=== PATIENT | female | born 1985 | race Caucasian/White ===

== ENCOUNTER 2021-03-21 00:41 | Inpatient (IN) ==
[2021-03-21 02:59] LABS: Appearance Urine Cloudy (Clear); Bacteria Urine Automated 1+ (Negative); Bilirubin Urine Negative (Negative); Blood Urine Negative (Negative); Color Urine Yellow; Epithelial Cell Urine Auto >30 /lpf (0-5); Glucose Urine UA Negative (Negative); Ketones Urine Negative (Negative); Leukocyte Esterase Urine 2+ (Negative); Nitrite Urine Negative (Negative); Protein Urine Negative (Negative); RBC Urine Automated 0-4 /hpf (0-4); Specific Gravity Urine 1.015 (1.000-1.030); Urobilinogen Urine Negative (Negative); pH Urine 7.5 (4.5-7.5)
[2021-03-21] MEDS ORDERED: ONDANSETRON INJ 2 MG/ML 2 ML VIAL IV STA (03:41)
[2021-03-21] MEDS ORDERED: HYDROmorphone INJ 1 MG/ML SYRINGE IV STA (03:41)
--- NOTE | 2021-03-21 04:19 | Emergency Department Note ---
History of Present Illness General Chief complaint: Infection Stated complaint: FEVER,SOB,COUGH Time Seen by Provider: 03/21/21 03:30 Source: patient Mode of arrival: ambulatory Limitations: no limitations History of Present Illness Maximum Pain Intensity: 10 This patient is a 36-year-old female who presents to the emergency department for evaluation of fevers and abdominal pain. 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 She had a GJ-tube placed in early February to receive feedings. She states that after discharge, she developed progressively worsening abdominal pain at home. She returned to [facility] in [place] and was found to have free air in her abdomen. She states that they elected to treat her with Rocephin and she stayed in the hospital for 9 days. She states that she had a central line placed during that appointment due to poor access. She reports that she has been having fevers for the past 2 days. She states that Tylenol does help to improve her fever. She is concerned about an infection in her central line. She has been having severe left upper quadrant abdominal pain. She takes oral Dilaudid at home but states this has not been helping her pain. Home Medications Medication Instructions Recorded Confirmed Type acetaminophen 500 mg tablet 500 mg PO Q8H PRN 03/21/21 03/21/21 History albuterol sulfate 90 mcg/actuation 1 inh INHALATION Q4H PRN 03/21/21 03/21/21 History aerosol inhaler (Ventolin HFA) apixaban 5 mg tablet (Eliquis) 5 mg PO BID 03/21/21 03/21/21 History budesonide-formoterol HFA 160 1 inh INHALATION DAILY 03/21/21 03/21/21 History mcg-4.5 mcg/actuation aerosol inhaler (Symbicort) clonidine HCl 0.1 mg tablet 0.1 mg PO TID PRN 03/21/21 03/21/21 History dextroamphetamine-amphetamine 20 20 mg PO BID 03/21/21 03/21/21 History mg tablet diltiazem HCl 120 mg 120 mg PO DAILY 03/21/21 03/21/21 History capsule,extended release 24 hr gabapentin 100 mg capsule 300 mg PO TID 03/21/21 03/21/21 History hydromorphone 2 mg tablet 2 mg PO Q2H PRN 03/21/21 03/21/21 History lansoprazole 30 mg capsule,delayed 30 mg PO DAILY 03/21/21 03/21/21 History release [id number] 1 cap PO QID 03/21/21 03/21/21 History 24,000-76,000-120,000 unit capsule,delayed rel (Creon) montelukast 10 mg tablet 10 mg PO DAILY 03/21/21 03/21/21 History ondansetron 4 mg disintegrating 4 mg PO Q6H PRN 03/21/21 03/21/21 History tablet promethazine 12.5 mg tablet 12.5 mg PO Q6H PRN 03/21/21 03/21/21 History tiotropium bromide 2.5 1 inh INHALATION DAILY 03/21/21 03/21/21 History mcg/actuation mist for inhalation (Spiriva Respimat) Allergies Allergy/AdvReac Type Severity Reaction Status Date / Time amlodipine [From Norvasc] AdvReac Unknown edema Unverified 03/21/21 08:08 Past Med/Surg History Medical History Asthma Chronic back pain Gastrostomy tube in place Hypokalemia Patient received potassium riders this admission. No pertinent family history Pancreatitis Smoker Surgical History (Updated 03/21/21 @ 21:37 by Mulugeta Haynes MD) H/O shoulder surgery H/O wrist surgery Social History Smoking Status: Current every day smoker Tobacco Type: Cigarettes Cigarettes Per Day: 12; Second Hand Exposure: No; Do You Dip or Chew Tobacco: No; Tobacco Cessation Education Requested by Patient: No Hx Alcohol Use: Yes Alcohol type: beer Hx Substance Use: Yes Last Used Substance: Unknown Communication Ability: Effective Beliefs That Will Affect Care: None Current Living Situation: Alone Other Information That Helps Us Care for You: No Feels Safe at Home: Yes Safety Concerns: Feels Safe At This Time Assistive Devices: Glasses Assistive Devices Comment: Tube feeds Review of Systems A total of 10 systems reviewed and were otherwise negative Physical Exam Vital Signs Vital Signs - 24 hr 03/21/21 07:30 03/21/21 07:35 03/21/21 08:30 Pulse Rate 120 H 117 H Pulse Rate [Apical] 122 H Pulse Rhythm [Apical] Regular Pulse Strength [Apical] Normal Respiratory Rate 17 18 17 Respiratory Effort / Characteristics Non-Labored Spontaneous Respiratory Depth Normal Respiratory Pattern Regular Blood Pressure 111/67 113/79 Blood Pressure [Right Arm] 111/67 Blood Pressure Mean 81 90 Blood Pressure Mean [Right Arm] 81 Blood Pressure Position [Right Arm] Lying Pulse Oximetry 97 97 98 Oxygen Delivery Method Room Air 03/21/21 09:30 Pulse Rate 112 H Pulse Rate [Apical] Pulse Rhythm [Apical] Pulse Strength [Apical] Respiratory Rate 24 Respiratory Effort / Characteristics Respiratory Depth Respiratory Pattern Blood Pressure 118/62 Blood Pressure [Right Arm] Blood Pressure Mean 80 Blood Pressure Mean [Right Arm] Blood Pressure Position [Right Arm] Pulse Oximetry 97 Oxygen Delivery Method VITALS: Vitals are noted on the nurse's note and reviewed by myself. Vital signs stable. GENERAL: This is a 36-year-old male, anxious appearing, pacing around the room. SKIN: There are no rashes. Central line in place right chest. HEAD: Normocephalic atraumatic. EARS: External auditory canals clear, tympanic membranes pearly amado without erythema or effusion bilaterally. EYES: Pupils equal round and reactive to light and accommodation. NOSE: Patent, turbinates without inflammation or discharge. MOUTH: Mucous membranes moist. Tonsils are not enlarged. Pharynx without erythema or exudate. NECK: Supple without nuchal rigidity. No lymphadenopathy. HEART: Regular rate and rhythm without murmurs gallops or rubs. LUNGS: Clear to auscultation bilaterally without wheezes, rales or rhonchi. No retractions or accessory muscle use. ABDOMEN: GJ tube in place in the left upper quadrant. Positive bowel sounds x 4. Moderate tenderness in the left upper quadrant and epigastric region of the abdomen. NEURO: Patient was alert and oriented to person place and time. Course Administered Medications Acetaminophen (Acetaminophen 500 Mg Tab) 500 mg PO Q8H PRN PRN Reason: Pain Stop: 04/20/21 14:24 Last Admin: 03/22/21 06:26 Dose: 500 mg Documented by: [id number] Admin: 03/21/21 15:49 Dose: 500 mg Documented by: [id number] Apixaban (Apixaban 5 Mg Tablet) 5 mg PO BID [facility] Stop: 04/20/21 20:59 Last Admin: 03/21/21 22:59 Dose: 5 mg Documented by: [id number] Diltiazem HCl (Diltiazem Hcl 120 Mg Capcr) 120 mg PO DAILY [facility] Stop: 04/20/21 13:54 Last Admin: 03/21/21 15:07 Dose: 120 mg Documented by: [id number] Fluticasone/Vilanterol (Fluticasone/Vilanterol 200/25mcg 14 Puffs/Inhaler) 1 puffs INH DAILY [facility]; Protocol Stop: 04/20/21 13:54 Last Admin: 03/21/21 15:07 Dose: Not Given Documented by: [id number] Gabapentin (Gabapentin 300 Mg Cap) 300 mg PO TID [facility] Stop: 04/20/21 13:59 Last Admin: 03/21/21 23:00 Dose: 300 mg Documented by: [id number] Admin: 03/21/21 15:12 Dose: 300 mg Documented by: [id number] Hydromorphone HCl (Hydromorphone Inj 0.5 Mg/0.5 Ml Syr) 0.5 mg IV Q4H PRN PRN Reason: Pain Stop: 04/04/21 09:39 Last Admin: 03/21/21 18:58 Dose: 0.5 mg Documented by: [id number] Admin: 03/21/21 15:05 Dose: 0.5 mg Documented by: [id number] Admin: 03/21/21 11:18 Dose: 0.5 mg Documented by: [id number] Hydromorphone HCl (Hydromorphone Hcl 2 Mg Tab) 2 mg PO Q2H PRN PRN Reason: Pain Stop: 04/04/21 13:54 Last Admin: 03/22/21 06:54 Dose: 2 mg Documented by: [id number] Admin: 03/22/21 02:27 Dose: 2 mg Documented by: [id number] Admin: 03/21/21 23:37 Dose: 2 mg Documented by: [id number] Admin: 03/21/21 21:11 Dose: 2 mg Documented by: [id number] Piperacillin Sod/Tazobactam (Sod 3.375 gm/ Dextrose) 115 mls @ 28.75 mls/hr IV Q8H [facility]; Protocol Stop: 03/31/21 13:59 Last Admin: 03/22/21 04:41 Dose: 28.8 mls/hr Documented by: [id number] Infusion: 03/21/21 20:40 Dose: 0 mls/hr Documented by: [id number] Admin: 03/21/21 15:49 Dose: 28.8 mls/hr Documented by: [id number] Vancomycin HCl 750 mg/ Sodium (Chloride) 265 mls @ 200 mls/hr IV Q8H [facility]; Protocol Stop: 03/28/21 05:59 Last Infusion: 03/22/21 06:00 Dose: 0 mls/hr Documented by: [id number] Admin: 03/22/21 04:38 Dose: 200 mls/hr Documented by: [id number] Admin: 03/21/21 15:39 Dose: Not Given Documented by: [id number] Magnesium Oxide (Magnesium Oxide 400 Mg Tab) 800 mg PEG BID [facility] Stop: 04/21/21 06:29 Last Admin: 03/22/21 06:54 Dose: 800 mg Documented by: [id number] Admin: 03/22/21 06:45 Dose: 800 mg Documented by: [id number] Miscellaneous (Melanie Dr 24,000/76,000/120,000 Cap~Order Awaiting Action) 1 ea N/A QS [facility] Stop: 04/20/21 15:59 Last Admin: 03/22/21 06:53 Dose: Not Given Documented by: [id number] Admin: 03/22/21 01:07 Dose: Not Given Documented by: [id number] Admin: 03/21/21 16:05 Dose: Not Given Documented by: [id number] Montelukast Sodium (Montelukast Sodium 10 Mg Tablet) 10 mg PO DAILY [facility] Stop: 04/20/21 13:54 Last Admin: 03/21/21 15:09 Dose: Not Given Documented by: [id number] Ondansetron HCl (Ondansetron Inj 2 Mg/Ml 2 Ml Vial) 4 mg IV Q6H PRN PRN Reason: Nausea Stop: 04/20/21 09:39 Last Admin: 03/21/21 18:58 Dose: 4 mg Documented by: [id number] Admin: 03/21/21 11:18 Dose: 4 mg Documented by: [id number] Pantoprazole Sodium (Pantoprazole 40 Mg Tab) 40 mg PO DAILY [facility]; Protocol Stop: 04/20/21 13:54 Last Admin: 03/21/21 15:10 Dose: 40 mg Documented by: [id number] Potassium Chloride (Potassium Chloride 20 Meq/15 Ml Udc) 40 meq PO ONE ONE Stop: 03/22/21 07:16 Last Admin: 03/22/21 06:47 Dose: 40 meq Documented by: [id number] Sterile Water (Tube Feeding Water Flush) 100 ml GT Q4H [facility] Stop: 04/20/21 13:59 Last Admin: 03/22/21 06:47 Dose: Not Given Documented by: [id number] Admin: 03/21/21 23:40 Dose: 100 ml Documented by: [id number] Admin: 03/21/21 22:36 Dose: Not Given Documented by: [id number] Admin: 03/21/21 14:00 Dose: 100 ml Documented by: [id number] Umeclidinium [place] (Umeclidinium [place] 62.5mcg/Blister 7 Puffs/Inhaler) 1 puffs INH DAILY [facility]; Protocol Stop: 04/20/21 13:54 Last Admin: 03/21/21 15:10 Dose: Not Given Documented by: [id number] Discontinued Medications Acetaminophen (Acetaminophen 1000 Mg/100 Ml Iv) Confirm Administered Dose 1,000 mg IV .STK-MED ONE Stop: 03/21/21 05:31 Last Admin: 03/21/21 05:42 Dose: Not Given Documented by: [id number] Hydromorphone HCl (Hydromorphone Inj 1 Mg/Ml Syringe) 1 mg IV NOW STA Stop: 03/21/21 03:42 Last Admin: 03/21/21 04:06 Dose: 1 mg Documented by: [id number] Hydromorphone HCl (Hydromorphone Inj 0.5 Mg/0.5 Ml Syr) 0.5 mg IV NOW STA Stop: 03/21/21 06:50 Last Admin: 03/21/21 07:23 Dose: 0.5 mg Documented by: [id number] Sodium Chloride (Nss 1000ml) 1,000 mls @ 999 mls/hr IV .Q1H1M ONE Stop: 03/21/21 06:14 Last Infusion: 03/21/21 06:45 Dose: 0 mls/hr Documented by: [id number] Admin: 03/21/21 05:37 Dose: 999 mls/hr Documented by: [id number] Potassium Chloride (K Trell / Wtr) 10 meq in 100 mls @ 100 mls/hr IV ONE ONE Stop: 03/21/21 06:13 Last Infusion: 03/21/21 07:44 Dose: 0 mls/hr Documented by: [id number] Admin: 03/21/21 06:23 Dose: 100 mls/hr Documented by: [id number] Acetaminophen (Ofirmev) 1,000 mg in 100 mls @ 400 mls/hr IV NOW STA Stop: 03/21/21 05:45 Last Infusion: 03/21/21 06:27 Dose: 0 mls/hr Documented by: [id number] Admin: 03/21/21 05:36 Dose: 400 mls/hr Documented by: [id number] Sodium Chloride (Nss 1000ml) 1,000 mls @ 999 mls/hr IV .Q1H1M ONE Stop: 03/21/21 06:31 Last Admin: 03/21/21 06:28 Dose: Not Given Documented by: [id number] Piperacillin Sod/Tazobactam Sod (Zosyn) 4.5 gm in 120 mls @ 240 mls/hr IV NOW ONE Stop: 03/21/21 06:02 Last Infusion: 03/21/21 07:23 Dose: 0 mls/hr Documented by: [id number] Admin: 03/21/21 06:24 Dose: 240 mls/hr Documented by: [id number] Vancomycin HCl 1,250 mg/ (Sodium Chloride) 525 mls @ 200 mls/hr IV NOW ONE Stop: 03/21/21 08:10 Last Infusion: 03/21/21 09:10 Dose: 0 mls/hr Documented by: [id number] Admin: 03/21/21 06:21 Dose: 200 mls/hr Documented by: [id number] Lactated Ringer's (Lr) 1,000 mls @ 100 mls/hr IV .Q10H [facility] Stop: 04/20/21 07:59 Last Infusion: 03/21/21 16:45 Dose: 0 mls/hr Documented by: [id number] Admin: 03/21/21 09:56 Dose: 100 mls/hr Documented by: [id number] Thiamine HCl 200 mg/ Sodium (Chloride) 52 mls @ 208 mls/hr IV NOW ONE Stop: 03/21/21 18:14 Last Admin: 03/22/21 04:09 Dose: Not Given Documented by: [id number] Ioversol (Optiray 320 100ml) 94 ml IV ONCE ONE Stop: 03/21/21 06:07 Last Admin: 03/21/21 06:06 Dose: 94 ml Documented by: [id number] Lorazepam (Lorazepam 1 Mg Tab) 1 mg PO ONE PRN; Protocol PRN Reason: EtoH Withdrawal AWSS 6-10 Last Admin: 03/22/21 02:27 Dose: 1 mg Documented by: [id number] Lorazepam (Lorazepam 1 Mg Tab) 2 mg PO NOW STA Stop: 03/22/21 05:52 Last Admin: 03/22/21 07:10 Dose: Not Given Documented by: [id number] Lorazepam (Lorazepam 2 Mg/Ml Vial (Im Use)) 2 mg IM NOW STA Stop: 03/22/21 06:11 Last Admin: 03/22/21 06:17 Dose: 2 mg Documented by: [id number] Ondansetron HCl (Ondansetron Inj 2 Mg/Ml 2 Ml Vial) 4 mg IV NOW STA Stop: 03/21/21 03:42 Last Admin: 03/21/21 04:06 Dose: 4 mg Documented by: [id number] Potassium Chloride (Potassium Chloride Crtab 20 Meq Tabcr) 40 meq PO NOW STA Stop: 03/21/21 07:55 Last Admin: 03/21/21 10:00 Dose: Not Given Documented by: [id number] Potassium Chloride (Potassium Chloride 20 Meq/15 Ml Udc) 40 meq GT NOW STA Stop: 03/21/21 10:36 Last Admin: 03/21/21 11:52 Dose: 40 meq Documented by: [id number] Potassium Chloride (Potassium Chloride 20 Meq/15 Ml Udc) 40 meq PO ONE ONE Stop: 03/22/21 06:16 Last Admin: 03/22/21 06:45 Dose: 40 meq Documented by: [id number] Medical Decision Making Differential Diagnosis Viral syndrome, otitis, pharyngitis, pneumonia, influenza, meningitis, urinary tract infection, sepsis, bacteremia, as well as other pathologies. Home Medications Current Medication List: was personally reviewed by me Laboratory Data Attestation: I reviewed the patient's lab results. Result diagrams: 03/22/21 04:29 03/22/21 04:29 Lab Results 03/21/21 03/21/21 03/21/21 Range/Units 02:30 04:20 04:20 WBC Cancelled RBC Cancelled Hgb Cancelled Hct Cancelled MCV Cancelled MCH Cancelled MCHC Cancelled RDW Std Deviation Cancelled RDW Coeff of Paulina Cancelled Plt Count Cancelled MPV Cancelled Immature Gran % (Auto) Cancelled Neut % (Auto) Cancelled Lymph % (Auto) Cancelled [place] % (Auto) Cancelled Eos % (Auto) Cancelled Baso % (Auto) Cancelled Neut # (Auto) Cancelled Lymph # (Auto) Cancelled [place] # (Auto) Cancelled Eos # (Auto) Cancelled Baso # (Auto) Cancelled Immature Gran # (Auto) Cancelled Absolute Nucleated RBC Cancelled Nucleated RBC % (auto) Cancelled Neutrophils % (Manual) Cancelled Band Neutrophils % Cancelled Lymphocytes % (Manual) Cancelled Prolymphocyte % Cancelled Reactive Lymphs % (Man) Cancelled Monocytes % (Manual) Cancelled Eosinophils % (Manual) Cancelled Basophils % (Manual) Cancelled Metamyelocytes % (Man) Cancelled Myelocytes % (Man) Cancelled Promyelocytes % (Man) Cancelled Blast Cells % (Manual) Cancelled Plasma Cell % (Manual) Cancelled Other Cells % Cancelled Nucleated RBC % Cancelled Neutrophils # (Manual) Cancelled Band Neutrophils # Cancelled Total Absolute Neuts Cancelled Lymphocytes # (Manual) Cancelled Prolymphocyte # Cancelled Reactive Lymphs # Cancelled Total Abs Lymphocytes Cancelled Monocytes # (Manual) Cancelled Eosinophils # (Manual) Cancelled Basophils # (Manual) Cancelled Metamyelocytes # (Man) Cancelled Myelocytes # (Manual) Cancelled Promyelocytes # (Man) Cancelled Blast Cells # (Man) Cancelled Plasma Cell # (Manual) Cancelled Other Cells # Cancelled Nucleated RBCs # (Man) Cancelled Hypersegmented Neuts Cancelled Hyposegmented Neuts Cancelled Hypogranular Neuts Cancelled Large Granular Lymphs Cancelled # Lrg Granular Lymphs Cancelled Hairy Cells Cancelled Smudge Cells Cancelled Toxic Granulation Cancelled Toxic Vacuolation Cancelled Dohle Bodies Cancelled Arnold Rods Cancelled Platelet Estimate Cancelled Hypogranular Platelets Cancelled Clumped Platelets Cancelled Giant Platelets Cancelled Platelet Satelliting Cancelled RBC Morphology Cancelled Polychromasia Cancelled Hypochromasia Cancelled Poikilocytosis Cancelled Basophilic Stippling Cancelled Anisocytosis Cancelled Microcytosis Cancelled Macrocytosis Cancelled Spherocytes Cancelled Pappenheimer Bodies Cancelled Sickle Cells Cancelled Target Cells Cancelled Tear Drop Cells Cancelled Ovalocytes Cancelled Stomatocytes Cancelled [place] Bodies Cancelled Echinocytes Cancelled Acanthocytes (Spur) Cancelled Rouleaux Cancelled RBC Agglutinates Cancelled Schistocytes Cancelled RBC Morph Comment Cancelled Sezary Cell Cancelled Sodium 130 L (136-145) mmol/L Potassium 2.7 L (3.5-5.1) mmol/L Chloride 89 L (98-107) mmol/L Carbon Dioxide 32 (21-32) mmol/L Anion Gap 9.0 (3-11) BUN 5 L (7-18) mg/dl Creatinine 0.61 (0.6-1.2) mg/dl Est Cr Clr Drug Dosing 110.3 ml/min Est GFR ( Amer) 136.1 ml/min Est GFR (Non-Af Amer) 117.5 ml/min BUN/Creatinine Ratio 8.8 L (10-20) Glucose 119 H (70-99) mg/dl Lactate (0.4-2.0) mmol/L Calcium 8.5 (8.5-10.1) mg/dl Total Bilirubin 0.4 (0.2-1) mg/dl AST 88 H (15-37) U/L ALT 45 (12-78) U/L Alkaline Phosphatase 129 H (45-117) U/L Total Protein 7.7 (6.4-8.2) gm/dl Albumin 2.5 L (3.4-5.0) gm/dl Globulin 5.2 H (2.5-4.0) gm/dl Albumin/Globulin Ratio 0.5 L (0.9-2) Lipase 45 L (73-393) U/L HCG, Qual (Negative) Urine Color Yellow Urine Appearance Cloudy A (Clear) Urine pH 7.5 (4.5-7.5) Ur Specific Leonard 1.015 (1.000-1.030) Urine Protein Negative (Negative) Urine Glucose (UA) Negative (Negative) Urine Ketones Negative (Negative) Urine Blood Negative (Negative) Urine Nitrite Negative (Negative) Urine Bilirubin Negative (Negative) Urine Urobilinogen Negative (Negative) Ur Leukocyte Esterase 2+ H (Negative) Urine WBC (Auto) 10-30 H (0-5) /hpf Urine RBC (Auto) 0-4 (0-4) /hpf U Hyaline Cast (Auto) 5-10 H (0-5) /lpf U Epithel Cells (Auto) >30 H (0-5) /lpf Urine Bacteria (Auto) 1+ H (Negative) SARS-CoV-2 (PCR) (Negative) Influenza Type A (PCR) (Neg) Influenza Type B (PCR) (Neg) RSV (RT-PCR) (Neg) 03/21/21 03/21/21 03/21/21 Range/Units 04:20 04:20 04:33 WBC RBC Hgb Hct MCV MCH MCHC RDW Std Deviation RDW Coeff of Paulina Plt Count MPV Immature Gran % (Auto) Neut % (Auto) Lymph % (Auto) [place] % (Auto) Eos % (Auto) Baso % (Auto) Neut # (Auto) Lymph # (Auto) [place] # (Auto) Eos # (Auto) Baso # (Auto) Immature Gran # (Auto) Absolute Nucleated RBC Nucleated RBC % (auto) Neutrophils % (Manual) Band Neutrophils % Lymphocytes % (Manual) Prolymphocyte % Reactive Lymphs % (Man) Monocytes % (Manual) Eosinophils % (Manual) Basophils % (Manual) Metamyelocytes % (Man) Myelocytes % (Man) Promyelocytes % (Man) Blast Cells % (Manual) Plasma Cell % (Manual) Other Cells % Nucleated RBC % Neutrophils # (Manual) Band Neutrophils # Total Absolute Neuts Lymphocytes # (Manual) Prolymphocyte # Reactive Lymphs # Total Abs Lymphocytes Monocytes # (Manual) Eosinophils # (Manual) Basophils # (Manual) Metamyelocytes # (Man) Myelocytes # (Manual) Promyelocytes # (Man) Blast Cells # (Man) Plasma Cell # (Manual) Other Cells # Nucleated RBCs # (Man) Hypersegmented Neuts Hyposegmented Neuts Hypogranular Neuts Large Granular Lymphs # Lrg Granular Lymphs Hairy Cells Smudge Cells Toxic Granulation Toxic Vacuolation Dohle Bodies Arnold Rods Platelet Estimate Hypogranular Platelets Clumped Platelets Giant Platelets Platelet Satelliting RBC Morphology Polychromasia Hypochromasia Poikilocytosis Basophilic Stippling Anisocytosis Microcytosis Macrocytosis Spherocytes Pappenheimer Bodies Sickle Cells Target Cells Tear Drop Cells Ovalocytes Stomatocytes [place] Bodies Echinocytes Acanthocytes (Spur) Rouleaux RBC Agglutinates Schistocytes RBC Morph Comment Sezary Cell Sodium (136-145) mmol/L Potassium (3.5-5.1) mmol/L Chloride (98-107) mmol/L Carbon Dioxide (21-32) mmol/L Anion Gap (3-11) BUN (7-18) mg/dl Creatinine (0.6-1.2) mg/dl Est Cr Clr Drug Dosing ml/min Est GFR ( Amer) ml/min Est GFR (Non-Af Amer) ml/min BUN/Creatinine Ratio (10-20) Glucose (70-99) mg/dl Lactate 3.4 H* (0.4-2.0) mmol/L Calcium (8.5-10.1) mg/dl Total Bilirubin (0.2-1) mg/dl AST (15-37) U/L ALT (12-78) U/L Alkaline Phosphatase (45-117) U/L Total Protein (6.4-8.2) gm/dl Albumin (3.4-5.0) gm/dl Globulin (2.5-4.0) gm/dl Albumin/Globulin Ratio (0.9-2) Lipase (73-393) U/L HCG, Qual Negative (Negative) Urine Color Urine Appearance (Clear) Urine pH (4.5-7.5) Ur Specific Leonard (1.000-1.030) Urine Protein (Negative) Urine Glucose (UA) (Negative) Urine Ketones (Negative) Urine Blood (Negative) Urine Nitrite (Negative) Urine Bilirubin (Negative) Urine Urobilinogen (Negative) Ur Leukocyte Esterase (Negative) Urine WBC (Auto) (0-5) /hpf Urine RBC (Auto) (0-4) /hpf U Hyaline Cast (Auto) (0-5) /lpf U Epithel Cells (Auto) (0-5) /lpf Urine Bacteria (Auto) (Negative) SARS-CoV-2 (PCR) NEGATIVE (Negative) Influenza Type A (PCR) Negative (Neg) Influenza Type B (PCR) Negative (Neg) RSV (RT-PCR) Negative (Neg) 03/21/21 03/21/21 Range/Units 05:34 06:42 WBC 7.03 RBC 4.45 Hgb 15.2 Hct 42.5 MCV 95.5 MCH 34.2 H MCHC 35.8 RDW Std Deviation 50.2 H RDW Coeff of Paulina 14.2 Plt Count 378 MPV 9.4 Immature Gran % (Auto) 0.3 Neut % (Auto) 80.0 Lymph % (Auto) 14.5 [place] % (Auto) 3.7 Eos % (Auto) 0.6 Baso % (Auto) 0.9 Neut # (Auto) 5.63 Lymph # (Auto) 1.02 L [place] # (Auto) 0.26 Eos # (Auto) 0.04 Baso # (Auto) 0.06 Immature Gran # (Auto) 0.02 Absolute Nucleated RBC Nucleated RBC % (auto) Neutrophils % (Manual) Band Neutrophils % Lymphocytes % (Manual) Prolymphocyte % Reactive Lymphs % (Man) Monocytes % (Manual) Eosinophils % (Manual) Basophils % (Manual) Metamyelocytes % (Man) Myelocytes % (Man) Promyelocytes % (Man) Blast Cells % (Manual) Plasma Cell % (Manual) Other Cells % Nucleated RBC % Neutrophils # (Manual) Band Neutrophils # Total Absolute Neuts Lymphocytes # (Manual) Prolymphocyte # Reactive Lymphs # Total Abs Lymphocytes Monocytes # (Manual) Eosinophils # (Manual) Basophils # (Manual) Metamyelocytes # (Man) Myelocytes # (Manual) Promyelocytes # (Man) Blast Cells # (Man) Plasma Cell # (Manual) Other Cells # Nucleated RBCs # (Man) Hypersegmented Neuts Hyposegmented Neuts Hypogranular Neuts Large Granular Lymphs # Lrg Granular Lymphs Hairy Cells Smudge Cells Toxic Granulation Toxic Vacuolation Dohle Bodies Arnold Rods Platelet Estimate Hypogranular Platelets Clumped Platelets Giant Platelets Platelet Satelliting RBC Morphology Polychromasia Hypochromasia Poikilocytosis Basophilic Stippling Anisocytosis Microcytosis Macrocytosis Spherocytes Pappenheimer Bodies Sickle Cells Target Cells Tear Drop Cells Ovalocytes Stomatocytes [place] Bodies Echinocytes Acanthocytes (Spur) Rouleaux RBC Agglutinates Schistocytes RBC Morph Comment Sezary Cell Sodium (136-145) mmol/L Potassium (3.5-5.1) mmol/L Chloride (98-107) mmol/L Carbon Dioxide (21-32) mmol/L Anion Gap (3-11) BUN (7-18) mg/dl Creatinine (0.6-1.2) mg/dl Est Cr Clr Drug Dosing ml/min Est GFR ( Amer) ml/min Est GFR (Non-Af Amer) ml/min BUN/Creatinine Ratio (10-20) Glucose (70-99) mg/dl Lactate 2.6 H* (0.4-2.0) mmol/L Calcium (8.5-10.1) mg/dl Total Bilirubin (0.2-1) mg/dl AST (15-37) U/L ALT (12-78) U/L Alkaline Phosphatase (45-117) U/L Total Protein (6.4-8.2) gm/dl Albumin (3.4-5.0) gm/dl Globulin (2.5-4.0) gm/dl Albumin/Globulin Ratio (0.9-2) Lipase (73-393) U/L HCG, Qual (Negative) Urine Color Urine Appearance (Clear) Urine pH (4.5-7.5) Ur Specific Leonard (1.000-1.030) Urine Protein (Negative) Urine Glucose (UA) (Negative) Urine Ketones (Negative) Urine Blood (Negative) Urine Nitrite (Negative) Urine Bilirubin (Negative) Urine Urobilinogen (Negative) Ur Leukocyte Esterase (Negative) Urine WBC (Auto) (0-5) /hpf Urine RBC (Auto) (0-4) /hpf U Hyaline Cast (Auto) (0-5) /lpf U Epithel Cells (Auto) (0-5) /lpf Urine Bacteria (Auto) (Negative) SARS-CoV-2 (PCR) (Negative) Influenza Type A (PCR) (Neg) Influenza Type B (PCR) (Neg) RSV (RT-PCR) (Neg) Imaging Data Attestation: I personally reviewed and interpreted this imaging study as follows: Radiologist's Impression: SINGLE VIEW CHEST CLINICAL HISTORY: Fever. FINDINGS: An AP, portable, upright chest radiograph is obtained. No prior studies are available for comparison at the time of dictation. A right-sided central venous catheter is in place. The cardiomediastinal silhouette is unremar kable. The lungs and pleural spaces are clear noting mild bibasilar atelectasis. No pneumothorax is seen. The skeletal structures appear osteopenic. Postoperative change is partially visualized in the right proximal femur. Intraperitoneal free air is seen below the diaphragm. A gastrostomy tube is n oted in the left upper quadrant. Cholecystectomy clips are noted in the right upper quadrant. IMPRESSION: 1. No active disease in the chest. 2. Intraperitoneal free air is seen below the diaphragm. ABDOMEN AND PELVIS CT WITH IV CONTRAST CT DOSE: 283.29 mGy.cm HISTORY: Left upper quadrant pain, recent g tube placement, fevers TECHNIQUE: Multiaxial CT images of the abdomen and pelvis were performed following the use of intravenous contrast. A dose lowering technique was utilized adhering to the principles of ALARA. COMPARISON STUDY: Abdomen and pelvis CT 12/24/2020. FINDINGS: The lung bases are clear. No fractures within the visualized osseous structures. There is a tip of a catheter noted within the right atrium. Cholecystectomy. The liver, spleen, and adrenal glands are unremarkable. There are few subcentimeter bilateral renal hypodense lesions. These are technically too small to characterize but remain stable and likely represent cysts. No hydronephrosis. No retroperitoneal lymphadenopathy. Normal caliber abdominal aorta. Mild bladder wall thickening. The uterus and bilateral adnexa are unremarkable. No bowel wall thickening or obstruction. Normal appendix. There is a small to moderate amount of pneumoperitoneum. There is been interval placement of a gastrostomy tube with the bulb in good position. The tube is looped within the stomach and terminates at the duodenal bulb. Multiple punctate calcifications within the pancreas are again noted. No evidence for acute pancreatitis. IMPRESSION: 1. Interval placement of a percutaneous gastrostomy tube. The tube is looped within the stomach and terminates at the duodenal bulb. 2. Small to moderate amount of pneumoperitoneum. This could be due to the recent postoperative change. Follow-up chest x-ray can be performed to ensure resolution. 3. Mild bladder wall thickening. Recommend correlate with urinalysis. 4. Cholecystectomy. 5. Chronic pancreatitis. No evidence for acute pancreatitis. MDM Narrative Continuous director of cardiac cath lab: Order was placed for continuous director of cardiac cath lab. Patient was placed on the director of cardiac cath lab. Patient was noted to be in sinus tachycardia at an initial rate of 130 bpm. The patient is a 36-year-old female who presents today complaining of fever/infection. Patient recently had a GJ tube placed and was subsequently admitted for free air in her abdomen. She states that she was given antibiotics at that time and a central line was placed due to poor access. Patient reportedly was hospitalized for 9 days, although [facility] [place] do not reflect this. Patient is complaining of abdominal pain which seems to be chronic for her, but does have a fever. Patient arrives tachycardic and febrile. Lactate was elevated. No evidence of UTI or pneumonia. Abdominal CT did show pneumoperitoneum which could be consistent with postoperative changes. Infection may be due to the patient's central line. Blood cultures were drawn and pending. 2 L of normal saline were ordered and given. Patient was started on broad-spectrum antibiotics and [facility] to evaluate the patient for further care. Impression & Plan Sepsis, Epigastric abdominal pain Discharge Plan Visit Data Chief Complaint: Infection Stated Complaint: FEVER,SOB,COUGH ED Provider: Kallie Wellington ED Midlevel Provider: Katina Sheikh Discharge Problem: Sepsis, Epigastric abdominal pain Patient Disposition: Admitted As Inpatient Discharge Instructions Interventions: ED Discharge Assessment Last Done: 03/21/21 13:53
[2021-03-21 04:51] LABS: Albumin Level 2.5 gm/dl (3.4-5.0); BUN Creatinine Ratio 8.8 (10-20); Calcium 8.5 mg/dl (8.5-10.1); Creatinine Clr Calc Pharmacy 110.3 ml/min; Est GFR (African American) 136.1 ml/min; Est GFR (Non-African American) 117.5 ml/min; Potassium 2.7 mmol/L (3.5-5.1)
[2021-03-21 04:53] LABS: Albumin Globulin Ratio 0.5 (0.9-2); Bilirubin,Total 0.4 mg/dl (0.2-1); Globulin 5.2 gm/dl (2.5-4.0); Total Protein 7.7 gm/dl (6.4-8.2)
[2021-03-21 04:58] LABS: Pregnancy Test, Serum Negative (Negative)
[2021-03-21] MEDS ORDERED: POTASSIUM CHLORIDE / WTR 10 MEQ/100 ML PLCT IV ONE (05:14)
[2021-03-21] MEDS ORDERED: SODIUM CHLORIDE 0.9% 1000ML 1,000 ML IV ONE ×2 (05:14→05:31)
[2021-03-21] MEDS ORDERED: ACETAMINOPHEN 1000 MG/100 ML IV IV ONE (05:30)
[2021-03-21] MEDS ORDERED: ACETAMINOPHEN 1,000 MG/100 ML VIAL IV STA (05:31)
[2021-03-21] MEDS ORDERED: VANCOMYCIN CONSULT ACTIVE PRN ×2 (05:33→13:55)
[2021-03-21] MEDS ORDERED: PIPERACILL/TAZOBAC CONSULT ACTIVE PRN ×2 (05:33→13:55)
[2021-03-21] MEDS ORDERED: VANCOMYCIN HCL 1,250 MG in SODIUM CHLORIDE 0.9% 500 ML IV ONE (05:33)
[2021-03-21] MEDS ORDERED: PIPERACILLIN/TAZOBACTAM 4.5 GM/120 ML BAG IV ONE (05:33)
[2021-03-21 05:36] LABS: Influenza A virus by PCR Negative (Neg); Influenza B virus by PCR Negative (Neg); RSV by PCR Negative (Neg); SARS CoV2 RNA(COVID-19) InHosp NEGATIVE (Negative)
[2021-03-21 05:54] LABS: Basophils # (auto) 0.06 K/uL (0-0.2); Basophils % (auto) 0.9 %; Eosinophils # (auto) 0.04 K/uL (0-0.5); Eosinophils % (auto) 0.6 %; Hematocrit (blood only) 42.5 % (37-47); Hemoglobin 15.2 g/dL (12.0-16.0); Immature Granulocytes # (auto) 0.02 K/uL (0.00-0.02); Immature Granulocytes % (auto) 0.3 %; Lymphocytes # (auto) 1.02 K/uL (1.2-3.4); Lymphocytes % (auto) 14.5 %; Mean Corpuscular Hemoglobin 34.2 pg (25-34); Mean Corpuscular Hgb Conc 35.8 g/dL (32-36); Mean Corpuscular Volume 95.5 fL (80-100); Mean Platelet Volume 9.4 fL (7.4-10.4); Monocytes # (auto) 0.26 K/uL (0.11-0.59); Monocytes % (auto) 3.7 %; Neutrophils # (auto) 5.63 K/uL (1.4-6.5); Platelet Count 378 K/uL (130-400); RDW Coefficient of Variation 14.2 % (11.5-14.5); RDW Standard Deviation 50.2 fL (36.4-46.3); Red Blood Count 4.45 M/uL (4.2-5.4); White Blood Count 7.03 K/uL (4.8-10.8)
[2021-03-21] MEDS ORDERED: OPTIRAY 320 100ml IV ONE (06:06)
[2021-03-21] MEDS ORDERED: HYDROmorphone INJ 0.5 MG/0.5 ML SYR IV STA (06:49)
--- NOTE | 2021-03-21 07:18 | CT Scan Report ---
ABDOMEN AND PELVIS CT WITH IV CONTRAST CT DOSE: 283.29 mGy.cm HISTORY: Left upper quadrant pain, recent g tube placement, fevers TECHNIQUE: Multiaxial CT images of the abdomen and pelvis were performed following the use of intrave nous contrast. A dose lowering technique was utilized adhering to the principles of ALARA. COMPARISON STUDY: Abdomen and pelvis CT 12/24/2020. FINDINGS: The lung bases are clear. No fractures within the visualized osseous structures. There is a tip of a catheter noted within the right atrium. Cholecystectomy. The liver, spleen, and adrenal gla nds are unremarkable. There are few subcentimeter bilateral renal hypodense lesions. These are techni lori too small to characterize but remain stable and likely represent cysts. No hydronephrosis. No r etroperitoneal lymphadenopathy. Normal caliber abdominal aorta. Mild bladder wall thickening. The lower elwha huma and bilateral adnexa are unremarkable. No bowel wall thickening or obstruction. Normal appendix. There is a small to moderate amount of pneumoperitoneum. There is been interval placement of a gastro stomy tube with the bulb in good position. The tube is looped within the stomach and terminates at th e duodenal bulb. Multiple punctate calcifications within the pancreas are again noted. No evidence fo r acute pancreatitis. IMPRESSION: 1. Interval placement of a percutaneous gastrostomy tube. The tube is looped within the stomach and t erminates at the duodenal bulb. 2. Small to moderate amount of pneumoperitoneum. This could be due to the recent postoperative change . Follow-up chest x-ray can be performed to ensure resolution. 3. Mild bladder wall thickening. Recommend correlate with urinalysis. 4. Cholecystectomy. 5. Chronic pancreatitis. No evidence for acute pancreatitis. ACT 112: Negative or not required by law. Electronically signed by: Kei Espinoza M.D. 03/21/2021 8:58 AM
--- NOTE | 2021-03-21 07:20 | XRay Report ---
SINGLE VIEW CHEST CLINICAL HISTORY: Fever. FINDINGS: An AP, portable, upright chest radiograph is obtained. No prior studies are available for c omparison at the time of dictation. A right-sided central venous catheter is in place. The cardiomedi astinal silhouette is unremarkable. The lungs and pleural spaces are clear noting mild bibasilar atel ectasis. No pneumothorax is seen. The skeletal structures appear osteopenic. Postoperative change is partially visualized in the right proximal femur. Intraperitoneal free air is seen below the diaphrag m. A gastrostomy tube is noted in the left upper quadrant. Cholecystectomy clips are noted in the rig ht upper quadrant. IMPRESSION: 1. No active disease in the chest. 2. Intraperitoneal free air is seen below the diaphragm. ACT 112: Negative or not required by law. Electronically signed by: Jc Ta M.D. 03/21/2021 7:18 AM
--- NOTE | 2021-03-21 08:53 | History & Physical Report ---
Date of Service March 21, 2021 Assessment & Plan (1) Sepsis: Plan: Patient technically meets sepsis criteria with tachycardia, fever, elevated lactate - Source - CVL, abdominal, urine - CVL infection- Obtain PIV- , ECHO - continue Zosyn and Vancomycin- await blood cultures - CVL cuffed subclavian- will ask vascular or GS to remove tunneled line. - No murmurs on exam - Abdominal with chronic pancreatitis and pneumoperitoneum which is likely giving her her abdominal discomfort- Surgical consult to review - Urine likely contaminated - but with bladder wall thickening noted on CT scan- continue Vancomycin and Zosyn - CRP and PCT pending - Lactate downtrended following 2L crystalloid- continue with LR at 100ml/hr overnight (2) Pancreatitis: Plan: Chronic now with GJ tube in place - Patient gives most of her medications through G tube - Drains her tube every couple of days- this is normally green/yellow bile - GJ tube with mild erythema no other drainage - Lipase normal (3) Gastrostomy tube in place: Plan: Placed for chronic pancreatitis- Genetic malformation per the patient - Previously followed with [facility] Gastro- consult placed - Enteral feedings at home with Jevity 1.5 5 cans per day - Free water flush 100ml every 4 hours - can have clears (4) Smoker: Plan: 1.5 ppd day smoking cessation (5) Chronic back pain: Plan: Patient with history back to 2007 for facet syndrome, was on chronic narcotics at that time - patient states that she has gotten injections in the past and is no longer on the fentanyl patches or OPAP (6) Asthma: Plan: Chronic persistent - Uses her KARIS 2-3 times per day, no night time awakenings - Continue KARIS, Symbicort, and Spiriva (7) DVT prophylaxis: Plan: Patient reports LUE DVT following Midline placment in January when she was admitted for COVID - She was placed on Eliquis for this UE DVT - Will ultrasound this DVT evaluate for resolution/propagation - Continue Eliquis if no surgical indication History of Present Illness Primary Care Provider: NO PCP 36 YOF with past medical history of: ORIF right wrist and right shoulder, chronic back pain, LUE DVT February 07 with midline IV catheter placement (on Eliquis), COVID, chronic pancreatitis s/p GJ tube placement at [facility], Right SCL Central line (Placed at [facility]- remains in place- she performs dressing changes on it every 3 days, HTN, Asthma moderate/persistent. Patient comes to the EMD today for 2 day history of fevers, she checked her temperature last night and noted it to be 104.6 with rigors and chills. She came to the [facility] today and noted to be tachycardic and febrile to 39.2. Patient had GJ tube placed at the beginning of February for her pancreatitis hx. She states she went home and had abdominal pain and fevers at that time, went back to [place] where she was admitted to rule out abdominal pathology. She had a Right SCL CVL placed for her continued admissions and was placed on Rocephin for prophylaxis, Patient then states she was discharged with CVL in place, no further antibiotics, but did have Central line dressing changes and supplies delivered. She had routine labs performed noted for hyponatremia, hypokalemia, hypochloremia, and elevated Lactate to 3.4. She had blood cultures drawn from her central line and PIV. She also had CT scan of her abdomen performed that continues to reveal chronic pancreatitis and pneumoperitoneum from likely placement of her GJ tube. She was started on Vancomycin and Zosyn. She technically meets sepsis criteria- with sources to be CVL, abdomen, UTI, will follow up with CRP and PCT for biomarkers. Will obtain PIV and remove central line, she has no murmur on exam. Await blood and urine cultures. Patient is not vaccinated and had COVID in February 07. Patient test on admission is: NEGATIVE Allergies Allergy/AdvReac Type Severity Reaction Status Date / Time amlodipine [From [facility]] AdvReac Unknown edema Unverified 03/21/21 08:08 Home Medications Medication Instructions Recorded Confirmed Type acetaminophen 500 mg tablet 500 mg PO Q8H PRN 03/21/21 03/21/21 History albuterol sulfate 90 mcg/actuation 1 inh INHALATION Q4H PRN 03/21/21 03/21/21 History aerosol inhaler (Ventolin HFA) apixaban 5 mg tablet (Eliquis) 5 mg PO BID 03/21/21 03/21/21 History budesonide-formoterol HFA 160 1 inh INHALATION DAILY 03/21/21 03/21/21 History mcg-4.5 mcg/actuation aerosol inhaler (Symbicort) clonidine HCl 0.1 mg tablet 0.1 mg PO TID PRN 03/21/21 03/21/21 History dextroamphetamine-amphetamine 20 20 mg PO BID 03/21/21 03/21/21 History mg tablet diltiazem HCl 120 mg 120 mg PO DAILY 03/21/21 03/21/21 History capsule,extended release 24 hr gabapentin 100 mg capsule 300 mg PO TID 03/21/21 03/21/21 History hydromorphone 2 mg tablet 2 mg PO Q2H PRN 03/21/21 03/21/21 History lansoprazole 30 mg capsule,delayed 30 mg PO DAILY 03/21/21 03/21/21 History release fepbmm-owlzioxu-gymndlk 1 cap PO QID 03/21/21 03/21/21 History 24,000-76,000-120,000 unit capsule,delayed rel (Creon) montelukast 10 mg tablet 10 mg PO DAILY 03/21/21 03/21/21 History ondansetron 4 mg disintegrating 4 mg PO Q6H PRN 03/21/21 03/21/21 History tablet promethazine 12.5 mg tablet 12.5 mg PO Q6H PRN 03/21/21 03/21/21 History tiotropium bromide 2.5 1 inh INHALATION DAILY 03/21/21 03/21/21 History mcg/actuation mist for inhalation (Spiriva Respimat) Past Med/Surg History Medical History Asthma Chronic back pain Gastrostomy tube in place No pertinent family history Pancreatitis Smoker Surgical History No pertinent past surgical history Social History Smoking Status: Never smoker Tobacco Type: Cigarettes Feels Safe at Home: Yes Review of Systems Review of Systems: REVIEW OF SYSTEMS: Constitutional: (+) fever, sweats or chills Eyes: No diplopia, no worsening or blurred vision ENT: normal hearing, no trouble swallowing Respiratory: No cough, sputum, dyspnea at rest or on exertion Cardiovascular: No chest pain, tightness or palpitations Abdomen: (+) pain, nausea, vomiting, NO diarrhea or constipation Musculoskeletal: (+) back joint pain, calf pain, swelling Neurologic: No weakness, numbness/tingling, or balance problems Psychiatric: No anxiety or depression Skin: No rash or itch Physical Exam Physical Exam: PHYSICAL EXAM: General: awake, alert, no apparent distress Head: Normocephalic, atraumatic ENT: PERRL, EOMI, no pharyngeal exudate, mucous membranes moist Neuro: AAO x 3, speech clear and appropriate, strength intact bilaterally 5/5, sensation intact and equal all extremities and dermatomes, no pronator drift Chest: equal rise and fall of the chest, no accessory muscle use, no heaves or thrills, Clear to auscultation, on room air, Cardiac: Regular rate and rhythm, telemetry reviewed, skin warm dry, cap refill <3 seconds, peripheral pulses +2 no JVD, no murmur, no edema GI: NABS x 4 quadrants, soft, tender to palpation left upper and lower quadrants with guarding, no rebound, palpable crepitus : Spontaneously voiding, no pain, no suprapubic pain Extremities: Normal inspection, no peripheral edema or erythema, calfs nontender to palpation Psych: Normal mood and affect Skin: no rash or erythema Results & Data Results & Data ([facility]) Vital Signs (Past 12 Hours) Vital Signs Temp Pulse Pulse Resp BP BP Pulse Ox 03/21/21 07:35 122 H 18 111/67 97 03/21/21 06:45 128 H 18 121/71 97 03/21/21 05:30 39.2 C H 137 H 21 122/98 100 03/21/21 05:24 140 H 98 03/21/21 03:14 130 H 14 125/87 97 03/21/21 00:51 36.8 C 140 H 18 121/83 94 Laboratory Results Abnormal lab results 03/21/21 03/21/21 03/21/21 Range/Units 02:30 04:20 04:20 MCH (25-34) pg RDW Std Deviation (36.4-46.3) fL Lymph # (Auto) (1.2-3.4) K/uL Sodium 130 L (136-145) mmol/L Potassium 2.7 L (3.5-5.1) mmol/L Chloride 89 L (98-107) mmol/L BUN 5 L (7-18) mg/dl BUN/Creatinine Ratio 8.8 L (10-20) Glucose 119 H (70-99) mg/dl Lactate 3.4 H* (0.4-2.0) mmol/L AST 88 H (15-37) U/L Alkaline Phosphatase 129 H (45-117) U/L Albumin 2.5 L (3.4-5.0) gm/dl Globulin 5.2 H (2.5-4.0) gm/dl Albumin/Globulin Ratio 0.5 L (0.9-2) Lipase 45 L (73-393) U/L Urine Appearance Cloudy A (Clear) Ur Leukocyte Esterase 2+ H (Negative) Urine WBC (Auto) 10-30 H (0-5) /hpf U Hyaline Cast (Auto) 5-10 H (0-5) /lpf U Epithel Cells (Auto) >30 H (0-5) /lpf Urine Bacteria (Auto) 1+ H (Negative) 03/21/21 03/21/21 Range/Units 05:34 06:42 MCH 34.2 H (25-34) pg RDW Std Deviation 50.2 H (36.4-46.3) fL Lymph # (Auto) 1.02 L (1.2-3.4) K/uL Sodium (136-145) mmol/L Potassium (3.5-5.1) mmol/L Chloride (98-107) mmol/L BUN (7-18) mg/dl BUN/Creatinine Ratio (10-20) Glucose (70-99) mg/dl Lactate 2.6 H* (0.4-2.0) mmol/L AST (15-37) U/L Alkaline Phosphatase (45-117) U/L Albumin (3.4-5.0) gm/dl Globulin (2.5-4.0) gm/dl Albumin/Globulin Ratio (0.9-2) Lipase (73-393) U/L Urine Appearance (Clear) Ur Leukocyte Esterase (Negative) Urine WBC (Auto) (0-5) /hpf U Hyaline Cast (Auto) (0-5) /lpf U Epithel Cells (Auto) (0-5) /lpf Urine Bacteria (Auto) (Negative) Diagnostic Findings Abdomen/Pelvis CT 03/21/21 03:[address] WITH IV CONTRAST CT DOSE: 283.29 mGy.cm HISTORY: Left upper quadrant pain, recent g tube placement, fevers TECHNIQUE: Multiaxial CT images of the abdomen and pelvis were performed following the use of intravenous contrast. A dose lowering technique was utilized adhering to the principles of ALARA. COMPARISON STUDY: Abdomen and pelvis CT 12/24/2020. FINDINGS: The lung bases are clear. No fractures within the visualized osseous structures. There is a tip of a catheter noted within the right atrium. Cholecystectomy. The liver, spleen, and adrenal glands are unremarkable. There are few subcentimeter bilateral renal hypodense lesions. These are technically too small to characterize but remain stable and likely represent cysts. No hydronephrosis. No retroperitoneal lymphadenopathy. Normal caliber abdominal aorta. Mild bladder wall thickening. The uterus and bilateral adnexa are unremarkable. No bowel wall thickening or obstruction. Normal appendix. There is a small to moderate amount of pneumoperitoneum. There is been interval placement of a gastrostomy tube with the bulb in good position. The tube is looped within the stomach and terminates at the duodenal bulb. Multiple punctate calcifications within the pancreas are again noted. No evidence for acute pancreatitis. IMPRESSION: 1. Interval placement of a percutaneous gastrostomy tube. The tube is looped within the stomach and terminates at the duodenal bulb. 2. Small to moderate amount of pneumoperitoneum. This could be due to the recent postoperative change. Follow-up chest x-ray can be performed to ensure resolution. 3. Mild bladder wall thickening. Recommend correlate with urinalysis. 4. Cholecystectomy. 5. Chronic pancreatitis. No evidence for acute pancreatitis. ACT 112: Negative or not required by law. Electronically signed by: Kei Espinoza M.D. 03/21/2021 8:58 AM Chest X-Ray 03/21/21 03:59 SINGLE VIEW CHEST CLINICAL HISTORY: Fever. FINDINGS: An AP, portable, upright chest radiograph is obtained. No prior studies are available for comparison at the time of dictation. A right-sided central venous catheter is in place. The cardiomediastinal silhouette is unremarkable. The lungs and pleural spaces are clear noting mild bibasilar atelectasis. No pneumothorax is seen. The skeletal structures appear osteopenic. Postoperative change is partially visualized in the right proximal femur. Intraperitoneal free air is seen below the diaphragm. A gastrostomy tube is noted in the left upper quadrant. Cholecystectomy clips are noted in the right upper quadrant. IMPRESSION: 1. No active disease in the chest. 2. Intraperitoneal free air is seen below the diaphragm. ACT 112: Negative or not required by law. Electronically signed by: Jc Ta M.D. 03/21/2021 7:18 AM Medications Administered Discontinued Medications Acetaminophen (Acetaminophen 1000 Mg/100 Ml Iv) Confirm Administered Dose 1,000 mg IV .STK-MED ONE Stop: 03/21/21 05:31 Last Admin: 03/21/21 05:42 Dose: Not Given Documented by: [id number] Hydromorphone HCl (Hydromorphone Inj 1 Mg/Ml Syringe) 1 mg IV NOW STA Stop: 03/21/21 03:42 Last Admin: 03/21/21 04:06 Dose: 1 mg Documented by: [id number] Hydromorphone HCl (Hydromorphone Inj 0.5 Mg/0.5 Ml Syr) 0.5 mg IV NOW STA Stop: 03/21/21 06:50 Last Admin: 03/21/21 07:23 Dose: 0.5 mg Documented by: [id number] Sodium Chloride (Nss 1000ml) 1,000 mls @ 999 mls/hr IV .Q1H1M ONE Stop: 03/21/21 06:14 Last Infusion: 03/21/21 06:45 Dose: 0 mls/hr Documented by: [id number] Admin: 03/21/21 05:37 Dose: 999 mls/hr Documented by: [id number] Potassium Chloride (K Trell / Wtr) 10 meq in 100 mls @ 100 mls/hr IV ONE ONE Stop: 03/21/21 06:13 Last Infusion: 03/21/21 07:44 Dose: 0 mls/hr Documented by: [id number] Admin: 03/21/21 06:23 Dose: 100 mls/hr Documented by: [id number] Acetaminophen (Ofirmev) 1,000 mg in 100 mls @ 400 mls/hr IV NOW STA Stop: 03/21/21 05:45 Last Infusion: 03/21/21 06:27 Dose: 0 mls/hr Documented by: [id number] Admin: 03/21/21 05:36 Dose: 400 mls/hr Documented by: [id number] Sodium Chloride (Nss 1000ml) 1,000 mls @ 999 mls/hr IV .Q1H1M ONE Stop: 03/21/21 06:31 Last Admin: 03/21/21 06:28 Dose: Not Given Documented by: [id number] Piperacillin Sod/Tazobactam Sod (Zosyn) 4.5 gm in 120 mls @ 240 mls/hr IV NOW ONE Stop: 03/21/21 06:02 Last Infusion: 03/21/21 07:23 Dose: 0 mls/hr Documented by: [id number] Admin: 03/21/21 06:24 Dose: 240 mls/hr Documented by: [id number] Vancomycin HCl 1,250 mg/ (Sodium Chloride) 525 mls @ 200 mls/hr IV NOW ONE Stop: 03/21/21 08:10 Last Admin: 03/21/21 06:21 Dose: 200 mls/hr Documented by: [id number] Ioversol (Optiray 320 100ml) 94 ml IV ONCE ONE Stop: 03/21/21 06:07 Last Admin: 03/21/21 06:06 Dose: 94 ml Documented by: [id number] Ondansetron HCl (Ondansetron Inj 2 Mg/Ml 2 Ml Vial) 4 mg IV NOW STA Stop: 03/21/21 03:42 Last Admin: 03/21/21 04:06 Dose: 4 mg Documented by: [id number] ECG Additional Comments: Sinus tachycardia Otherwise normal ECG When compared with ECG of 24-DEC-2020 19:50, No significant change was found Code Status & VTE Plan Code Status CODE: FULL VTE: SCDs, Eliquis if no surgical process, ambulation Supervising Physician Co-Signing Physician Notes Patient was seen and examined independently I discussed the case with Carlyle ALVAREZ I reviewed pertinent past medical social family history and also the plan of care and agree with the plan of care. Difficult to understand past story patient presents with J-tube surgically implanted in her abdomen and a tunneled central catheter in her right upper chest febrile with concern for bacteremia perhaps from portal of entry being her tunneled catheter. Reportedly has history of alcohol and substance abuse in the past denies current substance abuse but has used all of her pain medications from her recent surgeries and now has none. Later today did complain that she has been through alcohol withdrawal in the past and recently been drinking alcohol. Clinical concerns for perhaps for borderline personality with secondary gain. Certainly concern for possible strep bacteremia initial echocardiogram negative on broad-spectrum antibiotics. Did contact surgery multiple occasions of borderline was told that they are not on-call to cover the ER and cannot remove the line until 03/22/2021 perhaps in the late day. It was stressed to the surgical team that if this is the nidus of infection for the patient would be best to remove this earlier. Physical exam her tunnel catheter does not look overtly infected on the outside she has no heart murmurs or peripheral stigmata of endocarditis although her diagnosis of concern is bacteremia. Any exceptions will be noted below PG Care Time/CCT Total # of Minutes Spent Total Time Spent with Patient: Total time spent is greater than 50% in coordination of care (as documented) at patient's floor/unit and/or counseling patient: Coding Level of Care Code 30757 Initial Inpt Care Lvl 3 Diagnoses Sepsis A41.9 Pancreatitis K85.90 Smoker F17.200 Chronic back pain M54.9; G89.29 Asthma J45.[address] Z93.1 DVT prophylaxis Z29.9
[2021-03-21] MEDS: POTASSIUM CHLORIDE CRTAB 20 MEQ TABCR PO STA ×2 (09:55→10:00)
[2021-03-21] MEDS: LACTATED RINGER'S 1,000 ML IV SCH (09:56)
[2021-03-21] MEDS ORDERED: POTASSIUM CHLORIDE 20 MEQ/15 ML UDC GT STA (10:35)
[2021-03-21] MEDS: HYDROmorphone INJ 0.5 MG/0.5 ML SYR IV PRN ×3 (11:18→18:58)
[2021-03-21] MEDS: ONDANSETRON INJ 2 MG/ML 2 ML VIAL IV PRN ×2 (11:18→18:58)
--- NOTE | 2021-03-21 12:48 | Ultrasound Report ---
US venous doppler UE LT CLINICAL HISTORY: Upper extremity DVT in January- eval for residual thrombus Procedure: Right upper extremity real-time compression venous ultrasound with Duplex and Color Dopple r imaging. Utilizing real-time ultrasonic imaging multiple real time high-resolution ultrasonic images of the de ep venous system were performed from the forearm through the subclavian vein including evaluation of the jugular vein. Compression real time ultrasonic imaging was performed in addition to color Dopple r imaging and duplex Doppler ultrasound with velocity spectral profile analysis. There is again noted to be nonocclusive thrombus in one of the 2 brachial veins. There is normal comp ressibility of the remainder of the deep venous system from the forearm through the subclavian vein. Normal vascular flow is currently identified. No evidence of acute thrombosis is identified. Impression: Residual nonocclusive thrombus in one of the 2 brachial veins. The remaining deep venous system is pa tent. ACT 112: Negative or not required by law. Electronically signed by: Toney Correa M.D. 03/21/2021 12:47 PM
--- NOTE | 2021-03-21 13:40 | Surgery Consultation ---
Date of Consultation March 21, 2021 Assessment & Plan (1) Gastrostomy tube in place: Patient seen in ED with Dr. Valle. CT was reviewed with radiology. She does have more pneumoperitoneum than would be expected this far from surgery but her exam is benign and there no other findings on CT. White count is normal, although she is febrile. Continue antibiotics and we will continue to follow. Central line to be removed tomorrow by vascular surgery. Supervising Physician Co-Signing Physician Notes Notes from [employer] from ER yesterday noted Notes do not reflect specifically the events of yesterday regarding the patient's consult and follow-up History of Present Illness History of Present Illness 36 y/o female with chronic pancreatitis and recent G-J tube placement in [place] about 1 month ago. She returned there 3 days after the procedure c/o pain and nausea and was admitted and treated with IV antibiotics for several days. Central line was also placed. She was discharged home but continued to have pain and nausea for the past few weeks. She had fever last night and came in for evaluation. Allergies Allergy/AdvReac Type Severity Reaction Status Date / Time amlodipine [From [facility]] AdvReac Unknown edema Unverified 03/21/21 08:08 Home Medications Medication Instructions Recorded Confirmed Type acetaminophen 500 mg tablet 500 mg PO Q8H PRN 03/21/21 03/21/21 History albuterol sulfate 90 mcg/actuation 1 inh INHALATION Q4H PRN 03/21/21 03/21/21 History aerosol inhaler (Ventolin HFA) apixaban 5 mg tablet (Eliquis) 5 mg PO BID 03/21/21 03/21/21 History budesonide-formoterol HFA 160 1 inh INHALATION DAILY 03/21/21 03/21/21 History mcg-4.5 mcg/actuation aerosol inhaler (Symbicort) clonidine HCl 0.1 mg tablet 0.1 mg PO TID PRN 03/21/21 03/21/21 History dextroamphetamine-amphetamine 20 20 mg PO BID 03/21/21 03/21/21 History mg tablet diltiazem HCl 120 mg 120 mg PO DAILY 03/21/21 03/21/21 History capsule,extended release 24 hr gabapentin 100 mg capsule 300 mg PO TID 03/21/21 03/21/21 History hydromorphone 2 mg tablet 2 mg PO Q2H PRN 03/21/21 03/21/21 History lansoprazole 30 mg capsule,delayed 30 mg PO DAILY 03/21/21 03/21/21 History release [id number]-[id number]-[id number] 1 cap PO QID 03/21/21 03/21/21 History 24,000-76,000-120,000 unit capsule,delayed rel (Creon) montelukast 10 mg tablet 10 mg PO DAILY 03/21/21 03/21/21 History ondansetron 4 mg disintegrating 4 mg PO Q6H PRN 03/21/21 03/21/21 History tablet promethazine 12.5 mg tablet 12.5 mg PO Q6H PRN 03/21/21 03/21/21 History tiotropium bromide 2.5 1 inh INHALATION DAILY 03/21/21 03/21/21 History mcg/actuation mist for inhalation (Spiriva Respimat) Patient History Medical History Asthma Chronic back pain Gastrostomy tube in place Hypokalemia Patient received potassium riders this admission. No pertinent family history Pancreatitis Smoker Surgical History (Updated 03/21/21 @ 21:37 by Mulugeta Haynes MD) H/O shoulder surgery H/O wrist surgery Social History Smoking Status: Current every day smoker Tobacco Type: Cigarettes Cigarettes Per Day: 12; Second Hand Exposure: No; Do You Dip or Chew Tobacco: No; Tobacco Cessation Education Requested by Patient: No Hx Alcohol Use: Yes Alcohol type: beer Hx Substance Use: Yes Last Used Substance: Unknown Communication Ability: Effective Beliefs That Will Affect Care: None Current Living Situation: Alone Other Information That Helps Us Care for You: No Feels Safe at Home: Yes Safety Concerns: Feels Safe At This Time Assistive Devices: Glasses Assistive Devices Comment: Tube feeds Review of Systems Constitutional: + fever and + anorexia; no chills Gastrointestinal: + abdominal pain and + nausea; no diarrhea/loose stools Physical Exam Constitutional: WD/WN, vitals as above Respiratory: no respiratory distress Cardiovascular: Rate/Rhythm: + tachycardic Gastrointestinal (Abdomen): Inspection/Auscultation: abdomen not distended Percussion/Palpation: + abdomen tender (mild) and abdomen soft; no guarding gastrostomy in place, no erythema, some ecchymosis LLQ Results & Data ([facility]) Vital Signs (Past 12 Hours) Vital Signs Temp Pulse Pulse Resp BP BP Pulse Ox 03/21/21 10:00 101 H 19 114/87 98 03/21/21 09:30 112 H 24 118/62 97 03/21/21 08:30 117 H 17 113/79 98 03/21/21 07:35 122 H 18 111/67 97 03/21/21 07:30 120 H 17 111/67 97 03/21/21 06:45 128 H 18 121/71 97 03/21/21 05:30 39.2 C H 137 H 21 122/98 100 03/21/21 05:24 140 H 98 03/21/21 03:14 130 H 14 125/87 97 PG Care Time/CCT Total # of Minutes Spent Total Time Spent with Patient: Total time spent is greater than 50% in coordination of care (as documented) at patient's floor/unit and/or counseling patient: Coding Level of Care Code 22402 Inpt Consult Level [address] tube in place Z93.1
[2021-03-21] MEDS ORDERED: cloNIDine HCL 0.1 MG TAB PO PRN (13:55)
[2021-03-21] MEDS ORDERED: PEPTAMEN 1.5 CAL 1,000 ML BAG PO SCH (13:55)
[2021-03-21] MEDS ORDERED: ALBUTEROL HFA 8 GM INHALER INH PRN (13:55)
[2021-03-21] MEDS: TUBE FEEDING WATER FLUSH GT SCH ×3 (14:00→23:40)
--- NOTE | 2021-03-21 14:24 | Electrocardiogram Report ---
Test Reason : Blood Pressure : / mmHG Vent. Rate : 131 BPM Atrial Rate : 131 BPM P-R Int : 146 ms QRS Dur : 068 ms QT Int : 282 ms P-R-T Axes : 052 040 045 degrees QTc Int : 416 ms Sinus tachycardia Otherwise normal ECG When compared with ECG of 24-DEC-2020 19:50, No significant change was found Confirmed by Shoaib Mclean ([id number]) on 03/21/2021 2:23:54 PM Referred By: REFERRED SELF Confirmed By:Gee Mclean
[2021-03-21] MEDS: dilTIAZem HCL 120 MG CAPCR PO SCH (15:07)
[2021-03-21] MEDS: FLUTICASONE/VILANTEROL 200/25MCG 14 PUFFS/INHALER INH SCH (15:07)
[2021-03-21] MEDS: MONTELUKAST SODIUM 10 MG TABLET PO SCH (15:09)
[2021-03-21] MEDS: PANTOprazole 40 MG TAB PO SCH (15:10)
[2021-03-21] MEDS: UMECLIDINIUM BROMIDE 62.5MCG/BLISTER 7 PUFFS/INHALER INH SCH (15:10)
--- NOTE | 2021-03-21 15:10 | XCELERA ---
[id number]
[2021-03-21] MEDS: GABAPENTIN 300 MG CAP PO SCH ×2 (15:12→23:00)
[2021-03-21] MEDS: VANCOMYCIN HCL 750 MG in SODIUM CHLORIDE 0.9% 250 ML IV SCH (15:39)
[2021-03-21] MEDS: ACETAMINOPHEN 500 MG TAB PO PRN (15:49)
[2021-03-21] MEDS: PIPERACILLIN/TAZOBACTAM 3.375 GM in DEXTROSE 5% 100 ML IV SCH (15:49)
--- NOTE | 2021-03-21 15:53 | Pharmacy Report ---
Pharmacy Abx Dose Short Note - Date of Service March 21, 2021 - Assessment & Plan Assessment 36 year old F receiving IV Vancomycin/Zosyn for treatment of STT, s/p central line placement, chronic pancreatitis, ?sepsis, s/p g-tube placement Day # 1 of antimicrobial therapy. Plan Vancomycin * Received Vancomycin IV 1250mg (23 mg/kg) in the ED * IV Maintenance dose of 750 mg (13.8mg/kg) IV every 8 hours * Goal trough level for sst: 13 to 20 mcg/mL * Trough level ordered for: Thursday03/23/21 before the 7 am dose Pharmacy will continue to follow and will adjust dose/frequency as necessary. Thank you.
--- NOTE | 2021-03-21 16:54 | Gastrointestinal Consultation ---
Date of Consultation March 21, 2021 Assessment & Plan (1) Chronic pancreatitis: Chronic pancreatitis: Patient has an unfortunate history of chronic pancreatitis. She has been managed at [facility] in [place] by gastroenterology, Dr. Garces. She has since transferred her GI care in January 2021 to a GI physician, Dr. Abraham, at [facility]. She continues to drink alcohol with no interest in discontinuing alcohol intake. She has chronic abdominal pain with current worsening of pain presently. Would recommend an a.m. cortisol level. Would also recommend pain management consult for management of this acute on chronic pain. We discussed that she should be abstaining from alcohol. No current acute pancreatitis is noted on imaging and laboratory testing demonstrates normal lipase level at the current time. Would consider celiac plexus block but this will need to be performed at a tertiary care center and does not be done on an emergent basis so can be done as outpatient. Gastrostomy: Patient had a tube placed early February 2021 while at [facility]. She has a great deal of tenderness with any manipulation of the tube. Would recommend irrigation of the tube. Will order KUB with Gastrografin to further assess for perforation. We be holding tube feedings until tube interrogation is completed. Case reviewed with Dr. Payan. Please refer to supervising physician addendum for further recommendations. (2) Gastrostomy tube in place: see above Supervising Physician Co-Signing Physician Notes I have seen and examined the patient. I agree with note above by ANTONIO Fairchild except as noted below. HPI Pt with chronic pancreatitis with increased pain post insertion of G-J tube admitted with fever. CT pneumoperitoneum PE Abdomen pos bs soft, guarding around tube site but no rebound, no obvious infection around tube site A/P abd pain pneumoperitoneum chronic pancreatiitis Discussed with Carlyle Hwang regarding do not use tube until after interrogation of it. I am concerned with the pneumoperitoneum that there is migration of the tube. If interogation of tube is ok then can use it for meds and tube feeds. Unfortuntaley, the tip of the tube seems to be in stomach now based on CT but will wait for final report once tube interrogated. With regard to chronic pancreatits the patient must stop drinking alcohol--discussed with patient the pain she is having now could be her daily reality if she continues to drink. Depending on clinical course she may need celiac plexus block for pain control. History of Present Illness Attending Physician: Agustin Lee MD History of Present Illness Patient is a pleasant 36-year-old female with a past medical history to include ORIF right wrist and right shoulder, chronic back pain, LUE DVT February 07 with midline IV catheter placement (on Eliquis), COVID, chronic pancreatitis s/p GJ tube placement at [facility], Right SCL Central line (Placed at [facility]- remains in place- she performs dressing changes on it every 3 days, HTN, Asthma moderate/persistent and presented to the emergency department with 2-day history of fevers as high as 104 F. She was subsequently admitted due to concerns for sepsis. GI has been consulted as the patient had a GJ tube placed at the beginning of February for her history of chronic pancreatitis and difficulty tolerating oral intake. Records reviewed: 12/07/2020: Gastroenterology inpatient consult report is reviewed regarding discussion of nausea and dysmotility symptoms of possible prescription domperidone 10 mg every 6 hours with monitoring by primary care providers to achieve alcohol abstinence that these may be her best management options moving forward. Lipase did normalize during admission. MRCP demonstrated no ductal dilatation and CT images. No necrosis. ERCP not recommended at that time. 12/07/2020: MRI of the abdomen was obtained the history of pancreatic device some with new pancreatitis to assess the duct which demonstrated no pancreatic device some; postcholecystectomy changes with mild intrahepatic and extrahepatic biliary type patient; hepatic steatosis 12/03/2020: Acute abdominal pain patient presented to emergency department and was subsequently transferred for management of acute on chronic pancreatitis to [facility] for an ERCP for possible stenting due to LFT elevation a nd lipase of 1000. MRCP did not demonstrate pancreatic device him. Patient remain hospitalized due to intractable nausea and vomiting although refusing GI interventions per report. Pain control with Dilaudid and oxycodone which she was weaned off of. Patient continued to have persistent nausea and vomiting notably refusing full liquid diet and any other lifestyle modifications and eating regular meals followed by emesis immediately after. Upon further discussion with GI, decision was made to place Keofeed. Patient did declined to have tube feeds while inpatient and adamant about leaving hospital prior to the started. 09/07/2020: GI office visit notes are reviewed from Dr. Garces at [facility]. Patient chief complaint of nausea and vomiting daily with incomplete relief from Zofran/Phenergan. 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 Suspected dyspepsia and gastric emptying disorder or other neuromuscular pain mediated phenomenon with no evidence for small bowel disease by imaging or serial physical examination. Patient has poorly tolerated jejunal feeds due to pain and pressure. Have attempted to obtain domperidone on [facility] protocol. Patient reports she has failed Remeron and has no associated constipation symptoms. Patient does take Adderall chronically. 06/04/2020: ERCP notes are reviewed with looped or omega configuration of the main PD with mild diffuse irregularity of the main PD in the neck region of the gland but no pancreas divisum physiology or Ficke stenosis appearing to limit drainage with secretin stimulationno minor papilla could be identified or cannulated. Dilated biliary tree with abnormal alkaline phosphate and postprandial pain status post biliary sphincterotomy as a therapeutic trial and balloon sweeps to exclude biliary debris/stone postcholecystectomy. History of limited dietary intake due to postprandial pain status post nasojejunal tube with 12 Bengali variety as requested by referring providers for temporary nutrition and symptomatic intervention post ERCP. Ulcerative/erosive gastroduodenitis status post biopsies to help exclude H. pylori. 05/24/2020: EGD notes are reviewed obtained due to history of pancreatitis and malnutrition demonstrated LA grade a esophagitis with no bleeding found; entire examined stomach was normal; localized mild inflammation characterized by erythema and friability found in the duodenal bulb; guidewire inserted into the jejunum and endoscope was removed with a 10 Bengali nasojejunal tube advanced over the guidewire with confirmation of placement by fluoroscopy. History is reported from the patient. I have requested records from [facility] of her multiple admissions over the last several months. She reports that she was admitted to [facility] in 01/2021 when her [place] tube was taken out. She was unfortunately admitted due to dehydration. Plan wa s to transfer her to [facility] but unfortunately she was diagnosed with Covid and also developed a left upper extremity DVT. She then followed up with GI, Dr. Abraham, at [facility] as an outpatient. The J-tube was placed early 02/2021. She reports that she has had a very difficult time since then with abdominal pain, free air, feeling of being bloated, nausea, and vomiting. She has yet decreased tube feedings. She reports she is only been tolerating about 1/2 to 1 can of her tube feeds daily. Within the last 3 weeks she has been readmitted to [facility] due to abdominal pain in which she was told she had free air and they were concerned about microperforation. She was treated with antibiotics. She presents to the hospital today due to fevers and concerns for sepsis. On exam/interview today, the patient reports fevers of 104 degrees and higher. She is unsure if she has had any weight loss as her weight tends to fluctuate. She reports that she does have some oral intake including medications, broths, soft foods, and beer. She reports chronic nausea that is worsened by eating and by her tube feedings. She reports vomiting at least daily reports it was worse in the several days prior to her admission. Reports abdominal pain primarily left upper quadrant currently a 9 out of 10 but chronically at a 4 out of 10. She states any manipulation of her feeding tube causes severe pain. She also has an area of ecchymosis in her lower abdomen that is quite tender related to prior Lovenox injection reports. Regular formed bowel movements daily. She denies any blood in her stool. The patient has a current smoker. She smokes 0.5 packs of cigarettes per day and has done this for last 10 years. She reports alcohol intake daily. She does drink two 24 ounce cans of beer every day. She has been doing this for approximately last 6 to 9 months. She reports a significant history of alcohol abuse prior to this. She does use recreational marijuana and estimates this to be about once a month. 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 She worked in [employer]. She is unmarried and has 2 children ages 11 and 15. She shares custody with children's father. Allergies Allergy/AdvReac Type Severity Reaction Status Date / Time amlodipine [From Norvasc] AdvReac Unknown edema Unverified 03/21/21 08:08 Home Medications Medication Instructions Recorded Confirmed Type acetaminophen 500 mg tablet 500 mg PO Q8H PRN 03/21/21 03/21/21 History albuterol sulfate 90 mcg/actuation 1 inh INHALATION Q4H PRN 03/21/21 03/21/21 History aerosol inhaler (Ventolin HFA) apixaban 5 mg tablet (Eliquis) 5 mg PO BID 03/21/21 03/21/21 History budesonide-formoterol HFA 160 1 inh INHALATION DAILY 03/21/21 03/21/21 History mcg-4.5 mcg/actuation aerosol inhaler (Symbicort) clonidine HCl 0.1 mg tablet 0.1 mg PO TID PRN 03/21/21 03/21/21 History dextroamphetamine-amphetamine 20 20 mg PO BID 03/21/21 03/21/21 History mg tablet diltiazem HCl 120 mg 120 mg PO DAILY 03/21/21 03/21/21 History capsule,extended release 24 hr gabapentin 100 mg capsule 300 mg PO TID 03/21/21 03/21/21 History hydromorphone 2 mg tablet 2 mg PO Q2H PRN 03/21/21 03/21/21 History lansoprazole 30 mg capsule,delayed 30 mg PO DAILY 03/21/21 03/21/21 History release [id number] 1 cap PO QID 03/21/21 03/21/21 History 24,000-76,000-120,000 unit capsule,delayed rel (Creon) montelukast 10 mg tablet 10 mg PO DAILY 03/21/21 03/21/21 History ondansetron 4 mg disintegrating 4 mg PO Q6H PRN 03/21/21 03/21/21 History tablet promethazine 12.5 mg tablet 12.5 mg PO Q6H PRN 03/21/21 03/21/21 History tiotropium bromide 2.5 1 inh INHALATION DAILY 03/21/21 03/21/21 History mcg/actuation mist for inhalation (Spiriva Respimat) Patient History Medical History Asthma Chronic back pain Gastrostomy tube in place No pertinent family history Pancreatitis Smoker Surgical History No pertinent past surgical history Social History Smoking Status: Never smoker Tobacco Type: Cigarettes Feels Safe at Home: Yes Review of Systems Review of Systems: All systems reviewed & are unremarkable except as noted in HPI & below Physical Exam Constitutional: WD/WN, vitals as above Eyes: PERRL, conjunctivae normal, anicteric sclerae ENMT: external ear and nose normal, oropharynx normal Neck: trachea midline, no thyromegaly Respiratory: normal respiratory effort, lungs clear to auscultation Cardiovascular: Rate/Rhythm: + tachycardic Heart Sounds: no murmur Gastrointestinal (Abdomen): Inspection/Auscultation: abdomen normal to inspection, normal bowel sounds and + abdominal wall ecchymosis; abdomen not distended Percussion/Palpation: + abdomen tender (generalized abdomen, worse near gastrostomy tube), + guarding and abdomen soft; abdomen not rigid Psychiatric: A+Ox3, euthymic affect Results & Data ([facility]) Vital Signs (Past 12 Hours) Vital Signs Temp Pulse Pulse Resp BP BP Pulse Ox 03/21/21 10:00 101 H 19 114/87 98 03/21/21 09:30 112 H 24 118/62 97 03/21/21 08:30 117 H 17 113/79 98 03/21/21 07:35 122 H 18 111/67 97 03/21/21 07:30 120 H 17 111/67 97 03/21/21 06:45 128 H 18 121/71 97 03/21/21 05:30 39.2 C H 137 H 21 122/98 100 03/21/21 05:24 140 H 98 Laboratory Results Laboratory Results - last 24 hr 03/21/21 03/21/21 03/21/21 02:30 04:20 04:20 WBC Cancelled RBC Cancelled Hgb Cancelled Hct Cancelled MCV Cancelled MCH Cancelled MCHC Cancelled RDW Std Deviation Cancelled RDW Coeff of Paulina Cancelled Plt Count Cancelled MPV Cancelled Immature Gran % (Auto) Cancelled Neut % (Auto) Cancelled Lymph % (Auto) Cancelled Boundary % (Auto) Cancelled Eos % (Auto) Cancelled Baso % (Auto) Cancelled Neut # (Auto) Cancelled Lymph # (Auto) Cancelled Boundary # (Auto) Cancelled Eos # (Auto) Cancelled Baso # (Auto) Cancelled Immature Gran # (Auto) Cancelled Absolute Nucleated RBC Cancelled Nucleated RBC % (auto) Cancelled Neutrophils % (Manual) Cancelled Band Neutrophils % Cancelled Lymphocytes % (Manual) Cancelled Prolymphocyte % Cancelled Reactive Lymphs % (Man) Cancelled Monocytes % (Manual) Cancelled Eosinophils % (Manual) Cancelled Basophils % (Manual) Cancelled Metamyelocytes % (Man) Cancelled Myelocytes % (Man) Cancelled Promyelocytes % (Man) Cancelled Blast Cells % (Manual) Cancelled Plasma Cell % (Manual) Cancelled Other Cells % Cancelled Nucleated RBC % Cancelled Neutrophils # (Manual) Cancelled Band Neutrophils # Cancelled Total Absolute Neuts Cancelled Lymphocytes # (Manual) Cancelled Prolymphocyte # Cancelled Reactive Lymphs # Cancelled Total Abs Lymphocytes Cancelled Monocytes # (Manual) Cancelled Eosinophils # (Manual) Cancelled Basophils # (Manual) Cancelled Metamyelocytes # (Man) Cancelled Myelocytes # (Manual) Cancelled Promyelocytes # (Man) Cancelled Blast Cells # (Man) Cancelled Plasma Cell # (Manual) Cancelled Other Cells # Cancelled Nucleated RBCs # (Man) Cancelled Hypersegmented Neuts Cancelled Hyposegmented Neuts Cancelled Hypogranular Neuts Cancelled Large Granular Lymphs Cancelled # Lrg Granular Lymphs Cancelled Hairy Cells Cancelled Smudge Cells Cancelled Toxic Granulation Cancelled Toxic Vacuolation Cancelled Dohle Bodies Cancelled Arnold Rods Cancelled Platelet Estimate Cancelled Hypogranular Platelets Cancelled Clumped Platelets Cancelled Giant Platelets Cancelled Platelet Satelliting Cancelled RBC Morphology Cancelled Polychromasia Cancelled Hypochromasia Cancelled Poikilocytosis Cancelled Basophilic Stippling Cancelled Anisocytosis Cancelled Microcytosis Cancelled Macrocytosis Cancelled Spherocytes Cancelled Pappenheimer Bodies Cancelled Sickle Cells Cancelled Target Cells Cancelled Tear Drop Cells Cancelled Ovalocytes Cancelled Stomatocytes Cancelled [place] Bodies Cancelled Echinocytes Cancelled Acanthocytes (Spur) Cancelled Rouleaux Cancelled RBC Agglutinates Cancelled Schistocytes Cancelled RBC Morph Comment Cancelled Sezary Cell Cancelled Sodium 130 L Potassium 2.7 L Chloride 89 L Carbon Dioxide 32 Anion Gap 9.0 BUN 5 L Creatinine 0.61 Est Cr Clr Drug Dosing 110.3 Est GFR ( Amer) 136.1 Est GFR (Non-Af Amer) 117.5 BUN/Creatinine Ratio 8.8 L Glucose 119 H Lactate Calcium 8.5 Total Bilirubin 0.4 AST 88 H ALT 45 Alkaline Phosphatase 129 H C-Reactive Protein Total Protein 7.7 Albumin 2.5 L Globulin 5.2 H Albumin/Globulin Ratio 0.5 L Lipase 45 L Procalcitonin HCG, Qual Urine Color Yellow Urine Appearance Cloudy A Urine pH 7.5 Ur Specific [place] 1.015 Urine Protein Negative Urine Glucose (UA) Negative Urine Ketones Negative Urine Blood Negative Urine Nitrite Negative Urine Bilirubin Negative Urine Urobilinogen Negative Ur Leukocyte Esterase 2+ H Urine WBC (Auto) 10-30 H Urine RBC (Auto) 0-4 U Hyaline Cast (Auto) 5-10 H U Epithel Cells (Auto) >30 H Urine Bacteria (Auto) 1+ H SARS-CoV-2 (PCR) Influenza Type A (PCR) Influenza Type B (PCR) RSV (RT-PCR) 03/21/21 03/21/21 03/21/21 04:20 04:20 04:33 WBC RBC Hgb Hct MCV MCH MCHC RDW Std Deviation RDW Coeff of Paulina Plt Count MPV Immature Gran % (Auto) Neut % (Auto) Lymph % (Auto) Boundary % (Auto) Eos % (Auto) Baso % (Auto) Neut # (Auto) Lymph # (Auto) Boundary # (Auto) Eos # (Auto) Baso # (Auto) Immature Gran # (Auto) Absolute Nucleated RBC Nucleated RBC % (auto) Neutrophils % (Manual) Band Neutrophils % Lymphocytes % (Manual) Prolymphocyte % Reactive Lymphs % (Man) Monocytes % (Manual) Eosinophils % (Manual) Basophils % (Manual) Metamyelocytes % (Man) Myelocytes % (Man) Promyelocytes % (Man) Blast Cells % (Manual) Plasma Cell % (Manual) Other Cells % Nucleated RBC % Neutrophils # (Manual) Band Neutrophils # Total Absolute Neuts Lymphocytes # (Manual) Prolymphocyte # Reactive Lymphs # Total Abs Lymphocytes Monocytes # (Manual) Eosinophils # (Manual) Basophils # (Manual) Metamyelocytes # (Man) Myelocytes # (Manual) Promyelocytes # (Man) Blast Cells # (Man) Plasma Cell # (Manual) Other Cells # Nucleated RBCs # (Man) Hypersegmented Neuts Hyposegmented Neuts Hypogranular Neuts Large Granular Lymphs # Lrg Granular Lymphs Hairy Cells Smudge Cells Toxic Granulation Toxic Vacuolation Dohle Bodies Arnold Rods Platelet Estimate Hypogranular Platelets Clumped Platelets Giant Platelets Platelet Satelliting RBC Morphology Polychromasia Hypochromasia Poikilocytosis Basophilic Stippling Anisocytosis Microcytosis Macrocytosis Spherocytes Pappenheimer Bodies Sickle Cells Target Cells Tear Drop Cells Ovalocytes Stomatocytes [place] Bodies Echinocytes Acanthocytes (Spur) Rouleaux RBC Agglutinates Schistocytes RBC Morph Comment Sezary Cell Sodium Potassium Chloride Carbon Dioxide Anion Gap BUN Creatinine Est Cr Clr Drug Dosing Est GFR ( Amer) Est GFR (Non-Af Amer) BUN/Creatinine Ratio Glucose Lactate 3.4 H* Calcium Total Bilirubin AST ALT Alkaline Phosphatase C-Reactive Protein Total Protein Albumin Globulin Albumin/Globulin Ratio Lipase Procalcitonin HCG, Qual Negative Urine Color Urine Appearance Urine pH Ur Specific [place] Urine Protein Urine Glucose (UA) Urine Ketones Urine Blood Urine Nitrite Urine Bilirubin Urine Urobilinogen Ur Leukocyte Esterase Urine WBC (Auto) Urine RBC (Auto) U Hyaline Cast (Auto) U Epithel Cells (Auto) Urine Bacteria (Auto) SARS-CoV-2 (PCR) NEGATIVE Influenza Type A (PCR) Negative Influenza Type B (PCR) Negative RSV (RT-PCR) Negative 03/21/21 03/21/21 03/21/21 05:34 06:42 13:37 WBC 7.03 RBC 4.45 Hgb 15.2 Hct 42.5 MCV 95.5 MCH 34.2 H MCHC 35.8 RDW Std Deviation 50.2 H RDW Coeff of Paulina 14.2 Plt Count 378 MPV 9.4 Immature Gran % (Auto) 0.3 Neut % (Auto) 80.0 Lymph % (Auto) 14.5 Boundary % (Auto) 3.7 Eos % (Auto) 0.6 Baso % (Auto) 0.9 Neut # (Auto) 5.63 Lymph # (Auto) 1.02 L Boundary # (Auto) 0.26 Eos # (Auto) 0.04 Baso # (Auto) 0.06 Immature Gran # (Auto) 0.02 Absolute Nucleated RBC Nucleated RBC % (auto) Neutrophils % (Manual) Band Neutrophils % Lymphocytes % (Manual) Prolymphocyte % Reactive Lymphs % (Man) Monocytes % (Manual) Eosinophils % (Manual) Basophils % (Manual) Metamyelocytes % (Man) Myelocytes % (Man) Promyelocytes % (Man) Blast Cells % (Manual) Plasma Cell % (Manual) Other Cells % Nucleated RBC % Neutrophils # (Manual) Band Neutrophils # Total Absolute Neuts Lymphocytes # (Manual) Prolymphocyte # Reactive Lymphs # Total Abs Lymphocytes Monocytes # (Manual) Eosinophils # (Manual) Basophils # (Manual) Metamyelocytes # (Man) Myelocytes # (Manual) Promyelocytes # (Man) Blast Cells # (Man) Plasma Cell # (Manual) Other Cells # Nucleated RBCs # (Man) Hypersegmented Neuts Hyposegmented Neuts Hypogranular Neuts Large Granular Lymphs # Lrg Granular Lymphs Hairy Cells Smudge Cells Toxic Granulation Toxic Vacuolation Dohle Bodies Arnold Rods Platelet Estimate Hypogranular Platelets Clumped Platelets Giant Platelets Platelet Satelliting RBC Morphology Polychromasia Hypochromasia Poikilocytosis Basophilic Stippling Anisocytosis Microcytosis Macrocytosis Spherocytes Pappenheimer Bodies Sickle Cells Target Cells Tear Drop Cells Ovalocytes Stomatocytes [place] Bodies Echinocytes Acanthocytes (Spur) Rouleaux RBC Agglutinates Schistocytes RBC Morph Comment Sezary Cell Sodium Potassium Chloride Carbon Dioxide Anion Gap BUN Creatinine Est Cr Clr Drug Dosing Est GFR ( Amer) Est GFR (Non-Af Amer) BUN/Creatinine Ratio Glucose Lactate 2.6 H* 1.1 Calcium Total Bilirubin AST ALT Alkaline Phosphatase C-Reactive Protein Total Protein Albumin Globulin Albumin/Globulin Ratio Lipase Procalcitonin HCG, Qual Urine Color Urine Appearance Urine pH Ur Specific [place] Urine Protein Urine Glucose (UA) Urine Ketones Urine Blood Urine Nitrite Urine Bilirubin Urine Urobilinogen Ur Leukocyte Esterase Urine WBC (Auto) Urine RBC (Auto) U Hyaline Cast (Auto) U Epithel Cells (Auto) Urine Bacteria (Auto) SARS-CoV-2 (PCR) Influenza Type A (PCR) Influenza Type B (PCR) RSV (RT-PCR) 03/21/21 03/21/21 13:37 13:37 WBC RBC Hgb Hct MCV MCH MCHC RDW Std Deviation RDW Coeff of Paulina Plt Count MPV Immature Gran % (Auto) Neut % (Auto) Lymph % (Auto) Boundary % (Auto) Eos % (Auto) Baso % (Auto) Neut # (Auto) Lymph # (Auto) Boundary # (Auto) Eos # (Auto) Baso # (Auto) Immature Gran # (Auto) Absolute Nucleated RBC Nucleated RBC % (auto) Neutrophils % (Manual) Band Neutrophils % Lymphocytes % (Manual) Prolymphocyte % Reactive Lymphs % (Man) Monocytes % (Manual) Eosinophils % (Manual) Basophils % (Manual) Metamyelocytes % (Man) Myelocytes % (Man) Promyelocytes % (Man) Blast Cells % (Manual) Plasma Cell % (Manual) Other Cells % Nucleated RBC % Neutrophils # (Manual) Band Neutrophils # Total Absolute Neuts Lymphocytes # (Manual) Prolymphocyte # Reactive Lymphs # Total Abs Lymphocytes Monocytes # (Manual) Eosinophils # (Manual) Basophils # (Manual) Metamyelocytes # (Man) Myelocytes # (Manual) Promyelocytes # (Man) Blast Cells # (Man) Plasma Cell # (Manual) Other Cells # Nucleated RBCs # (Man) Hypersegmented Neuts Hyposegmented Neuts Hypogranular Neuts Large Granular Lymphs # Lrg Granular Lymphs Hairy Cells Smudge Cells Toxic Granulation Toxic Vacuolation Dohle Bodies Arnold Rods Platelet Estimate Hypogranular Platelets Clumped Platelets Giant Platelets Platelet Satelliting RBC Morphology Polychromasia Hypochromasia Poikilocytosis Basophilic Stippling Anisocytosis Microcytosis Macrocytosis Spherocytes Pappenheimer Bodies Sickle Cells Target Cells Tear Drop Cells Ovalocytes Stomatocytes [place] Bodies Echinocytes Acanthocytes (Spur) Rouleaux RBC Agglutinates Schistocytes RBC Morph Comment Sezary Cell Sodium Potassium Chloride Carbon Dioxide Anion Gap BUN Creatinine Est Cr Clr Drug Dosing Est GFR ( Amer) Est GFR (Non-Af Amer) BUN/Creatinine Ratio Glucose Lactate Calcium Total Bilirubin AST ALT Alkaline Phosphatase C-Reactive Protein 4.16 H Total Protein Albumin Globulin Albumin/Globulin Ratio Lipase Procalcitonin 0.92 H HCG, Qual Urine Color Urine Appearance Urine pH Ur Specific [place] Urine Protein Urine Glucose (UA) Urine Ketones Urine Blood Urine Nitrite Urine Bilirubin Urine Urobilinogen Ur Leukocyte Esterase Urine WBC (Auto) Urine RBC (Auto) U Hyaline Cast (Auto) U Epithel Cells (Auto) Urine Bacteria (Auto) SARS-CoV-2 (PCR) Influenza Type A (PCR) Influenza Type B (PCR) RSV (RT-PCR) Diagnostic Findings Abdomen/Pelvis CT 03/21/21 03:[address] WITH IV CONTRAST CT DOSE: 283.29 mGy.cm HISTORY: Left upper quadrant pain, recent g tube placement, fevers TECHNIQUE: Multiaxial CT images of the abdomen and pelvis were performed following the use of intravenous contrast. A dose lowering technique was utilized adhering to the principles of ALARA. COMPARISON STUDY: Abdomen and pelvis CT 12/24/2020. FINDINGS: The lung bases are clear. No fractures within the visualized osseous structures. There is a tip of a catheter noted within the right atrium. Cholecystectomy. The liver, spleen, and adrenal glands are unremarkable. There are few subcentimeter bilateral renal hypodense lesions. These are technically too small to characterize but remain stable and likely represent cysts. No hydronephrosis. No retroperitoneal lymphadenopathy. Normal caliber abdominal aorta. Mild bladder wall thickening. The uterus and bilateral adnexa are unremarkable. No bowel wall thickening or obstruction. Normal appendix. There is a small to moderate amount of pneumoperitoneum. There is been interval placement of a gastrostomy tube with the bulb in good position. The tube is looped within the stomach and terminates at the duodenal bulb. Multiple punctate calcific ations within the pancreas are again noted. No evidence for acute pancreatitis. IMPRESSION: 1. Interval placement of a percutaneous gastrostomy tube. The tube is looped within the stomach and terminates at the duodenal bulb. 2. Small to moderate amount of pneumoperitoneum. This could be due to the recent postoperative change. Follow-up chest x-ray can be performed to ensure resolution. 3. Mild bladder wall thickening. Recommend correlate with urinalysis. 4. Cholecystectomy. 5. Chronic pancreatitis. No evidence for acute pancreatitis. ACT 112: Negative or not required by law. Electronically signed by: Kei Espinoza M.D. 03/21/2021 8:58 AM Chest X-Ray 03/21/21 03:59 SINGLE VIEW CHEST CLINICAL HISTORY: Fever. FINDINGS: An AP, portable, upright chest radiograph is obtained. No prior studies are available for comparison at the time of dictation. A right-sided central venous catheter is in place. The cardiomediastinal silhouette is unre markable. The lungs and pleural spaces are clear noting mild bibasilar atelectasis. No pneumothorax is seen. The skeletal structures appear osteopenic. Postoperative change is partially visualized in the right proximal femur. Intraperitoneal free air is seen below the diaphragm. A gastrostomy tube is noted in the left upper quadrant. Cholecystectomy clips are noted in the right upper quadrant. IMPRESSION: 1. No active disease in the chest. 2. Intraperitoneal free air is seen below the diaphragm. ACT 112: Negative or not required by law. Electronically signed by: Jc Ta M.D. 03/21/2021 7:18 AM Extremity Venous Study 03/21/21 08:31 US venous doppler UE LT CLINICAL HISTORY: Upper extremity DVT in January- eval for residual thrombus Procedure: Right upper extremity real-time compression venous ultrasound with Duplex and Color Doppler imaging. Utilizing real-time ultrasonic imaging multiple real time high-resolution ultrasonic images of the deep venous system were performed from the forearm through the subclavian vein including evaluation of the jugular vein. Compression real time ultrasonic imaging was performed in addition to color Doppler imaging and duplex Doppler ultrasound with velocity spectral profile analysis. There is again noted to be nonocclusive thrombus in one of the 2 brachial veins. There is normal compressibility of the remainder of the deep venous system from the forearm through the subclavian vein. Normal vascular flow is currently identified. No evidence of acute thrombosis is identified. Impression: Residual nonocclusive thrombus in one of the 2 brachial veins. The remaining deep venous system is patent. ACT 112: Negative or not required by law. Electronically signed by: Toney Correa M.D. 03/21/2021 12:47 PM
--- NOTE | 2021-03-21 17:52 | XRay Report ---
KUB/GASTROSTOMY TUBE CHECK CLINICAL HISTORY: gastrostomy tube check COMPARISON STUDY: CT of the abdomen and pelvis performed earlier today. TECHNIQUE: Initially, a bicycle repairman KUB was obtained. 50 cc of Optiray 300 was then injected into the gastr ostomy tube. Subsequent KUB was obtained. FINDINGS: Tower Observer KUB demonstrates a normal bowel gas pattern. There is contrast within the bladder fro m recent contrast-enhanced CT. Opacification of the duodenum is noted following contrast administrati on. There is no extraluminal contrast. The tip of the tube is within the distal duodenum. IMPRESSION: Tip of percutaneous gastrostomy/gastrojejunostomy tube within the distal duodenum. No contrast extrav asation. ACT 112: Negative or not required by law. Electronically signed by: Miguel Luciano M.D. 03/21/2021 5:51 PM
[2021-03-21] MEDS ORDERED: THIAMINE HCL 200 MG in SODIUM CHLORIDE 0.9% 50 ML IV ONE (18:00)
[2021-03-21] MEDS: HYDROmorphone HCL 2 MG TAB PO PRN ×2 (21:11→23:37)
[2021-03-21] MEDS ORDERED: ATIVAN IV ALCOHOL WITHDRAWL IV PRN (21:21)
[2021-03-21] MEDS ORDERED: LORazepam 3 MG/6 ML VIAL IV PRN (21:21)
--- NOTE | 2021-03-21 21:41 | Anesthesiology Consultation ---
Date of Service March 21, 2021 Assessment & Plan (1) Encounter for pre-operative examination: Chart Review Chart Review: Acceptable Risk for Surgery and Patient NOT seen in Pre Admission Testing Patient receiving potassium riders. Will need to check potassium in the AM. Covid 03/21/21 was negative. Consults Requested none History Surgery Operation Date: 03/22/21 15:25 Proposed Procedures p Removal of Nunes Faustino Mooreatore Raz Valle MD, FACS Height/Weight Height: 5 ft 4 in Weight: 54.3 kg Allergies Allergy/AdvReac Type Severity Reaction Status Date / Time amlodipine [From [facility]] AdvReac Unknown edema Unverified 03/21/21 08:08 Medications Home Medications Medication Instructions Recorded Confirmed Last Taken acetaminophen 500 mg tablet 500 mg PO Q8H PRN 03/21/21 03/21/21 03/20/21 albuterol sulfate 90 mcg/actuation 1 inh INHALATION Q4H PRN 03/21/21 03/21/21 03/20/21 aerosol inhaler (Ventolin HFA) apixaban 5 mg tablet (Eliquis) 5 mg PO BID 03/21/21 03/21/21 03/20/21 budesonide-formoterol HFA 160 1 inh INHALATION DAILY 03/21/21 03/21/21 03/20/21 mcg-4.5 mcg/actuation aerosol inhaler (Symbicort) clonidine HCl 0.1 mg tablet 0.1 mg PO TID PRN 03/21/21 03/21/21 03/20/21 dextroamphetamine-amphetamine 20 20 mg PO BID 03/21/21 03/21/21 03/20/21 mg tablet diltiazem HCl 120 mg 120 mg PO DAILY 03/21/21 03/21/21 03/20/21 capsule,extended release 24 hr gabapentin 100 mg capsule 300 mg PO TID 03/21/21 03/21/21 03/20/21 hydromorphone 2 mg tablet 2 mg PO Q2H PRN 03/21/21 03/21/21 03/20/21 lansoprazole 30 mg capsule,delayed 30 mg PO DAILY 03/21/21 03/21/21 03/20/21 release mrgrnr-sujqnjlh-pqwygch 1 cap PO QID 03/21/21 03/21/21 03/20/21 24,000-76,000-120,000 unit capsule,delayed rel (Creon) montelukast 10 mg tablet 10 mg PO DAILY 03/21/21 03/21/21 03/20/21 ondansetron 4 mg disintegrating 4 mg PO Q6H PRN 03/21/21 03/21/21 03/20/21 tablet promethazine 12.5 mg tablet 12.5 mg PO Q6H PRN 03/21/21 03/21/21 03/20/21 tiotropium bromide 2.5 1 inh INHALATION DAILY 03/21/21 03/21/21 03/20/21 mcg/actuation mist for inhalation (Spiriva Respimat) Active Medications Generic Name Dose Route Start Last Admin Trade Name Freq PRN Reason Stop Dose Admin Acetaminophen 500 mg 03/21/21 14:25 03/21/21 15:49 Acetaminophen 500 Mg Tab PO 04/20/21 14:24 500 mg Q8H PRN Administration Pain Diltiazem HCl 120 mg 03/21/21 13:55 03/21/21 15:07 Diltiazem Hcl 120 Mg Capcr PO 04/20/21 13:54 120 mg DAILY AGNES Administration Fluticasone/Vilanterol 1 puffs 03/21/21 13:55 03/21/21 15:07 Fluticasone/Vilanterol 200/25mcg 14 Puffs/Inhaler INH 04/20/21 13:54 Not Given DAILY AGNES Protocol Gabapentin 300 mg 03/21/21 14:00 03/21/21 15:12 Gabapentin 300 Mg Cap PO 04/20/21 13:59 300 mg TID AGNES Administration Hydromorphone HCl 0.5 mg 03/21/21 09:40 03/21/21 18:58 Hydromorphone Inj 0.5 Mg/0.5 Ml Syr IV 04/04/21 09:39 0.5 mg Q4H PRN Administration Pain Hydromorphone HCl 2 mg 03/21/21 13:55 03/21/21 21:11 Hydromorphone Hcl 2 Mg Tab PO 04/04/21 13:54 2 mg Q2H PRN Administration Pain Lactated Ringer's 1,000 mls @ 100 mls/hr 03/21/21 08:00 03/21/21 16:45 Lr IV 04/20/21 07:59 Infused .Q10H AGNES Infusion Piperacillin Sod/Tazobactam 115 mls @ 28.75 mls/hr 03/21/21 14:00 03/21/21 20:40 Sod 3.375 gm/ Dextrose IV 03/31/21 13:59 Infused Q8H AGNES Infusion Protocol Vancomycin HCl 750 mg/ Sodium 265 mls @ 200 mls/hr 03/21/21 15:00 03/21/21 15:39 Chloride IV 03/28/21 05:59 Not Given Q8H AGNES Protocol Miscellaneous 1 ea 03/21/21 16:00 03/21/21 16:05 Crekranthi Adam 24,000/76,000/120,000 Cap~Order Awaiting Action N/A 04/20/21 15:59 Not Given QS AGNES Montelukast Sodium 10 mg 03/21/21 13:55 03/21/21 15:09 Montelukast Sodium 10 Mg Tablet PO 04/20/21 13:54 Not Given DAILY AGNES Ondansetron HCl 4 mg 03/21/21 09:40 03/21/21 18:58 Ondansetron Inj 2 Mg/Ml 2 Ml Vial IV 04/20/21 09:39 4 mg Q6H PRN Administration Nausea Pantoprazole Sodium 40 mg 03/21/21 13:55 03/21/21 15:10 Pantoprazole 40 Mg Tab PO 04/20/21 13:54 40 mg DAILY AGNES Administration Protocol Sterile Water 100 ml 03/21/21 14:00 03/21/21 14:00 Tube Feeding Water Flush GT 04/20/21 13:59 100 ml Q4H AGNES Administration Umeclidinium [place] 1 puffs 03/21/21 13:55 03/21/21 15:10 Umeclidinium [place] 62.5mcg/Blister 7 Puffs/Inhaler INH 04/20/21 13:54 Not Given DAILY AGNES Protocol Past Medical History Medical History Asthma Chronic back pain Gastrostomy tube in place Hypokalemia Patient received potassium riders this admission. No pertinent family history Pancreatitis Smoker Patient admitted for sepsis. Plan to remove tunneled line. G tube in place for chronic pancreatitis. PMH: LUE DVT February 07 with midline IV catheter placement (on Eliquis), COVID (Jan 2021), chronic pancreatitis s/p GJ tube placement at [facility], Right SCL Central line (Placed at [facility]- remains in place- she performs dressing changes on it every 3 days, HTN, Asthma moderate/persistent. Past Surgical History Surgical History (Updated 03/21/21 @ 21:37 by Mulugeta Haynes MD) H/O shoulder surgery H/O wrist surgery Social History Smoking Status: Current every day smoker Hx Alcohol Use: Yes Physical Exam Vital Signs Last Vital Signs Temp 36.8 C 03/21/21 18:08 Pulse 105 H 03/21/21 18:08 Resp 18 03/21/21 18:08 BP 148/105 H 03/21/21 17:34 Pulse Ox 96 03/21/21 18:08 Testing Laboratory Results 03/21/21 05:34 03/21/21 04:20 Urine Color Yellow 03/21/21 02:30 Urine Appearance Cloudy (Clear) A 03/21/21 02:30 Urine pH 7.5 (4.5-7.5) 03/21/21 02:30 Ur Specific [place] 1.015 (1.000-1.030) 03/21/21 02:30 Urine Protein Negative (Negative) 03/21/21 02:30 Urine Glucose (UA) Negative (Negative) 03/21/21 02:30 Urine Ketones Negative (Negative) 03/21/21 02:30 Urine Nitrite Negative (Negative) 03/21/21 02:30 Ur Leukocyte Esterase 2+ (Negative) H 03/21/21 02:30 Urine WBC (Auto) 10-30 /hpf (0-5) H 03/21/21 02:30 Urine RBC (Auto) 0-4 /hpf (0-4) 03/21/21 02:30 U Hyaline Cast (Auto) 5-10 /lpf (0-5) H 03/21/21 02:30 U Epithel Cells (Auto) >30 /lpf (0-5) H 03/21/21 02:30 Urine Bacteria (Auto) 1+ (Negative) H 03/21/21 02:30 03/21/21 04:20 Aerobic Blood Culture - Preliminary Blood Gram positive cocci in chains Anaerobic Blood Culture - Preliminary Gram positive cocci in chains 03/21/21 05:34 Aerobic Blood Culture - Final Blood Electrocardiogram Date: 03/21/21 DICTATED BY:Shoaib Mclean MD Test Reason : Blood Pressure : / mmHG Vent. Rate : 131 BPM Atrial Rate : 131 BPM P-R Int : 146 ms QRS Dur : 068 ms QT Int : 282 ms P-R-T Axes : 052 040 045 degrees QTc Int : 416 ms Sinus tachycardia Otherwise normal ECG When compared with ECG of 24-DEC-2020 19:50, No significant change was found Confirmed by Shoaib Mclean ([id number]) on 03/21/2021 2:23:54 PM Echocardiogram Date: 03/21/21 No evidence of mass or vegetation. Grade 1 DD. LV systolic function is normal. No significant valvular disease.
[2021-03-21] MEDS: APIXABAN 5 MG TABLET PO SCH (22:59)
[2021-03-22] MEDS ORDERED: LORazepam 1 MG TAB PO PRN (00:47)
[2021-03-22] MEDS: HYDROmorphone HCL 2 MG TAB PO PRN ×6 (02:27→23:33)
[2021-03-22] MEDS: VANCOMYCIN HCL 750 MG in SODIUM CHLORIDE 0.9% 250 ML IV SCH (04:38)
[2021-03-22] MEDS: PIPERACILLIN/TAZOBACTAM 3.375 GM in DEXTROSE 5% 100 ML IV SCH ×3 (04:41→21:19)
[2021-03-22] MEDS ORDERED: Nursing to Pharmacy Communication SCH (04:45)
[2021-03-22 04:59] LABS: Basophils # (auto) 0.04 K/uL (0-0.2); Eosinophils # (auto) 0.28 K/uL (0-0.5); Eosinophils % (auto) 7.2 %; Hematocrit (blood only) 32.3 % (37-47); Hemoglobin 11.1 g/dL (12.0-16.0); Lymphocytes # (auto) 1.09 K/uL (1.2-3.4); Lymphocytes % (auto) 27.9 %; Mean Corpuscular Hemoglobin 33.1 pg (25-34); Mean Corpuscular Hgb Conc 34.4 g/dL (32-36); Mean Corpuscular Volume 96.4 fL (80-100); Mean Platelet Volume 9.4 fL (7.4-10.4); Monocytes # (auto) 0.49 K/uL (0.11-0.59); Monocytes % (auto) 12.5 %; Neutrophils # (auto) 2.01 K/uL (1.4-6.5); Neutrophils % (auto) 51.4 %; Platelet Count 231 K/uL (130-400); RDW Coefficient of Variation 14.4 % (11.5-14.5); RDW Standard Deviation 50.8 fL (36.4-46.3); Red Blood Count 3.35 M/uL (4.2-5.4); White Blood Count 3.91 K/uL (4.8-10.8)
[2021-03-22 05:10] LABS: INR 1.3 (0.9-1.1); Partial Thromboplastin Ratio 1.5; Partial Thromboplastin Time 39.6 Seconds (21.0-31.0); Prothrombin Time 13.1 Seconds (9.0-12.0)
[2021-03-22 05:49] LABS: BUN Creatinine Ratio 13.7 (10-20); Calcium 7.9 mg/dl (8.5-10.1); Creatinine Clr Calc Pharmacy 138.4 ml/min; Est GFR (African American) 146.3 ml/min; Est GFR (Non-African American) 126.2 ml/min; Magnesium 1.6 mg/dl (1.8-2.4); Potassium 2.4 mmol/L (3.5-5.1)
[2021-03-22] MEDS ORDERED: LORazepam 1 MG TAB PO STA (05:51)
[2021-03-22] MEDS ORDERED: LORazepam 2 MG/ML VIAL (IM USE) IM STA (06:10)
[2021-03-22] MEDS ORDERED: POTASSIUM CHLORIDE 20 MEQ/15 ML UDC PO ONE ×2 (06:15→07:15)
[2021-03-22] MEDS: ACETAMINOPHEN 500 MG TAB PO PRN (06:26)
[2021-03-22] MEDS: MAGNESIUM OXIDE 400 MG TAB PEG SCH ×2 (06:45→06:54)
[2021-03-22] MEDS: TUBE FEEDING WATER FLUSH GT SCH ×5 (06:47→23:03)
[2021-03-22] MEDS ORDERED: ONDANSETRON INJ 2 MG/ML 2 ML VIAL ONE (07:31)
[2021-03-22] MEDS ORDERED: LIDOCAINE 2% 2 ML VIAL/AMP(20MG/ML) INFIL ONE (07:31)
[2021-03-22] MEDS ORDERED: PROPOFOL IV EMULSION 10 MG/ML 20 ML VIAL IV ONE (07:31)
[2021-03-22] MEDS ORDERED: MIDAZOLAM HCL 1 MG/ML 2ML VIAL ONE (07:32)
[2021-03-22] MEDS ORDERED: fentaNYL citrate 100 MCG/2 ML VIAL ONE (07:32)
[2021-03-22] MEDS ORDERED: KETAMINE 50 MG/5 ML SYRINGE ONE (07:32)
[2021-03-22] MEDS ORDERED: LIDOCAINE 1% LOCAL 20 ML VIAL ONE (07:45)
[2021-03-22] MEDS: LACTATED RINGER'S 1,000 ML IV SCH (07:53)
[2021-03-22] MEDS ORDERED: ATROPINE SULFATE 0.1 MG/ML 10ML SYR IV PRN (08:04)
[2021-03-22] MEDS ORDERED: fentaNYL citrate 100 MCG/2 ML VIAL IV PRN (08:04)
[2021-03-22] MEDS ORDERED: ePHEDrine sulfate 50 MG/ML AMP IV PRN (08:04)
[2021-03-22] MEDS ORDERED: ONDANSETRON INJ 2 MG/ML 2 ML VIAL IV PRN (08:04)
--- NOTE | 2021-03-22 08:07 | History & Physical Bridge Note ---
Date of Service March 22, 2021 History & Physical Bridge Note I have examined the patient, reviewed the History & Physical and in the interval since the performance of the History & Physical I have noted the following changes of clinical significance: no changes noted Discussed with the patient we will proceed with removal of the tunneled catheter this morning risk and complication explained to her permit was signed Supervising Physician Co-Signing Physician Notes Patient was seen and examined independently I discussed the case with Carlyle ALVAREZ I reviewed pertinent past medical social family history and also the plan of care and agree with the plan of care. Difficult to understand past story patient presents with J-tube surgically implanted in her abdomen and a tunneled central catheter in her right upper chest febrile with concern for bacteremia perhaps from portal of entry being her tunneled catheter. Reportedly has history of alcohol and substance abuse in the past denies current substance abuse but has used all of her pain medications from her recent surgeries and now has none. Later today did complain that she has been through alcohol withdrawal in the past and recently been drinking alcohol. Clinical concerns for perhaps for borderline personality with secondary gain. Certainly concern for possible strep bacteremia initial echocardiogram negative on broad-spectrum antibiotics. Did contact surgery multiple occasions of borderline was told that they are not on-call to cover the ER and cannot remove the line until 03/22/2021 perhaps in the late day. It was stressed to the surgical team that if this is the nidus of infection for the patient would be best to remove this earlier. Physical exam her tunnel catheter does not look overtly infected on the outside she has no heart murmurs or peripheral stigmata of endocarditis although her diagnosis of concern is bacteremia. Any exceptions will be noted below
[2021-03-22] MEDS ORDERED: POTASSIUM CHLORIDE 10 MEQ / 100ML WTR IV STA (08:08)
--- NOTE | 2021-03-22 08:21 | Post Operative Brief Note ---
PG Immediate Post Op with CF Date of Surgery March 22, 2021 Pre & Post Diagnosis Operation Date: 03/22/21 15:25 <No data on this case meets the specified criteria> I identified the patient and participated in the time-out.: Yes Procedure Operation Date: 03/22/21 15:25 <No data on this case meets the specified criteria> Surgeon Kevin Valle MD, FACS News Librarian jaison cast Estimated Blood Loss 0 Findings Consistent with Post-Op Diagnosis
--- NOTE | 2021-03-22 08:36 | Operative Report ---
Post Operative Report Pre & Post Diagnosis Operation Date: 03/22/21 15:25 Pre-Op Diagnosis: Infected Nunes Catheter Post-Op Diagnosis: Infected Nunes Catheter I identified the patient and participated in the time-out.: Yes Procedure Operation Date: 03/22/21 15:25 Actual Procedures p Removal of Nunes Cateter(Not Applicable) - Kevin Valle MD, FACS The patient was brought into the operating room theater placed in the supine position IV sedation given and I started to remove the occlusive dressing that was on the catheter port site nylon sutures appear to be holding the catheter in place but is elevated to occlusive dressing the sutures basically fell out from the skin and at this point slightly pulling on the dressing to prep the patient I can see the Dacron cuff on the catheter commodity from the skin therefore we continued extracting the catheter holding pressure in the supraclavicular area and underneath the clavicular area for approximately 5 minutes since the patient was on Eliquis then a 2 x 2 dressing was placed in the operative site Patient had positive blood cultures and I did not culture the catheter No blood loss Surgeon Kevin Valle MD, FACS E Business Manager jaison cast Estimated Blood Loss 0 Findings Consistent with Post-Op Diagnosis Infected access port catheter Specimens Catheter was visualized documentation made in this regard it Description of Procedure merda I attest to the content of the Intraoperative Record and any orders documented therein. Any exceptions are noted below.
--- NOTE | 2021-03-22 09:20 | Gastroenterology Progress Note ---
Date of Service March 22, 2021 Assessment & Plan (1) Chronic pancreatitis: Plan: Chronic pancreatitis: Chronic abdominal pain with worsened pain presently. No evidence of acute pancreatitis on imaging. AM cortisol pending. Continues to drink alcohol. Would recommend pain management consult for chronic pain management once stabilized. Patient no longer follows with [facility] at [facility] as she elected to change providers to [facility]. Will need to ensure patient has outpatient follow-up when discharged. Gastrostomy tube: Gastrostomy tube interrogation demonstrated no evidence of perforation. Okay to use gastrostomy tube per Dr. Payan. Please refer to supervising physician addendum for further recommendations. (2) Gastrostomy tube in place: Admission and Anticipated Discharge Date Admission Date: March 21, 2021 Supervising Physician Co-Signing Physician Notes I have seen and examined the patient. I agree with note above by ANTONIO Fairchild except as noted below. HPI Pt seen. She had line removed today. States abdominal pain about the same. PE Abdomen pos bs, soft, mild guarding tube site, no rebound A/P chronic pancreatitis---continue tube feedings, If pain persists may need celiac axis block electively at tertiary center feeding tube--seems to be in correct position without evidence of extravasation fever/gm neg rods---workup per hospitalist--hopefully will resolve since line removed Dr José Miguel Tello is assuming GI care today at 1800 through thursday morning. Subjective Patient off the unit this morning in the OR for central line removal. Nursing documentation and EMR reviewed. Low potassium through the night addressed by hospitalist team. Gastrostomy tube interrogation demonstrated no evidence of perforation. Okay to use gastrostomy per Dr. Payan. Results & Data ([facility]) Vital Signs (Past 12 Hours) Vital Signs Temp Pulse Pulse Pulse Resp BP Pulse Ox 03/22/21 09:10 118 H 20 102/59 L 92 03/22/21 09:00 37.7 C H 117 H 20 101/64 92 03/22/21 08:50 115 H 24 98/65 L 97 03/22/21 08:40 37.2 C 116 H 18 102/70 97 03/22/21 08:30 36.8 C 119 H 12 107/86 97 03/22/21 07:51 39.4 C H 134 H 20 119/90 94 03/22/21 07:00 39.4 C H 134 H 18 113/79 93 03/22/21 05:41 39.1 C H 139 H 20 145/81 H 03/22/21 03:00 38.3 C H 117 H 20 115/76 94 03/21/21 23:00 37.3 C 99 H 97 H 20 146/105 H 99 03/21/21 21:52 36.8 C 101 H 20 145/93 H 97 Laboratory Results Laboratory Results - last 24 hr 03/21/21 03/21/21 03/21/21 13:37 13:37 13:37 WBC RBC Hgb Hct MCV MCH MCHC RDW Std Deviation RDW Coeff of Paulina Plt Count MPV Immature Gran % (Auto) Neut % (Auto) Lymph % (Auto) Hill % (Auto) Eos % (Auto) Baso % (Auto) Neut # (Auto) Lymph # (Auto) Hill # (Auto) Eos # (Auto) Baso # (Auto) Immature Gran # (Auto) PT INR APTT PTT Ratio Sodium Potassium Chloride Carbon Dioxide Anion Gap BUN Creatinine Est Cr Clr Drug Dosing Est GFR ( Amer) Est GFR (Non-Af Amer) BUN/Creatinine Ratio Glucose Lactate 1.1 Calcium Magnesium C-Reactive Protein 4.16 H Procalcitonin 0.92 H Cortisol AM Sample 03/22/21 03/22/21 03/22/21 04:29 04:29 04:29 WBC 3.91 L RBC 3.35 L Hgb 11.1 L D Hct 32.3 L MCV 96.4 MCH 33.1 MCHC 34.4 RDW Std Deviation 50.8 H RDW Coeff of Paulina 14.4 Plt Count 231 MPV 9.4 Immature Gran % (Auto) 0.0 Neut % (Auto) 51.4 Lymph % (Auto) 27.9 Hill % (Auto) 12.5 Eos % (Auto) 7.2 Baso % (Auto) 1.0 Neut # (Auto) 2.01 Lymph # (Auto) 1.09 L Hill # (Auto) 0.49 Eos # (Auto) 0.28 Baso # (Auto) 0.04 Immature Gran # (Auto) 0.00 PT 13.1 H INR 1.3 H APTT 39.6 H PTT Ratio 1.5 Sodium 130 L Potassium 2.4 L* Chloride 92 L Carbon Dioxide 32 Anion Gap 6.0 BUN 7 Creatinine 0.49 L Est Cr Clr Drug Dosing 138.4 Est GFR ( Amer) 146.3 Est GFR (Non-Af Amer) 126.2 BUN/Creatinine Ratio 13.7 Glucose 86 Lactate Calcium 7.9 L Magnesium 1.6 L C-Reactive Protein Procalcitonin Cortisol AM Sample 03/22/21 07:41 WBC RBC Hgb Hct MCV MCH MCHC RDW Std Deviation RDW Coeff of Paulina Plt Count MPV Immature Gran % (Auto) Neut % (Auto) Lymph % (Auto) Hill % (Auto) Eos % (Auto) Baso % (Auto) Neut # (Auto) Lymph # (Auto) Hill # (Auto) Eos # (Auto) Baso # (Auto) Immature Gran # (Auto) PT INR APTT PTT Ratio Sodium Potassium Chloride Carbon Dioxide Anion Gap BUN Creatinine Est Cr Clr Drug Dosing Est GFR ( Amer) Est GFR (Non-Af Amer) BUN/Creatinine Ratio Glucose Lactate Calcium Magnesium C-Reactive Protein Procalcitonin Cortisol AM Sample Pending Diagnostic Findings Extremity Venous Study 03/21/21 08:31 US venous doppler UE LT CLINICAL HISTORY: Upper extremity DVT in January- eval for residual thrombus Procedure: Right upper extremity real-time compression venous ultrasound with Duplex and Color Doppler imaging. Utilizing real-time ultrasonic imaging multiple real time high-resolution ultrasonic images of the deep venous system were performed from the forearm through the subclavian vein including evaluation of the jugular vein. Compression real time ultrasonic imaging was performed in addition to color Doppler imaging and duplex Doppler ultrasound with velocity spectral profile analysis. There is again noted to be nonocclusive thrombus in one of the 2 brachial veins. There is normal compressibility of the remainder of the deep venous system from the forearm through the subclavian vein. Normal vascular flow is currently identified. No evidence of acute thrombosis is identified. Impression: Residual nonocclusive thrombus in one of the 2 brachial veins. The remaining deep venous system is patent. ACT 112: Negative or not required by law. Electronically signed by: Toney Correa M.D. 03/21/2021 12:47 PM KUB X-Ray 03/21/21 16:58 KUB/GASTROSTOMY TUBE CHECK CLINICAL HISTORY: gastrostomy tube check COMPARISON STUDY: CT of the abdomen and pelvis performed earlier today. TECHNIQUE: Initially, a tablet making machine operator helper KUB was obtained. 50 cc of Optiray 300 was then injected into the gastrostomy tube. Subsequent KUB was obtained. FINDINGS: Cardboard Cutter KUB demonstrates a normal bowel gas pattern. There is contrast within the bladder from recent contrast-enhanced CT. Opacification of the duodenum is noted following contrast administration. There is no extraluminal contrast. The tip of the tube is within the distal duodenum. IMPRESSION: Tip of percutaneous gastrostomy/gastrojejunostomy tube within the distal duo denum. No contrast extravasation. ACT 112: Negative or not required by law. Electronically signed by: Miguel Luciano M.D. 03/21/2021 5:51 PM
--- NOTE | 2021-03-22 09:22 | Anesthesiology Progress Note ---
Date of Service March 22, 2021 Anesthesia Post Procedure Vital Signs Vital Signs: Temp Pulse Pulse Pulse Resp BP BP 03/22/21 09:10 118 H 20 102/59 L 03/22/21 09:00 99.9 F H 117 H 20 101/64 03/22/21 08:50 115 H 24 98/65 L 03/22/21 08:40 99.0 F 116 H 18 102/70 03/22/21 08:30 98.2 F 119 H 12 107/86 03/22/21 07:51 102.9 F H 134 H 20 119/90 03/22/21 07:00 102.9 F H 134 H 18 113/79 03/22/21 05:41 102.4 F H 139 H 20 145/81 H 03/22/21 03:00 100.9 F H 117 H 20 115/76 03/21/21 23:00 99.1 F 99 H 97 H 20 146/105 H 03/21/21 21:52 98.2 F 101 H 20 145/93 H 03/21/21 20:30 101 H 03/21/21 18:08 98.2 F 105 H 18 03/21/21 17:34 98.2 F 85 18 148/105 H 03/21/21 17:33 98.2 F 104 H 19 156/114 H 03/21/21 10:00 101 H 19 114/87 03/21/21 09:30 112 H 24 118/62 Pulse Ox 03/22/21 09:10 92 03/22/21 09:00 92 03/22/21 08:50 97 03/22/21 08:40 97 03/22/21 08:30 97 03/22/21 07:51 94 03/22/21 07:00 93 03/22/21 05:41 03/22/21 03:00 94 03/21/21 23:00 99 03/21/21 21:52 97 03/21/21 20:30 03/21/21 18:08 96 03/21/21 17:34 96 03/21/21 17:33 94 03/21/21 10:00 98 03/21/21 09:30 97 Pain Intensity Left Upper Abdomen: Pain Intensity: 8 Transfer of Care Handoff Completed per policy Notes Mental Status: alert / awake / arousable and participated in evaluation Patient Amnestic to Procedure: Yes Nausea / Vomiting: adequately controlled Pain: adequately controlled Airway Patency, RR, SpO2: stable & adequate BP & HR: stable & adequate Hydration State: stable & adequate Anesthetic Complications: no major complications apparent and Pt Satisfied with anesthetic care
[2021-03-22] MEDS: dilTIAZem HCL 120 MG CAPCR PO SCH (10:00)
[2021-03-22] MEDS: POTASSIUM CHLORIDE / WTR 10 MEQ/100 ML PLCT IV SCH ×3 (10:09→12:24)
[2021-03-22] MEDS: THIAMINE HCL 200 MG in SODIUM CHLORIDE 0.9% 50 ML IV SCH (10:10)
[2021-03-22] MEDS: MAGNESIUM SULFATE / D5W 1 GM/100 ML BAG IV SCH ×2 (10:33→12:30)
--- NOTE | 2021-03-22 10:35 | Electrocardiogram Report ---
Test Reason : Blood Pressure : / mmHG Vent. Rate : 131 BPM Atrial Rate : 131 BPM P-R Int : 146 ms QRS Dur : 068 ms QT Int : 300 ms P-R-T Axes : 070 056 072 degrees QTc Int : 443 ms Poor data quality, interpretation may be adversely affected Sinus tachycardia Otherwise normal ECG When compared with ECG of 21-MAR-2021 00:58, No significant change was found Confirmed by Shoaib Mclean ([id number]) on 03/22/2021 10:35:31 AM Referred By: REFERRED SELF Confirmed By:Gee Mclean
[2021-03-22 10:51] LABS: BUN Creatinine Ratio 9.4 (10-20); Creatinine Clr Calc Pharmacy 130.4 ml/min; Est GFR (African American) 143.5 ml/min; Est GFR (Non-African American) 123.8 ml/min; Potassium 3.4 mmol/L (3.5-5.1)
[2021-03-22] MEDS: GABAPENTIN 300 MG CAP PO SCH ×3 (12:39→21:44)
[2021-03-22] MEDS: APIXABAN 5 MG TABLET PO SCH ×2 (14:06→21:43)
[2021-03-22] MEDS: FLUTICASONE/VILANTEROL 200/25MCG 14 PUFFS/INHALER INH SCH (14:07)
[2021-03-22] MEDS: MONTELUKAST SODIUM 10 MG TABLET PO SCH (14:07)
[2021-03-22] MEDS: UMECLIDINIUM BROMIDE 62.5MCG/BLISTER 7 PUFFS/INHALER INH SCH (14:08)
[2021-03-22] MEDS: PANTOprazole 40 MG TAB PO SCH (14:12)
[2021-03-22] MEDS: VANCOMYCIN HCL 1,000 MG in SODIUM CHLORIDE 0.9% 250 ML IV SCH ×2 (14:32→17:48)
[2021-03-22 16:47] LABS: BUN Creatinine Ratio 8.9 (10-20); Calcium 7.9 mg/dl (8.5-10.1); Creatinine Clr Calc Pharmacy 138.4 ml/min; Est GFR (African American) 146.3 ml/min; Est GFR (Non-African American) 126.2 ml/min; Potassium 3.8 mmol/L (3.5-5.1)
[2021-03-22] MEDS: ONDANSETRON INJ 2 MG/ML 2 ML VIAL IV PRN (17:31)
--- NOTE | 2021-03-22 17:57 | Hospitalist Progress Note ---
Date of Service March 22, 2021 Assessment & Plan (1) Sepsis: Plan: Patient technically meets sepsis criteria with tachycardia, fever, elevated lactate - Source -right neck tunneled catheter removed 03/22/2021 abdominal with recent procedure and NJ tube placement. Some residual air was present but surgery does not feel acute issue urine -Likely source of infection is right central line line was removed and cultured on 03/22 ECHO evidence of vegetation- continue Zosyn and Vancomycin- await blood cultures finalized result - No murmurs on exam gram positive maybe contaminant in blood culture, there are also gram negatives identified, continue to watch abdominal exam for change - Abdominal with chronic pancreatitis and pneumoperitoneum which is likely giving her her abdominal discomfort- Surgical consult following along - Urine likely contaminated - but with bladder wall thickening noted on CT scan- continue Vancomycin and Zosyn, pinpoint growth 03/22/21 - Lactate downtrended following 2L crystalloid- continue with LR at 100ml/hr overnight (2) Pancreatitis: Plan: Chronic now with GJ tube in place - Patient gives most of her medications through GJ tube - Lipase jerson- -pt still takes po liquids and still admits to drinking alcohol (3) Gastrostomy tube in place: Plan: 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 pt reportedly on PDMP did have dilaudid po on 03/17 and on presentation said she was out of meds (6) Asthma: Plan: Chronic persistent - Uses her KARIS 2-3 times per day, no night time awakenings - Continue KARIS, Symbicort, and Spiriva (7) DVT prophylaxis: Plan: Patient reports LUE DVT following Midline placment in January when she was admitted for COVID - She was placed on Eliquis for this UE DVT -Venous Doppler upper extremity shows residual nonocclusive thrombus in 1-2 brachial veins interval left upper extremity. Remainder system is patent - Continue Eliquis if no surgical indication Admission and Anticipated Discharge Date Admission Date: March 21, 2021 Subjective Patient off the unit this morning in the OR for central line removal. Pt was seen post procedure where she was slightly sedate right neck central line was removed by surgery. Patient did have notification of gram-negative bacteremia in one of her blood cultures. I personal discussions with dietitian to begin enteral feedings there is some concern that some of her electrolyte imbalance may be from refeeding type syndrome they are on board and will continue to follow Review of Systems Review of Systems: Mild distress and fatigue no headache, no visual changes no speech or swallowing issues no chest pain, pressure or palpitations no shortness of breath, cough or wheezes abdominal pain not acute abdomen, j tube site looks appropiate no dysuria, hematuria or frequency no focal joint pain or swelling no back pain, CVA tenderness or radicular pain no bruising, bleeding or rashes no focal signs of weakness or numbness or altered sensation no complaints of anxiety or depression.. Physical Exam Physical Exam: The patient appeared well nourished and normally developed. Despite having an NG tube in supposedly being on feeding. Vital signs as documented. Head exam is normocephalic atraumatic Neck is without JVD, thyromegaly, or carotid bruits. Lungs are clear to auscultation, no focal loss of breath sounds Cardiac exam, Rhythm is regular.. No murmurs, rubs or gallops. Abdominal exam reveals normal bowel sounds, soft non tender, no masses J-tube in left side of abdomen Extremities are nonedematous and both pedal pulses are present Neurologic exam is alert and oriented, still slightly sedated from surgery no evidence of withdrawal tremors or rigidity no focal loss of strength or sensation Skin is without bruises or rashes right neck central line site is not red dry or irritated Psychologically is with concerns for secondary gain Results & Data Results & Data ([facility]) Vital Signs (Past 12 Hours) Vital Signs Temp Pulse Pulse Pulse Resp BP Pulse Ox 03/22/21 15:00 97.9 F 95 H 93 H 18 83/51 L 97 03/22/21 11:08 99.0 F 115 H 16 92/58 L 94 03/22/21 10:38 98.8 F 110 H 16 100/66 93 03/22/21 10:18 98.6 F 111 H 18 95/60 L 92 03/22/21 09:23 101.5 F H 118 H 116 H 18 98/63 L 90 03/22/21 09:10 118 H 20 102/59 L 92 03/22/21 09:00 99.5 F 114 H 18 97/61 L 90 03/22/21 08:50 115 H 24 98/65 L 97 03/22/21 08:40 99.0 F 116 H 18 102/70 97 03/22/21 08:30 98.2 F 119 H 12 107/86 97 03/22/21 08:00 135 H 03/22/21 07:51 102.9 F H 134 H 20 119/90 94 03/22/21 07:00 102.9 F H 134 H 18 113/79 93 PG Care Time/CCT Total # of Minutes Spent Total Time Spent with Patient: Total time spent is greater than 50% in coordination of care (as documented) at patient's floor/unit and/or counseling patient: Coding Level of Care Code 60089 Subseq Hosp Care Lvl 3 Diagnoses Sepsis A41.9 Pancreatitis K85.[address] Z93.1 Smoker F17.200 Chronic back pain M54.9; G89.29 Asthma J45.909 DVT prophylaxis Z29.9
[2021-03-22] MEDS: LORazepam 2 MG/4 ML VIAL IV PRN (19:48)
--- NOTE | 2021-03-22 20:06 | Hospitalist Progress Note ---
Date of Service March 22, 2021 Assessment & Plan (1) Sepsis: Plan: Patient technically meets sepsis criteria with tachycardia, fever, elevated lactate - Source -right neck tunneled catheter removed 03/22/2021 abdominal with recent procedure and NJ tube placement. Some residual air was present but surgery does not feel acute issue urine -Likely source of infection is right central line line was removed and cultured on 03/22 ECHO evidence of vegetation- continue Zosyn and Vancomycin- await blood cultures finalized result - No murmurs on exam gram positive maybe contaminant in blood culture, there are also gram negatives identified, continue to watch abdominal exam for change - Abdominal with chronic pancreatitis and pneumoperitoneum which is likely giving her her abdominal discomfort- Surgical consult following along - Urine likely contaminated - but with bladder wall thickening noted on CT scan- continue Vancomycin and Zosyn, pinpoint growth 03/22/21 - Lactate downtrended following 2L crystalloid- continue with LR at 100ml/hr overnight (2) Pancreatitis: Plan: Chronic now with GJ tube in place - Patient gives most of her medications through GJ tube - Lipase jerson- -pt still takes po liquids and still admits to drinking alcohol (3) Gastrostomy tube in place: Plan: 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 pt reportedly on PDMP did have dilaudid po on 03/17 and on presentation said she was out of meds (6) Asthma: Plan: Chronic persistent - Uses her KARSI 2-3 times per day, no night time awakenings - Continue KARIS, Symbicort, and Spiriva (7) DVT prophylaxis: Plan: Patient reports LUE DVT following Midline placment in January when she was admitted for COVID - She was placed on Eliquis for this UE DVT -Venous Doppler upper extremity shows residual nonocclusive thrombus in 1-2 brachial veins interval left upper extremity. Remainder system is patent - Continue Eliquis if no surgical indication (8) Severe protein-calorie malnutrition: Admission and Anticipated Discharge Date Admission Date: March 21, 2021 Results & Data Results & Data ([facility]) Vital Signs (Past 12 Hours) Vital Signs Temp Pulse Pulse Pulse Resp BP Pulse Ox 03/22/21 19:35 98.2 F 105 H 20 119/79 99 03/22/21 17:57 107/75 03/22/21 15:00 97.9 F 95 H 93 H 18 83/51 L 97 03/22/21 11:08 99.0 F 115 H 16 92/58 L 94 03/22/21 10:38 98.8 F 110 H 16 100/66 93 03/22/21 10:18 98.6 F 111 H 18 95/60 L 92 03/22/21 09:23 101.5 F H 118 H 116 H 18 98/63 L 90 03/22/21 09:10 118 H 20 102/59 L 92 03/22/21 09:00 99.5 F 114 H 18 97/61 L 90 03/22/21 08:50 115 H 24 98/65 L 97 03/22/21 08:40 99.0 F 116 H 18 102/70 97 03/22/21 08:30 98.2 F 119 H 12 107/86 97 PG Care Time/CCT Total # of Minutes Spent Total Time Spent with Patient: Total time spent is greater than 50% in coordination of care (as documented) at patient's floor/unit and/or counseling patient: Coding Level of Care Code None Diagnoses Sepsis A41.9 Pancreatitis K85.[address] Z93.1 Smoker F17.200 Chronic back pain M54.9; G89.29 Asthma J45.909 DVT prophylaxis Z29.9 Severe protein-calorie malnutrition E43
[2021-03-22] MEDS: PEPTAMEN 1.5 CAL 1,000 ML BAG JT SCH (21:46)
[2021-03-22] MEDS: ONDANSETRON 4 MG OD TAB PO PRN (22:52)
[2021-03-23] MEDS: LORazepam 2 MG/4 ML VIAL IV PRN (00:49)
[2021-03-23] MEDS: LORazepam 1 MG/2 ML VIAL IV PRN ×5 (02:03→21:43)
[2021-03-23] MEDS: TUBE FEEDING WATER FLUSH GT SCH ×6 (02:20→23:31)
[2021-03-23] MEDS: PIPERACILLIN/TAZOBACTAM 3.375 GM in DEXTROSE 5% 100 ML IV SCH ×3 (02:26→19:06)
[2021-03-23] MEDS: VANCOMYCIN HCL 1,000 MG in SODIUM CHLORIDE 0.9% 250 ML IV SCH ×2 (02:26→10:16)
[2021-03-23] MEDS: HYDROmorphone HCL 2 MG TAB PO PRN ×5 (02:27→21:20)
[2021-03-23] MEDS ORDERED: VANCOMYCIN TROUGH ONE ×3 (03:30→09:30)
[2021-03-23] MEDS: MONTELUKAST SODIUM 10 MG TABLET PO SCH (08:10)
[2021-03-23] MEDS: APIXABAN 5 MG TABLET PO SCH ×2 (08:11→21:22)
[2021-03-23] MEDS: dilTIAZem HCL 120 MG CAPCR PO SCH (08:11)
[2021-03-23] MEDS: GABAPENTIN 300 MG CAP PO SCH ×3 (08:11→21:22)
[2021-03-23] MEDS: FLUTICASONE/VILANTEROL 200/25MCG 14 PUFFS/INHALER INH SCH (08:12)
[2021-03-23] MEDS: PANTOprazole 40 MG TAB PO SCH (08:12)
[2021-03-23] MEDS: UMECLIDINIUM BROMIDE 62.5MCG/BLISTER 7 PUFFS/INHALER INH SCH (08:13)
--- NOTE | 2021-03-23 08:13 | Gastroenterology Progress Note ---
Date of Service March 23, 2021 Assessment & Plan (1) Chronic pancreatitis: Plan: Chronic pancreatitis: Chronic abdominal pain with worsened pain presently. No evidence of acute pancreatitis on imaging. Continued alcohol use is a problem. Supportive care, and chronic pain management. Gastrostomy tube: Gastrostomy tube interrogation demonstrated no evidence of perforation. Unclear if this air is residual from the time of the PEG tube placement. . (2) Gastrostomy tube in place: Plan: Given increase in localized pain, slight discharge and erythema might want to give a course of Keflex Admission and Anticipated Discharge Date Admission Date: March 21, 2021 Subjective Patient sleeping, easily woken up. complaints of pain at the tube site. It never worked well, she says. Review of Systems Gastrointestinal: + abdominal pain Physical Exam Gastrointestinal (Abdomen): Inspection/Auscultation: abdomen normal to inspection and + scaphoid PEG_J in place, loose external bolster. slight discharge at the site with minimal erythema. tender around the tube + epigastria and Letf quadrants Results & Data ([facility]) Vital Signs (Past 12 Hours) Vital Signs Temp Pulse Pulse Resp BP Pulse Ox 03/23/21 07:30 105 H 03/23/21 01:55 36.9 C 112 H 24 124/92 03/23/21 00:40 37.5 C 124 H 22 149/88 H 98 03/22/21 23:04 36.5 C 75 18 121/88 99 03/22/21 22:20 103 H 03/22/21 20:48 37.1 C 61 18 116/85 97
[2021-03-23] MEDS: ONDANSETRON 4 MG OD TAB PO PRN ×2 (08:19→15:34)
[2021-03-23] MEDS: THIAMINE HCL 200 MG in SODIUM CHLORIDE 0.9% 50 ML IV SCH (08:23)
[2021-03-23 09:45] LABS: Basophils # (auto) 0.08 K/uL (0-0.2); Basophils % (auto) 2.3 %; Eosinophils # (auto) 0.29 K/uL (0-0.5); Eosinophils % (auto) 8.3 %; Hematocrit (blood only) 33.4 % (37-47); Hemoglobin 11.6 g/dL (12.0-16.0); Immature Granulocytes # (auto) 0.01 K/uL (0.00-0.02); Immature Granulocytes % (auto) 0.3 %; Lymphocytes # (auto) 1.37 K/uL (1.2-3.4); Lymphocytes % (auto) 39.1 %; Mean Corpuscular Hemoglobin 33.3 pg (25-34); Mean Corpuscular Hgb Conc 34.7 g/dL (32-36); Mean Platelet Volume 9.6 fL (7.4-10.4); Monocytes # (auto) 0.36 K/uL (0.11-0.59); Monocytes % (auto) 10.3 %; Neutrophils # (auto) 1.39 K/uL (1.4-6.5); Neutrophils % (auto) 39.7 %; Platelet Count 174 K/uL (130-400); RDW Coefficient of Variation 14.1 % (11.5-14.5); RDW Standard Deviation 49.6 fL (36.4-46.3); Red Blood Count 3.48 M/uL (4.2-5.4)
[2021-03-23 11:10] LABS: Bilirubin Direct 0.2 mg/dl (0-0.2)
[2021-03-23 11:11] LABS: BUN Creatinine Ratio 5.8 (10-20); Bilirubin,Total 0.6 mg/dl (0.2-1); Creatinine Clr Calc Pharmacy 116.7 ml/min; Est GFR (African American) 138.4 ml/min; Est GFR (Non-African American) 119.4 ml/min; Phosphorus 2.6 mg/dl (2.5-4.9); Potassium 3.6 mmol/L (3.5-5.1); Total Protein 5.6 gm/dl (6.4-8.2)
--- NOTE | 2021-03-23 15:00 | Pharmacy Report ---
Pharmacy Vanc AUC Short Note - Date of Service March 23, 2021 - Assessment & Plan Assessment 36 year old F receiving IV Vancomycin/Zosyn for treatment of STT, s/p central line placement, chronic pancreatitis, ?sepsis, s/p g-tube placement Day # 3 of antimicrobial therapy. Plan Vancomycin * AUC/SAGRARIO is the preferred PK/PD target for vancomycin * AUC guided dosing is effective and associated with decreased risk of nephrotoxicity compared to traditional trough targets * Trough level came back supratherapeutic at ~23 mcg/ml (goal 15-20 mcg/ml). Previous doses however not consistently 8 hr interval timing, may have led to slightly higher level today. Last dose was ~8 hrs after level drawn. * Will scale back on dosing slightly to 750 mg iv q 8 hrs, plan to start new dosing this evening when estimated level closer to ~15 mcg/ml. Will plan to recheck trough in next 1-2 days if plan is to continue abx Pharmacy will continue to follow and will adjust dose/frequency as necessary. Thank you.
--- NOTE | 2021-03-23 19:29 | Hospitalist Progress Note ---
Date of Service March 23, 2021 Assessment & Plan (1) Sepsis: Plan: Patient technically meets sepsis criteria with tachycardia, fever, elevated lactate - Source possibilities-right neck tunneled catheter removed 03/22/2021 versus abdominal with recent procedure and NJ tube placement. Blood cultures showing alpha strep [id number] contaminant, but repeat cultures and follow. 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 Given her response to OMT for her headache, I suspect she would benefit from a trial of OMT as an outpatient as well. (6) Asthma: Plan: Chronic persistent - Uses her KARIS 2-3 times per day, no night time awakenings - Continue KARIS, Symbicort, and Spiriva -No complaints of dyspnea today (7) DVT prophylaxis: Plan: Patient reports LUE DVT following Midline placment in January when she was admitted for COVID - She was placed on Eliquis for this UE DVT -Venous Doppler upper extremity shows residual nonocclusive thrombus in 1-2 brachial veins interval left upper extremity. Remainder system is patent - Continue Eliquis (8) Severe protein-calorie malnutrition: Plan: Tube feeds and p.o. intake (9) Somatic dysfunction of cervical region: Plan: Headache appears to have a large tension component. OMT as above. Patient tolerated well Plan: . CanContinue on medical, biotics pending further speciation and repeat blood cultures, if strep proves to be a positive, will need to ask infectious disease regarding possible transesophageal echo and optimal treatment. If it appears to be contaminant, and gram-negative is the dominant species, then will need to await sensitivities for recommendations on final course of antibiotics Admission and Anticipated Discharge Date Admission Date: March 21, 2021 Subjective Feeling fairly lousy, feels hot like she is kind to getting fevers again. Headache all over her head relates to the fever. Updated on current findings, answered all questions to the best of my ability. Moved up here from [place] with chronic illness burden to be closer to family/support system. Does not have PCP in the area yet. Review of Systems Review of Systems: All systems reviewed & are unremarkable except as noted in HPI & below Physical Exam Physical Exam: In general she is awake and alert fatigued but no distress. HEENT normocephalic atraumatic mucous membranes moist. Breathing unlabored no accessory muscle use good effort. Skin shows no rashes no pallor or icterus. Neuro with no focal deficits. Osteopathic/musculoskeletal shows right greater than left suboccipitals to be high tone/tender/decreased range of motioninhibitory pressure and some gentle tractionimproved, patient tolerated well. Results & Data Results & Data ([facility]) Vital Signs (Past 12 Hours) Vital Signs Temp Pulse Pulse Resp BP Pulse Ox 03/23/21 15:33 97.7 F 110 H 18 120/81 96 03/23/21 15:13 108 H 03/23/21 11:57 98.2 F 99 H 16 105/73 95 03/23/21 07:30 105 H PG Care Time/CCT Total # of Minutes Spent Total Time Spent with Patient: Total time spent is greater than 50% in coordination of care (as documented) at patient's floor/unit and/or counseling patient: Coding Level of Care Code 59703 Subseq Hosp Care Lvl 3 Diagnoses Sepsis A41.9 Pancreatitis K85.[address] Z93.1 Smoker F17.200 Chronic back pain M54.9; G89.29 Asthma J45.909 DVT prophylaxis Z29.9 Severe protein-calorie malnutrition E43 Somatic dysfunction of cervical region M99.01 CPT Codes Musculoskeletal - Musculoskeletal: 70440 Osteo Reese Tr 1-2 Body regions ([id number])
[2021-03-23] MEDS: VANCOMYCIN HCL 750 MG in SODIUM CHLORIDE 0.9% 250 ML IV SCH (23:32)
[2021-03-24] MEDS: TUBE FEEDING WATER FLUSH GT SCH ×6 (01:01→23:05)
[2021-03-24] MEDS: HYDROmorphone HCL 2 MG TAB PO PRN ×5 (01:44→23:44)
[2021-03-24] MEDS ORDERED: MELATONIN 3 MG TAB PO PRN (02:15)
[2021-03-24] MEDS ORDERED: LORazepam 1 MG/2 ML VIAL IV STA (03:06)
[2021-03-24] MEDS: PIPERACILLIN/TAZOBACTAM 3.375 GM in DEXTROSE 5% 100 ML IV SCH ×3 (03:15→19:51)
[2021-03-24] MEDS: VANCOMYCIN HCL 750 MG in SODIUM CHLORIDE 0.9% 250 ML IV SCH ×3 (06:27→23:05)
[2021-03-24] MEDS: GABAPENTIN 300 MG CAP PO SCH ×3 (09:34→20:09)
[2021-03-24] MEDS: PANTOprazole 40 MG TAB PO SCH (09:34)
[2021-03-24] MEDS: dilTIAZem HCL 120 MG CAPCR PO SCH (09:34)
[2021-03-24] MEDS: APIXABAN 5 MG TABLET PO SCH ×2 (09:34→20:09)
[2021-03-24] MEDS: ONDANSETRON 4 MG OD TAB PO PRN (09:35)
[2021-03-24] MEDS: THIAMINE HCL 200 MG in SODIUM CHLORIDE 0.9% 50 ML IV SCH (09:35)
[2021-03-24] MEDS: MONTELUKAST SODIUM 10 MG TABLET PO SCH (09:35)
[2021-03-24] MEDS: FLUTICASONE/VILANTEROL 200/25MCG 14 PUFFS/INHALER INH SCH ×2 (09:36→09:39)
[2021-03-24] MEDS: UMECLIDINIUM BROMIDE 62.5MCG/BLISTER 7 PUFFS/INHALER INH SCH ×2 (09:36→09:39)
[2021-03-24] MEDS: PEPTAMEN 1.5 CAL 1,000 ML BAG JT SCH (09:40)
[2021-03-24 10:04] LABS: Basophils % (auto) 2.2 %; Eosinophils # (auto) 0.65 K/uL (0-0.5); Eosinophils % (auto) 14.4 %; Hematocrit (blood only) 32.1 % (37-47); Hemoglobin 10.9 g/dL (12.0-16.0); Immature Granulocytes # (auto) 0.03 K/uL (0.00-0.02); Immature Granulocytes % (auto) 0.7 %; Lymphocytes % (auto) 39.8 %; Mean Corpuscular Hemoglobin 32.6 pg (25-34); Mean Corpuscular Volume 96.1 fL (80-100); Mean Platelet Volume 9.5 fL (7.4-10.4); Monocytes % (auto) 11.1 %; Neutrophils # (auto) 1.44 K/uL (1.4-6.5); Neutrophils % (auto) 31.8 %; Platelet Count 189 K/uL (130-400); RDW Coefficient of Variation 14.1 % (11.5-14.5); RDW Standard Deviation 49.6 fL (36.4-46.3); Red Blood Count 3.34 M/uL (4.2-5.4); White Blood Count 4.52 K/uL (4.8-10.8)
[2021-03-24 10:37] LABS: Calcium 7.8 mg/dl (8.5-10.1); Creatinine Clr Calc Pharmacy 105.8 ml/min; Est GFR (Non-African American) 115.6 ml/min; Potassium 3.1 mmol/L (3.5-5.1)
[2021-03-24] MEDS: LORazepam 1 MG/2 ML VIAL IV PRN (11:14)
--- NOTE | 2021-03-24 12:45 | Gastroenterology Progress Note ---
Date of Service March 24, 2021 Assessment & Plan (1) Epigastric abdominal pain: Plan: Continue current plans. Abdominal exam continues to be benign. Gas in belly is likely from time of tube placement. Nothing to add at this time. Supportive care for chronic pancreatitis. Admission and Anticipated Discharge Date Admission Date: March 21, 2021 Subjective More awake to day. Not much to add. Tube site sore. Review of Systems Gastrointestinal: + abdominal pain Physical Exam Gastrointestinal (Abdomen): Percussion/Palpation: + abdomen tender Results & Data ([facility]) Vital Signs (Past 12 Hours) Vital Signs Temp Pulse Resp BP Pulse Ox 03/24/21 11:04 36.8 C 110 H 18 149/99 H 95 03/24/21 06:35 36.9 C 102 H 16 131/90 97 03/24/21 02:57 36.7 C 102 H 16 131/79 98
[2021-03-24] MEDS: HYDROmorphone INJ 0.5 MG/0.5 ML SYR IV PRN (16:10)
[2021-03-24] MEDS: ONDANSETRON INJ 2 MG/ML 2 ML VIAL IV PRN (16:10)
[2021-03-24] MEDS: LORazepam 2 MG/4 ML VIAL IV PRN ×3 (16:30→23:01)
[2021-03-24] MEDS ORDERED: ACETAMINOPHEN 500 MG TAB PO STA (16:34)
--- NOTE | 2021-03-24 20:10 | Hospitalist Progress Note ---
Date of Service March 24, 2021 Assessment & Plan (1) Sepsis: Plan: Patient technically meets sepsis criteria with tachycardia, fever, elevated lactate - Source is most likely her right sided tunneled catheter that has since been removedparticularly given that while her peripheral blood cultures show alpha strep, the culture drawn through the central line shows gram-positive's and gram-negative's. Continue Vanco and Zosyn for nowawait sensitivitiesand particularly as it relates to the gram-positive finding, will ask infectious disease for input on whether or not a LISHA is necessary, and what would be the optimal drug/duration for therapyobviously speciation and sensitivities of the gram-positive and gram-negative will be necessary to fully provide this information. -Continue supportive care (2) Pancreatitis: Plan: Chronic now with GJ tube in place - Patient gives most of her medications through GJ tube - Lipase normal -Does still eat as well. I suspect the discoloration that she sees in the tube is that what ever is in her stomach probably back flows into the tube some, I doubt this is of any significance, but will ask GI for thoughts -Tolerating diet (3) Gastrostomy tube in place: Plan: Placed for chronic pancreatitis- Genetic malformation per the patient - Previously followed with [facility] Gastro- consult placed and input appreciated - Enteral feedings at home with Jevity 1.5 5 cans per day, dietary is arranging enteral feedings - Free water flush 100ml every 4 hours -She notes sometimes feeling easily bloatedI wonder if she has a bit of a motility issue. That said, she is just had the tube placed, and we discussed that a lot of the time motility issues are often very difficult to successfully treatin that regard, we should follow for weight loss now that she has tube in place, if she is continuing to lose weight, then definitely will need to work-up further, but if not, it may be best left as a symptomatic management issue (4) Smoker: Plan: 1.5 ppd day smoking cessation will need to be encouraged (5) Chronic back pain: Plan: Patient with history back to 2007 for facet syndrome, was on chronic narcotics at that time - patient states that she has gotten injections in the past and is no longer on the fentanyl patches, although she does still take Dilaudid frequently at home for her chronic pain Given her response to OMT for her headache, I suspect she would benefit from a trial of OMT as an outpatient as well. (6) Asthma: Plan: Chronic persistent - Uses her KARIS 2-3 times per day, no night time awakenings - Continue KARIS, Symbicort, and Spiriva -No complaints of dyspnea today (7) DVT prophylaxis: Plan: Patient reports LUE DVT following Midline placment in January when she was admitted for COVID - She was placed on Eliquis for this UE DVT -Venous Doppler upper extremity shows residual nonocclusive thrombus in 1-2 brachial veins interval left upper extremity. Remainder system is patent - Continue Eliquis (8) Severe protein-calorie malnutrition: Plan: Tube feeds and p.o. intake (9) Somatic dysfunction of cervical region: Plan: Headache appears to have a large tension component. OMT done 03/23. Patient tolerated well Plan: Continue to monitor on medical, anti-biotics pending further speciation and repeat blood cultures, infectious disease input pending. Once final course of treatment is set up, then will look for discharge to home with outpatient follow-upshe does need a PCP locally. Admission and Anticipated Discharge Date Admission Date: March 21, 2021 Subjective Main complaint today is ongoing abdominal pain. She notes at home she takes Tylenol, gabapentin, Dilaudid 2 mg fairly frequently. Changed her inpatient med regimen to reflect thisthe main thing was actually just scheduling the Tylenol. Otherwise I updated patient on current working diagnosis of polymicrobial bacteremia given that she is now growing gram-positive's on the culture from her central line in addition to the one peripheral blood culture, and the need for infectious disease expertise on LISAH, optimal antibiotic duration and regimen. 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 She notes that sometimes whenever she eats or drinks things she sees that color show up in the barrel of her tube Review of Systems Review of Systems: All systems reviewed & are unremarkable except as noted in HPI & below Physical Exam Physical Exam: In general she is awake and alert fatigued but no acute distress. HEENT normocephalic atraumatic mucous membranes moist. Breathing unlabored no accessory muscle use good effort. Abdomen is soft she does have some epigastric tenderness without guarding or rebound, her PEG site appears clean/dry/intact, no surrounding erythema or exudate. Skin otherwise no rashes pallor or icterus either. No focal neuro deficits. Results & Data Results & Data ([facility]) Vital Signs (Past 12 Hours) Vital Signs Temp Pulse Pulse Resp BP Pulse Ox 03/24/21 19:48 98.2 F 110 H 12 124/90 100 03/24/21 15:43 97.5 F L 112 H 20 131/85 98 03/24/21 11:04 98.2 F 110 H 18 149/99 H 95 PG Care Time/CCT Total # of Minutes Spent Total Time Spent with Patient: Total time spent is greater than 50% in coordination of care (as documented) at patient's floor/unit and/or counseling patient: Coding Level of Care Code 56624 Subseq Hosp Care Lvl 3 Diagnoses Sepsis A41.9 Pancreatitis K85.[address] Z93.1 Smoker F17.200 Chronic back pain M54.9; G89.29 Asthma J45.909 DVT prophylaxis Z29.9 Severe protein-calorie malnutrition E43 Somatic dysfunction of cervical region M99.01
[2021-03-24] MEDS ORDERED: VANCOMYCIN TROUGH ONE (21:30)
[2021-03-25] MEDS: ACETAMINOPHEN 500 MG TAB PO SCH ×4 (00:40→20:20)
[2021-03-25] MEDS: TUBE FEEDING WATER FLUSH GT SCH ×6 (02:20→20:25)
[2021-03-25] MEDS: PIPERACILLIN/TAZOBACTAM 3.375 GM in DEXTROSE 5% 100 ML IV SCH (02:55)
--- NOTE | 2021-03-25 03:56 | Pharmacy Report ---
Pharmacy Vanc AUC Short Note - Date of Service March 25, 2021 - Assessment & Plan Assessment 36 year old F receiving IV Vancomycin/Zosyn for treatment of STT, s/p central line placement, chronic pancreatitis, ?sepsis, s/p g-tube placement. TTE shows no evidence of mass or vegetation. Infectious diseases now consulted to determine need for LISHA and to tailor antibiotics. Day # 5 of antimicrobial therapy. Plan Vancomycin * AUC/SAGRARIO is the preferred PK/PD target for vancomycin * AUC guided dosing is effective and associated with decreased risk of nephrotoxicity compared to traditional trough targets * Trough level of 19.8 mcg/mL is predicted to achieve target AUC/SAGRARIO ~600 mg/L.hr and may be associated with a 19% risk of nephrotoxicity * Will continue current dose for now given endocarditis still a potential concern * Monitor for acute changes in renal function * Continue dose of 750 mg IV every 8 hours * Additional vanco trough will be ordered as needed Zosyn * 3.375 g IV q8h appropriate based on BMI and renal function Pharmacy will continue to follow and will adjust dose/frequency as necessary. Thank you.
[2021-03-25] MEDS: HYDROmorphone HCL 2 MG TAB PO PRN ×5 (05:36→20:20)
[2021-03-25] MEDS: VANCOMYCIN HCL 750 MG in SODIUM CHLORIDE 0.9% 250 ML IV SCH ×2 (05:50→18:11)
[2021-03-25] MEDS: LORazepam 1 MG/2 ML VIAL IV PRN ×3 (06:46→16:13)
--- NOTE | 2021-03-25 07:21 | Hospitalist Progress Note ---
Date of Service March 25, 2021 Assessment & Plan (1) Sepsis: Plan: - Patient technically meets sepsis criteria with tachycardia, fever, elevated lactate - Source is most likely her right sided tunneled catheter that has since been removedparticularly given that while her peripheral blood cultures show alpha strep, the culture drawn through the central line shows gram-positive's and gram-negative's. - BCX (03/21) growing Stenotrophomonas and Strep spp. - Given limited coverage for Strenotrophomonas, transition from Zosyn --> ceftazidime; will continue vancomycin - ID consult pending: Given gram positive findings, appreciate need for LISHA and optimal drug/durations (and route - PO vs. IV) in setting of the above BCX -Continue supportive care (2) Pancreatitis: Plan: Chronic now with GJ tube in place, alongside chronic pain - Patient gives most of her medications through GJ tube - Lipase normal during admission - Suspect drainage - GI following: no evidence of perforation, site stable. - Tolerating diet (3) Gastrostomy tube in place: Plan: Placed for chronic pancreatitis- Genetic malformation per the patient - Previously followed with [facility] Gastro- consult placed and input appreciated - Enteral feedings at home with Jevity 1.5 5 cans per day, dietary is arranging enteral feedings - Free water flush 100ml every 4 hours -She notes sometimes feeling easily bloatedI wonder if she has a bit of a motility issue. That said, she is just had the tube placed, and we discussed that a lot of the time motility issues are often very difficult to successfully treatin that regard, we should follow for weight loss now that she has tube in place, if she is continuing to lose weight, then definitely will need to work-up further, but if not, it may be best left as a symptomatic management issue (4) Smoker: Plan: 1.5 ppd day smoking cessation will need to be encouraged (5) Chronic back pain: Plan: Patient with history back to 2007 for facet syndrome, was on chronic narcotics at that time - patient states that she has gotten injections in the past and is no longer on the fentanyl patches, although she does still take Dilaudid frequently at home for her chronic pain Given her response to OMT for her headache, I suspect she would benefit from a trial of OMT as an outpatient as well. (6) Asthma: Plan: Chronic persistent - Uses her KARIS 2-3 times per day, no night time awakenings - Continue KARIS, Symbicort, and Spiriva -No complaints of dyspnea today (7) DVT prophylaxis: Plan: Patient reports LUE DVT following Midline placment in January when she was admitted for COVID - She was placed on Eliquis for this UE DVT -Venous Doppler upper extremity shows residual nonocclusive thrombus in 1-2 brachial veins interval left upper extremity. Remainder system is patent - Continue Eliquis (8) Severe protein-calorie malnutrition: Plan: Tube feeds and p.o. intake (9) Somatic dysfunction of cervical region: Plan: Headache appears to have a large tension component. OMT done 03/23. 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 Ativan PRN. Can consider scheduled dosing if needed. - Lower suspicion for delirium, acute endocarditis, meningoencephalitis resulting in AMS right now, but certainly considered. Can consider repeat labs and [employer] imaging if worsening. Plan: Continue to monitor on medical, anti-biotics pending further speciation and repeat blood cultures, infectious disease input pending. Once final course of treatment is set up, then will look for discharge to home with outpatient follow-upshe does need a PCP locally. Admission and Anticipated Discharge Date Admission Date: March 21, 2021 Supervising Physician Co-Signing Physician Notes I personally examined the patient and verified all nieto points of history and exam, discussed case, and agree with decision making with Dr Harvey Feeling more anxious, feeling like she is having some alcohol withdrawal as well. Notes her last withdrawal was about 5 years ago, she apparently had fairly severe DTs and alcohol withdrawal seizures. Currently mostly feeling shaky and anxious. Vitals noted, in general she is awake and alert pleasant does appear anxious no distress. HEENT normocephalic atraumatic mucous membranes moist. Breathing unlabored no accessory muscle use good effort. Skin shows no rashes no pallor or icterus. Neuro without focal deficits. Sepsisbacteremia, line has been removed, ID input pending, continue antibiotics and supportive care Alcohol withdrawalsymptom triggered benzodiazepines, supportive care Chronic pancreatitistube in place, feeding, pain control Otherwise as above, apixaban for DVT prophylaxis Subjective No acute events overnight. Patient seen at bedside this morning, reports not feeling too well this morning. Still says her energy is weak. Says that she continues to have intermittent, crampy like abdominal pain that is diffuse over her abdomen, not localized to one site. She says that it is difficult to bear. She says that she is passing gas. She refused her tube feeding last night, but wants to try again this morning. Denies any chest pain. Says she has mild shortness of breath with walking around. Voiding without difficulty. Returned to see patient later at nurse's request for agitation and hallucinations. Patient endorses feeling anxious and seeing little boy in the room wanting to go to a football game. Unclear at this time if she can tell this is a hallucination. She is redirectable. Review of Systems Review of Systems: as per HPI Physical Exam Physical Exam: General: Tired appearing 36-year-old female who is lying back in her hospital bed, speaking with the nurse, upon my arrival. Tremor noted. She is in no acute distress. HEENT: Mucous membranes appear moist. Cardiac: Normal rate, regular rhythm. S1 and S2 are present without murmurs rubs or gallops. Pulmonary: Good respiratory effort with symmetric expansion of the chest. No use of accessory muscles. Lungs are clear to auscultation bilaterally without crackles or wheezes. Abdominal: PEG site with minimal discharge. There is mild, diffuse tenderness to palpation over the abdomen. No rebound or guarding. Results & Data Results & Data ([facility]) Vital Signs (Past 12 Hours) Vital Signs Temp Pulse Pulse Resp BP Pulse Ox 03/25/21 05:35 36.2 C L 105 H 18 108/76 98 03/24/21 22:48 36.8 C 104 H 24 137/100 97 03/24/21 19:48 36.8 C 110 H 12 124/90 100 Resident Activity Tracking Resident Involvement: Resident Care Provided Care Provided: Adult [facility] Medicine
[2021-03-25 07:31] LABS: Creatinine Clr Calc Pharmacy 87.9 ml/min; Est GFR (African American) 115.9 ml/min
[2021-03-25] MEDS: MONTELUKAST SODIUM 10 MG TABLET PO SCH (08:02)
[2021-03-25] MEDS: dilTIAZem HCL 120 MG CAPCR PO SCH (08:02)
[2021-03-25] MEDS: PANTOprazole 40 MG TAB PO SCH (08:02)
[2021-03-25] MEDS: GABAPENTIN 300 MG CAP PO SCH ×3 (08:02→20:20)
[2021-03-25] MEDS: APIXABAN 5 MG TABLET PO SCH ×2 (08:02→20:20)
[2021-03-25] MEDS: UMECLIDINIUM BROMIDE 62.5MCG/BLISTER 7 PUFFS/INHALER INH SCH (08:03)
[2021-03-25] MEDS: FLUTICASONE/VILANTEROL 200/25MCG 14 PUFFS/INHALER INH SCH (08:03)
[2021-03-25] MEDS: THIAMINE HCL 200 MG in SODIUM CHLORIDE 0.9% 50 ML IV SCH (08:18)
[2021-03-25] MEDS: ONDANSETRON INJ 2 MG/ML 2 ML VIAL IV PRN (08:18)
--- NOTE | 2021-03-25 09:01 | Gastroenterology Progress Note ---
Date of Service March 25, 2021 Assessment & Plan (1) Chronic pancreatitis: Plan: Chronic pancreatitis: Chronic abdominal pain with worsened pain presently. No evidence of acute pancreatitis on imaging. Continued alcohol use is a problem. Supportive care, and chronic pain management. Gastrostomy tube: Gastrostomy tube interrogation demonstrated no evidence of perforation. Scant drainage at GJ insertion site without erythema. Please refer to supervising physician addendum for further recommendations. (2) Gastrostomy tube in place: Admission and Anticipated Discharge Date Admission Date: March 21, 2021 Supervising Physician Co-Signing Physician Notes I have seen and examined the patient. I agree with note above by ANTONIO Fairchild except as noted below. HPI Pt with ongoiing abd pain. PE Abdomen pos bs, soft, no guarding nor rebound, no infection at tube sit A/P chronic pancreaitis--continue NG/J feeds, consider outpt EUS with celiac plexus ablation GJ tube--no evidence of infection. Subjective Patient awake alert and oriented this morning. Reports continued abdominal pain. Pain is located over in ecchymotic area on her left-sided lower abdomen and under her left ribs. She states pain is a 9 out of 10 presently. Very small amount of drainage around her gastrostomy tube without redness noted. Reports continued nausea but no vomiting. Reports she is passing flatus. Last bowel movement was several days ago. Review of Systems Review of Systems: All systems reviewed & are unremarkable except as noted in Subjective Physical Exam Gastrointestinal (Abdomen): Inspection/Auscultation: abdomen normal to inspection and + scaphoid PEG_J in place, loose external bolster. slight discharge at the site with no erythema. tender around the tube + epigastric and Ernie quadrants Results & Data ([facility]) Vital Signs (Past 12 Hours) Vital Signs Temp Pulse Resp BP Pulse Ox 03/25/21 07:26 37.2 C 104 H 18 142/91 H 99 03/25/21 05:35 36.2 C L 105 H 18 108/76 98 03/24/21 23:20 36.8 C 105 H 20 137/100 97 03/24/21 22:48 36.8 C 104 H 24 137/100 97 Laboratory Results Laboratory Results - last 24 hr 03/24/21 03/24/21 03/24/21 09:38 09:38 16:42 WBC 4.52 L RBC 3.34 L Hgb 10.9 L Hct 32.1 L MCV 96.1 MCH 32.6 MCHC 34.0 RDW Std Deviation 49.6 H RDW Coeff of Paulina 14.1 Plt Count 189 MPV 9.5 Immature Gran % (Auto) 0.7 Neut % (Auto) 31.8 Lymph % (Auto) 39.8 [place] % (Auto) 11.1 Eos % (Auto) 14.4 Baso % (Auto) 2.2 Neut # (Auto) 1.44 Lymph # (Auto) 1.80 [place] # (Auto) 0.50 Eos # (Auto) 0.65 H Baso # (Auto) 0.10 Immature Gran # (Auto) 0.03 H Sodium 138 Potassium 3.1 L Chloride 106 Carbon Dioxide 25 Anion Gap 8.0 BUN 3 L Creatinine 0.64 Est Cr Clr Drug Dosing 105.8 Est GFR ( Amer) 134.0 Est GFR (Non-Af Amer) 115.6 BUN/Creatinine Ratio 4.0 L Glucose 117 H POC Glucose 112 H Calcium 7.8 L Specimen Hemolysis Vancomycin Trough 03/24/21 03/25/21 21:31 06:10 WBC RBC Hgb Hct MCV MCH MCHC RDW Std Deviation RDW Coeff of Paulina Plt Count MPV Immature Gran % (Auto) Neut % (Auto) Lymph % (Auto) [place] % (Auto) Eos % (Auto) Baso % (Auto) Neut # (Auto) Lymph # (Auto) [place] # (Auto) Eos # (Auto) Baso # (Auto) Immature Gran # (Auto) Sodium Potassium Chloride Carbon Dioxide Anion Gap BUN Creatinine 0.77 Est Cr Clr Drug Dosing 87.9 Est GFR ( Amer) 115.9 Est GFR (Non-Af Amer) 100.0 BUN/Creatinine Ratio Glucose POC Glucose Calcium Specimen Hemolysis Vancomycin Trough 19.8
[2021-03-25] MEDS ORDERED: PEPTAMEN 1.5 CAL 1,000 ML BAG JT ONE (09:30)
[2021-03-25] MEDS: LORazepam 2 MG/4 ML VIAL IV PRN ×4 (09:32→21:08)
[2021-03-25] MEDS: ONDANSETRON 4 MG OD TAB PO PRN (16:12)
[2021-03-25] MEDS: chlordiazePOXIDE HCl 25 MG CAP PO SCH (20:21)
--- NOTE | 2021-03-25 20:42 | Billing Data ---
Date of Service March 25, 2021 Coding Level of Care Code 22863 Subseq Hosp Care Lvl 3
[2021-03-26] MEDS: HYDROmorphone HCL 2 MG TAB PO PRN ×5 (01:27→20:48)
[2021-03-26] MEDS: LORazepam 1 MG/2 ML VIAL IV PRN ×2 (01:29→02:56)
[2021-03-26] MEDS: ONDANSETRON INJ 2 MG/ML 2 ML VIAL IV PRN (01:52)
[2021-03-26] MEDS: TUBE FEEDING WATER FLUSH GT SCH ×6 (02:02→20:35)
[2021-03-26] MEDS ORDERED: METOCLOPRAMIDE HCL INJ 5 MG/ML 2 ML VIAL IV STA (02:45)
[2021-03-26] MEDS: VANCOMYCIN HCL 750 MG in SODIUM CHLORIDE 0.9% 250 ML IV SCH (06:23)
[2021-03-26] MEDS: ACETAMINOPHEN 500 MG TAB PO SCH ×3 (06:26→20:35)
[2021-03-26] MEDS: LORazepam 2 MG/4 ML VIAL IV PRN ×4 (06:46→23:22)
--- NOTE | 2021-03-26 06:56 | Hospitalist Progress Note ---
Date of Service March 26, 2021 Assessment & Plan (1) Sepsis: Plan: - Patient technically meets sepsis criteria with tachycardia, fever, elevated lactate - Source is most likely her right sided tunneled catheter that has since been removedparticularly given that while her peripheral blood cultures show alpha strep, the culture drawn through the central line shows gram-positive's and gram-negative's. Initially was on Zosyn, thereafter transitioned to ceftazidime. - BCX (03/21) growing Stenotrophomonas and Strep spp. - ID consulted: Bacteremia likely secondary to infected line (now removed). No indication for LISHA at this time given microbiology. Transition ceftazidime --> levofloxacin 750mg daily for Stenotrophomonas (through 04/01). For alpha- hemolytic Strep, we will discontinue vancomycin, give CFTX 1g x 1 today and finish therapy with amoxicillin 500mg t.i.d. -Continue supportive care (2) Pancreatitis: Plan: Chronic now with GJ tube in place, alongside chronic pain - Patient gives most of her medications through GJ tube - Lipase normal during admission - Suspect drainage - GI following: no evidence of perforation, site stable. 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 That said, she is just had the tube placed, and we discussed that a lot of the time motility issues are often very difficult to successfully treatin that regard, we should follow for weight loss now that she has tube in place, if she is continuing to lose weight, then definitely will need to work-up further, but if not, it may be best left as a symptomatic management issue (4) Smoker: Plan: 1.5 ppd day smoking cessation will need to be encouraged (5) Chronic back pain: Plan: Patient with history back to 2007 for facet syndrome, was on chronic narcotics at that time - patient states that she has gotten injections in the past and is no longer on the fentanyl patches, although she does still take Dilaudid frequently at home for her chronic pain Given her response to OMT for her headache, I suspect she would benefit from a trial of OMT as an outpatient as well. (6) Asthma: Plan: Chronic persistent - Uses her KARIS 2-3 times per day, no night time awakenings - Continue KARIS, Symbicort, and Spiriva -No complaints of dyspnea today (7) DVT prophylaxis: Plan: Patient reports LUE DVT following Midline placment in January when she was admitted for COVID - She was placed on Eliquis for this UE DVT -Venous Doppler upper extremity shows residual nonocclusive thrombus in 1-2 brachial veins interval left upper extremity. Remainder system is patent - Continue Eliquis (8) Severe protein-calorie malnutrition: Plan: Tube feeds and p.o. intake (9) Somatic dysfunction of cervical region: Plan: Headache appears to have a large tension component. OMT done 03/23. Patient tolerated well (10) Alcohol withdrawal: Plan: - with reported history of frequent alcohol use (4x large cans of mixed drinks / day ) and previous alcohol withdrawal requiring hospitalization w/ alcoholic hallucinosis, withdrawal seizures, and status epilepticus 4-5 years ago - currently with tremors, nausea, agitation, hallucinations, tachycardia (though in setting of sepsis) - last reported drink: 03/21 - continue Librium 25mg t.i.d. AGNES and PRN Ativan -- given agitation which seems related to EtOH withdrawal this AM, will proceed with Ativan 2mg IM x 1 given loss of IV access / patient refusing reattempted IV - certainly at higher risk given the above, though given time between episodes (>4-5 years) and nearly 96-hours since admission, may be reassuring - Monitor closely w/ AWSS. Ativan PRN. Can consider scheduled dosing if needed. - Lower suspicion for delirium, acute endocarditis, meningoencephalitis resulting in AMS right now, but certainly considered. Can consider repeat labs and [employer] imaging if worsening. Admission and Anticipated Discharge Date Admission Date: March 21, 2021 Supervising Physician Co-Signing Physician Notes I personally examined the patient and verified all nieto points of history and exam, discussed case, and agree with decision making with Dr Harvey Very agitated anxious and upset. "You are not fucking doing anything for me" and expresses upset at not having IV access, at attempts for access being a failure, asking for some form of central line. Have been discussing the case with nursing multiple times through the day, after discussing with Dr. Harvey this morning. After initial IM dose of Ativan, on follow-up whenever I was going to round on the patient, nursing noted that she was sleeping comfortably. Later when I see her, unfortunately she is now very restless and agitated. Hard to really glean any more HPI or review of systems other than that she is very upset. In general she is awake and alert seems to still be oriented, but very restless and agitated so it is hard to truly tell, although she does seem to be oriented to the situation, expressing an accurate view of her diagnoses (particularly the alcohol withdrawal) and the failed attempts at IV access. HEENT normocephalic atraumatic mucous membranes moist. Breathing unlabored no accessory muscles no conversational dyspnea. Very restless and moving around the bed, constantly readjusting the blankets, no overt tremor, but very hyperkinetic and not sitting still at all. No focal neuro deficits. Sepsisbacteremia, line has been removed, ID input appreciatedawaiting sensitivities on strep, but is on Levaquin per ID recommendations for stenotrophomonas; right now no IV access and while the initial IM Ativan seem to help, now the lack of IV access with IM as an alternative is (understandably) driving more agitation/frustrationand therefore by risk/benefit given her lack of ongoing true sepsiswe will utilize the recommendations for amoxicillin until either we have repeat IV access, or sensitivities on the strep. Alcohol withdrawalsymptom triggered benzodiazepines, supportive carethe added complexity now is the lack of IV access. IM Ativan helped earlier, but now is (understandably) causing frustrationwill give trial to dosing enterally, and given the withdrawal, the difficulty managing until we have more reliable IV access, the risk for decompensation, and the frustration/anxiety/agitationwill escalate Librium (at least until we have reliable IV access to be able to safely/reliably give escalating doses of symptom triggered benzodiazepines) Lack of IV accesstried to express empathy, expressed that it is a difficult situation, given the lack of ability to get in any peripheral or ultrasound- guided/midline/PICC IVs, discussed we are asking the surgical team to evaluate to obtain central IV access, and that hopefully our lack of IV access situation will be temporary/in the meantime managing the situation as best we can with the routes of administration available Chronic pancreatitistube in place, feeding, pain control Otherwise as above, apixaban for DVT prophylaxis Subjective At the bedside this morning, patient is relaxed and reports sleeping well. Did require upwards of 6mg overnight as per AWSS protocol. Also required Zofran and Reglan to help with nausea. Intermittent nausea. Denies CP/palpitations/SOB. Called to bedside later in the morning by patient's RN. Patient was being verbally aggressive and was extremely agitated. Review of Systems Review of Systems: as per HPI Physical Exam Physical Exam: General: Tired appearing 36-year-old female who is lying back in her hospital bed, speaking with the nurse, upon my arrival. Tremor noted with hands outstretched. She is in no acute distress. HEENT: Mucous membranes appear moist. Cardiac: Normal rate, regular rhythm. S1 and S2 are present without murmurs rubs or gallops. Pulmonary: Good respiratory effort with symmetric expansion of the chest. No use of accessory muscles. Lungs are clear to auscultation bilaterally without crackles or wheezes. Abdominal: PEG site with minimal discharge. There is mild, diffuse tenderness to palpation over the abdomen. No rebound or guarding. Results & Data Results & Data ([facility]) Vital Signs (Past 12 Hours) Vital Signs Temp Pulse Resp BP Pulse Ox 03/25/21 22:12 36.6 C 79 14 118/82 97 03/25/21 20:58 36.7 C 03/25/21 20:42 100 H 16 142/103 H 98 03/25/21 19:21 36.7 C 100 H 18 136/88 98 Resident Activity Tracking Resident Involvement: Resident Care Provided Care Provided: Adult Hospital Medicine
--- NOTE | 2021-03-26 08:58 | Gastroenterology Progress Note ---
Date of Service March 26, 2021 Assessment & Plan (1) Chronic pancreatitis: Plan: Chronic pancreatitis: Chronic abdominal pain with worsened pain presently. No evidence of acute pancreatitis on imaging. Continued alcohol use is a problem. Supportive care, and chronic pain management. Gastrostomy tube: Gastrostomy tube interrogation demonstrated no evidence of perforation. Scant drainage at GJ insertion site without erythema.No evidence of infection Presumed alcohol withdrawal: Hallucinations, agitation, and confusion. 1:1 bedside sitter for safety. Managed by hospitalist team. Please refer to supervising physician addendum for further recommendations. (2) Gastrostomy tube in place: (3) Alcohol withdrawal: Admission and Anticipated Discharge Date Admission Date: March 21, 2021 Supervising Physician Co-Signing Physician Notes I have seen and examined the patient. I agree with note above by ANTONIO Fairchild except as noted below. HPI Pt complaining of ongoing abd pain PE Abdomen pos bs, mild guarding mid abd, no rebound, feeding tube site clean A/P chronic pancreatitsi ETOH abuse/withdrawal Recommend ETOH abstinence and f/u at tertiary center for pain control for chronic pancreatitis if still ongoing after ETOH sessation. Discussed with Dr Amato--will sign off. Subjective Patient is sleeping this morning she now has a one-to-one at bedside due to climbing out of bed, impulsivity, presumed alcohol withdrawal. Spoke to nursing staff who reports the patient has had agitation and hallucinations. EMR reviewed. Review of Systems Review of Systems: Unobtainable due to cognitive status Results & Data ([facility]) Vital Signs (Past 12 Hours) Vital Signs Temp Pulse Resp BP Pulse Ox 03/26/21 07:00 36.8 C 86 16 115/82 99 03/25/21 22:12 36.6 C 79 14 118/82 97 03/25/21 20:58 36.7 C
[2021-03-26] MEDS ORDERED: LORazepam 2 MG/ML VIAL (IM USE) IM STA ×2 (09:04→09:17)
[2021-03-26] MEDS: PANTOprazole 40 MG TAB PO SCH (09:22)
[2021-03-26] MEDS: APIXABAN 5 MG TABLET PO SCH ×2 (09:23→20:35)
[2021-03-26] MEDS: dilTIAZem HCL 120 MG CAPCR PO SCH (09:23)
[2021-03-26] MEDS: FLUTICASONE/VILANTEROL 200/25MCG 14 PUFFS/INHALER INH SCH (09:24)
[2021-03-26] MEDS: GABAPENTIN 300 MG CAP PO SCH ×3 (09:24→20:23)
[2021-03-26] MEDS: MONTELUKAST SODIUM 10 MG TABLET PO SCH (09:24)
[2021-03-26] MEDS: UMECLIDINIUM BROMIDE 62.5MCG/BLISTER 7 PUFFS/INHALER INH SCH (09:25)
[2021-03-26] MEDS: chlordiazePOXIDE HCl 25 MG CAP PO SCH ×2 (09:30→13:54)
[2021-03-26] MEDS ORDERED: cefTRIAXone SODIUM 1,000 MG in DEXTROSE 5% 50 ML IV SCH (10:00)
[2021-03-26] MEDS: ONDANSETRON 4 MG OD TAB PO PRN (13:50)
[2021-03-26] MEDS ORDERED: cefTRIAXone SODIUM 350 MG/ML IM IM ONE (14:17)
[2021-03-26] MEDS ORDERED: cefTRIAXone SODIUM 1,000 MG in SYRINGE 0 ML IM STA (14:28)
[2021-03-26] MEDS: THIAMINE HCL 200 MG in SODIUM CHLORIDE 0.9% 50 ML IV SCH (14:33)
[2021-03-26] MEDS: levoFLOXacin 750 MG TAB PO SCH ×2 (14:49→16:45)
[2021-03-26] MEDS ORDERED: LORazepam 1 MG TAB PO STA (15:24)
[2021-03-26] MEDS ORDERED: ONDANSETRON 8MG OD TAB PO STA (15:25)
[2021-03-26] MEDS ORDERED: CONSULT PHARMACY STA (15:28)
--- NOTE | 2021-03-26 17:20 | Billing Data ---
Date of Service March 26, 2021 Coding Level of Care Code 52157 Subseq Hosp Care Lvl 3
--- NOTE | 2021-03-26 17:43 | Surgery Consultation ---
Date of Consultation March 26, 2021 Assessment & Plan (1) Difficult intravenous access: pt is a 36 year-old female who lost all IV access, pt needs new IV access for her treatment, IMP: difficult IV access Plan, I recommend to do IV access on left EJ, D/W benefits, risks and alternatives of the IV access, pt understood, she agrees with the IV access, the nurse at bedside for geriatric nursing assistant, under Sterilization, injection 1% lidocaine on left EJ area, under Ultrasound guard 20 G needle catheter inserted, ease blood return and flush, apply dressing on , pt tolerated it well, the catheter can be used now, informed nurse, Supervising Physician Co-Signing Physician Notes I personally examined the patient and verified all nieto points of history and exam, discussed case, and agree with decision making with Dr Harvey Very agitated anxious and upset. "You are not fucking doing anything for me" and expresses upset at not having IV access, at attempts for access being a failure, asking for some form of central line. Have been discussing the case with nursing multiple times through the day, after discussing with Dr. Harvey this morning. After initial IM dose of Ativan, on follow-up whenever I was going to round on the patient, nursing noted that she was sleeping comfortably. Later when I see her, unfortunately she is now very restless and agitated. Hard to really glean any more HPI or review of systems other than that she is very upset. In general she is awake and alert seems to still be oriented, but very restless and agitated so it is hard to truly tell, although she does seem to be oriented to the situation, expressing an accurate view of her diagnoses (particularly the alcohol withdrawal) and the failed attempts at IV access. HEENT normocephalic atraumatic mucous membranes moist. Breathing unlabored no accessory muscles no conversational dyspnea. Very restless and moving around the bed, constantly readjusting the blankets, no overt tremor, but very hyperkinetic and not sitting still at all. No focal neuro deficits. Sepsisbacteremia, line has been removed, ID input appreciatedawaiting sensitivities on strep, but is on Levaquin per ID recommendations for stenotrophomonas; right now no IV access and while the initial IM Ativan seem to help, now the lack of IV access with IM as an alternative is (understandably) driving more agitation/frustrationand therefore by risk/benefit given her lack of ongoing true sepsiswe will utilize the recommendations for amoxicillin until either we have repeat IV access, or sensitivities on the strep. Alcohol withdrawalsymptom triggered benzodiazepines, supportive carethe added complexity now is the lack of IV access. IM Ativan helped earlier, but now is (understandably) causing frustrationwill give trial to dosing enterally, and given the withdrawal, the difficulty managing until we have more reliable IV access, the risk for decompensation, and the frustration/anxiety/agitationwill escalate Librium (at least until we have reliable IV access to be able to safely/reliably give escalating doses of symptom triggered benzodiazepines) Lack of IV accesstried to express empathy, expressed that it is a difficult situation, given the lack of ability to get in any peripheral or ultrasound- guided/midline/PICC IVs, discussed we are asking the surgical team to evaluate to obtain central IV access, and that hopefully our lack of IV access situation will be temporary/in the meantime managing the situation as best we can with the routes of administration available Chronic pancreatitistube in place, feeding, pain control Otherwise as above, apixaban for DVT prophylaxis History of Present Illness Reason for Consultation: need IV access Attending Physician: Von Amato DO History of Present Illness History of Present Illness Primary Care Provider: HENRY PCP 36 YOF with past medical history of: ORIF right wrist and right shoulder, chronic back pain, LUE DVT February 07 with midline IV catheter placement (on Eliquis), COVID, chronic pancreatitis s/p GJ tube placement at [facility], Right SCL Central line (Placed at [facility]- remains in place- she performs dressing changes on it every 3 days, HTN, Asthma moderate/persistent. Patient comes to the EMD today for 2 day history of fevers, she checked her temperature last night and noted it to be 104.6 with rigors and chills. She came to the EMD today and noted to be tachycardic and febrile to 39.2. Patient had GJ tube placed at the beginning of February for her pancreatitis hx. She states she went home and had abdominal pain and fevers at that time, went back to [place] where she was admitted to rule out abdominal pathology. She had a Right SCL CVL placed for her continued admissions and was placed on Rocephin for prophylaxis, Patient then states she was discharged with CVL in place, no further antibiotics, but did have Central line dressing changes and supplies delivered. She had routine labs performed noted for hyponatremia, hypokalemia, hypochloremia, and elevated Lactate to 3.4. She had blood cultures drawn from her central line and PIV. She also had CT scan of her abdomen performed that continues to reveal chronic pancreatitis and pneumoperitoneum from likely placement of her GJ tube. She was started on Vancomycin and Zosyn. She technically meets sepsis criteria- with sources to be CVL, abdomen, UTI, will follow up with CRP and PCT for biomarkers. Will obtain PIV and remove central line, she has no murmur on exam. Await blood and urine cultures. Patient is not vaccinated and had COVID in February 07. Patient test on admission is: NEGATIVE I ( Clive Kramer MD ) got a call for consult IV access, pt has lost all IV access, pt needs new IV access. I reviewed pt's H/P, labs with pt, Allergies Allergy/AdvReac Type Severity Reaction Status Date / Time amlodipine [From [facility]] AdvReac Unknown edema Unverified 03/21/21 08:08 Home Medications Medication Instructions Recorded Confirmed Type acetaminophen 500 mg tablet 500 mg PO Q8H PRN 03/21/21 03/21/21 His tory albuterol sulfate 90 mcg/actuation 1 inh INHALATION Q4H PRN 03/21/21 03/21/21 History aerosol inhaler (Ventolin HFA) apixaban 5 mg tablet (Eliquis) 5 mg PO BID 03/21/21 03/21/21 History budesonide-formoterol HFA 160 1 inh INHALATION DAILY 03/21/21 1 History mcg-4.5 mcg/actuation aerosol inhaler (Symbicort) clonidine HCl 0.1 mg tablet 0.1 mg PO TID PRN 03/21/21 03/21/21 His tory dextroamphetamine-amphetamine 20 20 mg PO BID 03/21/21 1 History mg tablet diltiazem HCl 120 mg 120 mg PO DAILY 03/21/21 03/21/21 History capsule,extended release 24 hr gabapentin 100 mg capsule 300 mg PO TID 03/21/21 03/21/21 Histo ry hydromorphone 2 mg tablet 2 mg PO Q2H PRN 03/21/21 03/21/21 Histo ry lansoprazole 30 mg capsule,delayed 30 mg PO DAILY 03/21/2103/21 History release vxpbig-kfjkoxoj-yjexjmz 1 cap PO QID 03/21/21 03/21/21 History 24,000-76,000-120,000 unit capsule,delayed rel (Creon) montelukast 10 mg tablet 10 mg PO DAILY 03/21/21 03/21/21 Histor y ondansetron 4 mg disintegrating 4 mg PO Q6H PRN 03/21/21 03/21/21 History tablet promethazine 12.5 mg tablet 12.5 mg PO Q6H PRN 03/21/21 03/21/21 His tory tiotropium bromide 2.5 1 inh INHALATION DAILY 03/21/21 03/21/21 Histo ry mcg/actuation mist for inhalation (Spiriva Respimat) Past Med/Surg History Medical History Asthma Chronic back pain Gastrostomy tube in place No pertinent family history Pancreatitis Smoker Surgical History No pertinent past surgical history Social History Smoking Status: Never smoker Tobacco Type: Cigarettes Feels Safe at Home: Yes Review of Systems Review of Systems: REVIEW OF SYSTEMS: Constitutional: (+) fever, sweats or chills Eyes: No diplopia, no worsening or blurred vision ENT: normal hearing, no trouble swallowing Respiratory: No cough, sputum, dyspnea at rest or on exertion Cardiovascular: No chest pain, tightness or palpitations Abdomen: (+) pain, nausea, vomiting, NO diarrhea or constipation Musculoskeletal: (+) back joint pain, calf pain, swelling Neurologic: No weakness, numbness/tingling, or balance problems Psychiatric: No anxiety or depression Skin: No rash or itch Allergies Allergy/AdvReac Type Severity Reaction Status Date / Time amlodipine [From [facility]] AdvReac Unknown edema Unverified 03/21/21 08:08 Home Medications Medication Instructions Recorded Confirmed Type acetaminophen 500 mg tablet 500 mg PO Q8H PRN 03/21/21 03/21/21 History albuterol sulfate 90 mcg/actuation 1 inh INHALATION Q4H PRN 03/21/21 03/21/21 History aerosol inhaler (Ventolin HFA) apixaban 5 mg tablet (Eliquis) 5 mg PO BID 03/21/21 03/21/21 History budesonide-formoterol HFA 160 1 inh INHALATION DAILY 03/21/21 03/21/21 History mcg-4.5 mcg/actuation aerosol inhaler (Symbicort) clonidine HCl 0.1 mg tablet 0.1 mg PO TID PRN 03/21/21 03/21/21 History dextroamphetamine-amphetamine 20 20 mg PO BID 03/21/21 03/21/21 History mg tablet diltiazem HCl 120 mg 120 mg PO DAILY 03/21/21 03/21/21 History capsule,extended release 24 hr gabapentin 100 mg capsule 300 mg PO TID 03/21/21 03/21/21 History hydromorphone 2 mg tablet 2 mg PO Q2H PRN 03/21/21 03/21/21 History lansoprazole 30 mg capsule,delayed 30 mg PO DAILY 03/21/21 03/21/21 History release sulojl-sorptwrc-ozlxfag 1 cap PO QID 03/21/21 03/21/21 History 24,000-76,000-120,000 unit capsule,delayed rel (Creon) montelukast 10 mg tablet 10 mg PO DAILY 03/21/21 03/21/21 History ondansetron 4 mg disintegrating 4 mg PO Q6H PRN 03/21/21 03/21/21 History tablet promethazine 12.5 mg tablet 12.5 mg PO Q6H PRN 03/21/21 03/21/21 History tiotropium bromide 2.5 1 inh INHALATION DAILY 03/21/21 03/21/21 History mcg/actuation mist for inhalation (Spiriva Respimat) Patient History Medical History Asthma Chronic back pain Gastrostomy tube in place Hypokalemia Patient received potassium riders this admission. No pertinent family history Pancreatitis Smoker Surgical History (Updated 03/21/21 @ 21:37 by Mulugeta Haynes MD) H/O shoulder surgery H/O wrist surgery Social History Smoking Status: Current every day smoker Tobacco Type: Cigarettes Cigarettes Per Day: 12; Second Hand Exposure: No; Do You Dip or Chew Tobacco: No; Tobacco Cessation Education Requested by Patient: No Hx Alcohol Use: Yes Alcohol type: beer Hx Substance Use: Yes Last Used Substance: Unknown Communication Ability: Effective Beliefs That Will Affect Care: None Current Living Situation: Alone Other Information That Helps Us Care for You: No Feels Safe at Home: Yes Safety Concerns: Feels Safe At This Time Assistive Devices: None Assistive Devices Comment: Tube feeds Physical Exam Constitutional: WD/WN, vitals as above Eyes: PERRL, conjunctivae normal, anicteric sclerae Neck: trachea midline, no thyromegaly Respiratory: normal respiratory effort, lungs clear to auscultation Cardiovascular: RRR, no murmur, no edema Gastrointestinal (Abdomen): normal bowel sounds, soft, nontender, no hepatosplenomegaly Musculoskeletal: no cyanosis or clubbing, extremities motor strength 5/5 Neurologic: patellar DTR's 2+ bilat, sensation intact Psychiatric: A+Ox3, euthymic affect Results & Data ([facility]) Vital Signs (Past 12 Hours) Vital Signs Temp Pulse Resp BP Pulse Ox 03/26/21 16:00 18 132/95 03/26/21 07:00 36.8 C 86 16 115/82 99
[2021-03-26] MEDS ORDERED: HYDROmorphone INJ 1 MG/ML SYRINGE IV STA (17:48)
[2021-03-26] MEDS ORDERED: HYDROmorphone INJ 1 MG/ML SYRINGE ONE (17:54)
[2021-03-26] MEDS ORDERED: ONDANSETRON INJ 2 MG/ML 2 ML VIAL ONE (19:54)
[2021-03-26] MEDS: AMOXICILLIN 250 MG/5 ML PO SCH (20:35)
[2021-03-26] MEDS: LORazepam 1 MG TAB PO PRN (20:48)
[2021-03-26] MEDS ORDERED: chlordiazePOXIDE HCl 25 MG CAP PO SCH (21:00)
[2021-03-26] MEDS ORDERED: AMOXICILLIN 500 MG CAP PO SCH (21:00)
[2021-03-27] MEDS: HYDROmorphone INJ 0.5 MG/0.5 ML SYR IV PRN ×3 (00:07→19:41)
[2021-03-27] MEDS ORDERED: METOCLOPRAMIDE HCL INJ 5 MG/ML 2 ML VIAL IV STA ×2 (00:20→22:10)
[2021-03-27] MEDS: TUBE FEEDING WATER FLUSH GT SCH ×6 (03:23→21:43)
[2021-03-27] MEDS: HYDROmorphone HCL 2 MG TAB PO PRN ×5 (03:26→21:42)
[2021-03-27] MEDS: LORazepam 1 MG/2 ML VIAL IV PRN ×4 (03:40→21:56)
[2021-03-27] MEDS ORDERED: VANCOMYCIN TROUGH ONE (05:30)
[2021-03-27] MEDS: ACETAMINOPHEN 500 MG TAB PO SCH ×3 (06:15→21:43)
--- NOTE | 2021-03-27 07:27 | Hospitalist Progress Note ---
Date of Service March 27, 2021 Assessment & Plan (1) Sepsis: Plan: - Patient meets sepsis criteria with tachycardia, fever, elevated lactate - Source likely her right sided tunneled catheter that has since been removedparticularly given that while her peripheral blood cultures show alpha strep, the culture drawn through the central line shows polymicrobial infex (see below). Initially was on Zosyn, thereafter transitioned to ceftazidime and the regimen below. - BCX (03/21) growing Stenotrophomonas and Strep salivarus -- sensitivities for the ladder not available, unfortunately - ID consulted: Bacteremia likely secondary to infected line (now removed). No indication for LISHA at this time given microbiology. Transition ceftazidime --> levofloxacin 750mg daily for Stenotrophomonas (through 04/01). For alpha- hemolytic Strep, we will discontinue vancomycin, transition to amoxicillin 500mg t.i.d. At this point, she has an EJ in place, but is at high risk for re- infection if a line (e.g., PICC) was placed. Would favor PO over IV in this case. - Recheck BCX today -- if reassuringly negative, can continue PO over IV (2) Pancreatitis: Plan: Chronic now with GJ tube in place, alongside chronic pain - Patient gives most of her medications through GJ tube - Lipase normal during admission - Suspect drainage - GI following: no evidence of perforation, site stable. 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 That said, she is just had the tube placed, and we discussed that a lot of the time motility issues are often very difficult to successfully treatin that regard, we should follow for weight loss now that she has tube in place, if she is continuing to lose weight, then definitely will need to work-up further, but if not, it may be best left as a symptomatic management issue. - Would recommend GES as outpatient (4) Smoker: Plan: 1.5 ppd day smoking cessation will need to be encouraged (5) Chronic back pain: Plan: Patient with history back to 2007 for facet syndrome, was on chronic narcotics at that time - patient states that she has gotten injections in the past and is no longer on the fentanyl patches, although she does still take Dilaudid frequently at home for her chronic pain Given her response to OMT for her headache, I suspect she would benefit from a trial of OMT as an outpatient as well. (6) Asthma: Plan: Chronic persistent - Uses her KARIS 2-3 times per day, no night time awakenings - Continue KARIS, Symbicort, and Spiriva - No complaints of dyspnea today (7) DVT prophylaxis: Plan: Patient reports LUE DVT following Midline placment in January when she was admitted for COVID - She was placed on Eliquis for this UE DVT - Venous Doppler upper extremity shows residual nonocclusive thrombus in 1-2 brachial veins interval left upper extremity. Remainder system is patent - Continue Eliquis (8) Severe protein-calorie malnutrition: Plan: Tube feeds and p.o. intake, managed by Nutrition while here (9) Somatic dysfunction of cervical region: Plan: Headache appears to have a large tension component. OMT done 03/23. Patient tolerated well (10) Alcohol withdrawal: Plan: - with reported history of frequent alcohol use (4x large cans of mixed drinks / day ) and previous alcohol withdrawal requiring hospitalization w/ alcoholic hallucinosis, withdrawal seizures, and status epilepticus 4-5 years ago - currently with tremors, nausea, agitation, hallucinations, tachycardia (though in setting of sepsis) - last reported drink: 03/21 - certainly at higher risk given the above, though given time between episodes (>4-5 years) - Librium escalated to 75mg t.i.d. on 03/26 -- we will continue this scheduled over the next 24 hours. If DTs don't progress, likely can begin taper that can be managed as outpatient. - continue Ativan 2mg IV q2h p.r.n. atop AWSS for agitation -- will monitor. - Monitor closely w/ AWSS. Ativan PRN. Can consider scheduled dosing if needed. - Lower suspicion for delirium, acute endocarditis, meningoencephalitis resulting in AMS right now, but certainly considered. Can consider repeat labs and [employer] imaging if worsening. Admission and Anticipated Discharge Date Admission Date: March 21, 2021 Supervising Physician Co-Signing Physician Notes I personally examined the patient and verified all nieto points of history and exam, discussed case, and agree with decision making with Dr Harvey Sleeping comfortably. Dr. Harvey has attempted to see multiple times today and she is sleeping comfortably each time as well. Nursing notes that when she is not resting/asleep, she is awake and very agitated. Vitals noted, sleeping comfortably, no apparent distress, no tremor or diaphoresis at rest. Breathing unlabored no accessory muscle use good effort. Sepsisbacteremia, strep unable to be tested for sensitivities, is on amoxicillin for this, per ID recommendations with specification on what sensitivities would have been. Given that we cannot get sensitivities, will repeat blood cultures 1 more time, should they be negative, it would stand to reason that the infection is sensitive. Alcohol withdrawalsymptom triggered benzodiazepines, supportive carecontinue to manage with symptom triggered benzos, at this point time it is a little bit difficult to tell how much his withdrawal, and how much is agitation from frustration etc. Follow into tomorrow, her heart rate has improved which is reassuring from an alcohol withdrawal standpoint, continue to follow. Chronic pancreatitistube in place, feeding, pain control Otherwise as above, apixaban for DVT prophylaxis Subjective IV access obtained through EJ yesterday evening, patient tolerated well and is now in place. Has required a total of 10mg Ativan overnight. Last Librium dose, on review this AM, was at 1999 yesterday evening. At the bedside this morning, patient reports that she was able to get some sleep. Denies any nausea right now. Says the pain in her belly is still quite notable. No chest pain, palpitations, shortness of breath. Review of Systems Review of Systems: as per HPI Physical Exam Physical Exam: General: Tired appearing 36-year-old female who is lying back in her hospital bed, speaking with the nurse, upon my arrival. Tremor noted with hands outstretched. She is in no acute distress. HEENT: Mucous membranes appear moist. Cardiac: Normal rate, regular rhythm. S1 and S2 are present without murmurs rubs or gallops. Pulmonary: Good respiratory effort with symmetric expansion of the chest. No use of accessory muscles. Lungs are clear to auscultation bilaterally without crackles or wheezes. Abdominal: PEG site with minimal discharge. There is mild, diffuse tenderness to palpation over the abdomen. No rebound or guarding. Results & Data Results & Data ([facility]) Vital Signs (Past 12 Hours) Vital Signs Temp Pulse Pulse Resp BP Pulse Ox 03/27/21 06:05 36.8 C 102 H 19 112/80 95 03/27/21 03:29 36.9 C 108 H 20 124/85 97 03/27/21 00:26 36.6 C 100 H 19 110/76 97 03/26/21 23:19 36.2 C L 03/26/21 23:11 34.7 C L 100 H 19 136/101 H 100 03/26/21 21:50 36.3 C L 108 H 22 139/100 95 Resident Activity Tracking Resident Involvement: Resident Care Provided Care Provided: Adult Hospital Medicine
[2021-03-27] MEDS: THIAMINE HCL 200 MG in SODIUM CHLORIDE 0.9% 50 ML IV SCH (09:02)
[2021-03-27] MEDS: chlordiazePOXIDE HCl 25 MG CAP PO SCH ×2 (09:02→16:23)
[2021-03-27] MEDS: GABAPENTIN 300 MG CAP PO SCH ×3 (09:03→21:45)
[2021-03-27] MEDS: MONTELUKAST SODIUM 10 MG TABLET PO SCH (09:03)
[2021-03-27] MEDS: APIXABAN 5 MG TABLET PO SCH ×2 (09:03→21:44)
[2021-03-27] MEDS: dilTIAZem HCL 120 MG CAPCR PO SCH (09:04)
[2021-03-27] MEDS: AMOXICILLIN 250 MG/5 ML PO SCH ×3 (09:05→21:45)
[2021-03-27] MEDS: PANTOprazole 40 MG TAB PO SCH (09:05)
[2021-03-27] MEDS: FLUTICASONE/VILANTEROL 200/25MCG 14 PUFFS/INHALER INH SCH (09:06)
[2021-03-27] MEDS: UMECLIDINIUM BROMIDE 62.5MCG/BLISTER 7 PUFFS/INHALER INH SCH (09:07)
--- NOTE | 2021-03-27 09:45 | Surgery Progress Note ---
Date of Service March 27, 2021 Assessment & Plan (1) Difficult intravenous access: Plan: s/p insertion of left EJ central venous line afebrile IV access obtained and functioning Our services signing off, please call with any questions/concerns Discussed with Dr. Kramer who agrees with above. Admission and Anticipated Discharge Date Admission Date: March 21, 2021 Subjective patient sleeping upon entering room states IV is working, no pain or issues Physical Exam Constitutional: WD/WN, vitals as above no acute distress Neck: Left EJ central line with dry dressings, no surrounding edema or erythema. Mild tenderness to palpation Psychiatric: Orientation: alert and oriented x 3 Results & Data ([facility]) Vital Signs (Past 12 Hours) Vital Signs Temp Pulse Pulse Resp BP Pulse Ox 03/27/21 08:06 36.5 C 102 H 16 110/80 95 03/27/21 06:05 36.8 C 102 H 19 112/80 95 03/27/21 03:29 36.9 C 108 H 20 124/85 97 03/27/21 00:26 36.6 C 100 H 19 110/76 97 03/26/21 23:19 36.2 C L 03/26/21 23:11 34.7 C L 100 H 19 136/101 H 100 03/26/21 21:50 36.3 C L 108 H 22 139/100 95
[2021-03-27] MEDS: LORazepam 1 MG TAB PO PRN ×2 (11:08→18:45)
[2021-03-27] MEDS: levoFLOXacin 750 MG TAB PO SCH (11:09)
[2021-03-27] MEDS: PEPTAMEN 1.5 CAL 1,000 ML BAG JT SCH (14:37)
--- NOTE | 2021-03-27 17:29 | Billing Data ---
Date of Service March 27, 2021 Coding Level of Care Code 18299 Subseq Hosp Care Lvl 2
[2021-03-27] MEDS: ONDANSETRON INJ 2 MG/ML 2 ML VIAL IV PRN (19:41)
[2021-03-28] MEDS: LORazepam 1 MG/2 ML VIAL IV PRN ×3 (00:01→04:17)
[2021-03-28] MEDS: TUBE FEEDING WATER FLUSH GT SCH ×6 (02:05→21:40)
[2021-03-28] MEDS: HYDROmorphone INJ 0.5 MG/0.5 ML SYR IV PRN (02:21)
[2021-03-28] MEDS: HYDROmorphone HCL 2 MG TAB PO PRN ×7 (04:17→21:39)
[2021-03-28] MEDS: ONDANSETRON INJ 2 MG/ML 2 ML VIAL IV PRN ×2 (04:17→10:42)
--- NOTE | 2021-03-28 05:45 | Hospitalist Progress Note ---
Date of Service March 28, 2021 Assessment & Plan (1) Sepsis: Plan: Patient met sepsis criteria with tachycardia, fever, elevated lactate - Source likely her right sided tunneled catheter, removed early in her admission - BCX (03/21) growingStenotrophomonasandStrep salivaris-- sensitivities for the ladder not available, unfortunately - ID consulted: Bacteremia likely secondary to infected line (now removed). No indication for LISHA at this time given microbiology. Transition ceftazidime --> levofloxacin for Stenotrophomonas (through 04/01). For alpha-hemolytic Strep, discontinued vancomycin, transitioned to amoxicillin 500mg t.i.d. until 04/04. - Lost IV access during course and is a very hard stick, even with IVs. Would favor PO over IV in this case rather than placing US-guided line -- at high-risk for reinfection. rBCX drawn twice, both negative, since transitioning to oral. - Continue levofloxacin 750mg daily through 04/01 - Continue amoxicillin 500mg t.i.d. until 04/04 (2) Pancreatitis: Plan: Chronic now with GJ tube in place, alongside chronic pain - Patient gives most of her medications through GJ tube. Continue - Lipase normal during admission - GI following: no evidence of perforation, site stable. - Tolerating diet. Continue pancreatic enzymes at home. (3) Gastrostomy tube in place: Plan: Placed for chronic pancreatitis- Genetic malformation per the patient - Previously followed with [facility] Gastro - Enteral feedings at home with Jevity 1.5 5 cans per day, dietary aided while here. Can bump up to 20cc/hr at home. Free water flush 100ml every 4 hours - She notes sometimes feeling easily bloated and with abdominal painsuspect multifactorial, alcohol withdrawal/chronic pancreatitis/possibly a motility issue. That said, she is just had the tube placed, and we discussed that a lot of the time motility issues are often very difficult to successfully treatin that regard, continue to monitor for weight loss.Would recommend consideration of a gastric emptying study as outpatient given c/f - Would recommend GES as outpatient (4) Smoker: Plan: 1.5 ppd day smoking cessation will need to be encouraged (5) Chronic back pain: Plan: Patient with history back to 2007 for facet syndrome, was on chronic narcotics at that time - patient states that she has gotten injections in the past and is no longer on the fentanyl patches, although she does still take Dilaudid frequently at home for her chronic pain Given her response to OMT for her headache, I suspect she would benefit from a trial of OMT as an outpatient as well. (6) Asthma: Plan: Chronic persistent - Uses her KARIS 2-3 times per day, no night time awakenings - Continue KARIS, Symbicort, and Spiriva - No complaints of dyspnea today (7) DVT prophylaxis: Plan: Patient reports LUE DVT following Midline placment in January when she was admitted for COVID - She was placed on Eliquis for this UE DVT - Venous Doppler upper extremity shows residual nonocclusive thrombus in 1-2 brachial veins interval left upper extremity. Remainder system is patent - Continue Eliquis (8) Severe protein-calorie malnutrition: Plan: Tube feeds and p.o. intake, managed by Nutrition while here (9) Somatic dysfunction of cervical region: Plan: Headache appears to have a large tension component. OMT done 03/23. 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 Will transition to 50 t.i.d. and d/c AWSS w/ PRN ativan - Would likely benefit from naltrexone / AA / group therapies as outpatient -- cessation education provided, encouraged Plan: ADDENDUM: Abdominal Pain / Nausea - Suspect the two are likely interrelated; +TTP over LLQ/LUQ on exam, non- surgical, no rebound/guarding - Still suspect motility issue underlying this all - but has not had BM in several days. Constipation likely at play here too and alcohol withdrawal. Think frequent Dilaudid in this case too is complicating motility problems and likely exacerbating baseline pain / nausea - Will obtain KUB - Bowel regimen: MiraLax, Senna, Docusate bid -- will start - Nausea: Zofran and Compazine. Dose of Compazine now. - Pepsid IVP x 1 now - Will give LR 500cc bolus w/ KCl now given poor intake Check CMP in AM Try to get this a little more managable prior to d/c from hospital Admission and Anticipated Discharge Date Admission Date: March 21, 2021 Supervising Physician Co-Signing Physician Notes Ipersonally examined the patient and verified all nieto points of history and exam, discussed case, and agree with decision making with Dr Harvey No new complaints for me, although when revisited by Dr. Harvey, she is still having a lot of difficulty with any sort of enteral intake either by mouth or by tube. Vitals noted, in general she is awake and alert fatigued but no distress. HEENT normocephalic atraumatic mucous membranes moist. Breathing unlabored no accessory muscle use good effort. Skin shows no rashes no pallor or icterus. Sepsisbacteremia, strep unable to be tested for sensitivities, is on amoxicillin for this, per ID recommendations with specification on what sensitivities would have been. Given that we cannot get sensitivities, have repeated blood cultures 1 more time, no growth to date, and if they continue to stay negative, it would stand to reason that the infection is sensitive. Alcohol withdrawalappears to be improving, reduce benzos, continue to follow Chronic pancreatitistube in place, feeding, pain control, encouraged alcohol c essation Nausea and vomitingconcern on motility issuesdiscussed with patient that alcohol could easily upset her stomach as well as her pancreas, and that abstinence from this may help a lot release of the potential to help a lot with her nausea and vomiting. Dr. Harvey initiated treatment for constipation which should help as well Otherwise as above, apixaban for DVT prophylaxis Subjective overnight, AWSS persistently scoring at 6. Received total of 3mg Ativan following Librium dose throughout day, was able to tolerate higher rate of tube feeds, but still not doing great from abdominal/nausea perspective. Not able to keep down food like she'd like to. EtOH withdrawal symptoms seem to be subsiding. Says the pain is crampy, mostly on LLQ/LUQ. Chronic by her description but worse while here. Same with nausea. Review of Systems Review of Systems: as per HPI Physical Exam Physical Exam: General: Tired appearing 36-year-old female who is lying back in her hospital bed, speaking with the nurse, upon my arrival. Tremor noted with hands outstretched. She is in no acute distress. HEENT: Mucous membranes appear moist. Cardiac: Normal rate, regular rhythm. S1 and S2 are present without murmurs rubs or gallops. Pulmonary: Good respiratory effort with symmetric expansion of the chest. No use of accessory muscles. Lungs are clear to auscultation bilaterally without crackles or wheezes. Abdominal: PEG site with minimal discharge. There is mild, diffuse tenderness to palpation over the abdomen, more notable on L > R. No rebound or guarding. Results & Data Results & Data ([facility]) Vital Signs (Past 12 Hours) Vital Signs Temp Pulse Pulse Resp BP Pulse Ox 03/28/21 04:04 36.7 C 101 H 16 107/73 96 03/28/21 02:15 36.8 C 94 H 16 103/70 94 03/27/21 23:49 89 16 127/93 97 03/27/21 21:48 86 16 118/83 03/27/21 19:09 36.4 C L 03/27/21 18:56 94 H 16 105/79 99 Resident Activity Tracking Resident Involvement: Resident Care Provided Care Provided: Adult Hospital Medicine
[2021-03-28 06:27] LABS: Basophils # (auto) 0.02 K/uL (0-0.2); Basophils % (auto) 0.5 %; Eosinophils # (auto) 0.53 K/uL (0-0.5); Eosinophils % (auto) 12.4 %; Hematocrit (blood only) 31.9 % (37-47); Hemoglobin 10.9 g/dL (12.0-16.0); Immature Granulocytes # (auto) 0.01 K/uL (0.00-0.02); Immature Granulocytes % (auto) 0.2 %; Lymphocytes # (auto) 1.86 K/uL (1.2-3.4); Lymphocytes % (auto) 43.5 %; Mean Corpuscular Hemoglobin 32.8 pg (25-34); Mean Corpuscular Hgb Conc 34.2 g/dL (32-36); Mean Corpuscular Volume 96.1 fL (80-100); Mean Platelet Volume 10.1 fL (7.4-10.4); Monocytes % (auto) 9.3 %; Neutrophils # (auto) 1.46 K/uL (1.4-6.5); Neutrophils % (auto) 34.1 %; Platelet Count 238 K/uL (130-400); RDW Coefficient of Variation 14.3 % (11.5-14.5); RDW Standard Deviation 50.7 fL (36.4-46.3); Red Blood Count 3.32 M/uL (4.2-5.4); White Blood Count 4.28 K/uL (4.8-10.8)
[2021-03-28] MEDS: ACETAMINOPHEN 500 MG TAB PO SCH ×4 (06:44→22:49)
[2021-03-28 07:23] LABS: BUN Creatinine Ratio 5.6 (10-20); Calcium 8.8 mg/dl (8.5-10.1); Creatinine Clr Calc Pharmacy 112.8 ml/min; Est GFR (African American) 136.9 ml/min; Est GFR (Non-African American) 118.1 ml/min; Potassium 3.1 mmol/L (3.5-5.1)
[2021-03-28] MEDS: APIXABAN 5 MG TABLET PO SCH ×2 (08:51→21:40)
[2021-03-28] MEDS: AMOXICILLIN 250 MG/5 ML PO SCH ×3 (08:51→21:40)
[2021-03-28] MEDS: GABAPENTIN 300 MG CAP PO SCH ×3 (08:51→21:40)
[2021-03-28] MEDS: chlordiazePOXIDE HCl 25 MG CAP PO SCH ×4 (08:52→19:17)
[2021-03-28] MEDS: LORazepam 1 MG TAB PO PRN ×4 (08:52→21:39)
[2021-03-28] MEDS: dilTIAZem HCL 120 MG CAPCR PO SCH (08:53)
[2021-03-28] MEDS: THIAMINE HCL 200 MG in SODIUM CHLORIDE 0.9% 50 ML IV SCH (08:54)
[2021-03-28] MEDS: MONTELUKAST SODIUM 10 MG TABLET PO SCH (08:54)
[2021-03-28] MEDS: PANTOprazole 40 MG TAB PO SCH (08:54)
[2021-03-28] MEDS: UMECLIDINIUM BROMIDE 62.5MCG/BLISTER 7 PUFFS/INHALER INH SCH (08:54)
[2021-03-28] MEDS: FLUTICASONE/VILANTEROL 200/25MCG 14 PUFFS/INHALER INH SCH (08:55)
[2021-03-28] MEDS: levoFLOXacin 750 MG TAB PO SCH (10:58)
--- NOTE | 2021-03-28 14:50 | Discharge Summary ---
Date of Service March 28, 2021 Admission HPI Per Admitting Provider 36 YOF with past medical history of: ORIF right wrist and right shoulder, chronic back pain, LUE DVT February 07 with midline IV catheter placement (on Eliquis), COVID, chronic pancreatitis s/p GJ tube placement at [facility], Right SCL Central line (Placed at [facility]- remains in place- she performs dressing changes on it every 3 days, HTN, Asthma moderate/persistent. Patient comes to the EMD today for 2 day history of fevers, she checked her temperature last night and noted it to be 104.6 with rigors and chills. She came to the [facility] today and noted to be tachycardic and febrile to 39.2. Patient had GJ tube placed at the beginning of February for her pancreatitis hx. She states she went home and had abdominal pain and fevers at that time, went back to [place] where she was admitted to rule out abdominal pathology. She had a Right SCL CVL placed for her continued admissions and was placed on Rocephin for prophylaxis, Patient then states she was discharged with CVL in place, no further antibiotics, but did have Central line dressing changes and supplies delivered. She had routine labs performed noted for hyponatremia, hypokalemia, hypochloremia, and elevated Lactate to 3.4. She had blood cultures drawn from her central line and PIV. She also had CT scan of her abdomen performed that continues to reveal chronic pancreatitis and pneumoperitoneum from likely placement of her GJ tube. She was started on Vancomycin and Zosyn. She technically meets sepsis criteria- with sources to be CVL, abdomen, UTI, will follow up with CRP and PCT for biomarkers. Will obtain PIV and remove central line, she has no murmur on exam. Await blood and urine cultures. Patient is not vaccinated and had COVID in February 07. Patient test on admission is: NEGATIVE Admission Exam Per Admitting Provider PHYSICAL EXAM: General: awake, alert, no apparent distress Head: Normocephalic, atraumatic ENT: PERRL, EOMI, no pharyngeal exudate, mucous membranes moist Neuro: AAO x 3, speech clear and appropriate, strength intact bilaterally 5/5, sensation intact and equal all extremities and dermatomes, no pronator drift Chest: equal rise and fall of the chest, no accessory muscle use, no heaves or thrills, Clear to auscultation, on room air, Cardiac: Regular rate and rhythm, telemetry reviewed, skin warm dry, cap refill <3 seconds, peripheral pulses +2 no JVD, no murmur, no edema GI: NABS x 4 quadrants, soft, tender to palpation left upper and lower quadrants with guarding, no rebound, palpable crepitus : Spontaneously voiding, no pain, no suprapubic pain Extremities: Normal inspection, no peripheral edema or erythema, calfs nontender to palpation Psych: Normal mood and affect Skin: no rash or erythema Principal Diagnosis sepsis polymicrobial bacteremia alcohol withdrawal Discharge Exam General: Tired appearing 36-year-old female who is lying back in her hospital bed, speaking with the nurse, upon my arrival. Tremor noted with hands outstretched. She is in no acute distress. HEENT: Mucous membranes appear moist. Cardiac: Normal rate, regular rhythm. S1 and S2 are present without murmurs rubs or gallops. Pulmonary: Good respiratory effort with symmetric expansion of the chest. No use of accessory muscles. Lungs are clear to auscultation bilaterally without crackles or wheezes. Abdominal: PEG site with minimal discharge. There is mild, diffuse tenderness to palpation over the abdomen. No rebound or guarding. Discharge Data Allergies Allergy/AdvReac Type Severity Reaction Status Date / Time amlodipine [From Norvasc] AdvReac Unknown edema Unverified 03/21/21 08:08 Consultations 03/21/21 07:52 ED Decision to Admit Stat 03/21/21 13:55 Consult Gastroenterology Routine -- excerpted from ANTONIO Fairchild "Chronic pancreatitis: Chronic abdominal pain with worsened pain presently. No evidence of acute pancreatitis on imaging. Continued alcohol use is a problem. Supportive care, and chronic pain management. Gastrostomy tube: Gastrostomy tube interrogation demonstrated no evidence of perforation. Scant drainage at GJ insertion site without erythema.No evidence of infection Presumed alcohol withdrawal: Hallucinations, agitation, and confusion. 1:1 bedside sitter for safety. Managed by hospitalist team. Please refer to supervising physician addendum for further recommendations." 03/24/21 13:44 Consult Infectious Diseases Routine See PDF report 03/26/21 15:27 Consult General Surgery Routine -- excerpted by Lourdes Walls PA-C "s/p insertion of left EJ central venous line afebrile IV access obtained and functioning Our services signing off, please call with any questions/concerns Discussed with Dr. Kramer who agrees with above." Procedures Performed Operation Date: 03/22/21 15:25 Actual Procedures p Removal of Nunes Cateter(Not Applicable) - Kevin Valle MD, FACS Ordered Studies 03/21/21 03:41 CT abd pelvis IV con only Urgent "IMPRESSION: 1. Interval placement of a percutaneous gastrostomy tube. The tube is looped within the stomach and terminates at the duodenal bulb. 2. Small to moderate amount of pneumoperitoneum. This could be due to the recent postoperative change. Follow-up chest x-ray can be performed to ensure resolution. 3. Mild bladder wall thickening. Recommend correlate with urinalysis. 4. Cholecystectomy. 5. Chronic pancreatitis. No evidence for acute pancreatitis" 03/21/21 08:31 US venous doppler UE LT Routine "Impression: Residual nonocclusive thrombus in one of the 2 brachial veins. The remaining deep venous system is lowe" Hospital Course (1) Sepsis: - Patient met sepsis criteria with tachycardia, fever, elevated lactate - Source likely her right sided tunneled catheter, removed early in her admission - BCX (03/21) growing Stenotrophomonas and Strep salivaris -- sensitivities for the ladder not available, unfortunately - ID consulted: Bacteremia likely secondary to infected line (now removed). No indication for LISHA at this time given microbiology. Transition ceftazidime --> levofloxacin for Stenotrophomonas (through 04/01). For alpha-hemolytic Strep, discontinued vancomycin, transitioned to amoxicillin 500mg t.i.d. until 04/04. - Lost IV access during course and is a very hard stick, even with IVs. Would favor PO over IV in this case rather than placing US-guided line -- at high-risk for reinfection. rBCX drawn twice, both negative, since transitioning to oral. - Continue levofloxacin 750mg daily through 04/01 - Continue amoxicillin 500mg t.i.d. until 04/04 (2) Pancreatitis: Chronic now with GJ tube in place, alongside chronic pain - Patient gives most of her medications through GJ tube. Continue - Lipase normal during admission - GI following: no evidence of perforation, site stable. - Tolerating diet. Continue pancreatic enzymes at home. 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 Can bump up to 20cc/hr at home. Free water flush 100ml every 4 hours - She notes sometimes feeling easily bloated and with abdominal painsuspect multifactorial, alcohol withdrawal/chronic pancreatitis/possibly a motility issue. That said, she is just had the tube placed, and we discussed that a lot of the time motility issues are often very difficult to successfully treatin that regard, continue to monitor for weight loss. Would recommend consideration of a gastric emptying study as outpatient given c/f - Would recommend GES as outpatient (4) Smoker: 1.5 ppd day smoking cessation will need to be encouraged (5) Chronic back pain: Patient with history back to 2007 for facet syndrome, was on chronic narcotics at that time - patient states that she has gotten injections in the past and is no longer on the fentanyl patches, although she does still take Dilaudid frequently at home for her chronic pain Given her response to OMT for her headache, I suspect she would benefit from a trial of OMT as an outpatient as well. (6) Asthma: Chronic persistent - Uses her KARIS 2-3 times per day, no night time awakenings - Continue KARIS, Symbicort, and Spiriva - No complaints of dyspnea while here (7) DVT prophylaxis: Patient reports LUE DVT following Midline placment in January when she was admitted for COVID - She was placed on Eliquis for this UE DVT - Venous Doppler upper extremity shows residual nonocclusive thrombus in 1-2 brachial veins interval left upper extremity. Remainder system is patent - Continue Eliquis (8) Severe protein-calorie malnutrition: Tube feeds and p.o. intake, managed by Nutrition while here (9) Somatic dysfunction of cervical region: Headache appears to have a large tension component. OMT done 03/23. 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 Will send taper to be completed in outpatient setting. - Would likely benefit from naltrexone / AA / group therapies as outpatient -- cessation education provided, encouraged Total Time Total Time Spent Total Time Spent (In Minutes): 30 Discharge Plan Discharge Items Patient Disposition: Home - Self-Care Reason For Visit: FEVER,SEPSIS, ABDOMINAL PAIN Discharge Diagnosis: polymicrobial bacteremia alcohol withdrawal Activity: Per Instructions section Non-emergency contact: Primary Care Provider Call non-emergency contact if: your symptoms worsen and your temperature is above 101 Follow-up/Referrals: Kevin Valle MD, FACS [Surgeon] - (Please call to schedule follow up for scheduling of replacement central line) PCP,NO [Primary Care Provider] - Diet: Regular Addtl Attending Provider Instructions: You were seen in [facility] for evaluation of illness. Upon your arrival, you underwent several tests to determine the cause of your symptoms. It was discovered that you had a bloodstream infection, likely secondary to a pre-existing intravenous line. This line was immediately removed. You were put on intravenous antibiotics to help cover your infection. Thankfully, you tolerated this well. In concert with our infectious disease specialist, you were transitioned to oral antibiotics prior to discharge. While here, you also did develop signs and symptoms consistent with alcohol withdrawal. You were treated aggressively for this. Thankfully, prior to discharge, you demonstrated stability. Based on your improvement while here, we believe that the remainder of your alcohol withdrawal treatment can be completed as an outpatient. It is incredibly important that you moderate alcohol use, preferably discontinue completely. Please talk with your primary care physician about different alcoholrelated medications that can assist with urges, such as naltrexone. There are also many different evidence-based group therapies that are available in this area. Upon your discharge, please note the following medication changes/additio ns/deletions: Levofloxacin, 750 mg once daily, until 04/01 Amoxicillin, 500 mg 3 times daily, until 04/04 Chlordiazepoxide 50mg three times daily x 1 day, 50mg twice daily x 1 day, 50mg once x 1 day --> stop Please follow-up with your primary care physician within 1 week to review this visit. At the time of that visit, please review your medications. In the interim, if you experience worsening fevers, chills, night sweats, nausea, vomiting, loss of appetite, persistent unbearable pain, hallucinations, loss of consciousness, or other worrisome symptoms, please report to the ER immediately for evaluation. Is a pleasure for caring for you while you are here, we wish you all the best in your recovery. Pending Studies at Discharge: Yes Studies:: Blood cultures (negative at discharge) Stand-Alone Forms: [facility] [employer] Smoking Cessation Medications and DC Order Prescriptions: New amoxicillin 250 mg/5 mL suspension for reconstitution 500 mg PO TID 8 Days Qty: 240 RF: 0 levofloxacin 750 mg Tablet 750 mg PO DAILY@1100 4 Days Qty: 4 RF: 0 Continued clonidine HCl 0.1 mg tablet 0.1 mg PO TID PRN (Reason: systolic greater than 160) RF: 0 dextroamphetamine-amphetamine 20 mg tablet 20 mg PO BID RF: 0 lansoprazole 30 mg capsule,delayed release(DR/EC) 30 mg PO DAILY RF: 0 diltiazem HCl 120 mg capsule,extended release 24hr 120 mg PO DAILY RF: 0 montelukast 10 mg tablet 10 mg PO DAILY RF: 0 albuterol sulfate [Ventolin HFA] 90 mcg/actuation HFA aerosol inhaler 1 inh INHALATION Q4H PRN (Reason: Shortness Of Breath) RF: 0 budesonide-formoterol [Symbicort] 160-4.5 mcg/actuation HFA aerosol inhaler 1 inh INHALATION DAILY RF: 0 Creon 24,000-76,000 -120,000 unit capsule,delayed release(DR/EC) 1 cap PO QID RF: 0 Spiriva Respimat 2.5 mcg/actuation mist 1 inh INHALATION DAILY RF: 0 Eliquis 5 mg tablet 5 mg PO BID RF: 0 promethazine 12.5 mg tablet 12.5 mg PO Q6H PRN (Reason: Nausea) RF: 0 acetaminophen 500 mg Tablet 500 mg PO Q8H PRN (Reason: Pain) RF: 0 hydromorphone 2 mg tablet 2 mg PO Q2H PRN (Reason: Pain) RF: 0 gabapentin 100 mg capsule 300 mg PO TID RF: 0 ondansetron 4 mg tablet,disintegrating 4 mg PO Q6H PRN (Reason: nausea and vomiting) RF: 0 Admission Data Admit Date/Time: 03/21/21 09:32 Attending Provider: Von Amato Admit Provider: Agustin Lee Primary Care Provider: PCP,NO Other Providers: Agustin Lee ; Mary Carmen Dash ; Chau Payan ; Luis Han ; José Miguel Tello ; Ari Rodriguez ; Pa Houston ; Kevin Valle ; John Velarde ; Valarie Costello ; Rosalio Brown I. ; Isauro Tuttle II ; Camila Mead ; Solo Velasquez ; Rashad Ramos ; Clive Kramer
[2021-03-28] MEDS ORDERED: FAMOTIDINE 20MG IV PUSH 20 MG/5 ML SYR IV ONE (15:40)
[2021-03-28] MEDS ORDERED: DOCUSATE SODIUM 100 MG CAP PO SCH (16:15)
[2021-03-28] MEDS ORDERED: PROCHLORPERAZINE 5 MG in SYRINGE 4 ML IV PRN (16:19)
[2021-03-28] MEDS ORDERED: LACTATED RINGER'S 500 ML IV ONE (16:26)
[2021-03-28] MEDS ORDERED: PROCHLORPERAZINE 5 MG in SYRINGE 4 ML IV ONE (16:30)
[2021-03-28] MEDS: DOCUSATE SODIUM SYRUP 100 MG/10 ML UDC PO SCH ×2 (17:36→21:39)
[2021-03-28] MEDS: SENNOSIDES 8.8 MG/5 ML UDC PO SCH (17:36)
[2021-03-28] MEDS: POTASSIUM CHLORIDE / WTR 10 MEQ/100 ML PLCT IV SCH ×2 (17:36→19:13)
--- NOTE | 2021-03-28 18:11 | Billing Data ---
Date of Service March 28, 2021 Coding Level of Care Code 01259 Subseq Hosp Care Lvl 3
[2021-03-28] MEDS ORDERED: MAGNESIUM HYDROXIDE SUSP 30 ML UDC PO ONE (18:31)
--- NOTE | 2021-03-28 19:23 | XRay Report ---
XR KUB/Abdomen 1 view CLINICAL HISTORY: LLQ abdominal pain. COMPARISON STUDY: 03/21/2021 TECHNIQUE: Single view of the abdomen. FINDINGS: The bowel gas pattern is within normal limits without evidence for dilatation or obstruction. A percu taneous feeding tube is again in place. However, the position of the catheter has changed from what a ppears to be dilatation of the stomach. There is no evidence for organomegaly or gross intra-abdomina l mass. No abnormal calcifications are seen along the course of the urinary tracts bilaterally. No ac [place] osseous pathology. IMPRESSION: 1.No acute intra-abdominal abnormality. However, there appears to be gastric distention with change i n position of the patient's percutaneously into. ACT 112: Negative or not required by law. Electronically signed by: Toney Correa M.D. 03/28/2021 7:21 PM
[2021-03-28] MEDS ORDERED: AMOXICILLIN SUSP 500 MG/10 ML UDP PO SCH (21:00)
[2021-03-29] MEDS: chlordiazePOXIDE HCl 25 MG CAP PO SCH ×2 (01:30→11:04)
[2021-03-29] MEDS: TUBE FEEDING WATER FLUSH GT SCH ×4 (01:30→14:14)
[2021-03-29] MEDS: LORazepam 1 MG TAB PO PRN ×2 (01:38→07:13)
[2021-03-29] MEDS: HYDROmorphone HCL 2 MG TAB PO PRN ×5 (01:39→15:35)
[2021-03-29] MEDS: ACETAMINOPHEN 500 MG TAB PO SCH ×2 (06:23→14:14)
[2021-03-29 06:39] LABS: Albumin Level 1.8 gm/dl (3.4-5.0); Calcium 8.2 mg/dl (8.5-10.1); Creatinine Clr Calc Pharmacy 112.8 ml/min; Est GFR (African American) 136.9 ml/min; Est GFR (Non-African American) 118.1 ml/min; Potassium 3.2 mmol/L (3.5-5.1)
[2021-03-29 06:42] LABS: Albumin Globulin Ratio 0.4 (0.9-2); Bilirubin,Total 0.4 mg/dl (0.2-1); Globulin 4.1 gm/dl (2.5-4.0); Total Protein 5.9 gm/dl (6.4-8.2)
[2021-03-29] MEDS: LORazepam 1 MG TAB PO SCH ×2 (07:29→14:13)
[2021-03-29] MEDS ORDERED: DOCUSATE SODIUM SYRUP 100 MG/10 ML UDC PO SCH (09:00)
[2021-03-29] MEDS ORDERED: POLYETHYLENE (MIRALAX) 17 GM PACK PO SCH (09:00)
[2021-03-29] MEDS ORDERED: POTASSIUM CHLORIDE CRTAB 20 MEQ TABCR PO SCH (09:00)
[2021-03-29] MEDS: DOCUSATE SODIUM SYRUP 100 MG/10 ML UDC PO SCH (09:19)
[2021-03-29] MEDS: FLUTICASONE/VILANTEROL 200/25MCG 14 PUFFS/INHALER INH SCH (09:20)
[2021-03-29] MEDS: MONTELUKAST SODIUM 10 MG TABLET PO SCH (09:20)
[2021-03-29] MEDS: UMECLIDINIUM BROMIDE 62.5MCG/BLISTER 7 PUFFS/INHALER INH SCH (09:21)
[2021-03-29] MEDS: THIAMINE HCL 200 MG in SODIUM CHLORIDE 0.9% 50 ML IV SCH (09:31)
[2021-03-29] MEDS: AMOXICILLIN 250 MG/5 ML PO SCH ×2 (10:03→14:13)
[2021-03-29] MEDS: PANTOprazole 40 MG TAB PO SCH (10:04)
[2021-03-29] MEDS: GABAPENTIN 300 MG CAP PO SCH ×2 (10:04→14:14)
[2021-03-29] MEDS: dilTIAZem HCL 120 MG CAPCR PO SCH (10:04)
[2021-03-29] MEDS: SENNOSIDES 8.8 MG/5 ML UDC PO SCH (10:05)
[2021-03-29] MEDS: APIXABAN 5 MG TABLET PO SCH (10:05)
[2021-03-29] MEDS: levoFLOXacin 750 MG TAB PO SCH (11:56)
--- NOTE | 2021-03-29 13:14 | Discharge Summary ---
Date of Service March 29, 2021 Admission HPI Per Admitting Provider 36 YOF with past medical history of: ORIF right wrist and right shoulder, chronic back pain, LUE DVT February 07 with midline IV catheter placement (on Eliquis), COVID, chronic pancreatitis s/p GJ tube placement at [facility], Right SCL Central line (Placed at [facility]- remains in place- she performs dressing changes on it every 3 days, HTN, Asthma moderate/persistent. Patient comes to the EMD today for 2 day history of fevers, she checked her temperature last night and noted it to be 104.6 with rigors and chills. She came to the [facility] today and noted to be tachycardic and febrile to 39.2. Patient had GJ tube placed at the beginning of February for her pancreatitis hx. She states she went home and had abdominal pain and fevers at that time, went back to [place] where she was admitted to rule out abdominal pathology. She had a Right SCL CVL placed for her continued admissions and was placed on Rocephin for prophylaxis, Patient then states she was discharged with CVL in place, no further antibiotics, but did have Central line dressing changes and supplies delivered. She had routine labs performed noted for hyponatremia, hypokalemia, hypochloremia, and elevated Lactate to 3.4. She had blood cultures drawn from her central line and PIV. She also had CT scan of her abdomen performed that continues to reveal chronic pancreatitis and pneumoperitoneum from likely placement of her GJ tube. She was started on Vancomycin and Zosyn. She technically meets sepsis criteria- with sources to be CVL, abdomen, UTI, will follow up with CRP and PCT for biomarkers. Will obtain PIV and remove central line, she has no murmur on exam. Await blood and urine cultures. Patient is not vaccinated and had COVID in February 07. Patient test on admission is: NEGATIVE Admission Exam Per Admitting Provider PHYSICAL EXAM: General: awake, alert, no apparent distress Head: Normocephalic, atraumatic ENT: PERRL, EOMI, no pharyngeal exudate, mucous membranes moist Neuro: AAO x 3, speech clear and appropriate, strength intact bilaterally 5/5, sensation intact and equal all extremities and dermatomes, no pronator drift Chest: equal rise and fall of the chest, no accessory muscle use, no heaves or thrills, Clear to auscultation, on room air, Cardiac: Regular rate and rhythm, telemetry reviewed, skin warm dry, cap refill <3 seconds, peripheral pulses +2 no JVD, no murmur, no edema GI: NABS x 4 quadrants, soft, tender to palpation left upper and lower quadrants with guarding, no rebound, palpable crepitus : Spontaneously voiding, no pain, no suprapubic pain Extremities: Normal inspection, no peripheral edema or erythema, calfs nontender to palpation Psych: Normal mood and affect Skin: no rash or erythema Principal Diagnosis sepsis polymicrobial bacteremia chronic pancreatitis alcohol withdrawal Discharge Exam General: Tired appearing 36-year-old female who is lying back in her hospital bed, speaking with the nurse, upon my arrival. Tremor noted with hands outstretched, improved compared to prior. She is in no acute distress. HEENT: Mucous membranes appear moist. Cardiac: Normal rate, regular rhythm. S1 and S2 are present without murmurs rubs or gallops. Pulmonary: Good respiratory effort with symmetric expansion of the chest. No use of accessory muscles. Lungs are clear to auscultation bilaterally without crackles or wheezes. Abdominal: PEG site with minimal discharge. There is mild, diffuse tenderness to palpation over the abdomen, more notable on L > R. No rebound or guarding. Discharge Data Allergies Allergy/AdvReac Type Severity Reaction Status Date / Time amlodipine [From [facility]] AdvReac Unknown edema Unverified 03/21/21 08:08 Consultations 03/21/21 07:52 ED Decision to Admit Stat 03/21/21 13:55 Consult Gastroenterology Routine Consult General Surgery Routine 03/24/21 13:44 Consult Infectious Diseases Routine 03/26/21 15:27 Consult General Surgery Routine Procedures Performed Operation Date: 03/22/21 15:25 Actual Procedures p Removal of Nunes Cateter(Not Applicable) - Kevin Valle MD, FACS Ordered Studies 03/21/21 03:41 CT abd pelvis IV con only Urgent IMPRESSION: 1. Interval placement of a percutaneous gastrostomy tube. The tube is looped within the stomach and terminates at the duodenal bulb. 2. Small to moderate amount of pneumoperitoneum. This could be due to the recent postoperative change. Follow-up chest x-ray can be performed to ensure resolution. 3. Mild bladder wall thickening. Recommend correlate with urinalysis. 4. Cholecystectomy. 5. Chronic pancreatitis. No evidence for acute pancreatitis. 03/21/21 08:31 US venous doppler UE LT Routine Impression: Residual nonocclusive thrombus in one of the 2 brachial veins. The remaining deep venous system is patent. Hospital Course (1) Sepsis: Patient met sepsis criteria with tachycardia, fever, elevated lactate - Source likely her right sided tunneled catheter, removed early in her admission - BCX (03/21) growingStenotrophomonasandStrep salivaris-- sensitivities for the ladder not available, unfortunately - ID consulted: Bacteremia likely secondary to infected line (now removed). No indication for LISHA at this time given microbiology. Transition ceftazidime --> levofloxacin for Stenotrophomonas (through 04/01). For alpha-hemolytic Strep, discontinued vancomycin, transitioned to amoxicillin 500mg t.i.d. until 04/04. - Lost IV access during course and is a very hard stick, even with IVs. Would favor PO over IV in this case rather than placing US-guided line -- at high-risk for reinfection. rBCX drawn twice, both negative, since transitioning to oral. - Continue levofloxacin 750mg daily through 04/01 - Continue amoxicillin 500mg t.i.d. until 04/04 (2) Pancreatitis: Chronic now with GJ tube in place, alongside chronic pain - Patient gives most of her medications through GJ tube. Continue - Lipase normal during admission - GI following: no evidence of perforation, site stable. - Tolerating diet. Continue pancreatic enzymes at home. (3) Gastrostomy tube in place: Placed for chronic pancreatitis- Genetic malformation per the patient - Previously followed with [facility] G[facility] - Enteral feedings at home with Jevity 1.5 5 cans per day, dietary aided while here. Can bump up to 20cc/hr at home. Free water flush 100ml every 4 hours - Would recommend GES as outpatient (4) Smoker: 1.5 ppd day smoking cessation will need to be encouraged (5) Chronic back pain: Patient with history back to 2007 for facet syndrome, was on chronic narcotics at that time - patient states that she has gotten injections in the past and is no longer on the fentanyl patches, although she does still take Dilaudid frequently at home for her chronic pain - Given her response to OMT for her headache, I suspect she would benefit from a trial of OMT as an outpatient as well. (6) Asthma: Chronic persistent - Uses her KARIS 2-3 times per day, no night time awakenings - Continue KARIS, Symbicort, and Spiriva - No complaints of dyspnea today (7) DVT prophylaxis: Patient reports LUE DVT following Midline placment in January when she was admitted for COVID - She was placed on Eliquis for this UE DVT - Venous Doppler upper extremity shows residual nonocclusive thrombus in 1-2 brachial veins interval left upper extremity. Remainder system is patent - Continue Eliquis (8) Severe protein-calorie malnutrition: Tube feeds and p.o. intake, managed by Nutrition while here (9) Somatic dysfunction of cervical region: Headache appears to have a large tension component. OMT done 03/23. Patient tolerated well (10) Alcohol withdrawal: - with reported history of frequent alcohol use (4x large cans of mixed drinks / day ) and previous alcohol withdrawal requiring hospitalization w/ alcoholic hallucinosis, withdrawal seizures, and status epilepticus 4-5 years ago - last reported drink: 03/21 - did experience tremors, nausea, agitation, hallucinations, tachycardia while here (though in setting of sepsis), resolved throughout stay -- think we are now out of range for DTs, though mild withdrawal is likely to continue - Responded well to Librium while here. Discharged on very short Librium taper to complete. - Would likely benefit from naltrexone / AA / group therapies as outpatient -- cessation education provided, encouraged Abdominal Pain / Nausea - Suspect the two are likely interrelated; +TTP over LLQ/LUQ on exam, non- surgical, no rebound/guarding - Still suspect motility issue underlying this all - but has not had BM in several days. Constipation likely at play here too and alcohol withdrawal. Think frequent Dilaudid in this case too is complicating motility problems and likely exacerbating baseline pain / nausea - KUB day before discharge demonstrated some gastric distention, otherwise grossly normal - Recommended bowel regimen on d/c - Nausea: Zofran and Compazine - GI f/u arranged by case management prior [place] [facility] [place] Recommend following-up a potassium level in 1 week following d/c -- persistently 3.1-3.2 while here despite repletion. Patient initiated on KCl PO 40mEq/day at d/c. - She notes sometimes feeling easily bloated and with abdominal painsuspect multifactorial, alcohol withdrawal/chronic pancreatitis/possibly a motility issue. That said, she is just had the tube placed, and we discussed that a lot of the time motility issues are often very difficult to successfully treatin that regard, continue to monitor for weight loss.Would recommend consideration of a gastric emptying study as outpatient given c/f Total Time Total Time Spent Total Time Spent (In Minutes): <30 Discharge Plan Discharge Items Patient Disposition: Home - Self-Care Reason For Visit: FEVER,SEPSIS, ABDOMINAL PAIN Discharge Diagnosis: polymicrobial bacteremia alcohol withdrawal Activity: Per Instructions section Non-emergency contact: Primary Care Provider Call non-emergency contact if: your symptoms worsen and your temperature is above 101 Follow-up/Referrals: Kevin Valle MD, FACS [Surgeon] - 04/08/21 9:00 am (Please call to schedule follow up for scheduling of replacement central line) PCP,NO [Primary Care Provider] - (Atiya Rivas, Assistant Community Director, will call the patient with a PCP, date and time of appointment for hospital follow up visit.) Diet: Regular Addtl Attending Provider Instructions: You were seen in [facility] for evaluation of illness. Upon your arrival, you underwent several tests to determine the cause of your symptoms. It was discovered that you had a bloodstream infection, likely secondary to a pre-existing intravenous line. This line was immediately removed. You were put on intravenous antibiotics to help cover your infection. Thankfully, you tolerated this well. In concert with our infectious disease specialist, you were transitioned to oral antibiotics prior to discharge. While here, you also did develop signs and symptoms consistent with alcohol withdrawal. You were treated aggressively for this. Thankfully, prior to discharge, you demonstrated stability. Based on your improvement while here, we believe that the remainder of your alcohol withdrawal treatment can be completed as an outpatient. It is incredibly important that you moderate alcohol use, preferably discontinue completely. Please talk with your primary care physician about different alcoholrelated medications that can assist with urges, such as naltrexone. There are also many different evidence-based group therapies that are available in this area. Regarding your abdominal pain, we believe that this is largely due motility issues within your stomach and GI tract. This occurs when the GI tract does not move in a coordinated manner, or in a slower manner than is normal. We highly recommend you connect with a GI doctor to pursue a gastric emptying study after discharge. Upon your discharge, please note the following medication changes/additions/deletions: Levofloxacin, 750 mg once daily, until 04/01 Amoxicillin, 500 mg 3 times daily, until 04/04 Chlordiazepoxide 50mg once in the PM on day of discharge, then 50mg once in the AM on day after discharge --> stop - Compazine, 5mg up to twice daily, as needed for nausea - Potassium chloride solution, 15mL once daily, until directed otherwise by your doctor. - Recommend holding Phenergan until PCP follow-up - Recommend continuing MiraLax, once daily, to aid with bowel movements. Please follow-up with your primary care physician within 1 week to review this visit. Please talk about arranging a GI follow-up at that time and discuss getting your potassium rechecked (low here from frequent vomiting). At the time of your PCP visit, please review your medications. In the interim, if you experience worsening fevers, chills, night sweats, nausea, vomiting, loss of appetite, persistent unbearable pain, hallucinations, loss of consciousness, or other worrisome symptoms, please report to the ER immediately for evaluation. Is a pleasure for caring for you while you are here, we wish you all the best in your recovery. Addtl Nuclear Chemistry Technician Provider Instructions: [facility] will be reviewing your information and contacting you at home to schedule a follow up appointment. We are working to arrange you with a new Primary Care Physician. We will follow up with you next week concerning your new Provider and appointment time. Thank you! Pending Studies at Discharge: Yes Studies:: Blood cultures (negative at discharge) Stand-Alone Forms: [facility] [employer], Smoking Cessation Medications and DC Order Prescriptions: New amoxicillin 250 mg/5 mL suspension for reconstitution 500 mg PO TID 8 Days Qty: 240 RF: 0 levofloxacin 750 mg Tablet 750 mg PO DAILY@1100 4 Days Qty: 4 RF: 0 prochlorperazine maleate [Compazine] 5 mg tablet 5 mg PO Q12H PRN (Reason: nausea and vomiting) Qty: 30 RF: 0 potassium chloride 40 mEq/15 mL liquid 40 meq PO DAILY Qty: 473 RF: 0 Continued clonidine HCl 0.1 mg tablet 0.1 mg PO TID PRN (Reason: systolic greater than 160) RF: 0 dextroamphetamine-amphetamine 20 mg tablet 20 mg PO BID RF: 0 lansoprazole 30 mg capsule,delayed release(DR/EC) 30 mg PO DAILY RF: 0 diltiazem HCl 120 mg capsule,extended release 24hr 120 mg PO DAILY RF: 0 montelukast 10 mg tablet 10 mg PO DAILY RF: 0 albuterol sulfate [Ventolin HFA] 90 mcg/actuation HFA aerosol inhaler 1 inh INHALATION Q4H PRN (Reason: Shortness Of Breath) RF: 0 budesonide-formoterol [Symbicort] 160-4.5 mcg/actuation HFA aerosol inhaler 1 inh INHALATION DAILY RF: 0 Creon 24,000-76,000 -120,000 unit capsule,delayed release(DR/EC) 1 cap PO QID RF: 0 Spiriva Respimat 2.5 mcg/actuation mist 1 inh INHALATION DAILY RF: 0 Eliquis 5 mg tablet 5 mg PO BID RF: 0 acetaminophen 500 mg Tablet 500 mg PO Q8H PRN (Reason: Pain) RF: 0 hydromorphone 2 mg tablet 2 mg PO Q2H PRN (Reason: Pain) RF: 0 gabapentin 100 mg capsule 300 mg PO TID RF: 0 ondansetron 4 mg tablet,disintegrating 4 mg PO Q6H PRN (Reason: nausea and vomiting) RF: 0 Discontinued promethazine 12.5 mg tablet 12.5 mg PO Q6H PRN (Reason: Nausea) RF: 0 Discharge Orders: Discharge Order (Routine); Ordered 03/29/21 Ordered By: Von Hubbard/Other Patient Handouts: Abdominal Pain, ED Bacteremia, Suspected (Adult) Admission Data Admit Date/Time: 03/21/21 09:32 Attending Provider: Von Amato Admit Provider: Agustin Lee Primary Care Provider: PCP,NO Other Providers: Agustin Lee ; Mary Carmen Dash ; Chau Payan ; Luis Han ; José Miguel Tello ; Ari Rodriguez ; Pa Houston ; Kevin Valle ; John Velarde ; Valarie Costello ; Rosalio Brown I. ; Isauro Tuttle II ; Camila Mead ; Solo Velasquez ; Rashad Ramos ; Clive Kramer Other Interventions: Discharge Summary Assessment (RN) Last Done: 03/29/21 14:09 Supervising Physician Co-Signing Physician Notes Ipersonally examined the patient and verified all nieto points of history and exam, discussed case, and agree with decision making with Dr Harvey Feels up to going home, later asked about refill of dilauded - although on PDMP had 40 tabs filled ~03/15, then another 10 tabs filled 03/23 - so refrained on filling Vitals noted, in general she is awake and alert fatigued but no distress. HEENT normocephalic atraumatic mucous membranes moist. Breathing unlabored no accessory muscle use good effort. Skin shows no rashes no pallor or icterus. Sepsisbacteremia, strep unable to be tested for sensitivities, is on amoxicillin for this, per ID recommendations with specification on what sensitivities would have been. Given that we cannot get sensitivities, have rep eated blood cultures 1 more time, no growth to date, confirmed with ID that sending home on amoxicillin for the strep, Levaquin still for the stenotrophomonas would be appropriatethey agree. Alcohol withdrawalappears to be improving, stable for home, encourage cessation/abstinence Chronic pancreatitistube in place, feeding, pain control, encouraged alcohol cessation Nausea and vomitingconcern on motility issuesdiscussed with patient that alcohol could easily upset her stomach as well as her pancreas, and that abstinence from this may help a lot release of the potential to help a lot with her nausea and vomiting. Dr. Harvey initiated treatment for constipation which should help as well, outpatient follow-up/motility follow-up. Otherwise as above, apixaban for DVT prophylaxis Resident Activity Tracking Resident Involvement: Resident Care Provided Care Provided: Adult Hospital Medicine
--- NOTE | 2021-03-29 17:37 | Billing Data ---
Date of Service March 29, 2021 Coding Level of Care Code D/C DAY MANAGEMENT <30 MINS
== END 2021-03-29 16:57 | disposition home or self-care (01) | DRG 314 ==
LOC: ED 00:41 → EDINP 09:32 → SUATTDRO 09:32 → 2N 13:53 → 3N 03-23 21:05 → 3E 03-26 10:00
DX: F17.210 Nicotine dependence, cigarettes, uncomplicated; Z86.16 Personal history of COVID-19; T80.218A Other infection due to central venous catheter, initial encounter; K66.8 Other specified disorders of peritoneum; Z88.8 Allergy status to other drugs, medicaments and biological substances; A41.9 Sepsis, unspecified organism; K86.1 Other chronic pancreatitis; E87.1 Hypo-osmolality and hyponatremia; Q45.3 Other congenital malformations of pancreas and pancreatic duct; J45.30 Mild persistent asthma, uncomplicated; G89.29 Other chronic pain; Z79.01 Long term (current) use of anticoagulants; I82.629 Acute embolism and thrombosis of deep veins of unspecified upper extremity; Y92.009 Unspecified place in unspecified non-institutional (private) residence as the place of occurrence of the external cause; E43 Unspecified severe protein-calorie malnutrition; Z93.1 Gastrostomy status; F10.130 Alcohol abuse with withdrawal, uncomplicated

== ENCOUNTER 2021-04-27 20:24 | Inpatient (IN) ==
--- NOTE | 2021-04-27 20:40 | Emergency Department Note ---
Impression & Plan Alcohol withdrawal, Hypokalemia, Suicidal ideation, Alcohol dependence ED Provider Note NAME: ZORAIDA STEWARD AGE: 36 SEX: F ARRIVES VIA: Walk-In INFORMANT: Patient, Boyfriend/partner ED PROVIDER(S): Wade Nichole MD CHIEF COMPLAINT: Detox request / SI PLAN: Disposition: Admit MEDICAL DECISION MAKING: The patient is a 36-year-old woman with a past medical history of alcoholism/dependence, history of chronic pancreatitis with G-tube on Creon who presents to the emergency department accompanied by her boyfriend/partner for suicidal ideation which she reports is linked to her alcoholism and her desire to be off/detox from alcohol. She feels as though if she gets her alcoholism under control she will no longer have thoughts of wanting to kill herself/drink herself to . She reports she will drink 6-12 beers daily. She reports she did drink [place] prior to coming to emergency department. She reports she does have a history of alcohol withdrawal and seizures. She denies any recent illness including denies fevers, chills, cough, congestion, GI or symptoms. On arrival the patient is anxious and tearful, uncomfortable but no acute distress, afebrile heart rate in the 100s-120s and vital signs otherwise stable. She appears clinically dry. She is mildly tremulous. WBC, H/H and platelets within normal limits. Chemistry without metabolic acidosis. Potassium is 2.2 with repletion initiated. Sodium is 130 and phosphorus 2.2. LFTs within prior range of values. Lipase is not elevated. TSH is low at 0.27 however with free T4 within normal limits. UA without convincing evidence of infection. Patient's medical alcohol was 424. Covid-19 RNA, NAAT negative. Patient's blood alcohol was elevated given she exhibited no somnolence and was exhibiting mild tremulousness it was suspected that she is experiencing early signs of withdrawal given her dependence. She was given IV Ativan and IV fluid hydration with banana bag and additional thiamine. While patient does express suicidal ideation she does not link this to her alcoholism. Given her component of intoxication and withdrawal unable to medically clear the patient at this time to appropriately complete a psychiatric evaluation. Thus, the patient does agree with plan for admission for further management of her alcohol dependence/withdrawal. Case was discussed with Dr. Kilgore, [facility] hospitalist, who will evaluate the patient for admission. Triage Nursing notes reviewed and agree them. Prior medical records reviewed Vital Signs: reviewed and remarkable for tachycardia. Differential diagnosis: Mood disorder, infection, hypoglycemia, electrolyte abnormalities, cardiac sources, intracerebral event, toxicologic, trauma, neurologic, as well as other pathologies. ER treatment provided: See below. Diagnostics interpreted by me: Cardiac Monitoring: An order for continuous cardiac monitoring was placed and demonstrated sinus tachycardia, 125 bpm, no ectopy. Laboratory studies: See below Imaging studies: See below Consultation(s): Case was discussed with Dr. Kilgore, [facility] hospitalist, who will evaluate the patient for admission. HPI: The patient is a 36-year-old woman with a past medical history of alcoholism/dependence, history of chronic pancreatitis with G-tube on Creon who presents to the emergency department accompanied by her boyfriend/partner for suicidal ideation which she reports is linked to her alcoholism and her desire to be off/detox from alcohol. She feels as though if she gets her alcoholism under control she will no longer have thoughts of wanting to kill herself/drink herself to . She reports she will drink 6-12 beers daily. She reports she did drink [place] prior to coming to emergency department. She reports she does have a history of alcohol withdrawal and seizures. She denies any recent illness including denies fevers, chills, cough, congestion, GI or symptoms. ROS: See above HPI for pertinent positives & negatives. A total of 10 systems reviewed and were otherwise negative. PAST MEDICAL HISTORY:See Below PAST SURGICAL HISTORY:See Below FAMILY HISTORY:See Below SOCIAL HISTORY:See Below HOME MEDICATIONS:See Below ALLERGIES:See Below VITALS:See Below PHYSICAL EXAMINATION: GENERAL: Awake, alert, anxious/tearful-appearing, in no distress HENT: Normocephalic, atraumatic. Oropharynx with dry mucous membranes and otherwise unremarkable. EYES: Normal conjunctiva. Sclera non-icteric. EOMI. No nystamgus. PEARRL. NECK: Supple. No nuchal rigidity. FROM. No JVD. RESPIRATORY: Clear to auscultation. CARDIAC: Regular rate, normal rhythm. Extremities warm and well perfused. Pulses equal. ABDOMEN: Soft, non-distended. No tenderness to palpation. No rebound or guarding. No masses. G-tube site clean dry and intact. RECTAL: Deferred. MUSCULOSKELETAL: Chest examination reveals no tenderness. The back is symmetrical on inspection without obvious abnormality. There is no CVA tenderness to palpation. No joint edema. LOWER EXTREMITIES: Calves are equal size bilaterally and non-tender. No edema. No discoloration. NEURO: No focal sensory or motor deficits noted. Mildly tremulous. SKIN: No rash or jaundice noted. Wade Nichole MD Past Med/Surg History Medical History Asthma Chronic back pain Gastrostomy tube in place Hypokalemia Patient received potassium riders this admission. Left upper extremity deep vein thrombosis Nausea No pertinent family history Pancreatitis Smoker Suicidal ideation Surgical History H/O shoulder surgery H/O wrist surgery Social History Smoking Status: Current every day smoker Tobacco Type: Cigarettes Cigarettes Per Day: 12; Second Hand Exposure: No; Hx Alcohol Use: Yes Alcohol type: beer Hx Substance Use: Yes Last Used Substance: Unknown Preferred Language: [place] Islander Communication Ability: Effective Visual Impairment: No Limitations Beliefs That Will Affect Care: None Current Living Situation: Alone Feels Safe at Home: Yes Assistive Devices: None Allergies Allergies Allergy/AdvReac Type Severity Reaction Status Date / Time Pertussis Vaccines Allergy Intermediate Hives Verified 04/27/21 21:43 amlodipine [From [facility]] AdvReac Intermediate LEGS SWELL Verified 04/27/21 21:43 morphine AdvReac Intermediate HALLUCINATI Verified 04/27/21 21:43 ONS Home Meds Home Medications Medication Instructions Recorded Confirmed acetaminophen 500 mg tablet 500 mg PO Q8H PRN 03/21/21 04/27/21 albuterol sulfate 90 mcg/actuation 1 inh INHALATION Q4H PRN 03/21/21 04/27/21 aerosol inhaler (Ventolin HFA) apixaban 5 mg tablet (Eliquis) 5 mg PO BID 03/21/21 04/27/21 budesonide-formoterol HFA 160 1 inh INHALATION DAILY 03/21/21 04/27/21 mcg-4.5 mcg/actuation aerosol inhaler (Symbicort) clonidine HCl 0.1 mg tablet 0.1 mg PO TID PRN 03/21/21 04/27/21 diltiazem HCl 120 mg 120 mg PO DAILY 03/21/21 04/27/21 capsule,extended release 24 hr gabapentin 100 mg capsule 300 mg PO TID 03/21/21 04/27/21 hydromorphone 2 mg tablet 2 mg PO Q2H PRN 03/21/21 04/27/21 lansoprazole 30 mg capsule,delayed 30 mg PO DAILY 03/21/21 04/27/21 release ryeelw-danwnzlr-gwkelhb 1 cap PO QID 03/21/21 04/27/21 24,000-76,000-120,000 unit capsule,delayed rel (Creon) montelukast 10 mg tablet 10 mg PO DAILY 03/21/21 04/27/21 ondansetron 4 mg disintegrating 4 mg PO Q6H PRN 03/21/21 04/27/21 tablet tiotropium bromide 2.5 1 inh INHALATION DAILY 03/21/21 04/27/21 mcg/actuation mist for inhalation (Spiriva Respimat) dextroamphetamine-amphetamine 20 20 mg PO BID 04/27/21 04/27/21 mg tablet (Adderall) folic acid 1 mg tablet 1 mg PO DAILY 04/27/21 04/27/21 Previous Rx's Medication Instructions Recorded potassium chloride 40 mEq/15 mL 40 meq PO DAILY #473 ml 03/29/21 oral liquid prochlorperazine maleate 5 mg 5 mg PO Q12H PRN #30 tab 03/29/21 tablet (Compazine) Results & Data (ED) Vital Signs Vital Signs - 24 hr 04/27/21 20:26 04/27/21 21:17 04/27/21 21:30 Temperature 36.8 C Temperature Source Temporal Artery Scan Pulse Rate 109 H 117 H 98 H Pulse Rate from SpO2 Sensor 116 H 99 H Respiratory Rate 18 16 18 Respiratory Depth Normal Blood Pressure 149/93 H Blood Pressure Mean 111 Pulse Oximetry 97 97 97 Oxygen Delivery Method Room Air Sepsis Recent Fever Within 48 Hours No Sepsis New/Unexplained Change in Mental Status N/A Sepsis Action Taken by Nursing No Action Required 04/27/21 21:42 04/27/21 22:00 04/27/21 22:31 Temperature Temperature Source Pulse Rate 105 H 125 H Pulse Rate from SpO2 Sensor 106 H 99 H 124 H Respiratory Rate 15 18 20 Respiratory Depth Blood Pressure 125/98 105/81 120/90 Blood Pressure Mean 107 89 100 Pulse Oximetry 97 93 97 Oxygen Delivery Method Sepsis Recent Fever Within 48 Hours Sepsis New/Unexplained Change in Mental Status Sepsis Action Taken by Nursing Laboratory Data Attestation: I reviewed the patient's lab results. Result diagrams: 04/27/21 21:10 04/27/21 21:10 Lab Results 04/27/21 04/27/21 04/27/21 Range/Units 21:10 21:10 21:10 WBC 6.15 (4.8-10.8) K/uL RBC 4.60 (4.2-5.4) M/uL Hgb 14.8 (12.0-16.0) g/dL Hct 42.9 (37-47) % MCV 93.3 (80-100) fL MCH 32.2 (25-34) pg MCHC 34.5 (32-36) g/dL RDW Std Deviation 47.1 H (36.4-46.3) fL RDW Coeff of Paulina 14.0 (11.5-14.5) % Plt Count 220 (130-400) K/uL MPV 9.4 (7.4-10.4) fL Immature Gran % (Auto) 0.2 % Neut % (Auto) 45.5 % Lymph % (Auto) 45.5 % [place] % (Auto) 7.8 % Eos % (Auto) 0.3 % Baso % (Auto) 0.7 % Neut # (Auto) 2.80 (1.4-6.5) K/uL Lymph # (Auto) 2.80 (1.2-3.4) K/uL [place] # (Auto) 0.48 (0.11-0.59) K/uL Eos # (Auto) 0.02 (0-0.5) K/uL Baso # (Auto) 0.04 (0-0.2) K/uL Immature Gran # (Auto) 0.01 (0.00-0.02) K/uL PT (9.0-12.0) Seconds INR (0.9-1.1) Sodium 130 L (136-145) mmol/L Potassium 2.2 L* (3.5-5.1) mmol/L Chloride 86 L (98-107) mmol/L Carbon Dioxide 31 (21-32) mmol/L Anion Gap 13.0 H (3-11) BUN 2 L (7-18) mg/dl Creatinine 0.68 (0.6-1.2) mg/dl Est Cr Clr Drug Dosing 98.3 ml/min Est GFR ( Amer) 131.3 ml/min Est GFR (Non-Af Amer) 113.3 ml/min BUN/Creatinine Ratio 2.8 L (10-20) Glucose 167 H (70-99) mg/dl Calcium 8.5 (8.5-10.1) mg/dl Phosphorus 2.2 L (2.5-4.9) mg/dl Magnesium 2.0 (1.8-2.4) mg/dl Total Bilirubin 0.5 (0.2-1) mg/dl Direct Bilirubin 0.3 H (0-0.2) mg/dl AST 119 H (15-37) U/L ALT 35 (12-78) Alkaline Phosphatase 517 H D (45-117) U/L Total Protein 8.5 H (6.4-8.2) gm/dl Albumin 2.8 L (3.4-5.0) gm/dl Globulin 5.7 H (2.5-4.0) gm/dl Albumin/Globulin Ratio 0.5 L (0.9-2) Lipase 128 (73-393) U/L TSH 0.279 L (0.300-4.500) uIu/ml Free T4 0.88 (0.8-1.6) ng/dl HCG, Qual (Negative) Salicylates < 1.7 L (2.8-20) mg/dl Acetaminophen < 2 L (10-30) ug/ml Ethyl Alcohol mg/dL (0-3) mg/dl SARS-CoV-2, RNA, NAAT (NEGATIVE) 04/27/21 04/27/21 04/27/21 Range/Units 21:10 21:10 21:30 WBC (4.8-10.8) K/uL RBC (4.2-5.4) M/uL Hgb (12.0-16.0) g/dL Hct (37-47) % MCV (80-100) fL MCH (25-34) pg MCHC (32-36) g/dL RDW Std Deviation (36.4-46.3) fL RDW Coeff of Paulina (11.5-14.5) % Plt Count (130-400) K/uL MPV (7.4-10.4) fL Immature Gran % (Auto) % Neut % (Auto) % Lymph % (Auto) % [place] % (Auto) % Eos % (Auto) % Baso % (Auto) % Neut # (Auto) (1.4-6.5) K/uL Lymph # (Auto) (1.2-3.4) K/uL [place] # (Auto) (0.11-0.59) K/uL Eos # (Auto) (0-0.5) K/uL Baso # (Auto) (0-0.2) K/uL Immature Gran # (Auto) (0.00-0.02) K/uL PT (9.0-12.0) Seconds INR (0.9-1.1) Sodium (136-145) mmol/L Potassium (3.5-5.1) mmol/L Chloride (98-107) mmol/L Carbon Dioxide (21-32) mmol/L Anion Gap (3-11) BUN (7-18) mg/dl Creatinine (0.6-1.2) mg/dl Est Cr Clr Drug Dosing ml/min Est GFR ( Amer) ml/min Est GFR (Non-Af Amer) ml/min BUN/Creatinine Ratio (10-20) Glucose (70-99) mg/dl Calcium (8.5-10.1) mg/dl Phosphorus (2.5-4.9) mg/dl Magnesium (1.8-2.4) mg/dl Total Bilirubin (0.2-1) mg/dl Direct Bilirubin (0-0.2) mg/dl AST (15-37) U/L ALT (12-78) Alkaline Phosphatase (45-117) U/L Total Protein (6.4-8.2) gm/dl Albumin (3.4-5.0) gm/dl Globulin (2.5-4.0) gm/dl Albumin/Globulin Ratio (0.9-2) Lipase (73-393) U/L TSH (0.300-4.500) uIu/ml Free T4 (0.8-1.6) ng/dl HCG, Qual Negative (Negative) Salicylates (2.8-20) mg/dl Acetaminophen (10-30) ug/ml Ethyl Alcohol mg/dL 424.9 H (0-3) mg/dl SARS-CoV-2, RNA, NAAT NEGATIVE (NEGATIVE) 04/27/21 Range/Units 23:02 WBC (4.8-10.8) K/uL RBC (4.2-5.4) M/uL Hgb (12.0-16.0) g/dL Hct (37-47) % MCV (80-100) fL MCH (25-34) pg MCHC (32-36) g/dL RDW Std Deviation (36.4-46.3) fL RDW Coeff of Paulina (11.5-14.5) % Plt Count (130-400) K/uL MPV (7.4-10.4) fL Immature Gran % (Auto) % Neut % (Auto) % Lymph % (Auto) % [place] % (Auto) % Eos % (Auto) % Baso % (Auto) % Neut # (Auto) (1.4-6.5) K/uL Lymph # (Auto) (1.2-3.4) K/uL [place] # (Auto) (0.11-0.59) K/uL Eos # (Auto) (0-0.5) K/uL Baso # (Auto) (0-0.2) K/uL Immature Gran # (Auto) (0.00-0.02) K/uL PT 12.5 H (9.0-12.0) Seconds INR 1.3 H (0.9-1.1) Sodium (136-145) mmol/L Potassium (3.5-5.1) mmol/L Chloride (98-107) mmol/L Carbon Dioxide (21-32) mmol/L Anion Gap (3-11) BUN (7-18) mg/dl Creatinine (0.6-1.2) mg/dl Est Cr Clr Drug Dosing ml/min Est GFR ( Amer) ml/min Est GFR (Non-Af Amer) ml/min BUN/Creatinine Ratio (10-20) Glucose (70-99) mg/dl Calcium (8.5-10.1) mg/dl Phosphorus (2.5-4.9) mg/dl Magnesium (1.8-2.4) mg/dl Total Bilirubin (0.2-1) mg/dl Direct Bilirubin (0-0.2) mg/dl AST (15-37) U/L ALT (12-78) Alkaline Phosphatase (45-117) U/L Total Protein (6.4-8.2) gm/dl Albumin (3.4-5.0) gm/dl Globulin (2.5-4.0) gm/dl Albumin/Globulin Ratio (0.9-2) Lipase (73-393) U/L TSH (0.300-4.500) uIu/ml Free T4 (0.8-1.6) ng/dl HCG, Qual (Negative) Salicylates (2.8-20) mg/dl Acetaminophen (10-30) ug/ml Ethyl Alcohol mg/dL (0-3) mg/dl SARS-CoV-2, RNA, NAAT (NEGATIVE) Administered Medications Folic Acid (Folic Acid 1 Mg Tab) 1 mg PEG QAM AGNES Stop: 05/28/21 01:22 Last Admin: 04/28/21 02:35 Dose: 1 mg Documented by: [id number] Potassium Chloride/Sodium Chloride (Normal Saline W/20 Meq Kcl) 20 meq in 1,000 mls @ 150 mls/hr IV .[id number] AGNES Stop: 05/28/21 01:59 Last Admin: 04/28/21 02:36 Dose: 150 mls/hr Documented by: [id number] Pantoprazole Sodium 40 mg/ (Syringe) 10 mls @ 5 mls/min IV BID AGNES Stop: 05/28/21 01:22 Last Admin: 04/28/21 02:35 Dose: 5 mls/min Documented by: [id number] Potassium Chloride (Potassium Chloride 20 Meq/15 Ml Udc) 40 meq GT QID AGNES Stop: 05/28/21:22 Last Admin: 04/28/21 02:35 Dose: 40 meq Documented by: [id number] Thiamine HCl (Thiamine Hcl 100 Mg Tab) 100 mg PEG QAM AGNES Stop: 05/28/21 01:22 Last Admin: 04/28/21 02:35 Dose: 100 mg Documented by: [id number] Discontinued Medications Multivitamins 10 ml/ Thiamine HCl 100 mg/ Folic Acid 1 mg/Sodium Chloride 1,011.2 mls @ 1,011.2 mls/hr IV .Q1H ONE Stop: 04/27/21 22:06 Last Infusion: 04/27/21 23:42 Dose: 0 mls/hr Documented by: [id number] Admin: 04/27/21 22:42 Dose: 1,011.2 mls/hr Documented by: [id number] Thiamine HCl 200 mg/ Sodium (Chloride) 52 mls @ 208 mls/hr IV NOW STA Stop: 04/27/21 21:08 Last Infusion: 04/27/21 23:01 Dose: 0 mls/hr Documented by: [id number] Admin: 04/27/21 22:43 Dose: 208 mls/hr Documented by: [id number] Lorazepam (Ativan) 1 mg in 2 mls @ 2 mls/min IV NOW STA Stop: 04/27/21 21:08 Last Admin: 04/27/21 21:55 Dose: 2 mls/min Documented by: [id number] Potassium Chloride (K Trell / Wtr) 10 meq in 100 mls @ 100 mls/hr IV Q1H AGNES; Protocol Stop: 04/27/21 23:59 Last Admin: 04/27/21 23:03 Dose: Not Given Documented by: [id number] Infusion: 04/27/21 23:02 Dose: 0 mls/hr Documented by: [id number] Infusion: 04/27/21 23:00 Dose: 100 mls/hr Documented by: [id number] Admin: 04/27/21 22:43 Dose: 100 mls/hr Documented by: [id number] Lorazepam (Ativan) 1 mg in 2 mls @ 2 mls/min IV ONE PRN; Protocol PRN Reason: EtoH Withdrawal AWSS 6-10 Stop: 05/27/21 22:37 Last Admin: 04/27/21 23:51 Dose: 2 mls/min Documented by: [id number] Lorazepam (Lorazepam 2 Mg/Ml Vial (Im Use)) 1 mg IM NOW STA Stop: 04/27/21 21:29 Last Admin: 04/27/21 21:58 Dose: Not Given Documented by: [id number] Discharge Plan Visit Data Chief Complaint: Mental Health Evaluation Stated Complaint: DETOX AND SUICIDAL THOUGHTS ED Provider: Wade Nichole Discharge Problem: Alcohol withdrawal, Hypokalemia, Suicidal ideation, Alcohol dependence Patient Disposition: Admitted As Inpatient Discharge Instructions Interventions: ED Discharge Assessment Last Done: 04/28/21 01:30 Discharge Problem: Alcohol withdrawal Qualifiers: Complication of substance-induced condition: with unspecified complication Qualified Code(s): F10.239 - Alcohol dependence with withdrawal, unspecified Alcohol dependence Qualifiers: Substance use status: unspecified alcohol-induced disorder Qualified Code(s): F10.29 - Alcohol dependence with unspecified alcohol-induced disorder
[2021-04-27] MEDS ORDERED: THIAMINE HCL 200 MG in SODIUM CHLORIDE 0.9% 50 ML IV STA (21:07)
[2021-04-27] MEDS ORDERED: MULTI-VITAMIN INFUSION 10 ML, THIAMINE HCL 100 MG, FOLIC ACID 1 MG in SODIUM CHLORIDE 0... IV ONE (21:07)
[2021-04-27] MEDS ORDERED: LORazepam 1 MG/2 ML VIAL IV STA (21:07)
[2021-04-27 21:21] LABS: Basophils # (auto) 0.04 K/uL (0-0.2); Basophils % (auto) 0.7 %; Eosinophils # (auto) 0.02 K/uL (0-0.5); Eosinophils % (auto) 0.3 %; Hematocrit (blood only) 42.9 % (37-47); Hemoglobin 14.8 g/dL (12.0-16.0); Immature Granulocytes # (auto) 0.01 K/uL (0.00-0.02); Immature Granulocytes % (auto) 0.2 %; Lymphocytes % (auto) 45.5 %; Mean Corpuscular Hemoglobin 32.2 pg (25-34); Mean Corpuscular Hgb Conc 34.5 g/dL (32-36); Mean Corpuscular Volume 93.3 fL (80-100); Mean Platelet Volume 9.4 fL (7.4-10.4); Monocytes # (auto) 0.48 K/uL (0.11-0.59); Monocytes % (auto) 7.8 %; Neutrophils % (auto) 45.5 %; Platelet Count 220 K/uL (130-400); RDW Standard Deviation 47.1 fL (36.4-46.3); White Blood Count 6.15 K/uL (4.8-10.8)
[2021-04-27] MEDS ORDERED: LORazepam 2 MG/ML VIAL (IM USE) IM STA (21:28)
[2021-04-27 21:39] LABS: Appearance Urine Clear (Clear); Bacteria Urine Automated Negative (Negative); Bilirubin Urine Negative (Negative); Blood Urine Negative (Negative); Cast Urine Automated 0 /lpf (0-5); Color Urine Yellow; Epithelial Cell Urine Auto >30 /lpf (0-5); Glucose Urine UA Negative (Negative); Ketones Urine Negative (Negative); Leukocyte Esterase Urine Trace (Negative); Nitrite Urine Negative (Negative); Protein Urine Negative (Negative); RBC Urine Automated 0-4 /hpf (0-4); Specific Gravity Urine 1.004 (1.000-1.030); Urobilinogen Urine Negative (Negative)
[2021-04-27 21:47] LABS: Pregnancy Test, Serum Negative (Negative)
[2021-04-27 21:48] LABS: Albumin Level 2.8 gm/dl (3.4-5.0); BUN Creatinine Ratio 2.8 (10-20); Bilirubin Direct 0.3 mg/dl (0-0.2); Calcium 8.5 mg/dl (8.5-10.1); Creatinine Clr Calc Pharmacy 98.3 ml/min; Est GFR (African American) 131.3 ml/min; Est GFR (Non-African American) 113.3 ml/min; Potassium 2.2 mmol/L (3.5-5.1)
[2021-04-27 21:51] LABS: Acetaminophen < 2 ug/ml (10-30); Salicylate < 1.7 mg/dl (2.8-20)
[2021-04-27 21:54] LABS: Albumin Globulin Ratio 0.5 (0.9-2); Globulin 5.7 gm/dl (2.5-4.0); Phosphorus 2.2 mg/dl (2.5-4.9); Thyroid Stimulating Hormone 0.279 uIu/ml (0.300-4.500); Total Protein 8.5 gm/dl (6.4-8.2)
[2021-04-27 22:06] LABS: Amphetamines+Metham, Urine Neg (Neg); Barbiturates, Urine Neg (Neg); Benzodiazepine, Urine Neg (Neg); Cocaine, Urine Neg (Neg); MDMA (Ecstacy), Urine Neg (Neg); Methadone, Urine Neg (Neg); Opiate, Urine Neg (Neg); Phencyclidine, Urine Neg (Neg)
[2021-04-27 22:09] LABS: T4 Free Thyroxine 0.88 ng/dl (0.8-1.6)
[2021-04-27 22:30] LABS: Bilirubin,Total 0.5 mg/dl (0.2-1)
[2021-04-27] MEDS ORDERED: LORazepam 1 MG/2 ML VIAL IV PRN (22:38)
[2021-04-27] MEDS: POTASSIUM CHLORIDE / WTR 10 MEQ/100 ML PLCT IV SCH ×2 (22:43→23:03)
--- NOTE | 2021-04-27 23:23 | History & Physical Report ---
Date of Service April 27, 2021 Assessment & Plan (1) Alcohol withdrawal: Plan: Alcohol level for 424.9 upon admission Placed on AWSS protocol with IV Ativan Given thiamine 200 mg IV by the ED Thiamine 100 mg per PEG daily Folic acid 1 mg per PEG daily Admit to monitored bed (2) Hypokalemia: Plan: Potassium 2.2 upon admission Intolerant of KCl riders IV Increase Klor-Con from 40 mEq liquid daily to 4 times daily via PEG Follow serial laboratories (3) Hypophosphatemia: Plan: Neutra-Phos supplementation Repeat phosphorus level in a.m. (4) Chronic pancreatitis: Plan: Will minimize oral medications at this time. Patient is not interested in eating at this time either (5) Gastrostomy tube in place: Plan: Reports this was recently replaced at [facility] about 3 weeks ago. She also reports having a negative EGD at that time Medications will be delivered through this tube (6) Suicidal ideation: Plan: Consult psychiatry Patient does not have active symptoms at this time, but is primarily concerned of potential symptoms as she goes through withdrawal (7) Severe protein-calorie malnutrition: Plan: Consult dietitian regarding appropriate supplementation on Thursday For now, will place on IV fluids NSS + KCl 20 mEq at 150 mils per hour, and will supplement electrolytes through PEG tube (8) Smoker: Plan: Cessation counseling (9) Asthma: Plan: Continue usual inhalers (10) Left upper extremity deep vein thrombosis: Plan: Continue Eliquis History of Present Illness Chief Complaint: The patient presents to the emergency department with concerns regarding suicidal ideation, concerns for alcohol withdrawal while attempting to discontinue alcohol Primary Care Provider: NO PCP The patient is a 36-year-old female with past medical history including alcohol withdrawal, severe protein calorie malnutrition, chronic pancreatitis, sepsis, tobacco use disorder, chronic back pain, asthma, gastrostomy tube in place, hypertension, attention deficit, left upper extremity DVT on Eliquis, status post ORIF right wrist and right shoulder, COVID-19 infection in January,, GERD, and peripheral neuropathy. Most recent aishwarya Segura admission was from 03/21-03/29 for treatment of acute on chronic pancreatitis. She presents to the emergency department this evening with her boyfriend, due to concerns regarding suicidal ideation that she associates with her alcoholism. She feels that if she gets her alcoholism under control, she will no longer have suicidal thoughts. Allergies Allergy/AdvReac Type Severity Reaction Status Date / Time Pertussis Vaccines Allergy Intermediate Hives Verified 04/27/21 21:43 amlodipine [From [facility]] AdvReac Intermediate LEGS SWELL Verified 04/27/21 21:43 morphine AdvReac Intermediate HALLUCINATI Verified 04/27/21 21:43 ONS Home Medications Medication Instructions Recorded Confirmed Type acetaminophen 500 mg tablet 500 mg PO Q8H PRN 03/21/21 04/27/21 History albuterol sulfate 90 mcg/actuation 1 inh INHALATION Q4H PRN 03/21/21 04/27/21 History aerosol inhaler (Ventolin HFA) apixaban 5 mg tablet (Eliquis) 5 mg PO BID 03/21/21 04/27/21 History budesonide-formoterol HFA 160 1 inh INHALATION DAILY 03/21/21 04/27/21 History mcg-4.5 mcg/actuation aerosol inhaler (Symbicort) clonidine HCl 0.1 mg tablet 0.1 mg PO TID PRN 03/21/21 04/27/21 History diltiazem HCl 120 mg 120 mg PO DAILY 03/21/21 04/27/21 History capsule,extended release 24 hr gabapentin 100 mg capsule 300 mg PO TID 03/21/21 04/27/21 History hydromorphone 2 mg tablet 2 mg PO Q2H PRN 03/21/21 04/27/21 History lansoprazole 30 mg capsule,delayed 30 mg PO DAILY 03/21/21 04/27/21 History release niijrc-opylkgal-imjbupp 1 cap PO QID 03/21/21 04/27/21 History 24,000-76,000-120,000 unit capsule,delayed rel (Creon) montelukast 10 mg tablet 10 mg PO DAILY 03/21/21 04/27/21 History ondansetron 4 mg disintegrating 4 mg PO Q6H PRN 03/21/21 04/27/21 History tablet tiotropium bromide 2.5 1 inh INHALATION DAILY 03/21/21 04/27/21 History mcg/actuation mist for inhalation (Spiriva Respimat) potassium chloride 40 mEq/15 mL 40 meq PO DAILY #473 ml 03/29/21 04/27/21 Rx oral liquid prochlorperazine maleate 5 mg 5 mg PO Q12H PRN #30 tab 03/29/21 04/27/21 Rx tablet (Compazine) dextroamphetamine-amphetamine 20 20 mg PO BID 04/27/21 04/27/21 History mg tablet (Adderall) folic acid 1 mg tablet 1 mg PO DAILY 04/27/21 04/27/21 History Past Med/Surg History Medical History (Updated 04/28/21 @ 01:42 by Hunter Kilgore MD) Asthma Chronic back pain Gastrostomy tube in place Hypokalemia Patient received potassium riders this admission. Left upper extremity deep vein thrombosis Nausea No pertinent family history Pancreatitis Smoker Suicidal ideation Surgical History H/O shoulder surgery H/O wrist surgery Social History Smoking Status: Current every day smoker Tobacco Type: Cigarettes Cigarettes Per Day: 12; Second Hand Exposure: No; Hx Alcohol Use: Yes Alcohol type: beer Hx Substance Use: Yes Last Used Substance: Unknown Preferred Language: Vietnamese Communication Ability: Effective Visual Impairment: No Limitations Beliefs That Will Affect Care: None Current Living Situation: Alone Feels Safe at Home: Yes Assistive Devices: None Review of Systems Review of Systems: The patient denies chest pain, palpitations, shortness of breath, dyspnea on exertion, cough, lower extremity swelling, sore throat, fevers, chills, sweats, pelvic pain, blood in urine or stool, dysuria, urinary frequency or urgency, lightheadedness, dizziness, headache, memory loss, loss of consciousness, rash, abnormal bruising or bleeding, imbalance, focal weakness, numbness or tingling in arms or legs, neck pain, or night sweats. The review of systems is otherwise negative other than for that already noted above, and at least 10 systems have been reviewed. Physical Exam Physical Exam: The patient is awake, alert and oriented 3, well developed and well nourished, normocephalic and atraumatic, lying in bed and in no acute distress. HEENT--PERRL, EOMI, mucous membranes and oropharynx dry. Neck--supple. No JVD. No bruits. Thyroid normal, trachea midline, no adenopathy. Heart--normal S1 and S2. No murmurs, rubs or gallops. Lungs--clear bilaterally, no respiratory distress, no accessory muscle use. Abdomen--normal bowel sounds and soft. Nontender. Nondistended, no hernias or masses, no organomegaly. Extremities--no cyanosis or clubbing. No edema. Dermatologic--normal skin turgor, normal color, no abnormal lymph nodes, no rash. Neurologic--cranial nerves II through XII grossly intact. Rheumatologic--normal range of motion. Psychiatric--mildly anxious Results & Data Results & Data ([facility]) Vital Signs (Past 12 Hours) Vital Signs Temp Pulse Resp BP Pulse Ox 04/27/21 22:31 125 H 20 120/90 97 04/27/21 22:00 18 105/81 93 04/27/21 21:42 105 H 15 125/98 97 04/27/21 21:30 98 H 18 97 04/27/21 21:17 117 H 16 97 04/27/21 20:26 36.8 C 109 H 18 149/93 H 97 Laboratory Results Laboratory Results WBC 6.15 K/uL (4.8-10.8) 04/27/21 21:10 RBC 4.60 M/uL (4.2-5.4) 04/27/21 21:10 Hgb 14.8 g/dL (12.0-16.0) 04/27/21 21:10 Hct 42.9 % (37-47) 04/27/21 21:10 MCV 93.3 fL (80-100) 04/27/21 21:10 MCH 32.2 pg (25-34) 04/27/21 21:10 MCHC 34.5 g/dL (32-36) 04/27/21 21:10 RDW Std Deviation 47.1 fL (36.4-46.3) H 04/27/21 21:10 RDW Coeff of Paulina 14.0 % (11.5-14.5) 04/27/21 21:10 Plt Count 220 K/uL (130-400) 04/27/21 21:10 MPV 9.4 fL (7.4-10.4) 04/27/21 21:10 Immature Gran % (Auto) 0.2 % 04/27/21 21:10 Neut % (Auto) 45.5 % 04/27/21 21:10 Lymph % (Auto) 45.5 % 04/27/21 21:10 Harper % (Auto) 7.8 % 04/27/21 21:10 Eos % (Auto) 0.3 % 04/27/21 21:10 Baso % (Auto) 0.7 % 04/27/21 21:10 Neut # (Auto) 2.80 K/uL (1.4-6.5) 04/27/21 21:10 Lymph # (Auto) 2.80 K/uL (1.2-3.4) 04/27/21 21:10 Harper # (Auto) 0.48 K/uL (0.11-0.59) 04/27/21 21:10 Eos # (Auto) 0.02 K/uL (0-0.5) 04/27/21 21:10 Baso # (Auto) 0.04 K/uL (0-0.2) 04/27/21 21:10 Immature Gran # (Auto) 0.01 K/uL (0.00-0.02) 04/27/21 21:10 PT 12.5 Seconds (9.0-12.0) H 04/27/21 23:02 INR 1.3 (0.9-1.1) H 04/27/21 23:02 Sodium 130 mmol/L (136-145) L 04/27/21 21:10 Potassium 2.2 mmol/L (3.5-5.1) L* 04/27/21 21:10 Chloride 86 mmol/L (98-107) L 04/27/21 21:10 Carbon Dioxide 31 mmol/L (21-32) 04/27/21 21:10 Anion Gap 13.0 (3-11) H 04/27/21 21:10 BUN 2 mg/dl (7-18) L 04/27/21 21:10 Creatinine 0.68 mg/dl (0.6-1.2) 04/27/21 21:10 Est Cr Clr Drug Dosing 98.3 ml/min 04/27/21 21:10 Est GFR ( Amer) 131.3 ml/min 04/27/21 21:10 Est GFR (Non-Af Amer) 113.3 ml/min 04/27/21 21:10 BUN/Creatinine Ratio 2.8 (10-20) L 04/27/21 21:10 Glucose 167 mg/dl (70-99) H 04/27/21 21:10 Calcium 8.5 mg/dl (8.5-10.1) 04/27/21 21:10 Phosphorus 2.2 mg/dl (2.5-4.9) L 04/27/21 21:10 Magnesium 2.0 mg/dl (1.8-2.4) 04/27/21 21:10 Total Bilirubin 0.5 mg/dl (0.2-1) 04/27/21 21:10 Direct Bilirubin 0.3 mg/dl (0-0.2) H 04/27/21 21:10 AST 119 U/L (15-37) H 04/27/21 21:10 ALT 35 (12-78) 04/27/21 21:10 Alkaline Phosphatase 517 U/L (45-117) H D 04/27/21 21:10 Total Protein 8.5 gm/dl (6.4-8.2) H 04/27/21 21:10 Albumin 2.8 gm/dl (3.4-5.0) L 04/27/21 21:10 Globulin 5.7 gm/dl (2.5-4.0) H 04/27/21 21:10 Albumin/Globulin Ratio 0.5 (0.9-2) L 04/27/21 21:10 Lipase 128 U/L (73-393) 04/27/21 21:10 TSH 0.279 uIu/ml (0.300-4.500) L 04/27/21 21:10 Free T4 0.88 ng/dl (0.8-1.6) 04/27/21 21:10 HCG, Qual Negative (Negative) 04/27/21 21:10 Urine Color Yellow 04/27/21 Unknown Urine Appearance Clear (Clear) 04/27/21 Unknown Urine pH 8.0 (4.5-7.5) H 04/27/21 Unknown Ur Specific [place] 1.004 (1.000-1.030) 04/27/21 Unknown Urine Protein Negative (Negative) 04/27/21 Unknown Urine Glucose (UA) Negative (Negative) 04/27/21 Unknown Urine Ketones Negative (Negative) 04/27/21 Unknown Urine Blood Negative (Negative) 04/27/21 Unknown Urine Nitrite Negative (Negative) 04/27/21 Unknown Urine Bilirubin Negative (Negative) 04/27/21 Unknown Urine Urobilinogen Negative (Negative) 04/27/21 Unknown Ur Leukocyte Esterase Trace (Negative) H 04/27/21 Unknown Urine WBC (Auto) 1-5 /hpf (0-5) 04/27/21 Unknown Urine RBC (Auto) 0-4 /hpf (0-4) 04/27/21 Unknown U Hyaline Cast (Auto) 0 /lpf (0-5) 04/27/21 Unknown U Epithel Cells (Auto) >30 /lpf (0-5) H 04/27/21 Unknown Urine Bacteria (Auto) Negative (Negative) 04/27/21 Unknown Salicylates < 1.7 mg/dl (2.8-20) L 04/27/21 21:10 Urine Opiates Screen Neg (Neg) 04/27/21 Unknown Ur Methadone, Qual Neg (Neg) 04/27/21 Unknown Acetaminophen < 2 ug/ml (10-30) L 04/27/21 21:10 Urine Barbiturates Neg (Neg) 04/27/21 Unknown Ur Phencyclidine (PCP) Neg (Neg) 04/27/21 Unknown U Amphetamin/Meth Scrn Neg (Neg) 04/27/21 Unknown MDMA (Ecstasy) Screen Neg (Neg) 04/27/21 Unknown U Benzodiazepines Scrn Neg (Neg) 04/27/21 Unknown Ur Cocaine Metabolite Neg (Neg) 04/27/21 Unknown U Marijuana (THC) Screen Neg (Neg) 04/27/21 Unknown Ethyl Alcohol mg/dL 424.9 mg/dl (0-3) H 04/27/21 21:10 SARS-CoV-2, RNA, NAAT NEGATIVE (NEGATIVE) 04/27/21 21:30 Code Status & VTE Plan Code Status Full code VTE Prophylaxis Plan VTE Prophylaxis will be ordered: Yes PG Care Time/CCT Total # of Minutes Spent Total Time Spent with Patient: Total time spent is greater than 50% in coordination of care (as documented) at patient's floor/unit and/or counseling patient: Coding Level of Care Code 65738 Initial Inpt Care Lvl 3 Diagnoses Hypokalemia E87.6 Alcohol withdrawal F10.239 Chronic pancreatitis K86.[address] Z93.1 Asthma J45.909 Smoker F17.200 Suicidal ideation R45.851 Left upper extremity deep vein thrombosis I82.622 Hypophosphatemia E83.39 Severe protein-calorie malnutrition E43
[2021-04-27 23:39] LABS: INR 1.3 (0.9-1.1); Prothrombin Time 12.5 Seconds (9.0-12.0)
[2021-04-28] MEDS ORDERED: LORazepam 3 MG/6 ML VIAL IV PRN (01:23)
[2021-04-28] MEDS ORDERED: ONDANSETRON INJ 2 MG/ML 2 ML VIAL IV PRN (01:23)
[2021-04-28] MEDS ORDERED: ATIVAN IV ALCOHOL WITHDRAWL IV PRN (01:23)
[2021-04-28] MEDS: POTASSIUM CHLORIDE 20 MEQ/15 ML UDC GT SCH ×5 (02:35→21:08)
[2021-04-28] MEDS: THIAMINE HCL 100 MG TAB PEG SCH ×2 (02:35→09:35)
[2021-04-28] MEDS: FOLIC ACID 1 MG TAB PEG SCH ×2 (02:35→09:43)
[2021-04-28] MEDS: PANTOprazole 40 MG in SYRINGE 0 ML IV SCH ×3 (02:35→21:08)
[2021-04-28] MEDS: NSS + 20MEQ KCL 20 MEQ/1,000 ML BAG IV SCH ×2 (02:36→09:25)
[2021-04-28] MEDS: LORazepam 2 MG/4 ML VIAL IV PRN ×7 (03:00→23:28)
[2021-04-28] MEDS ORDERED: FOLIC ACID 1 MG TAB PEG SCH (09:00)
[2021-04-28] MEDS ORDERED: chlordiazePOXIDE HCl 25 MG CAP PO ONE ×2 (09:19→13:18)
[2021-04-28] MEDS: UMECLIDINIUM BROMIDE 62.5MCG/BLISTER 7 PUFFS/INHALER INH SCH ×2 (09:26→09:33)
[2021-04-28] MEDS: FLUTICASONE/VILANTEROL 100/25MCG 14 PUFFS/INHALER INH SCH ×2 (09:26→09:32)
[2021-04-28] MEDS: POT PHOSPHATE MONOBASIC W/ SOD TAB PEG SCH ×4 (09:34→21:08)
[2021-04-28] MEDS ORDERED: PHENobarbitaL sodium 130 MG in SYRINGE 0 ML IV ONE (09:40)
[2021-04-28] MEDS: POTASSIUM CHLORIDE 20 MEQ/15 ML UDC PEG STA ×2 (11:15→15:33)
[2021-04-28] MEDS: LORazepam 1 MG/2 ML VIAL IV PRN ×2 (13:55→17:48)
[2021-04-28] MEDS ORDERED: chlordiazePOXIDE HCl 25 MG CAP PO SCH (14:00)
[2021-04-28] MEDS ORDERED: POTASSIUM CHLORIDE CRTAB 20 MEQ TABCR PO SCH (14:00)
[2021-04-28 14:07] LABS: Basophils # (auto) 0.03 K/uL (0-0.2); Basophils % (auto) 0.4 %; Eosinophils # (auto) 0.04 K/uL (0-0.5); Eosinophils % (auto) 0.6 %; Hematocrit (blood only) 37.1 % (37-47); Hemoglobin 12.5 g/dL (12.0-16.0); Immature Granulocytes # (auto) 0.03 K/uL (0.00-0.02); Immature Granulocytes % (auto) 0.4 %; Lymphocytes # (auto) 1.94 K/uL (1.2-3.4); Lymphocytes % (auto) 28.5 %; Mean Corpuscular Hemoglobin 31.3 pg (25-34); Mean Corpuscular Hgb Conc 33.7 g/dL (32-36); Mean Corpuscular Volume 92.8 fL (80-100); Mean Platelet Volume 9.5 fL (7.4-10.4); Monocytes # (auto) 0.63 K/uL (0.11-0.59); Monocytes % (auto) 9.3 %; Neutrophils # (auto) 4.14 K/uL (1.4-6.5); Neutrophils % (auto) 60.8 %; Platelet Count 156 K/uL (130-400); RDW Coefficient of Variation 14.1 % (11.5-14.5); RDW Standard Deviation 47.6 fL (36.4-46.3); White Blood Count 6.81 K/uL (4.8-10.8)
[2021-04-28 14:47] LABS: Albumin Globulin Ratio 0.6 (0.9-2); Albumin Level 2.6 gm/dl (3.4-5.0); BUN Creatinine Ratio 4.7 (10-20); Bilirubin,Total 1.2 mg/dl (0.2-1); Calcium 7.8 mg/dl (8.5-10.1); Creatinine Clr Calc Pharmacy 90.3 ml/min; Est GFR (African American) 121.7 ml/min; Globulin 4.5 gm/dl (2.5-4.0); Phosphorus 2.7 mg/dl (2.5-4.9); Potassium 3.8 mmol/L (3.5-5.1); Total Protein 7.1 gm/dl (6.4-8.2)
[2021-04-28] MEDS: chlordiazePOXIDE HCl 25 MG CAP PO SCH ×3 (15:32→21:08)
--- NOTE | 2021-04-28 17:47 | Hospitalist Progress Note ---
Date of Service April 28, 2021 Assessment & Plan (1) Alcohol withdrawal: Plan: Continue LEEROY S triggered benzodiazepines; augmented with phenobarbital earlier, and requiring enough symptom triggered benzodiazepines to continue with Librium to help blunt the "ups and downs -Thiamine, folate (2) Hypokalemia: Plan: Continue to replace and follow. Chronically seems to run quite lowunder more controlled conditions, may benefit from a work-up for potassium wasting states (3) Hypophosphatemia: Plan: Replaced (4) Chronic pancreatitis: Plan: Continue to follow, serial exams. trial of resuming tube feeds (5) Gastrostomy tube in place: Plan: meds through tube (6) Suicidal ideation: Plan: continue to follow mental status, did not express SI to me (7) Severe protein-calorie malnutrition: Plan: Consult dietitian regarding appropriate supplementation on Thursday - start tube feeds for now for nutrition - can adjust once we have oven unloader recs (8) Smoker: (9) Asthma: Plan: no dyspnea or hypoxia (10) Left upper extremity deep vein thrombosis: Plan: Continue Eliquis Plan: ongoing acute care - fairly significant withdrawal at this time Admission and Anticipated Discharge Date Admission Date: April 27, 2021 Subjective still feelign very restless and shaky. Some abdominal pain as well. Medications helping some, but not quite enough. Review of Systems Review of Systems: All systems reviewed & are unremarkable except as noted in HPI & below Physical Exam Physical Exam: In general she is awake and alert anxious and shaky. HEENT normocephalic atraumatic mucous membranes moist. Cardio tachycardic. Abdomen soft but she does have epigastric greater than elsewhere diffuse tenderness. No guarding rebound or rigidity. Neuro without focal deficits. Is tremulous. Results & Data Results & Data ([facility]) Vital Signs (Past 12 Hours) Vital Signs Temp Pulse Resp BP Pulse Ox 04/28/21 15:40 98.2 F 120 H 14 131/103 H 97 04/28/21 08:00 99.0 F 120 H 18 143/102 H 97 PG Care Time/CCT Total # of Minutes Spent Total Time Spent with Patient: Total time spent is greater than 50% in coordination of care (as documented) at patient's floor/unit and/or counseling patient: Coding Level of Care Code 25530 Subseq Hosp Care Lvl 3 Diagnoses Alcohol withdrawal F10.239 Complication of substance-induced condition: with unspecified complication Hypokalemia E87.6 Hypophosphatemia E83.39 Chronic pancreatitis K86.[address] Z93.1 Suicidal ideation R45.851 Severe protein-calorie malnutrition E43 Smoker F17.200 Asthma J45.909 Left upper extremity deep vein thrombosis I82.622 (1) Alcohol withdrawal Complication of substance-induced condition: with unspecified complication Qualified Code(s): F10.239 - Alcohol dependence with withdrawal, unspecified
[2021-04-28] MEDS ORDERED: PEPTAMEN 1.5 CAL 1,000 ML BAG PO SCH (18:00)
[2021-04-28] MEDS: HYDROmorphone HCL 2 MG TAB PO PRN ×2 (18:05→21:49)
[2021-04-29] MEDS: LORazepam 2 MG/4 ML VIAL IV PRN ×2 (02:01→10:50)
[2021-04-29] MEDS: HYDROmorphone HCL 2 MG TAB PO PRN (03:38)
[2021-04-29] MEDS ORDERED: haloperidoL 5 MG TAB PO ONE (04:56)
[2021-04-29] MEDS ORDERED: LORazepam 1 MG TAB PO STA (04:56)
[2021-04-29] MEDS: chlordiazePOXIDE HCl 25 MG CAP PO SCH (08:25)
[2021-04-29] MEDS ORDERED: LORazepam 2 MG/ML VIAL (IM USE) ONE (10:42)
[2021-04-29] MEDS: FLUTICASONE/VILANTEROL 100/25MCG 14 PUFFS/INHALER INH SCH (10:51)
[2021-04-29] MEDS: FOLIC ACID 1 MG TAB PEG SCH (10:51)
[2021-04-29] MEDS: POTASSIUM CHLORIDE 20 MEQ/15 ML UDC GT SCH (10:52)
[2021-04-29] MEDS: POT PHOSPHATE MONOBASIC W/ SOD TAB PEG SCH (10:52)
[2021-04-29] MEDS: THIAMINE HCL 100 MG TAB PEG SCH (10:52)
[2021-04-29] MEDS: UMECLIDINIUM BROMIDE 62.5MCG/BLISTER 7 PUFFS/INHALER INH SCH (10:52)
--- NOTE | 2021-04-29 10:59 | Psychiatric Consultation ---
Date of Consultation April 29, 2021 Impression / Recommendations Impression This is a 36 yo with a history of alcohol use admitted medically. Diagnostically consistent with alcohol use disorder as well as unspecified anxiety likely from alcohol withdrawal. At this point no imminent risk of harm to self or others and can attend to basic needs. Acute and chronic risk of harm to self and others is slightly increased due to substance use with substance use treatment being the most significant modifiable risk factor to reduce acute and chronic risk which was discussed and recommended. They do not meet criteria for involuntary inpatient psychiatric treatment at this time and they are not interested in voluntary psychiatric treatment. They are not interested in residential treatment at this time nor outpatient services to help with substance use nor medication assisted treatment. She is felt to have decision making capacity to leave AMA as she can state decision, risks, benefits and alternatives. -She declines resources on local mental health services and substance use serv ices -Patient is not an imminent danger to self or others and does not meet criteria for involuntary psychiatric commitment -Safe for discharge from a psychiatric standpoint -If she stays continue AWSS -She declines acamprosate trial (1) Alcohol use disorder, moderate, dependence: see impression Risk Factors Assessment Do You Have Access To A Gun?: No Mental Health Diagnoses: No Substance Use Disorders: Yes Previous Attempt: No Family History of Suicide: No Hopelessness: No Protective Factors Assessment Stable Relationships: Yes Supportive Family: Yes Psych History Identifying Data 36 yo woman with history of alcohol use disorder, chronic pancreatitis, chronic back pain, gastrostomy tube, ADHD and alcohol use disorder admitted medically for supervised alcohol withdrawal. Psychiatry was consulted for risk assessment and recommendations. Chief Complaint "I want to go home". History of Present Illness Perla reports a long history of alcohol use and that she was starting to feel "so tired of drinking". She reports that "I wasn't suicidal just so fed up with drinking". On admission she had expressed SI in the context of feeling overwhelmed by her alcohol use reporting that if she got her alcohol use under control that she would no longer have SI. Currently she adamantly denies SI and denies any history of prior attempts. She denies any prior psych diagnoses except alcohol use disorder. She denies history of medications to help with alcohol use or cravings. States she has done residential treatment in the past, about 2x, last a few years ago. She describes her mood as "irritable" because she wants to go home. Reviewed risks, benefits, alternatives of leaving the hospital. She notes risks are that she will go back to drinking alcohol at high levels, could have a seizure or could . She also notes alternatives would be attending "rehab" or coming back to the ED. She states benefits of leaving will be being around her family at home where she feels well supported. Describes her plan to cut down to 4 beers per day then 3.5 then 3.25 etc and that her father helps her do this and has done this in the past and states "I know I could safely do it". States she came to the ED in the midst of starting to cut down on her intake (from 6-12 beers per day) because "I thought I'd get more meds here". States she feels she is no longer getting enough medications and would to leave. psychiatric ROS notable for denial of depression, endorses anxiety from withdrawal, denies HI, no access to guns, no symptoms of psychosis. Past Psychiatric History Previous Psych History: see HPI Outpatient Services: none Do You Have Access To A Gun?: No History of Previous Suicide Attempt: No Allergies Allergy/AdvReac Type Severity Reaction Status Date / Time Pertussis Vaccines Allergy Intermediate Hives Verified 04/27/21 21:43 amlodipine [From [facility]] AdvReac Intermediate LEGS SWELL Verified 04/27/21 21:43 morphine AdvReac Intermediate HALLUCINATI Verified 04/27/21 21:43 ONS Home Medications Medication Instructions Recorded Confirmed Type acetaminophen 500 mg tablet 500 mg PO Q8H PRN 03/21/21 04/27/21 History albuterol sulfate 90 mcg/actuation 1 inh INHALATION Q4H PRN 03/21/21 04/27/21 History aerosol inhaler (Ventolin HFA) apixaban 5 mg tablet (Eliquis) 5 mg PO BID 03/21/21 04/27/21 History budesonide-formoterol HFA 160 1 inh INHALATION DAILY 03/21/21 04/27/21 History mcg-4.5 mcg/actuation aerosol inhaler (Symbicort) clonidine HCl 0.1 mg tablet 0.1 mg PO TID PRN 03/21/21 04/27/21 History diltiazem HCl 120 mg 120 mg PO DAILY 03/21/21 04/27/21 History capsule,extended release 24 hr gabapentin 100 mg capsule 300 mg PO TID 03/21/21 04/27/21 History hydromorphone 2 mg tablet 2 mg PO Q2H PRN 03/21/21 04/27/21 History lansoprazole 30 mg capsule,delayed 30 mg PO DAILY 03/21/21 04/27/21 History release [id number] 1 cap PO QID 03/21/21 04/27/21 History 24,000-76,000-120,000 unit capsule,delayed rel (Creon) montelukast 10 mg tablet 10 mg PO DAILY 03/21/21 04/27/21 History ondansetron 4 mg disintegrating 4 mg PO Q6H PRN 03/21/21 04/27/21 History tablet tiotropium bromide 2.5 1 inh INHALATION DAILY 03/21/21 04/27/21 History mcg/actuation mist for inhalation (Spiriva Respimat) potassium chloride 40 mEq/15 mL 40 meq PO DAILY #473 ml 03/29/21 04/27/21 Rx oral liquid prochlorperazine maleate 5 mg 5 mg PO Q12H PRN #30 tab 03/29/21 04/27/21 Rx tablet (Compazine) dextroamphetamine-amphetamine 20 20 mg PO BID 04/27/21 04/27/21 History mg tablet (Adderall) folic acid 1 mg tablet 1 mg PO DAILY 04/27/21 04/27/21 History thiamine HCl (vitamin B1) 100 mg 100 mg PEG QAM #30 tab 04/29/21 Rx tablet Family History denies Substance Abuse History see HPI, alcohol use 6-12 beers per day Personal History Living Arrangements: Home (with father) Employment Status: Unemployed Beliefs That Will Affect Care: None Patient History Medical History (Updated 04/29/21 @ 13:03 by Faye Yen MD) Alcohol use disorder, moderate, dependence Alcohol withdrawal Asthma Chronic back pain Gastrostomy tube in place Hypokalemia Patient received potassium riders this admission. Left upper extremity deep vein thrombosis Nausea No pertinent family history Pancreatitis Sepsis Smoker Suicidal ideation Surgical History H/O shoulder surgery H/O wrist surgery Social History Smoking Status: Current every day smoker Tobacco Type: Cigarettes Cigarettes Per Day: 12; Second Hand Exposure: No; Hx Alcohol Use: Yes Alcohol type: beer Hx Substance Use: Yes Last Used Substance: Unknown Preferred Language: [place] Communication Ability: Effective Visual Impairment: No Limitations Deputy Commonwealth'S Attorney Required: No Beliefs That Will Affect Care: None Current Living Situation: Alone Feels Safe at Home: Yes Assistive Devices: None Physical Exam Psychiatric: Orientation: alert Apperance: appropriately dressed and appropriately groomed Eye Contact: good eye contact Motor Behavior: no abnormal motor movements Speech: normal rate/rhythm/volume of speech Affect: + irritable affect Mood: + anxious mood and + irritable mood Thought Process: goal directed thought process Thought Content: reality based without delusions Suicidal Thoughts: denies suicidal thoughts Homicidal Thoughts: denies homicidal thoughts Hallucinations: no auditory hallucinations and no visual hallucinations Cognition: recent memory grossly intact, remote memory grossly intact, attention grossly intact and language grossly intact Estimated Intelligence: consistent with education level Insight: + fair insight Judgement: + limited judgement Vital Signs (Past 24 Hours): Last Vital Signs Temp 36.9 C 04/29/21 09:48 Pulse 95 H 04/29/21 09:48 Resp 16 04/29/21 09:48 BP 129/107 H 04/29/21 09:48 Pulse Ox 96 04/29/21 09:48 Review of Systems All systems reviewed & are unremarkable except as noted in HPI & below Results & Data (PSY) Medications Administered Chlordiazepoxide HCl (Chlordiazepoxide Hcl 25 Mg Cap) 50 mg PO TID [facility] Stop: 05/28/21 13:59 Last Admin: 04/29/21 08:25 Dose: 50 mg Documented by: [id number] Admin: 04/28/21 21:08 Dose: 50 mg Documented by: [id number] Admin: 04/28/21 16:30 Dose: 50 mg Documented by: [id number] Fluticasone/Vilanterol (Fluticasone/Vilanterol 100/25mcg 14 Puffs/Inhaler) 1 puffs INH DAILY AGNES Stop: 05/28/21 08:59 Last Admin: 04/29/21 10:51 Dose: Not Given Documented by: [id number] Admin: 04/28/21 09:32 Dose: Not Given Documented by: [id number] Folic Acid (Folic Acid 1 Mg Tab) 1 mg PEG QAM [facility] Stop: 05/28/21 01:22 Last Admin: 04/29/21 10:51 Dose: Not Given Documented by: [id number] Admin: 04/28/21 09:43 Dose: 1 mg Documented by: [id number] Admin: 04/28/21 02:35 Dose: 1 mg Documented by: [id number] Hydromorphone HCl (Hydromorphone Hcl 2 Mg Tab) 2 mg PO Q4H PRN PRN Reason: Pain Stop: 05/12/21 17:41 Last Admin: 04/29/21 03:38 Dose: 2 mg Documented by: [id number] Admin: 04/28/21 21:49 Dose: 2 mg Documented by: [id number] Admin: 04/28/21 18:05 Dose: 2 mg Documented by: [id number] Potassium Chloride/Sodium Chloride (Normal Saline W/20 Meq Kcl) 20 meq in 1,000 mls @ 150 mls/hr IV .Q6H40M AGNES Stop: 05/28/21 01:59 Last Infusion: 04/28/21 16:30 Dose: 0 mls/hr Documented by: [id number] Admin: 04/28/21 09:25 Dose: 150 mls/hr Documented by: [id number] Infusion: 04/28/21 09:17 Dose: 150 mls/hr Documented by: [id number] Admin: 04/28/21 02:36 Dose: 150 mls/hr Documented by: [id number] Lorazepam (Ativan) 1 mg in 2 mls @ 2 mls/min IV UD PRN; Protocol PRN Reason: EtOH Withdrawl AWSS Score 6,7 Stop: 05/28/21 01:22 Last Admin: 04/28/21 17:48 Dose: 2 mls/min Documented by: [id number] Admin: 04/28/21 13:55 Dose: 2 mls/min Documented by: [id number] Lorazepam (Ativan) 2 mg in 4 mls @ 4 mls/min IV UD PRN; Protocol PRN Reason: EtOH Withdrawl AWSS Score 8,9 Stop: 05/28/21 01:22 Last Admin: 04/29/21 10:50 Dose: 4 mls/min Documented by: [id number] Admin: 04/29/21 02:01 Dose: 4 mls/min Documented by: [id number] Admin: 04/28/21 23:28 Dose: 4 mls/min Documented by: [id number] Admin: 04/28/21 19:24 Dose: 4 mls/min Documented by: [id number] Admin: 04/28/21 15:47 Dose: 4 mls/min Documented by: [id number] Admin: 04/28/21 11:46 Dose: 4 mls/min Documented by: [id number] Admin: 04/28/21 08:16 Dose: 4 mls/min Documented by: [id number] Admin: 04/28/21 06:51 Dose: 4 mls/min Documented by: [id number] Admin: 04/28/21 03:00 Dose: 4 mls/min Documented by: [id number] Ondansetron HCl (Ondansetron Inj 2 Mg/Ml 2 Ml Vial) 4 mg IV Q6H PRN PRN Reason: Nausea Stop: 05/28/21 01:22 Last Admin: 04/28/21 09:27 Dose: 4 mg Documented by: [id number] Potassium Chloride (Potassium Chloride 20 Meq/15 Ml Udc) 40 meq GT QID [facility] Stop: 05/28/21 01:22 Last Admin: 04/29/21 10:52 Dose: Not Given Documented by: [id number] Admin: 04/28/21 21:08 Dose: 40 meq Documented by: [id number] Admin: 04/28/21 16:06 Dose: 40 meq Documented by: [id number] Admin: 04/28/21 13:00 Dose: Not Given Documented by: [id number] Admin: 04/28/21 09:34 Dose: 40 meq Documented by: [id number] Admin: 04/28/21 02:35 Dose: 40 meq Documented by: [id number] Potassium Phosphate (Pot Phosphate Monobasic W/ Sod Tab) 2 tab PEG QID [facility] Stop: 05/28/21 08:59 Last Admin: 04/29/21 10:52 Dose: Not Given Documented by: [id number] Admin: 04/28/21 21:08 Dose: 2 tab Documented by: [id number] Admin: 04/28/21 16:00 Dose: 2 tab Documented by: [id number] Admin: 04/28/21 13:00 Dose: Not Given Documented by: [id number] Admin: 04/28/21 09:34 Dose: 2 tab Documented by: [id number] Thiamine HCl (Thiamine Hcl 100 Mg Tab) 100 mg PEG QAM AGNES Stop: 05/28/21 01:22 Last Admin: 04/29/21 10:52 Dose: Not Given Documented by: [id number] Admin: 04/28/21 09:35 Dose: 100 mg Documented by: [id number] Admin: 04/28/21 02:35 Dose: 100 mg Documented by: [id number] Umeclidinium Alkol (Umeclidinium Alkol 62.5mcg/Blister 7 Puffs/Inhaler) 1 puffs INH DAILY AGNES Stop: 05/28/21 08:59 Last Admin: 04/29/21 10:52 Dose: Not Given Documented by: [id number] Admin: 04/28/21 09:33 Dose: Not Given Documented by: [id number] Coding Level of Care Code 62039 Inpt Consult Level 3 Diagnoses Alcohol use disorder, moderate, dependence F10.20
--- NOTE | 2021-04-29 11:43 | Discharge Summary ---
Date of Service April 29, 2021 Admission HPI Per Admitting Provider The patient is a 36-year-old female with past medical history including alcohol withdrawal, severe protein calorie malnutrition, chronic pancreatitis, sepsis, tobacco use disorder, chronic back pain, asthma, gastrostomy tube in place, hypertension, attention deficit, left upper extremity DVT on Eliquis, status post ORIF right wrist and right shoulder, COVID-19 infection in January,, GERD, and peripheral neuropathy. Most recent aishwarya Segura admission was from 03/21-03/29 for treatment of acute on chronic pancreatitis. She presents to the emergency department this evening with her boyfriend, due to concerns regarding suicidal ideation that she associates with her alcoholism. She feels that if she gets her alcoholism under control, she will no longer have suicidal thoughts. Principal Diagnosis Alcohol use disorder, intoxication, with withdrawal, SUicidal ideations Discharge Exam Constitutional WD/WN, vitals as above Eyes PERRL, conjunctivae normal, anicteric sclerae ENMT external ear and nose normal, oropharynx normal Neck trachea midline, no thyromegaly Respiratory normal respiratory effort, lungs clear to auscultation Cardiovascular RRR, no murmur, no edema Chest (Breasts) Chest: normal inspection of chest Gastrointestinal (Abdomen) Inspection/Auscultation: normal bowel sounds; + abdomen abnormal to inspection (GJ tube in place) and abdomen not distended Percussion/Palpation: abdomen soft; abdomen nontender and no guarding Musculoskeletal Extremities: extremities normal to inspection; no cyanosis and no clubbing Skin no rashes, warm and dry Neurologic moves all extremities and awake; no focal motor deficits Psychiatric A+Ox3, euthymic affect Lymphatic no lymphedema Discharge Data Allergies Allergy/AdvReac Type Severity Reaction Status Date / Time Pertussis Vaccines Allergy Intermediate Hives Verified 04/27/21 21:43 amlodipine [From Norvasc] AdvReac Intermediate LEGS SWELL Verified 04/27/21 21:43 morphine AdvReac Intermediate HALLUCINATI Verified 04/27/21 21:43 ONS Consultations 04/27/21 22:38 ED Decision to Admit Stat 04/29/21 04:53 Consult Psychiatry Routine Hospital Course (1) Alcohol withdrawal: Pt with EtOH level in the 400s on admission Came in for +SI as below Had withdrawal signs and symptoms, had Librium and ativan here Does not want to stay in hospital for EtOH detox and understands risks of alcohol withdrawal at home including seizures and She wants to try to taper down gradually off EtOH at home advised attending AA meetings, f/u with PCP -continue Thiamine, folate after discharge (2) Hypokalemia: replaced, resolved continue home replacement and needs to eat food rather than drink EtOH all day (3) Hypophosphatemia: Replaced (4) Chronic pancreatitis: reports h/o pancreas divisum plus chronic alcohol use has GJ tube due to intolerance of eating by mouth continue tube feeds at home continue Creon f/u with outpt GI provider advised cessation of EtOH (5) Gastrostomy tube in place: as above (6) Suicidal ideation: denies, seen by Psychiatry, not a threat to herself or others and does not require inpatient treatment, declines voluntary treatment both inpatient and outpt (7) Severe protein-calorie malnutrition: Consult dietitian regarding appropriate supplementation on Thursday - start tube feeds for now for nutrition - can adjust once we have professor of chemical engineering recs (8) Smoker: needs cessation-counseled (9) Asthma: no dyspnea or hypoxia continue home inhalers (10) Left upper extremity deep vein thrombosis: associated with PICC line previously PICC lines had been discontinued last month, she is not taking the Eliquis any longer dcd from med list Dispo-appears stable, does not desire to quit drinking EtOH at this time, dc to home Total Time Total Time Spent Total Time Spent (In Minutes): 35 min Total Time Includes: Examination of the Patient, Discharge Planning, Medication Reconciliation and Communication With Other Providers (Psychiatry) Discharge Plan Discharge Items Patient Disposition: Home - Self-Care Reason For Visit: ALCOHOL WITHDRAWAL, HYPOKALEMIA Discharge Diagnosis: Alcohol withdrawal, Hypokalemia Condition on Discharge: Fair Activity: Resume your previous activity Non-emergency contact: Primary Care Provider Call non-emergency contact if: you have any medication questions and your symptoms worsen Follow-up/Referrals: PCP,NO [Primary Care Provider] - (Follow up with your PCP within 1-2 weeks.) Diet: Other - See Diet Comment Diet Comment: continue tube feeds Addtl Attending Provider Instructions: You were admitted for alcohol intoxication/withdrawal and suicidal ideations. You were seen by the Psychiatrist and it was determined that you do not require inpatient psychiatric treatment, and you declined voluntary treatment. You also did not wish to stay in the hospital for assistance with alcohol withdrawal. If you choose to quit drinking alcohol on your own, it would be safest to gradually taper down the number of drinks you have each day so that you do not have seizures or other serious alcohol withdrawal symptoms. I strongly encourage you to quit drinking alcohol and follow up with your primary care physician within 1 week after discharge. It would be helpful for you to attend Alcoholics Anonymous meetings as well for support. Pending Studies at Discharge: No Stand-Alone Forms: My [facility], Smoking Cessation Medications and DC Order Prescriptions: New thiamine HCl (vitamin B1) 100 mg Tablet 100 mg PEG QAM Qty: 30 RF: 0 Continued clonidine HCl 0.1 mg tablet 0.1 mg PO TID PRN (Reason: systolic greater than 160) RF: 0 lansoprazole 30 mg capsule,delayed release(DR/EC) 30 mg PO DAILY RF: 0 diltiazem HCl 120 mg capsule,extended release 24hr 120 mg PO DAILY RF: 0 montelukast 10 mg tablet 10 mg PO DAILY RF: 0 albuterol sulfate [Ventolin HFA] 90 mcg/actuation HFA aerosol inhaler 1 inh INHALATION Q4H PRN (Reason: Shortness Of Breath) RF: 0 budesonide-formoterol [Symbicort] 160-4.5 mcg/actuation HFA aerosol inhaler 1 inh INHALATION DAILY RF: 0 Creon 24,000-76,000 -120,000 unit capsule,delayed release(DR/EC) 1 cap PO QID RF: 0 Spiriva Respimat 2.5 mcg/actuation mist 1 inh INHALATION DAILY RF: 0 acetaminophen 500 mg Tablet 500 mg PO Q8H PRN (Reason: Pain) RF: 0 hydromorphone 2 mg tablet 2 mg PO Q2H PRN (Reason: Pain) RF: 0 gabapentin 100 mg capsule 300 mg PO TID RF: 0 ondansetron 4 mg tablet,disintegrating 4 mg PO Q6H PRN (Reason: nausea and vomiting) RF: 0 prochlorperazine maleate [Compazine] 5 mg tablet 5 mg PO Q12H PRN (Reason: nausea and vomiting) Qty: 30 RF: 0 potassium chloride 40 mEq/15 mL liquid 40 meq PO DAILY Qty: 473 RF: 0 dextroamphetamine-amphetamine [Adderall] 20 mg tablet 20 mg PO BID RF: 0 folic acid 1 mg tablet 1 mg PO DAILY RF: 0 Discontinued Eliquis 5 mg tablet 5 mg PO BID RF: 0 Discharge Orders: Discharge Order (Routine); Ordered 04/29/21 Ordered By: Leslie Ahmadi Admission Data Admit Date/Time: 04/27/21 23:22 Attending Provider: Leslie Ahmadi Admit Provider: Hunter Kilgore Primary Care Provider: PCP,NO Other Providers: Hunter Kilgore ; Faye Yen ; Gertrude Frias ; Ashanti Veliz ; Higinio Wong Other Interventions: Discharge Summary Assessment (RN) Last Done: 04/29/21 11:59 Coding Level of Care Code D/C DAY MANAGEMENT >30 MINS Diagnoses Alcohol withdrawal F10.239 Complication of substance-induced condition: with unspecified complication Hypokalemia E87.6 Hypophosphatemia E83.39 Chronic pancreatitis K86.[address] Z93.1 Suicidal ideation R45.851 Severe protein-calorie malnutrition E43 Smoker F17.200 Asthma J45.909 Left upper extremity deep vein thrombosis I82.622
[2021-04-29] MEDS ORDERED: LANSOPRAZOLE 30 MG SOLTAB PEG SCH (21:00)
== END 2021-04-29 11:59 | disposition home or self-care (01) | DRG 896 ==
LOC: ED 20:24 → EDINP 23:22 → SUATTDRO 23:22 → EDINP 04-28 01:30

== ENCOUNTER 2021-07-07 09:56 | Inpatient (IN) ==
[2021-07-07] MEDS ORDERED: SODIUM CHLORIDE 0.9% 1000ML 1,000 ML IV ONE (10:36)
[2021-07-07] MEDS ORDERED: LORazepam 1 MG TAB SL STA (10:36)
--- NOTE | 2021-07-07 10:42 | Emergency Department Note ---
History of Present Illness General Chief complaint: Feeding/PEG Tube Replacement Stated complaint: FEEDING TUBE OUT OF PLACE, ABD PAIN, FEVER, SOB Time Seen by Provider: 07/07/21 10:27 Source: patient Mode of arrival: ambulatory Limitations: no limitations History of Present Illness Maximum Pain Intensity: 9 This patient is a 36-year-old female who has a very complex medical history including pancreatic issues with a PEG tube and alcohol abuse, comes in after feeling ill for last couple days. It started 3 or 4 days ago. He has been vomiting. She has not drank in the last 2 days. She says she had a temperature at home but took Tylenol this morning. She tried Zofran and Phenergan without relief. Her PEG tube is functioning but leaking around it. She says she has this because she is a pancreatic duct issue. She does feel somewhat short of breath at times. No fall or trauma no suicidal ideations or overdose. Denies dysuria. Home Medications Medication Instructions Recorded Confirmed Type acetaminophen 500 mg tablet 500 mg PO TID 03/21/21 07/07/21 History albuterol sulfate 90 mcg/actuation 1 inh INHALATION Q4H PRN 03/21/21 07/07/21 History aerosol inhaler (Ventolin HFA) clonidine HCl 0.1 mg tablet 0.1 mg PO TID PRN 03/21/21 07/07/21 History diltiazem HCl 120 mg 120 mg PO DAILY 03/21/21 07/07/21 History capsule,extended release 24 hr gabapentin 100 mg capsule 300 mg PO TID 03/21/21 07/07/21 History hydromorphone 2 mg tablet 2 mg PO Q2H PRN 03/21/21 07/07/21 History lansoprazole 30 mg capsule,delayed 30 mg PO DAILY 03/21/21 07/07/21 History release rnyhvq-juczufyk-uzswueu 1 cap PO QID 03/21/21 07/07/21 History 24,000-76,000-120,000 unit capsule,delayed rel (Creon) montelukast 10 mg tablet 10 mg PO DAILY 03/21/21 07/07/21 History ondansetron 4 mg disintegrating 4 mg PO Q6H PRN 03/21/21 07/07/21 History tablet tiotropium bromide 2.5 1 inh INHALATION DAILY 03/21/21 07/07/21 History mcg/actuation mist for inhalation (Spiriva Respimat) potassium chloride 40 mEq/15 mL 40 meq PO DAILY #473 ml 03/29/21 07/07/21 Rx oral liquid prochlorperazine maleate 5 mg 5 mg PO Q12H PRN #30 tab 03/29/21 07/07/21 Rx tablet (Compazine) dextroamphetamine-amphetamine 20 20 mg PO BID 04/27/21 07/07/21 History mg tablet (Adderall) folic acid 1 mg tablet 1 mg PO DAILY 04/27/21 07/07/21 History thiamine HCl (vitamin B1) 100 mg 100 mg PEG QAM #30 tab 04/29/21 07/07/21 Rx tablet Allergies Allergy/AdvReac Type Severity Reaction Status Date / Time Pertussis Vaccines Allergy Intermediate Hives Verified 07/07/21 15:00 amlodipine [From Norvas] AdvReac Intermediate LEGS SWELL Verified 07/07/21 15:00 morphine AdvReac Intermediate HALLUCINATI Verified 07/07/21 15:00 ONS Past Med/Surg History Medical History Alcohol use disorder, moderate, dependence Alcohol withdrawal Asthma Chronic back pain Gastrostomy tube in place No pertinent family history Sepsis Smoker Suicidal ideation Surgical History H/O shoulder surgery H/O wrist surgery Social History Smoking Status: Current every day smoker Tobacco Type: Cigarettes Cigarettes Per Day: 12; Second Hand Exposure: No; Hx Alcohol Use: Yes Alcohol type: beer Hx Substance Use: Yes Last Used Substance: Unknown Preferred Language: Slovak Communication Ability: Effective Visual Impairment: No Limitations Film Reproducer Required: No Beliefs That Will Affect Care: None Current Living Situation: Alone Feels Safe at Home: Yes Assistive Devices: None Review of Systems A total of 10 systems reviewed and were otherwise negative Physical Exam Vital Signs Vital Signs - 24 hr 07/07/21 10:01 07/07/21 13:23 07/07/21 13:25 Temperature 36.4 C L Temperature Source Temporal Artery Scan Pulse Rate 151 H 83 Pulse Rate [Finger] 89 Pulse Rate from SpO2 Sensor 86 Respiratory Rate 20 14 13 Respiratory Effort / Characteristics Non-Labored Respiratory Depth Normal Respiratory Pattern Regular Blood Pressure 147/100 H Blood Pressure [Right Arm] 126/95 Blood Pressure Mean 115 Blood Pressure Mean [Right Arm] 105 Blood Pressure Position Sitting Blood Pressure Position [Right Arm] Sitting Pulse Oximetry 100 96 99 Oxygen Delivery Method Room Air Room Air Sepsis Recent Fever Within 48 Hours No Sepsis New/Unexplained Change in Mental Status No Sepsis Action Taken by Nursing No Action Required 07/07/21 13:30 07/07/21 14:00 Temperature Temperature Source Pulse Rate 90 Pulse Rate [Finger] Pulse Rate from SpO2 Sensor 92 H Respiratory Rate 10 L Respiratory Effort / Characteristics Respiratory Depth Respiratory Pattern Blood Pressure Blood Pressure [Right Arm] Blood Pressure Mean Blood Pressure Mean [Right Arm] Blood Pressure Position Blood Pressure Position [Right Arm] Pulse Oximetry 95 Oxygen Delivery Method Sepsis Recent Fever Within 48 Hours Sepsis New/Unexplained Change in Mental Status Sepsis Action Taken by Nursing General: Well developed well nourished young female who is nontoxic but mildly shaky but otherwise in no acute distress, breathing comfortably on room air. Normal speech HEENT: Normal cephalic atraumatic. Pupils are equal round and reactive to light. Extraocular movements are intact. Oropharynx is pink with moist mucous membranes. No swelling of the mouth lips or tongue. Neck: Supple with a midline trachea. No meningeal signs or stiffness, no JVD or bruits. No Stridor. Chest: Clear to auscultation bilaterally. No wheezes or rhonchi. No increased work of breathing. Heart: Regular rate and rhythm without murmurs or gallops. Abdomen: Soft mildly diffusely tender,, nondistended without rebound guarding or rigidity. She has a PEG tube in place with minimal drainage around it. No redness. Extremities: No cyanosis clubbing or edema. No calf tenderness or assymetry Spine/Back. Non tender to palpation. No CVA tenderness Skin: Good turgor without rashes. Neurologic exam: Cranial nerves two through 12 are intact. Motor and sensation are intact and symmetrical throughout. There is mildly shaky at times. She is able ambulate without difficulty Course Administered Medications Discontinued Medications Hydromorphone HCl (Hydromorphone Inj 1 Mg/Ml Syringe) 1 mg IV NOW STA Stop: 07/07/21 12:17 Last Admin: 07/07/21 12:39 Dose: 1 mg Documented by: [id number] Sodium Chloride (Nss 1000ml) 1,000 mls @ 999 mls/hr IV .Q1H1M ONE Stop: 07/07/21 11:36 Last Infusion: 07/07/21 13:16 Dose: 0 mls/hr Documented by: [id number] Admin: 07/07/21 11:38 Dose: 999 mls/hr Documented by: [id number] Magnesium Sulfate/Dextrose (Magnesium Sulfate / D5w) 1 gm in 100 mls @ 100 mls/hr IV NOW STA Stop: 07/07/21 13:54 Last Admin: 07/07/21 13:04 Dose: 100 mls/hr Documented by: [id number] Multivitamins 10 ml/ Thiamine HCl 100 mg/ Folic Acid 1 mg/Sodium Chloride 1,011.2 mls @ 1,011.2 mls/hr IV .Q1H ONE Stop: 07/07/21 13:54 Last Admin: 07/07/21 13:17 Dose: 1,011.2 mls/hr Documented by: [id number] Ketorolac Tromethamine (Ketorolac Tromethamine 15 Mg/Ml Vial) 10 mg IV NOW ONE Stop: 07/07/21 11:05 Last Admin: 07/07/21 11:38 Dose: 10 mg Documented by: [id number] Lorazepam (Lorazepam 1 Mg Tab) 2 mg SL NOW STA Stop: 07/07/21 10:37 Last Admin: 07/07/21 10:49 Dose: 2 mg Documented by: [id number] Lorazepam (Lorazepam 2 Mg/1 Ml Vial) 1 mg IV NOW STA Stop: 07/07/21 12:17 Last Admin: 07/07/21 12:40 Dose: 1 mg Documented by: [id number] Ondansetron HCl (Ondansetron Inj 2 Mg/Ml 2 Ml Vial) 4 mg IV NOW STA Stop: 07/07/21 11:08 Last Admin: 07/07/21 11:38 Dose: 4 mg Documented by: [id number] Medical Decision Making Differential Diagnosis Alcohol withdrawal, electrolyte or metabolic abnormality, pancreatitis, infection, dehydration, PEG tube problem, bowel obstruction Medical Records Attestation: I reviewed the patient's medical records. Home Medications Current Medication List: was personally reviewed by me Laboratory Data Attestation: I reviewed the patient's lab results. Result diagrams: 07/07/21 11:54 07/07/21 11:54 Lab Results 07/07/21 07/07/21 07/07/21 Range/Units 11:40 11:54 11:54 WBC 4.95 (4.8-10.8) K/uL RBC 3.76 L (4.2-5.4) M/uL Hgb 12.2 (12.0-16.0) g/dL Hct 36.1 L (37-47) % MCV 96.0 (80-100) fL MCH 32.4 (25-34) pg MCHC 33.8 (32-36) g/dL RDW Std Deviation 59.2 H (36.4-46.3) fL RDW Coeff of Paulina 16.7 H (11.5-14.5) % Plt Count 121 L (130-400) K/uL MPV 11.2 H (7.4-10.4) fL Immature Gran % (Auto) 0.2 % Neut % (Auto) 64.6 % Lymph % (Auto) 25.1 % [place] % (Auto) 9.3 % Eos % (Auto) 0.6 % Baso % (Auto) 0.2 % Neut # (Auto) 3.20 (1.4-6.5) K/uL Lymph # (Auto) 1.24 (1.2-3.4) K/uL [place] # (Auto) 0.46 (0.11-0.59) K/uL Eos # (Auto) 0.03 (0-0.5) K/uL Baso # (Auto) 0.01 (0-0.2) K/uL Immature Gran # (Auto) 0.01 (0.00-0.02) K/uL PT (9.0-12.0) Seconds INR (0.9-1.1) APTT (21.0-31.0) Seconds PTT Ratio Sodium 136 (136-145) mmol/L Potassium 3.7 (3.5-5.1) mmol/L Chloride 91 L (98-107) mmol/L Carbon Dioxide 34 H (21-32) mmol/L Anion Gap 11 (3-11) BUN 4 L (6-23) mg/dl Creatinine 0.65 (0.6-1.2) mg/dl Est Cr Clr Drug Dosing 104.3 ml/min Est GFR ( Amer) 133.3 ml/min Est GFR (Non-Af Amer) 115.0 ml/min BUN/Creatinine Ratio 6.2 L (10-20) Glucose 108 H (70-99(Fasting)) mg/dl Calcium 9.1 (8.5-10.1) mg/dl Magnesium 1.4 L (1.7-2.4) mg/dl Total Bilirubin 1.9 H (0.2-1.0) mg/dl AST 90 H (13-39) U/L ALT 22 (7-52) U/L Alkaline Phosphatase 478 H (34-104) U/L Total Protein 8.2 (6.0-8.3) gm/dl Albumin 3.3 L (3.4-5.0) gm/dl Globulin 4.9 H (2.5-4.0) gm/dl Albumin/Globulin Ratio 0.7 L (0.9-2) Lipase 9 L (11-82) U/L HCG, Qual (Negative) Urine Color Dark Yellow Urine Appearance Clear (Clear) Urine pH >= 9.0 H (4.5-7.5) Ur Specific [place] 1.022 (1.000-1.030) Urine Protein 2+ H (Negative) Urine Glucose (UA) Negative (Negative) Urine Ketones Trace H (Negative) Urine Blood Negative (Negative) Urine Nitrite Positive A (Negative) Urine Bilirubin Negative (Negative) Urine Urobilinogen Negative (Negative) Ur Leukocyte Esterase Trace H (Negative) Urine WBC (Auto) 1-5 (0-5) /hpf Urine RBC (Auto) 0-4 (0-4) /hpf U Hyaline Cast (Auto) 1-5 (0-5) /lpf U Epithel Cells (Auto) >30 H (0-5) /lpf Urine Bacteria (Auto) 2+ H (Negative) Ur Renal Epithelial Cell Not Reportable Ethyl Alcohol mg/dL (<10.0) mg/dl SARS-CoV-2, RNA, NAAT (NEGATIVE) 07/07/21 07/07/21 07/07/21 Range/Units 11:54 11:54 11:54 WBC (4.8-10.8) K/uL RBC (4.2-5.4) M/uL Hgb (12.0-16.0) g/dL Hct (37-47) % MCV (80-100) fL MCH (25-34) pg MCHC (32-36) g/dL RDW Std Deviation (36.4-46.3) fL RDW Coeff of Paulina (11.5-14.5) % Plt Count (130-400) K/uL MPV (7.4-10.4) fL Immature Gran % (Auto) % Neut % (Auto) % Lymph % (Auto) % [place] % (Auto) % Eos % (Auto) % Baso % (Auto) % Neut # (Auto) (1.4-6.5) K/uL Lymph # (Auto) (1.2-3.4) K/uL [place] # (Auto) (0.11-0.59) K/uL Eos # (Auto) (0-0.5) K/uL Baso # (Auto) (0-0.2) K/uL Immature Gran # (Auto) (0.00-0.02) K/uL PT 14.5 H (9.0-12.0) Seconds INR 1.4 H (0.9-1.1) APTT 26.9 (21.0-31.0) Seconds PTT Ratio 1.0 Sodium (136-145) mmol/L Potassium (3.5-5.1) mmol/L Chloride (98-107) mmol/L Carbon Dioxide (21-32) mmol/L Anion Gap (3-11) BUN (6-23) mg/dl Creatinine (0.6-1.2) mg/dl Est Cr Clr Drug Dosing ml/min Est GFR ( Amer) ml/min Est GFR (Non-Af Amer) ml/min BUN/Creatinine Ratio (10-20) Glucose (70-99(Fasting)) mg/dl Calcium (8.5-10.1) mg/dl Magnesium (1.7-2.4) mg/dl Total Bilirubin (0.2-1.0) mg/dl AST (13-39) U/L ALT (7-52) U/L Alkaline Phosphatase (34-104) U/L Total Protein (6.0-8.3) gm/dl Albumin (3.4-5.0) gm/dl Globulin (2.5-4.0) gm/dl Albumin/Globulin Ratio (0.9-2) Lipase (11-82) U/L HCG, Qual Negative (Negative) Urine Color Urine Appearance (Clear) Urine pH (4.5-7.5) Ur Specific [place] (1.000-1.030) Urine Protein (Negative) Urine Glucose (UA) (Negative) Urine Ketones (Negative) Urine Blood (Negative) Urine Nitrite (Negative) Urine Bilirubin (Negative) Urine Urobilinogen (Negative) Ur Leukocyte Esterase (Negative) Urine WBC (Auto) (0-5) /hpf Urine RBC (Auto) (0-4) /hpf U Hyaline Cast (Auto) (0-5) /lpf U Epithel Cells (Auto) (0-5) /lpf Urine Bacteria (Auto) (Negative) Ur Renal Epithelial Cell Ethyl Alcohol mg/dL < 10.0 (<10.0) mg/dl SARS-CoV-2, RNA, NAAT (NEGATIVE) 07/07/21 Range/Units 12:45 WBC (4.8-10.8) K/uL RBC (4.2-5.4) M/uL Hgb (12.0-16.0) g/dL Hct (37-47) % MCV (80-100) fL MCH (25-34) pg MCHC (32-36) g/dL RDW Std Deviation (36.4-46.3) fL RDW Coeff of Paulina (11.5-14.5) % Plt Count (130-400) K/uL MPV (7.4-10.4) fL Immature Gran % (Auto) % Neut % (Auto) % Lymph % (Auto) % [place] % (Auto) % Eos % (Auto) % Baso % (Auto) % Neut # (Auto) (1.4-6.5) K/uL Lymph # (Auto) (1.2-3.4) K/uL [place] # (Auto) (0.11-0.59) K/uL Eos # (Auto) (0-0.5) K/uL Baso # (Auto) (0-0.2) K/uL Immature Gran # (Auto) (0.00-0.02) K/uL PT (9.0-12.0) Seconds INR (0.9-1.1) APTT (21.0-31.0) Seconds PTT Ratio Sodium (136-145) mmol/L Potassium (3.5-5.1) mmol/L Chloride (98-107) mmol/L Carbon Dioxide (21-32) mmol/L Anion Gap (3-11) BUN (6-23) mg/dl Creatinine (0.6-1.2) mg/dl Est Cr Clr Drug Dosing ml/min Est GFR ( Amer) ml/min Est GFR (Non-Af Amer) ml/min BUN/Creatinine Ratio (10-20) Glucose (70-99(Fasting)) mg/dl Calcium (8.5-10.1) mg/dl Magnesium (1.7-2.4) mg/dl Total Bilirubin (0.2-1.0) mg/dl AST (13-39) U/L ALT (7-52) U/L Alkaline Phosphatase (34-104) U/L Total Protein (6.0-8.3) gm/dl Albumin (3.4-5.0) gm/dl Globulin (2.5-4.0) gm/dl Albumin/Globulin Ratio (0.9-2) Lipase (11-82) U/L HCG, Qual (Negative) Urine Color Urine Appearance (Clear) Urine pH (4.5-7.5) Ur Specific [place] (1.000-1.030) Urine Protein (Negative) Urine Glucose (UA) (Negative) Urine Ketones (Negative) Urine Blood (Negative) Urine Nitrite (Negative) Urine Bilirubin (Negative) Urine Urobilinogen (Negative) Ur Leukocyte Esterase (Negative) Urine WBC (Auto) (0-5) /hpf Urine RBC (Auto) (0-4) /hpf U Hyaline Cast (Auto) (0-5) /lpf U Epithel Cells (Auto) (0-5) /lpf Urine Bacteria (Auto) (Negative) Ur Renal Epithelial Cell Ethyl Alcohol mg/dL (<10.0) mg/dl SARS-CoV-2, RNA, NAAT NEGATIVE (NEGATIVE) Imaging Data Attestation: I personally reviewed and interpreted this imaging study as follows: Radiologist's Impression: Abdomen/Pelvis CT 07/07/21 10:37 CT SCAN OF THE ABDOMEN AND PELVIS WITHOUT IV CONTRAST CLINICAL HISTORY: Vomiting. COMPARISON STUDY: Abdominal CT dated 03/21/2021. TECHNIQUE: CT scan of the abdomen and pelvis is performed from the lung bases to the proximal femora. Images are reviewed in the axial, sagittal, and coronal planes. IV contrast was not administered for this examination. Note that the examination is suboptimal without oral and IV contrast. A dose lowering techniqu e was utilized adhering to the principles of ALARA. CT DOSE: 272.17 mGy.cm FINDINGS: Lung bases: The heart is normal in size and without pericardial effusion. The lung bases are clear. Liver: The unenhanced liver is enlarged, measuring 20.2 cm in length. The liver demonstrates diffusely diminished attenuation consistent with severe hepatic steatosis. There is no intrahepatic biliary ductal dilatation. Gallbladder: Surgically absent noting clips in the gallbladder fossa. Spleen: Normal in size and attenuation. Pancreas: The unenhanced pancreas is moderately atrophic. Parenchymal calcifications indicate chronic pancreatitis. Adrenal glands: Unremarkable. Kidneys: The unenhanced kidneys are normal in size and without hydronephrosis. There are no renal calculi identified. There is no evidence of contour deforming renal mass lesion. A subcentimeter complex/hyperdense cyst is seen in the upper pole of the right kidney on image #111. Abdominal vasculature: The abdominal aorta is normal in course and caliber. Stomach and bowel: A percutaneous gastrostomy is in place. The stomach and duodenum are normal in configuration. No bowel obstruction is identified. The appendix is well-visualized and normal. Peritoneum: There is no intraperitoneal free air or abdominal ascites. There is a fat-containing periumbilical hernia. Lymphadenopathy: None. Pelvic viscera: The bladder wall appears circumferentially thickened. The uterus is normal as visualized. Bilateral ovarian follicles are incidentally noted. Skeletal structures: No lytic or blastic lesions are seen. IMPRESSION: 1. Suboptimal examination without oral and IV contrast. 2. A cutaneous gastrostomy tube is in place. There is no bowel obstruction. 3. The bladder wall appears circumferentially thickened. Correlate with clinical findings and urinalysis. 4. Hepatomegaly and severe hepatic steatosis. 5. There is evidence of chronic pancreatitis. 6. Additional findings as above. ACT 112: Negative or not required by law. Electronically signed by: Jc Ta M.D. 07/07/2021 1:36 PM ECG Data Attestation: I personally reviewed and interpreted this ECG as follows: Indication: + weakness Rate (beats per minute): 96 Rhythm: + normal sinus ECG Intervals/blocks: + Normal QRS, + Prolonged QT and + Normal NV ECG [place]: + Normal ECG ST segments: + Normal ST segments ECG Findings: no PACs or no PVCs Comparison ECG Date: from (03/22/21) Change: the following changes noted (Rate has decreased. The QT interval is slightly increased) MDM Narrative This patient comes in as described above. Drank alcohol for couple days and also has had vomiting. I do think she is in withdrawal and may have other issues going on as well with her pancreatitis. IV access was established blood work was obtained. I did order Ativan 2 mg sublingual as she has been a difficult access in the past and I wanted to get it on board while they were getting the blood work and IV going. I did order IV fluids and Covid testing. CAT scan was obtained of the abdomen. She did require additional medications and I gave her Ativan 1 mg IV x2. She also received Dilaudid 1 mg IV for pain and IV Zofran. Her magnesium was low and she was repleted with IV magnesium. I also gave her banana bag given her alcoholism. She did well with this her heart rate came down. Her CAT scan does not show any acute findings such as bowel obstruction. She does have what appears to be contact chronic pancreatitis her lipase is not elevated. She is afebrile here and has a normal white count I do not find any evidence suggest sepsis or infection. she has no significant anemia. She has mild elevation of LFTs which are chronic. Urinalysis does not suggest a UTI. I do think she needs to be admitted/observed for hydration and treatment of her alcohol withdrawal and vomiting and further work-up. I have consulted Dr. Jones to see in ER for these measures Continuous cardiac monitoring: Orders placed in EMR for continuous cardiac monitoring. Sinus tachycardia rate of 110 Impression & Plan Alcohol withdrawal, Chronic pancreatitis, Alcohol dependence, Acute dehydration, Vomiting, Hypomagnesemia, Abdominal pain Discharge Plan Visit Data Chief Complaint: Feeding/PEG Tube Replacement Stated Complaint: FEEDING TUBE OUT OF PLACE, ABD PAIN, FEVER, SOB ED Provider: Chau Contreras Discharge Problem: Alcohol withdrawal, Chronic pancreatitis, Alcohol dependence, Acute dehydration, Vomiting, Hypomagnesemia, Abdominal pain Patient Disposition: Admitted As Inpatient Discharge Instructions Interventions: ED Discharge Assessment Last Done: 03/20/22 15:30 Discharge Problem: Alcohol withdrawal Qualifiers: Complication of substance-induced condition: uncomplicated Qualified Code(s): F10.230 - Alcohol dependence with withdrawal, uncomplicated Chronic pancreatitis Qualifiers: Pancreatitis type: other Qualified Code(s): K86.1 - Other chronic pancreatitis Alcohol dependence Qualifiers: Substance use status: unspecified alcohol-induced disorder Qualified Code(s): F10.29 - Alcohol dependence with unspecified alcohol-induced disorder Vomiting Qualifiers: Vomiting type: unspecified Nausea presence: with nausea Qualified Code(s): R11.2 - Nausea with vomiting, unspecified Abdominal pain Qualifiers: Abdominal location: generalized Qualified Code(s): R10.84 - Generalized abdominal pain
[2021-07-07] MEDS ORDERED: KETOROLAC TROMETHAMINE 15 MG/ML VIAL IV ONE (11:04)
[2021-07-07] MEDS ORDERED: ONDANSETRON INJ 2 MG/ML 2 ML VIAL IV STA (11:07)
[2021-07-07 11:52] LABS: Appearance Urine Clear (Clear); Bacteria Urine Automated 2+ (Negative); Bilirubin Urine Negative (Negative); Blood Urine Negative (Negative); Epithelial Cell Urine Auto >30 /lpf (0-5); Glucose Urine UA Negative (Negative); Ketones Urine Trace (Negative); Leukocyte Esterase Urine Trace (Negative); Nitrite Urine Positive (Negative); RBC Urine Automated 0-4 /hpf (0-4); Specific Gravity Urine 1.022 (1.000-1.030); Urobilinogen Urine Negative (Negative); pH Urine >= 9.0 (4.5-7.5)
[2021-07-07 11:56] LABS: Color Urine Dark Yellow; Protein Urine 2+ (Negative)
--- NOTE | 2021-07-07 11:56 | Electrocardiogram Report ---
Test Reason : Blood Pressure : / mmHG Vent. Rate : 096 BPM Atrial Rate : 096 BPM P-R Int : 142 ms QRS Dur : 070 ms QT Int : 382 ms P-R-T Axes : 035 030 038 degrees QTc Int : 482 ms Normal sinus rhythm Low voltage QRS Nonspecific ST abnormality Prolonged QT Abnormal ECG When compared with ECG of 22-MAR-2021 05:53, Nonspecific T wave abnormality now evident in Anterior leads Confirmed by Shoaib Mclean ([id number]) on 07/07/2021 11:55:42 AM Referred By: REFERRED SELF Confirmed By:Gee Mclean
[2021-07-07] MEDS ORDERED: HYDROmorphone INJ 1 MG/ML SYRINGE IV STA (12:16)
[2021-07-07] MEDS ORDERED: LORazepam 2 MG/1 ML VIAL IV STA (12:16)
[2021-07-07 12:36] LABS: Basophils # (auto) 0.01 K/uL (0-0.2); Basophils % (auto) 0.2 %; Eosinophils # (auto) 0.03 K/uL (0-0.5); Eosinophils % (auto) 0.6 %; Hematocrit (blood only) 36.1 % (37-47); Hemoglobin 12.2 g/dL (12.0-16.0); Immature Granulocytes # (auto) 0.01 K/uL (0.00-0.02); Immature Granulocytes % (auto) 0.2 %; Lymphocytes # (auto) 1.24 K/uL (1.2-3.4); Lymphocytes % (auto) 25.1 %; Mean Corpuscular Hemoglobin 32.4 pg (25-34); Mean Corpuscular Hgb Conc 33.8 g/dL (32-36); Mean Platelet Volume 11.2 fL (7.4-10.4); Monocytes # (auto) 0.46 K/uL (0.11-0.59); Monocytes % (auto) 9.3 %; Neutrophils % (auto) 64.6 %; Platelet Count 121 K/uL (130-400); RDW Coefficient of Variation 16.7 % (11.5-14.5); RDW Standard Deviation 59.2 fL (36.4-46.3); Red Blood Count 3.76 M/uL (4.2-5.4); White Blood Count 4.95 K/uL (4.8-10.8)
[2021-07-07 12:40] LABS: INR 1.4 (0.9-1.1); Partial Thromboplastin Time 26.9 Seconds (21.0-31.0); Prothrombin Time 14.5 Seconds (9.0-12.0)
[2021-07-07 12:46] LABS: Albumin Globulin Ratio 0.7 (0.9-2); Albumin Level 3.3 gm/dl (3.4-5.0); BUN Creatinine Ratio 6.2 (10-20); Bilirubin,Total 1.9 mg/dl (0.2-1.0); Calcium 9.1 mg/dl (8.5-10.1); Creatinine Clr Calc Pharmacy 104.3 ml/min; Est GFR (African American) 133.3 ml/min; Globulin 4.9 gm/dl (2.5-4.0); Magnesium 1.4 mg/dl (1.7-2.4); Potassium 3.7 mmol/L (3.5-5.1); Total Protein 8.2 gm/dl (6.0-8.3)
[2021-07-07 12:47] LABS: Pregnancy Test, Serum Negative (Negative)
[2021-07-07] MEDS ORDERED: MAGNESIUM SULFATE / D5W 1 GM/100 ML BAG IV STA (12:55)
[2021-07-07] MEDS ORDERED: MULTI-VITAMIN INFUSION 10 ML, THIAMINE HCL 100 MG, FOLIC ACID 1 MG in SODIUM CHLORIDE 0... IV ONE (12:55)
--- NOTE | 2021-07-07 13:39 | CT Scan Report ---
CT SCAN OF THE ABDOMEN AND PELVIS WITHOUT IV CONTRAST CLINICAL HISTORY: Vomiting. COMPARISON STUDY: Abdominal CT dated 03/21/2021. TECHNIQUE: CT scan of the abdomen and pelvis is performed from the lung bases to the proximal femora. Images are reviewed in the axial, sagittal, and coronal planes. IV contrast was not administered for this examination. Note that the examination is suboptimal without oral and IV contrast. A dose lower ing technique was utilized adhering to the principles of ALARA. CT DOSE: 272.17 mGy.cm FINDINGS: Lung bases: The heart is normal in size and without pericardial effusion. The lung bases are clear. Liver: The unenhanced liver is enlarged, measuring 20.2 cm in length. The liver demonstrates diffusel y diminished attenuation consistent with severe hepatic steatosis. There is no intrahepatic biliary d uctal dilatation. Gallbladder: Surgically absent noting clips in the gallbladder fossa. Spleen: Normal in size and attenuation. Pancreas: The unenhanced pancreas is moderately atrophic. Parenchymal calcifications indicate chronic pancreatitis. Adrenal glands: Unremarkable. Kidneys: The unenhanced kidneys are normal in size and without hydronephrosis. There are no renal gonzalo culi identified. There is no evidence of contour deforming renal mass lesion. A subcentimeter complex /hyperdense cyst is seen in the upper pole of the right kidney on image #111. Abdominal vasculature: The abdominal aorta is normal in course and caliber. Stomach and bowel: A percutaneous gastrostomy is in place. The stomach and duodenum are normal in con figuration. No bowel obstruction is identified. The appendix is well-visualized and normal. Peritoneum: There is no intraperitoneal free air or abdominal ascites. There is a fat-containing zhane umbilical hernia. Lymphadenopathy: None. Pelvic viscera: The bladder wall appears circumferentially thickened. The uterus is normal as visuali zed. Bilateral ovarian follicles are incidentally noted. Skeletal structures: No lytic or blastic lesions are seen. IMPRESSION: 1. Suboptimal examination without oral and IV contrast. 2. A cutaneous gastrostomy tube is in place. There is no bowel obstruction. 3. The bladder wall appears circumferentially thickened. Correlate with clinical findings and urinaly sis. 4. Hepatomegaly and severe hepatic steatosis. 5. There is evidence of chronic pancreatitis. 6. Additional findings as above. ACT 112: Negative or not required by law. Electronically signed by: Jc Ta M.D. 07/07/2021 1:36 PM
--- NOTE | 2021-07-07 14:03 | History & Physical Report ---
Date of Service July 07, 2021 Assessment & Plan (1) Alcohol use disorder, moderate, dependence: Plan: Patient has been abstinent from alcohol for 48 hours she initially was tachycardic and hypertensive, she was given a banana bag +3 mg of lorazepam, 1 mg of hydromorphone ( she does suffer from chronic back pain ) Patient cannot be placed on gabapentin due to her persistent nausea, she does typically take some gabapentin for chronic pain management, will try to start this if she tolerates oral intake after first 24 hours Other oral benzodiazepines are also unable be tolerated due to her vomiting. Since her nausea is substantial will just employ the LEEROY S intravenous Ativan use. 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 Patient states that anything she puts in her G-tube she has been vomiting we will consult gastroenterology to see if they wish to do an endoscopy With regard to her hypertension that she presented with she does have a history taking diltiazem at 120 likely cannot tolerate this over the last couple days because of her nausea and abdominal pain once is resolved we will reinstitute this medication (2) Chronic pancreatitis: Plan: Patient has a lipase of 9. Patient underwent CT scan of the abdomen pelvis without contrast on 07/07/2021 showing gastrostomy tube in place with no bowel obstruction, bladder wall is circumferentially thickened. Hepatomegaly and severe hepatic steatosis is noted, evidence of chronic pancreatitis as evidenced by parenchymal calcifications Patient will be offered her Creon and a liquid diet at this point in time but we are also augmenting her nutrition with tube feeds with nutrition consult (3) Asthma: Plan: Patient has intrinsic asthma typically taking Spiriva Singulair and Symbicort. She states she stopped smoking 2 months ago and has been without smoking during this time. Therefore she does not request any nicotine patch (4) Gastrostomy tube in place: Plan: Patient does take some oral intake we will continue Creon we will institute Pept amen 1.5 to 10 mL an hour as per nutrition his last assessment. Patient only has mild malnutrition with an albumin of 3.3. She did have a magnesium supplement in the emergency department (5) Abnormal urinalysis: Plan: Patient status an abnormal urinalysis on presentation with abnormal bladder wall seen on CT scan. Patient had significant dysuria today. Will start Rocephin 1 g every 24 hours and Will culture urine on presentation (6) DVT prophylaxis: Plan: Patient did have a Nunes associated upper extremity DVT in the past. She is no longer taking Eliquis at this time. We will start Lovenox on 07/08/2021 Plan: Patient has various electrolyte abnormalities magnesium was repleted in the ER were pending a phosphorus and will follow magnesium and phosphorus daily. Nutritional be consulted for Peptamen management. The patient typically uses tube feeds at night however she is not had any tube feeds for the last 3 to 4 days will start them continuously at this point time and see if she can eventually tolerate oral intake History of Present Illness Primary Care Provider: NO PCP 36-year-old female who is being admitted in the past for chronic pancreatitis abdominal pain and also alcohol abuse. Patient states that she has had increasing left-sided abdominal pain and vomitus even after using her GJ tube over the last 3 to 4 days. Patient has been abstinent from alcohol for 2 days and initially presented in what was described as alcohol withdrawal by the emergency department attending. The patient states that she uses 6 - 10 16 ounce beers through her G-tube daily. Most recently after putting anything through her G-tube she vomits orally usually yellow liquid. She is not on any change in bowel habits but is been constipated for the last 3 to 4 days States that she had some fevers at home but has had not here. She has tried oral Zofran and Phenergan at home without relief and comes in with increasing left-sided abdominal pain and nausea. She does try to put liquids and nutrition through her GJ tube and says that things go in well but afterward there is some liquid leaking around it however she frequently vomits within the hour. Her last discharge was in April of this year it does not look like she has had any follow-up within our system. Patient in the past has had gram-positive bacteremia from an infected Nunes which is since been removed by Dr. Meraz March 2021. She is been seen in the past by [facility] gastroenterology. In the emergency department she required significant benzodiazepines to quell her alcohol withdrawal She is Covid tested negative Allergies Allergy/AdvReac Type Severity Reaction Status Date / Time Pertussis Vaccines Allergy Intermediate Hives Verified 04/27/21 21:43 amlodipine [From [facility]] AdvReac Intermediate LEGS SWELL Verified 04/27/21 21:43 morphine AdvReac Intermediate HALLUCINATI Verified 04/27/21 21:43 ONS Home Medications Medication Instructions Recorded Confirmed Type acetaminophen 500 mg tablet 500 mg PO Q8H PRN 03/21/21 04/27/21 History albuterol sulfate 90 mcg/actuation 1 inh INHALATION Q4H PRN 03/21/21 04/27/21 History aerosol inhaler (Ventolin HFA) apixaban 5 mg tablet (Eliquis) 5 mg PO BID 03/21/21 04/27/21 History budesonide-formoterol HFA 160 1 inh INHALATION DAILY 03/21/21 04/27/21 History mcg-4.5 mcg/actuation aerosol inhaler (Symbicort) clonidine HCl 0.1 mg tablet 0.1 mg PO TID PRN 03/21/21 04/27/21 History diltiazem HCl 120 mg 120 mg PO DAILY 03/21/21 04/27/21 History capsule,extended release 24 hr gabapentin 100 mg capsule 300 mg PO TID 03/21/21 04/27/21 History hydromorphone 2 mg tablet 2 mg PO Q2H PRN 03/21/21 04/27/21 History lansoprazole 30 mg capsule,delayed 30 mg PO DAILY 03/21/21 04/27/21 History release ogpyyc-tcrytasw-skyjatu 1 cap PO QID 03/21/21 04/27/21 History 24,000-76,000-120,000 unit capsule,delayed rel (Creon) montelukast 10 mg tablet 10 mg PO DAILY 03/21/21 04/27/21 History ondansetron 4 mg disintegrating 4 mg PO Q6H PRN 03/21/21 04/27/21 History tablet tiotropium bromide 2.5 1 inh INHALATION DAILY 03/21/21 04/27/21 History mcg/actuation mist for inhalation (Spiriva Respimat) potassium chloride 40 mEq/15 mL 40 meq PO DAILY #473 ml 03/29/21 04/27/21 Rx oral liquid prochlorperazine maleate 5 mg 5 mg PO Q12H PRN #30 tab 03/29/21 04/27/21 Rx tablet (Compazine) dextroamphetamine-amphetamine 20 20 mg PO BID 04/27/21 04/27/21 History mg tablet (Adderall) folic acid 1 mg tablet 1 mg PO DAILY 04/27/21 04/27/21 History thiamine HCl (vitamin B1) 100 mg 100 mg PEG QAM #30 tab 04/29/21 Rx tablet Past Med/Surg History Medical History Alcohol use disorder, moderate, dependence Alcohol withdrawal Asthma Chronic back pain Gastrostomy tube in place No pertinent family history Sepsis Smoker Suicidal ideation Surgical History H/O shoulder surgery H/O wrist surgery Social History Smoking Status: Current every day smoker Tobacco Type: Cigarettes Cigarettes Per Day: 12; Second Hand Exposure: No; Hx Alcohol Use: Yes Alcohol type: beer Hx Substance Use: Yes Last Used Substance: Unknown Preferred Language: Urdu Communication Ability: Effective Visual Impairment: No Limitations Defect Cutter Required: No Beliefs That Will Affect Care: None Current Living Situation: Alone Feels Safe at Home: Yes Assistive Devices: None Review of Systems Review of Systems: Currently she is in mild distress and fatigue after being given significant Ativan and Dilaudid no headache, no visual changes no speech or swallowing issues no chest pain, pressure or palpitations no shortness of breath, cough or wheezes she states her asthma is been stable Left-sided abdominal pain which is dull but has a crampy nature to it she feels distended and bloated she has had vomiting of yellow liquid no coffee-ground's and been constipated Just developed dysuria on the day of presentation no focal joint pain or swelling no back pain, CVA tenderness or radicular pain no bruising, bleeding or rashes no focal signs of weakness or numbness or altered sensation no complaints of anxiety or depression in the past she has been suicidal she says she is in a better place now denies suicidal ideation Physical Exam Physical Exam: The patient appeared well nourished and normally developed. Vital signs as documented. Head exam is normocephalic atraumatic Neck is without JVD, thyromegaly, or carotid bruits. Lungs are clear to auscultation, no focal loss of breath sounds Cardiac exam, Rhythm is regular.. No murmurs, rubs or gallops. Abdominal exam reveals hypoactive bowel sounds G-tube button in the left midabdomen guarding but no rebound tender to examination worsened in the left side Extremities are nonedematous and both pedal pulses are present Neurologic exam is alert and oriented, no focal loss of strength or sensation Skin is without bruises or rashes Psychologically is without concerns for anxiety or depression.. Results & Data Results & Data ([facility]) Vital Signs (Past 12 Hours) Vital Signs Temp Pulse Pulse Resp BP BP Pulse Ox 07/07/21 13:23 89 14 126/95 96 07/07/21 10:01 97.5 F L 151 H 20 147/100 H 100 PG Care Time/CCT Total # of Minutes Spent Total Time Spent with Patient: Total time spent is greater than 50% in coordination of care (as documented) at patient's floor/unit and/or counseling patient: Coding Level of Care Code 13089 Initial Inpt Care Lvl 3 Diagnoses Alcohol use disorder, moderate, dependence F10.20 Chronic pancreatitis K86.1 Asthma J45.[address] Z93.1 Abnormal urinalysis R82.90 DVT prophylaxis Z29.9
[2021-07-07] MEDS ORDERED: LORazepam 2 MG/1 ML VIAL IV PRN (14:34)
[2021-07-07] MEDS ORDERED: PANTOprazole 40 MG in SYRINGE 0 ML IV ONE (14:34)
[2021-07-07] MEDS ORDERED: ALUMINUM/MAGNESIUM SUSP 30 ML UDC PO PRN (16:17)
[2021-07-07] MEDS ORDERED: ATIVAN IV ALCOHOL WITHDRAWL IV PRN (16:17)
[2021-07-07] MEDS ORDERED: PEPTAMEN 1.5 CAL 1,000 ML BAG PO SCH (16:17)
[2021-07-07] MEDS ORDERED: LACTATED RINGER'S 1,000 ML IV SCH (16:17)
[2021-07-07] MEDS ORDERED: ONDANSETRON 4 MG OD TAB PO PRN (16:17)
[2021-07-07] MEDS: FOLIC ACID 1 MG in SYRINGE 9.8 ML IV SCH (17:11)
[2021-07-07] MEDS: cefTRIAXone SODIUM 1,000 MG in DEXTROSE 5% 50 ML IV SCH (17:11)
[2021-07-07] MEDS: THIAMINE HCL 100 MG in SYRINGE 9 ML IV SCH (17:11)
[2021-07-07] MEDS: MoRPHine SULFATE 2 MG/ML CARP IV PRN (17:19)
[2021-07-07] MEDS: ONDANSETRON INJ 2 MG/ML 2 ML VIAL IV PRN (17:20)
[2021-07-07] MEDS: PEPTAMEN 1.5 CAL 1,000 ML BAG GT SCH (18:11)
[2021-07-07] MEDS: PANCREAZE (LIPASE 10,500U) CAP PO SCH ×2 (18:11→21:52)
[2021-07-07] MEDS: TUBE FEEDING WATER FLUSH GT SCH ×3 (18:12→23:49)
[2021-07-07] MEDS ORDERED: LORazepam 1 MG TAB PO STA (20:08)
[2021-07-07] MEDS ORDERED: ONDANSETRON 4 MG OD TAB PO STA (21:17)
[2021-07-07] MEDS ORDERED: oxyCODONE HCL IR 5 MG TAB (IMMEDIATE RELEASE) PEG STA (21:27)
[2021-07-07] MEDS ORDERED: cefTRIAXone SODIUM 350 MG/ML IM IM ONE (21:27)
[2021-07-07] MEDS ORDERED: PANTOprazole 40 MG TAB PEG SCH (21:30)
[2021-07-07] MEDS ORDERED: FAMOTIDINE 20 MG TAB PO SCH (21:30)
[2021-07-07] MEDS: LORazepam 1 MG TAB PO PRN ×2 (21:52→22:45)
[2021-07-07] MEDS: PANTOprazole 40 MG in SYRINGE 0 ML IV SCH (21:52)
[2021-07-07] MEDS: FAMOTIDINE 20 MG in SYRINGE 3 ML IV SCH (21:52)
[2021-07-07] MEDS ORDERED: cefTRIAXone SODIUM 1,000 MG in SYRINGE 0 ML IM SCH (22:00)
[2021-07-07] MEDS: ENOXAPARIN INJ 40 MG/0.4 ML SYR SQ SCH (22:47)
[2021-07-08] MEDS ORDERED: PROMETHAZINE HCL 12.5 MG SUPP PR PRN (00:40)
[2021-07-08] MEDS: TUBE FEEDING WATER FLUSH GT SCH ×6 (01:20→21:10)
[2021-07-08] MEDS: LORazepam 1 MG TAB PO PRN (01:31)
[2021-07-08] MEDS: MoRPHine SULFATE 2 MG/ML CARP IV PRN ×4 (03:18→23:02)
[2021-07-08] MEDS: LORazepam 2 MG/1 ML VIAL IV PRN ×14 (03:18→23:03)
[2021-07-08] MEDS: ONDANSETRON INJ 2 MG/ML 2 ML VIAL IV PRN ×2 (04:12→12:19)
[2021-07-08 07:40] LABS: Albumin Globulin Ratio 0.7 (0.9-2); Albumin Level 3.1 gm/dl (3.4-5.0); BUN Creatinine Ratio 5.8 (10-20); Bilirubin,Total 1.2 mg/dl (0.2-1.0); Calcium 8.6 mg/dl (8.5-10.1); Creatinine Clr Calc Pharmacy 130.4 ml/min; Est GFR (African American) 143.5 ml/min; Est GFR (Non-African American) 123.8 ml/min; Globulin 4.4 gm/dl (2.5-4.0); Magnesium 1.8 mg/dl (1.7-2.4); Phosphorus 3.3 mg/dl (2.5-4.9); Potassium 3.1 mmol/L (3.5-5.1); Total Protein 7.5 gm/dl (6.0-8.3)
[2021-07-08] MEDS: PANTOprazole 40 MG in SYRINGE 0 ML IV SCH ×3 (07:52→21:16)
[2021-07-08] MEDS: FAMOTIDINE 20 MG in SYRINGE 3 ML IV SCH ×3 (07:52→21:16)
[2021-07-08] MEDS: FOLIC ACID 1 MG in SYRINGE 9.8 ML IV SCH ×2 (07:53→09:32)
[2021-07-08] MEDS: THIAMINE HCL 100 MG in SYRINGE 9 ML IV SCH ×2 (07:54→09:04)
--- NOTE | 2021-07-08 08:29 | Hospitalist Progress Note ---
Date of Service July 08, 2021 Assessment & Plan (1) Alcohol use disorder, moderate, dependence: Plan: Perla is a 36-year-old female with a past medical history of alcohol dependence, pancreatitis, tobacco use, gastrostomy tube placement, chronic back pain who presented in acute alcohol withdrawal after being abstinent for 48 hours and was found to be tachycardic and hypertensive on admission. Alcohol use disorder with acute withdrawal, history of alcoholic hepatitis - Midmorning patient does express that she would like to leave AGAINST MEDICAL ADVICE. She has a history of leaving AMA in the past in association with alcohol withdrawal, she reports she has had seizures in the past. Patient does verbalize an understanding that once in alcohol withdrawal the symptoms can be treated, but the withdrawal itself cannot be reversed and has to be supported through the process with time and symptom support. Treatment with benzodiazepines and resuming alcohol will not necessarily prevent DTs or seizure once in withdrawal. Patient expresses that if she goes home she could easily have another seizure tonight which could be life-threatening or fatal, and patient does express that she would probably go home to drink. She has capacity to leave AMA at time of assessment fortunately she is agreeable to staying for continued care at this time - Patient has seen psychiatry in the past, and psychiatry was initially ~patient request. Did discuss her case with Dr. Brown who saw her at bedside. Patient does have decision-making capacity to leave AMA, as she expresses understanding of her medical condition, the risks of nontreatment, and the risks as outlined above but is now agreeable to staying for ongoing medical treatment. Is not 302 at this time. On admission received banana bag, 3 mg lorazepam, 1 mg hydromorphone for back pain Patient is intolerant of gabapentin in the past due to nausea Oral benzodiazepines were not able to be tolerated in ER due to vomiting Patient requesting psych consultation, consultation placed Unable to tolerate p.o. initiate Librium taper at admission currently persistent vomiting with any G-tube flush and gastroenterology consulted for potential endoscopy on admission, consultation pending Unable to take diltiazem 120. Toprol every 4 hours IV as needed for breakthrough AWSS: Patient routinely scoring 89 on scale, received approximately 24 mg over 24 hours. Patient reports allergy to gabapentin in the past, reports had an adverse reaction to this and does not qualify this further Patient unable to tolerate pills at this time, discussed with pharmacy if Librium can be given through PEG. Pending callback Moved to PCU for close monitoring, if would continue to worsen through withdrawal may require ICU level of care. Would prefer to have on Librium protocol if possible, primacy looking into when this can be done through G-tube. Continue thiamine, high risk thiamine 3 times daily taper down to 100 daily protocol deferred as patient very agitated with recurrent IVs, reasonable to continue normal supplementation 100 mg daily at this time after additional repletion Patient has declined residential treatment/alcohol rehab and medical assisted therapy. Reports he is not interested in naltrexone or can proceed at this time, but is aware these are options open to her for outpatient treatment when she is through withdrawal. No SI, stable from a psychiatric standpoint although is an active alcohol withdrawal at this time and requires ongoing inpatient treatment of withdrawal (2) Chronic alcoholic liver disease: Plan: GI consulted supportive care for alcoholic liver disease, alcohol withdrawal, nutritional support. PEG tube management as per below. Madrey score 13, no indication for steroids at this time CT consistent with alcoholic hepatitis and inactive chronic pancreatitis with atrophy Appreciate recommendations (3) Chronic pancreatitis: Plan: Lipase of 9 on admission CTa/P 07/07/21: Gastrostomy tube in place, no SBO, bladder wall circumferentially thickened. Hepatomegaly and severe hepatic steatosis, evidence of chronic pancreatitis Clears, n.p.o. if worsening mental status or concern for aspiration Nutrition consulted (4) Asthma: Plan: History of intrinsic asthma Continue Spiriva, singular/Symbicort/formulary conversion No smoking in previous 2 months, previously with tobacco use regularly. No mushtaq otine patch required admission (5) Gastrostomy tube in place: Plan: Continue Creon With history of gastritis no esophagitis likely related to alcohol intake To 10 cc/h per prior nutrition assessment Albumin 3.3 on admission Received magnesium supplementation in ER Nausea management GI consulted, have seen before, appreciate recommendations. Drainage appreciated rate around feeding tube which was cultured, no signs of cellulitis surrounding. Agree with nutrition evaluation. (6) Abnormal urinalysis: Plan: Abnormal UA on admission, CT scan consistent with cystitis Patient with clinical dysuria 1 g Rocephin empiric for UTI, UC pending. Pinpoint growth Reekie banding, continue empiric treatment for now (7) DVT prophylaxis: Plan: Patient did have a Nunes associated upper extremity DVT in the past. She is no longer taking Eliquis at this time. Lovenox on 07/08/2021 (8) Alcoholic hepatitis: Plan: As above Plan: Acute alcohol withdrawal management Psych consulted at patient request for alcohol dependence Electrolyte management, BMP trend as needed Tube feeds as tolerated, antiemetics, GI consulted Admission and Anticipated Discharge Date Admission Date: July 07, 2021 Subjective Patient has been seen multiple times throughout the day. Per nursing report patient did cut/attempted cut her PEG tube distally last night. At bedside assessment patient is oriented to place, date, and name and does answer questions appropriately but is agitated. No tremor at time of morning assessment, but patient has had consistent CIWA scoring 8 requiring persistent high doses of Ativan overnight and throughout the day. Midmorning patient does express that she would like to leave AGAINST MEDICAL ADVICE. She has a history of leaving AMA in the past in association with alcohol withdrawal, she reports she has had seizures in the past.. Patient does verbalize an understanding that once in alcohol withdrawal the symptoms can be treated, but the withdrawal itself cannot be reversed and has to be supported through the process with time and symptom support. Treatment with benzodiazepines and resuming alcohol will not necessarily prevent DTs or seizure once in withdrawal. Patient expresses that if she goes home she could easily have another seizure tonight which could be life-threatening or fatal. Patient does express that she has not tolerated gabapentin for withdrawal in the past, not specify further. Patient has seen psychiatry in the past, and psychiatry was initially ~patient request. Did discuss her case with Dr. Brown who saw her at bedside. Patient does have decision-making capacity to leave AMA, as she expresses understanding of her medical condition, the risks of nontreatment, and the risks as outlined above but is now agreeable to staying for ongoing medical treatment. Noted below in assessment and plan. Review of Systems 2 Review of Systems: All systems reviewed & are unremarkable except as noted in Subjective Physical Exam Physical Exam: General: A&Ox3. No resting tremor, but appears agitated. No diaphoresis. Agitated, but follows commands and answers questions appropriately. Not responding to internal stimuli, denies SI/HI visual hallucinations and auditory hallucinations HEENT: Atraumatic, normocephalic. Visual acuity and hearing grossly intact Pulm: CTAB A&P. -wheezes, -rales, -rhonchi. Symmetrical chest rise. No increased work of breathing. No respiratory distress. Cardiac: Regular, tachycardic, -mrg. Radial pulses intact and symmetrical. Abdominal: Nontender, nondistended, soft. BS present. Extremities: Moving all extremities equally, does walk around the room. Distal extremity strength grossly intact, patient not cooperative with full strength exam. No resting tremor or asterixis on arm extension. Results & Data Results & Data ([facility] [place]) Vital Signs (Past 12 Hours) Vital Signs Temp Pulse Pulse Resp BP Pulse Ox 07/08/21 07:17 36.7 C 101 H 15 144/103 H 98 07/08/21 06:16 92 H 07/08/21 06:09 36.9 C 108 H 18 142/102 H 92 07/08/21 05:00 36.8 C 90 18 138/89 99 07/08/21 04:00 36.5 C 84 18 135/100 98 07/08/21 03:18 36.7 C 110 H 18 141/71 H 94 07/08/21 01:17 36.8 C 120 H 22 156/120 H 100 07/08/21 00:02 36.8 C 110 H 18 125/68 92 07/07/21 23:34 116 H 07/07/21 23:00 36.6 C 95 H 18 141/97 H 99 07/07/21 22:45 36.8 C 110 H 18 140/88 92 07/07/21 21:51 36.7 C 88 18 150/72 H 99 PG Care Time/CCT Total # of Minutes Spent Total Time Spent with Patient: Total time spent is greater than 50% in coordination of care (as documented) at patient's floor/unit and/or counseling patient: Coding Level of Care Code 98472 Subseq Hosp Care Lvl 3 Diagnoses Alcohol use disorder, moderate, dependence F10.20 Chronic pancreatitis K86.1 Asthma J45.[address] Z93.1 Abnormal urinalysis R82.90 DVT prophylaxis Z29.9 Alcoholic hepatitis K70.10 Chronic alcoholic liver disease K70.9
--- NOTE | 2021-07-08 08:39 | Gastrointestinal Consultation ---
Date of Consultation July 08, 2021 Assessment & Plan (1) Chronic pancreatitis: Alcoholic hepatitis: The patient has a history of significant alcoholism. She has abstained from alcohol the 2 days prior to her admission. Total bilirubin 1.2, AST 49, alk phos 390, ALT 16 this morning. When she was admitted last at [facility] her labs were on 06/07/2021 59 ALT, 1.4 total bili, alk phos 505, AST 498. These labs 06/14/2021 were ALT 7, total bilirubin 0.5, alk phos 196, AST 24. Current findings are consistent with alcoholic hepatitis. Recommend supportive care measures. Abstinence from alcohol. Referral for drug and alcohol counseling/treatment. Abdominal pain: Acute exacerbation of chronic symptoms. Patient does have a history of chronic pancreatitis from alcohol abuse. Normal lipase with no acute pancreatitis noted on imaging. Supportive care measures at this time. Nausea and vomiting: Acute exacerbation of chronic symptoms. Patient has previous history of gastroparesis. Most recent gastric emptying study obtained while inpatient at [facility] 05/2021 demonstrated normal gastric emptying. Recommend supportive care measures including IV fluids and nausea medication. Patient does chronically use marijuana at home and this may be contributing to her symptoms. Chronic gastritis: Related to alcohol intake. Patient has history of esophagitis and gastritis. Current medication regimen of pantoprazole IV and Pepcid IV both twice daily. Recommend continuing current regimen. She has no complaints of melena or hematemesis at this time. Would defer EGD at this time due to current comorbidities. Supportive care measures and continue to monitor closely. Drainage around feeding tube: Patient has noted increased drainage around her feeding tube. It was most recently changed to [facility] about a month ago for a low-profile feeding tube. Area was cultured today. Drainage is purulent and thick but no redness or area of abscess is noted. Malnutrition: Chronic. Patient is current patient of [facility]. She has had difficulty managing increased tube feedings due to abdominal pain, nausea, vomiting. Recommend nutrition evaluation to ensure that nutritional and hydration needs are being met. Case reviewed with Dr. Houston. Please refer to supervising physician addendum for further recommendations. I have spent 75 minutes of discrete time performing the activities of this visit which include but are not limited to review of the medical record, obtaining a history, physical exam, and entering information in the electronic record. (2) Abdominal pain: (3) Vomiting: (4) Alcohol dependence: Supervising Physician Co-Signing Physician Notes I interviewed and examined the patient and reviewed the medical record, with the following observations: Subjective: Ms. Byrd was awake, alert, and ambulatory on my rounds this afternoon, her main complaint was of LLQ abdominal pain Physical Examination: Alert and oriented X 3 and conversant, but with slurred speech, no asterixis, no jaundice or scleral icterus. The abdomen is flat, soft, without guarding, with localized tenderness in the LLQ without rebound tenderness, no palpable masses, no detectable hepatosplenomegaly. Minimal clear fluid drainage noted from the low profile G tube stoma, with normal skin at the stoma, no signs of local infection, abscess. Chart Review: CT done without contrast negative for any explanation for the LLQ pain, shows findings consistent with alcoholic hepatitis and fatty infiltration, inactive chronic calcific pancreatitis with pancreatic atrophy. Maddrey Discriminant Function based on admission lab testing = 13, which is well below the level at which corticosteroids would be recommended for treatment of alcoholic hepatitis. I agree with the assessment as outlined in this consultation, with the following observations: Alcoholic Hepatitis and chronic alcoholic liver disease should be added to her list of diagnoses I agree with the plan of care as outlined in this consultation, with the following changes and/or additions: The plan of care is supportive care for alcoholic liver disease, alcohol withdrawal, and nutritional support. Abstinence from alcohol is the nieto to her recovery. Prognosis is poor if she resumes alcohol use. No endoscopic intervention is indicated or planned in this case. As the supervising physician, I have spent 25 minutes of discrete time performing the activities of this consultation which include, but are not limited to, review of the medical record, obtaining a history, physical examination, and entering information into the electronic record. ANTONIO Fairchild, has reported spending 75 minutes of discrete time with the activities of the consultation. History of Present Illness Attending Physician: Agustin Lee MD History of Present Illness The patient is a 36-year-old female who presents with past medical history of alcohol abuse, history of withdrawal seizure, chronic pancreatitis attributed to alcohol abuse and abnormal ductal anatomy, gastroparesis status post GJ tube, left arm midline-associated DVT 01/2021 now on Eliquis, hypertension, COPD not on home O2, tobacco use to the emergency department 07/07/2021 with nausea, vomiting, abdominal pain, leaking around her PEG tube site. Subsequently admitted with alcohol withdrawal. The GI service was consulted for evaluation of suspected alcoholic gastritis. She is known to our service from a previous admission although she follow with [facility] for care. Record review since last admit 03/2021: (refer to prior consult note for additional history) 06/17/2021: Addiction medicine inpatient progress notes are reviewed. Patient states she is leaving AMA as weaning of opioids and benzos is doing too quickly and she is not getting adequate treatment. She was offered several drug and alcohol counseling facilities and declined. Transfer to drug and alcohol facility complicated by presence of G-tube. 06/14/2021: Retroperitoneal ultrasound was obtained and demonstrated No hydronephrosis or acute findings. Subtle findings suggestive of medullary nephrocalcinosis. 06/13/2021: Nuclear medicine gastric emptying study was obtained and demonstrated 1. Normal gastric emptying. 2. Mild esophageal activity noted on immediate imaging. Recommend correlation for possible gastroesophageal reflux, or esophageal dysmotility symptoms. 06/08/2021: Ultrasound of the abdomen was obtained and demonstrated 1. Mild hepatomegaly with hepatic steatosis. 2. Nonspecific mild extrahepatic biliary dilatation, as noted on prior examination. 3. Right kidney nephrolithiasis. 06/08/2021: MRI of the abdomen with and without contrast was obtained demonstrated 1. Mild hepatomegaly and steatosis. These findings were present since the MR examination dated 12/07/2020 and are unchanged. 2. Surgically absent gallbladder. Unchanged mild extrahepatic biliary dilatation. No evidence of choledocholithiasis, although the MRCP sequence is mildly degraded by motion artifact. 06/08/2021: Hepatology notes are reviewed from [facility] with consult for elevated transaminase in the setting of alcohol use. 06/07/2021 to 06/17/2021: Inpatient admission to [facility] patient presented for direct admission per her outpatient supervisor burling and joining, Dr. Garces, due to abdominal pain, nausea, vomiting. Patient with past medical history to include active alcohol abuse, history of withdrawal seizure, chronic pancreatitis attributed to alcohol abuse and abnormal ductal anatomy, gastroparesis status post GJ tube, left arm midline-associated DVT 01/2021 now on Eliquis, hypertension, COPD not on home O2, tobacco use. Has been able to tolerate adequate p.o. nutrition and is status post GJ tube fall 2020. She has been unable to tolerate adequate tube feeds per her report. Continues to have repeated bouts of vomiting when increasing her rate. 30 pound unintentional weight loss. Smoking marijuana daily. Some nausea relief alternating Zofran and promethazine. Pain management with Tylenol, gabapentin, Dilaudid. Hematemesis first observed early in the morning 06/12/2021. Suspected Jeri- Batista tear with nausea/vomiting/retching. Patient also has a history of gastric and duodenal ulcerations. No inpatient EGD obtained. 05/09/2021: Upper GI endoscopy was performed to exchange PEG-J due to malfunctioning gastrostomy tube. Exchange of existing PEG-J for 22 [place] by 3.5 cm low-profile [place] tube 04/11/2021: EGD notes are reviewed for replacement of PEG J-tube due to malfunctioning gastrostomy tube. J part of the old PEG-J was in the stomach. This was replaced with a new 22 [place] PEG J. On exam/interview today, the patient is lying in bed with one-to-one sitter, IV team, nursing staff at bedside. She is responding to questions appropriate but is answering questions quite slowly with her speech. Reports that her tube has been leaking with drainage noted around her abdomen. Tube leaks even when she is not putting in feedings. Has persistent constant nausea with multiple episodes of vomiting daily. Denies any hematemesis. Reports constant right upper quadrant and epigastric abdominal pain that wraps into her back. Last bowel movement was approximately 4 days ago. Denies melena or hematochezia. She reports that she has only been utilizing tube for feedings with only very minimal oral intake. All of her pills are administered via the tube. She states over the last month she has had only minimal oral intake. She drinks daily. She decided to stop drinking about 2 days prior to her admission. Has had a history of seizures in the past from alcohol withdrawal. The patient has a current smoker. She smokes 0.5 packs of cigarettes per day and has done this for last 10 years. She reports alcohol intake daily. The amount of alcohol intake varies. She reports a significant history of alcohol abuse. She does use recreational marijuana and estimates this to be about once a month. 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 She worked in [employer]. She is unmarried and has 2 children ages 11 and 15. She shares custody with children's father. Allergies Allergy/AdvReac Type Severity Reaction Status Date / Time Pertussis Vaccines Allergy Intermediate Hives Verified 07/07/21 15:00 amlodipine [From [facility]] AdvReac Intermediate LEGS SWELL Verified 07/07/21 15:00 morphine AdvReac Intermediate HALLUCINATI Verified 07/07/21 15:00 ONS Home Medications Medication Instructions Recorded Confirmed Type acetaminophen 500 mg tablet 500 mg PO TID 03/21/21 07/07/21 History albuterol sulfate 90 mcg/actuation 1 inh INHALATION Q4H PRN 03/21/21 07/07/21 History aerosol inhaler (Ventolin HFA) clonidine HCl 0.1 mg tablet 0.1 mg PO TID PRN 03/21/21 07/07/21 History diltiazem HCl 120 mg 120 mg PO DAILY 03/21/21 07/07/21 History capsule,extended release 24 hr gabapentin 100 mg capsule 300 mg PO TID 03/21/21 07/07/21 History hydromorphone 2 mg tablet 2 mg PO Q2H PRN 03/21/21 07/07/21 History lansoprazole 30 mg capsule,delayed 30 mg PO DAILY 03/21/21 07/07/21 History release ergath-xbfnezyn-ezaxwks 1 cap PO QID 03/21/21 07/07/21 History 24,000-76,000-120,000 unit capsule,delayed rel (Creon) montelukast 10 mg tablet 10 mg PO DAILY 03/21/21 07/07/21 History ondansetron 4 mg disintegrating 4 mg PO Q6H PRN 03/21/21 07/07/21 History tablet tiotropium bromide 2.5 1 inh INHALATION DAILY 03/21/21 07/07/21 History mcg/actuation mist for inhalation (Spiriva Respimat) potassium chloride 40 mEq/15 mL 40 meq PO DAILY #473 ml 03/29/21 07/07/21 Rx oral liquid prochlorperazine maleate 5 mg 5 mg PO Q12H PRN #30 tab 03/29/21 07/07/21 Rx tablet (Compazine) dextroamphetamine-amphetamine 20 20 mg PO BID 04/27/21 07/07/21 History mg tablet (Adderall) folic acid 1 mg tablet 1 mg PO DAILY 04/27/21 07/07/21 History thiamine HCl (vitamin B1) 100 mg 100 mg PEG QAM #30 tab 04/29/21 07/07/21 Rx tablet Patient History Medical History Alcohol use disorder, moderate, dependence Alcohol withdrawal Asthma Chronic back pain Gastrostomy tube in place No pertinent family history Sepsis Smoker Suicidal ideation Surgical History H/O shoulder surgery H/O wrist surgery Social History Smoking Status: Unknown if ever smoked Tobacco Type: Cigarettes Cigarettes Per Day: 12; Second Hand Exposure: No; Do You Dip or Chew Tobacco: No; Tobacco Cessation Education Requested by Patient: No Hx Alcohol Use: No Hx Substance Use: No Preferred Language: Palestinian Communication Ability: Effective Visual Impairment: No Limitations Fire Watcher Required: No Beliefs That Will Affect Care: None Current Living Situation: Parent and Family Current Living Situation Comment: Currently lives with Father and 2 children. Children's Father is involved Other Information That Helps Us Care for You: Yes (Specialist - [facility] Follows GI Problems) Feels Safe at Home: Yes Safety Concerns: Feels Safe At This Time Assistive Devices: None Review of Systems Review of Systems: All systems reviewed & are unremarkable except as noted in HPI & below Physical Exam Constitutional: WD/WN, vitals as above Respiratory: normal respiratory effort, lungs clear to auscultation Cardiovascular: Rate/Rhythm: regular rhythm Gastrointestinal (Abdomen): Inspection/Auscultation: abdomen normal to inspection, normal bowel sounds and + abdominal wall ecchymosis; abdomen not distended Percussion/Palpation: + abdomen tender (RUQ and epigastric pain) and abdomen soft; no guarding and abdomen not rigid drainage noted surrounding tube insertion site Psychiatric: Orientation: alert and oriented x 3 Results & Data ([facility]) Vital Signs (Past 12 Hours) Vital Signs Temp Pulse Pulse Resp BP Pulse Ox 07/08/21 07:17 36.7 C 101 H 15 144/103 H 98 07/08/21 06:16 92 H 07/08/21 06:09 36.9 C 108 H 18 142/102 H 92 07/08/21 05:00 36.8 C 90 18 138/89 99 07/08/21 04:00 36.5 C 84 18 135/100 98 07/08/21 03:18 36.7 C 110 H 18 141/71 H 94 07/08/21 01:17 36.8 C 120 H 22 156/120 H 100 07/08/21 00:02 36.8 C 110 H 18 125/68 92 07/07/21 23:34 116 H 07/07/21 23:00 36.6 C 95 H 18 141/97 H 99 07/07/21 22:45 36.8 C 110 H 18 140/88 92 07/07/21 21:51 36.7 C 88 18 150/72 H 99 Laboratory Results Laboratory Results - last 24 hr 07/07/21 07/07/21 07/07/21 11:40 11:54 11:54 WBC 4.95 RBC 3.76 L Hgb 12.2 Hct 36.1 L MCV 96.0 MCH 32.4 MCHC 33.8 RDW Std Deviation 59.2 H RDW Coeff of Paulina 16.7 H Plt Count 121 L MPV 11.2 H Immature Gran % (Auto) 0.2 Neut % (Auto) 64.6 Lymph % (Auto) 25.1 [place] % (Auto) 9.3 Eos % (Auto) 0.6 Baso % (Auto) 0.2 Neut # (Auto) 3.20 Lymph # (Auto) 1.24 [place] # (Auto) 0.46 Eos # (Auto) 0.03 Baso # (Auto) 0.01 Immature Gran # (Auto) 0.01 PT INR APTT PTT Ratio Sodium 136 Potassium 3.7 Chloride 91 L Carbon Dioxide 34 H Anion Gap 11 BUN 4 L Creatinine 0.65 Est Cr Clr Drug Dosing 104.3 Est GFR ( Amer) 133.3 Est GFR (Non-Af Amer) 115.0 BUN/Creatinine Ratio 6.2 L Glucose 108 H POC Glucose Calcium 9.1 Phosphorus Magnesium 1.4 L Total Bilirubin 1.9 H AST 90 H ALT 22 Alkaline Phosphatase 478 H Total Protein 8.2 Albumin 3.3 L Globulin 4.9 H Albumin/Globulin Ratio 0.7 L Lipase 9 L HCG, Qual Urine Color Dark Yellow Urine Appearance Clear Urine pH >= 9.0 H Ur Specific [place] 1.022 Urine Protein 2+ H Urine Glucose (UA) Negative Urine Ketones Trace H Urine Blood Negative Urine Nitrite Positive A Urine Bilirubin Negative Urine Urobilinogen Negative Ur Leukocyte Esterase Trace H Urine WBC (Auto) 1-5 Urine RBC (Auto) 0-4 U Hyaline Cast (Auto) 1-5 U Epithel Cells (Auto) >30 H Urine Bacteria (Auto) 2+ H Ur Renal Epithelial Cell Not Reportable Ethyl Alcohol mg/dL SARS-CoV-2, RNA, NAAT 07/07/21 07/07/21 07/07/21 11:54 11:54 11:54 WBC RBC Hgb Hct MCV MCH MCHC RDW Std Deviation RDW Coeff of Paulina Plt Count MPV Immature Gran % (Auto) Neut % (Auto) Lymph % (Auto) [place] % (Auto) Eos % (Auto) Baso % (Auto) Neut # (Auto) Lymph # (Auto) [place] # (Auto) Eos # (Auto) Baso # (Auto) Immature Gran # (Auto) PT 14.5 H INR 1.4 H APTT 26.9 PTT Ratio 1.0 Sodium Potassium Chloride Carbon Dioxide Anion Gap BUN Creatinine Est Cr Clr Drug Dosing Est GFR ( Amer) Est GFR (Non-Af Amer) BUN/Creatinine Ratio Glucose POC Glucose Calcium Phosphorus Magnesium Total Bilirubin AST ALT Alkaline Phosphatase Total Protein Albumin Globulin Albumin/Globulin Ratio Lipase HCG, Qual Negative Urine Color Urine Appearance Urine pH Ur Specific [place] Urine Protein Urine Glucose (UA) Urine Ketones Urine Blood Urine Nitrite Urine Bilirubin Urine Urobilinogen Ur Leukocyte Esterase Urine WBC (Auto) Urine RBC (Auto) U Hyaline Cast (Auto) U Epithel Cells (Auto) Urine Bacteria (Auto) Ur Renal Epithelial Cell Ethyl Alcohol mg/dL < 10.0 SARS-CoV-2, RNA, NAAT 07/07/21 07/08/21 07/08/21 12:45 00:08 06:18 WBC RBC Hgb Hct MCV MCH MCHC RDW Std Deviation RDW Coeff of Paulina Plt Count MPV Immature Gran % (Auto) Neut % (Auto) Lymph % (Auto) [place] % (Auto) Eos % (Auto) Baso % (Auto) Neut # (Auto) Lymph # (Auto) [place] # (Auto) Eos # (Auto) Baso # (Auto) Immature Gran # (Auto) PT INR APTT PTT Ratio Sodium 135 L Potassium 3.1 L Chloride 97 L Carbon Dioxide 29 Anion Gap 9 BUN 3 L Creatinine 0.52 L Est Cr Clr Drug Dosing 130.4 Est GFR ( Amer) 143.5 Est GFR (Non-Af Amer) 123.8 BUN/Creatinine Ratio 5.8 L Glucose 102 H POC Glucose 115 H Calcium 8.6 Phosphorus 3.3 Magnesium 1.8 Total Bilirubin 1.2 H AST 49 H ALT 16 Alkaline Phosphatase 390 H Total Protein 7.5 Albumin 3.1 L Globulin 4.4 H Albumin/Globulin Ratio 0.7 L Lipase HCG, Qual Urine Color Urine Appearance Urine pH Ur Specific [place] Urine Protein Urine Glucose (UA) Urine Ketones Urine Blood Urine Nitrite Urine Bilirubin Urine Urobilinogen Ur Leukocyte Esterase Urine WBC (Auto) Urine RBC (Auto) U Hyaline Cast (Auto) U Epithel Cells (Auto) Urine Bacteria (Auto) Ur Renal Epithelial Cell Ethyl Alcohol mg/dL SARS-CoV-2, RNA, NAAT NEGATIVE 07/08/21 06:20 WBC RBC Hgb Hct MCV MCH MCHC RDW Std Deviation RDW Coeff of Paulina Plt Count MPV Immature Gran % (Auto) Neut % (Auto) Lymph % (Auto) [place] % (Auto) Eos % (Auto) Baso % (Auto) Neut # (Auto) Lymph # (Auto) [place] # (Auto) Eos # (Auto) Baso # (Auto) Immature Gran # (Auto) PT INR APTT PTT Ratio Sodium Potassium Chloride Carbon Dioxide Anion Gap BUN Creatinine Est Cr Clr Drug Dosing Est GFR ( Amer) Est GFR (Non-Af Amer) BUN/Creatinine Ratio Glucose POC Glucose 120 H Calcium Phosphorus Magnesium Total Bilirubin AST ALT Alkaline Phosphatase Total Protein Albumin Globulin Albumin/Globulin Ratio Lipase HCG, Qual Urine Color Urine Appearance Urine pH Ur Specific [place] Urine Protein Urine Glucose (UA) Urine Ketones Urine Blood Urine Nitrite Urine Bilirubin Urine Urobilinogen Ur Leukocyte Esterase Urine WBC (Auto) Urine RBC (Auto) U Hyaline Cast (Auto) U Epithel Cells (Auto) Urine Bacteria (Auto) Ur Renal Epithelial Cell Ethyl Alcohol mg/dL SARS-CoV-2, RNA, NAAT Diagnostic Findings Abdomen/Pelvis CT 07/07/21 10:37 CT SCAN OF THE ABDOMEN AND PELVIS WITHOUT IV CONTRAST CLINICAL HISTORY: Vomiting. COMPARISON STUDY: Abdominal CT dated 03/21/2021. TECHNIQUE: CT scan of the abdomen and pelvis is performed from the lung bases to the proximal femora. Images are reviewed in the axial, sagittal, and coronal planes. IV contrast was not administered for this examination. Note that the examination is suboptimal without oral and IV contrast. A dose lowering technique was utilized adhering to the principles of ALARA. CT DOSE: 272.17 mGy.cm FINDINGS: Lung bases: The heart is normal in size and without pericardial effusion. The lung bases are clear. Liver: The unenhanced liver is enlarged, measuring 20.2 cm in length. The liver demonstrates diffusely diminished attenuation consistent with severe hepatic steatosis. There is no intrahepatic biliary ductal dilatation. Gallbladder: Surgically absent noting clips in the gallbladder fossa. Spleen: Normal in size and attenuation. Pancreas: The unenhanced pancreas is moderately atrophic. Parenchymal calcifications indicate chronic pancreatitis. Adrenal glands: Unremarkable. Kidneys: The unenhanced kidneys are normal in size and without hydronephrosis. There are no renal calculi identified. There is no evidence of contour deforming renal mass lesion. A subcentimeter complex/hyperdense cyst is seen in the upper pole of the right kidney on image #111. Abdominal vasculature: The abdominal aorta is normal in course and caliber. Stomach and bowel: A percutaneous gastrostomy is in place. The stomach and duodenum are normal in configuration. No bowel obstruction is identified. The appendix is well-visualized and normal. Peritoneum: There is no intraperitoneal free air or abdominal ascites. There is a fat-containing periumbilical hernia. Lymphadenopathy: None. Pelvic viscera: The bladder wall appears circumferentially thickened. The uterus is normal as visualized. Bilateral ovarian follicles are incidentally noted. Skeletal structures: No lytic or blastic lesions are seen. IMPRESSION: 1. Suboptimal examination without oral and IV contrast. 2. A cutaneous gastrostomy tube is in place. There is no bowel obstruction. 3. The bladder wall appears circumferentially thickened. Correlate with clinical findings and urinalysis. 4. Hepatomegaly and severe hepatic steatosis. 5. There is evidence of chronic pancreatitis. 6. Additional findings as above. ACT 112: Negative or not required by law. Electronically signed by: Jc Ta M.D. 07/07/2021 1:36 PM (1) Alcohol dependence Substance use status: unspecified alcohol-induced disorder Qualified Code(s): F10.29 - Alcohol dependence with unspecified alcohol-induced disorder (2) Chronic pancreatitis Pancreatitis type: other Qualified Code(s): K86.1 - Other chronic pancreatitis (3) Abdominal pain Abdominal location: generalized Qualified Code(s): R10.84 - Generalized abdominal pain (4) Vomiting Nausea presence: with nausea Vomiting type: unspecified Qualified Code(s): R11.2 - Nausea with vomiting, unspecified
[2021-07-08] MEDS: FLUTICASONE/VILANTEROL 200/25MCG 14 PUFFS/INHALER INH SCH (09:04)
[2021-07-08] MEDS: UMECLIDINIUM BROMIDE 62.5MCG/BLISTER 7 PUFFS/INHALER INH SCH (09:05)
[2021-07-08] MEDS: POTASSIUM CHLORIDE / WTR 10 MEQ/100 ML PLCT IV SCH ×4 (09:32→13:47)
[2021-07-08] MEDS: PANCREAZE (LIPASE 10,500U) CAP PO SCH ×4 (10:38→21:10)
[2021-07-08] MEDS: MULTI VIT W/MINERALS LIQUID 15 ML UDP GT SCH (10:38)
[2021-07-08] MEDS: FOLIC ACID 1 MG TAB PO SCH (10:38)
[2021-07-08] MEDS: MONTELUKAST SODIUM 10 MG TABLET PO SCH (12:23)
--- NOTE | 2021-07-08 13:54 | Psychiatric Consultation ---
Date of Consultation July 08, 2021 Impression / Recommendations Impression Diagnostically consistent with alcohol use disorder. At this point risk of harm to self and others is slightly increased, even with denial of SI and denial of any mood symptoms, due to substance use with substance use treatment being the most significant modifiable risk factor to reduce acute and chronic risk. They do not meet criteria for inpatient psychiatric treatment at this time rather recommendation is for residential substance use treatment. They are not interested in residential treatment at this time. Reviewed recommendations if not willing for residential including outpatient services to help with substance use and medication assisted treatment which she will consider. She is felt to have decision making capacity to leave AMA should she decide to do this given no evidence for acute encephalopathy, no abhi, no psychosis and can communicate a choice, understands information hospitalist discussed with her (re: seizures, ), appreciates consequences including potential fatality, and can manipulate relevant information. (1) Alcohol use disorder, severe, dependence: (2) Chronic pancreatitis: Pancreatitis type: other Qualified Code(s): K86.1 - Other chronic pancreatitis -She does have decision making capacity to leave AMA, encouragingly she is now stating she is agreeable to ongoing medical treatment -Continue AWSS as well as thiamine and folic acid -Residential treatment is recommendation should she decide she is open to this, declining currently -As she becomes more medically stable could consider MAT: either naltrexone 50mg qd if her AST normalizes/doesn't trend up and if she is not concurrent opioids (which she gets intermittently for back pain) OR preferably acamprosate 333mg TID if Cr/renal ok -If she declines residential and becomes interested in IOP or outpatient substance use treatment please contact psychiatric liason who can discuss referral options with her -Safe for discharge from psychiatric standpoint once medically stable Risk Factors Assessment Male: No : Yes Do You Have Access To A Gun?: No Health Problems: Yes Mental Health Diagnoses: Yes Substance Use Disorders: Yes Previous Attempt: No Family History of Suicide: No Previous Psychiatric Hospitalization: No Hopelessness: No Protective Factors Assessment Stable Relationships: Yes Supportive Family: Yes Psych History Identifying Data 36 yo woman 3with history of alcohol use disorder, chronic pancreatitis, chronic back pain, gastrostomy tube, ADHD and alcohol use disorder admitted medically for supervised alcohol withdrawal and stomach pain related to her G-tube. Psychiatry was consulted for decision making capacity about leaving AMA and recommendations. Chief Complaint "I agreed to stay". History of Present Illness Perla is known to me from a prior assessment for alcohol use in April 2021. She has been making some statements at times of considering leaving AMA. Today she is fully oriented during my assessment with exception of thinking it is July 16 instead of July 08. She states she intends to stay in the hospital for treatment. States if she were to leave she could start alcohol again, could go into withdrawal if she didn't and have a seziure and potentially . States she could call 911 if this occurred or return to ED but also states she understands potentially she wouldn't have the option of doing this and then could . Denies any depressive or anxious symptoms. States she drinks about a case of beer per day and does so "when I'm bored, because it's fun and to socialize". She is not interested in residential treatment but discussed this is my strong recommendation and stated she'll consider this. Also discussed MAT and IOP recommendations which she states she'll consider. Past Psychiatric History Do You Have Access To A Gun?: No History of Previous Suicide Attempt: No Allergies Allergy/AdvReac Type Severity Reaction Status Date / Time Pertussis Vaccines Allergy Intermediate Hives Verified 07/07/21 15:00 amlodipine [From [facility]] AdvReac Intermediate LEGS SWELL Verified 07/07/21 15:00 morphine AdvReac Intermediate HALLUCINATI Verified 07/07/21 15:00 ONS Home Medications Medication Instructions Recorded Confirmed Type acetaminophen 500 mg tablet 500 mg PO TID 03/21/21 07/07/21 History albuterol sulfate 90 mcg/actuation 1 inh INHALATION Q4H PRN 03/21/21 07/07/21 History aerosol inhaler (Ventolin HFA) clonidine HCl 0.1 mg tablet 0.1 mg PO TID PRN 03/21/21 07/07/21 History diltiazem HCl 120 mg 120 mg PO DAILY 03/21/21 07/07/21 History capsule,extended release 24 hr gabapentin 100 mg capsule 300 mg PO TID 03/21/21 07/07/21 History hydromorphone 2 mg tablet 2 mg PO Q2H PRN 03/21/21 07/07/21 History lansoprazole 30 mg capsule,delayed 30 mg PO DAILY 03/21/21 07/07/21 History release [id number] 1 cap PO QID 03/21/21 07/07/21 History 24,000-76,000-120,000 unit capsule,delayed rel (Creon) montelukast 10 mg tablet 10 mg PO DAILY 03/21/21 07/07/21 History ondansetron 4 mg disintegrating 4 mg PO Q6H PRN 03/21/21 07/07/21 History tablet tiotropium bromide 2.5 1 inh INHALATION DAILY 03/21/21 07/07/21 History mcg/actuation mist for inhalation (Spiriva Respimat) potassium chloride 40 mEq/15 mL 40 meq PO DAILY #473 ml 03/29/21 07/07/21 Rx oral liquid prochlorperazine maleate 5 mg 5 mg PO Q12H PRN #30 tab 03/29/21 07/07/21 Rx tablet (Compazine) dextroamphetamine-amphetamine 20 20 mg PO BID 04/27/21 07/07/21 History mg tablet (Adderall) folic acid 1 mg tablet 1 mg PO DAILY 04/27/21 07/07/21 History thiamine HCl (vitamin B1) 100 mg 100 mg PEG QAM #30 tab 04/29/21 07/07/21 Rx tablet Substance Abuse History ~12 beers per day sometimes via G-tube Personal History Living Arrangements: Home Highest Grade Completed: High School Graduate Employment Status: Unemployed Beliefs That Will Affect Care: None Patient History Medical History Alcohol use disorder, moderate, dependence Alcohol withdrawal Asthma Chronic back pain Gastrostomy tube in place No pertinent family history Sepsis Smoker Suicidal ideation Surgical History H/O shoulder surgery H/O wrist surgery Social History Smoking Status: Unknown if ever smoked Tobacco Type: Cigarettes Cigarettes Per Day: 12; Second Hand Exposure: No; Do You Dip or Chew Tobacco: No; Tobacco Cessation Education Requested by Patient: No Hx Alcohol Use: No Hx Substance Use: No Preferred Language: Maori Communication Ability: Effective Visual Impairment: No Limitations 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 Children's Father is involved Other Information That Helps Us Care for You: Yes (Specialist - [facility] Follow[facility] GI Problems) Feels Safe at Home: Yes Safety Concerns: Feels Safe At This Time Assistive Devices: None Physical Exam Psychiatric: Orientation: alert and oriented x 3 Apperance: appropriately dressed and appropriately groomed Eye Contact: good eye contact Motor Behavior: no abnormal motor movements Speech: normal rate/rhythm/volume of speech Affect: + constricted affect Mood: no depressed mood and no anxious mood Thought Process: goal directed thought process Thought Content: re ality based without delusions Suicidal Thoughts: denies suicidal thoughts Homicidal Thoughts: denies homicidal thoughts Hallucinations: no auditory hallucinations and no visual hallucinations Cognition: recent memory grossly intact, remote memory grossly intact, attention grossly intact and language grossly intact Estimated Intelligence: consistent with education level Insight: + limited insight Judgement: + limited judgement Vital Signs (Past 24 Hours): Last Vital Signs Temp 36.8 C 07/08/21 12:06 Pulse 85 07/08/21 12:06 Resp 18 07/08/21 12:06 BP 135/94 07/08/21 12:06 Pulse Ox 98 07/08/21 12:06 Review of Systems All systems reviewed & are unremarkable except as noted in HPI & below (endorses shakiness and chronic back pain) Results & Data (PSY) Laboratory Results elevated AST and alk phos Medications Administered Lipase/Protease/Amylase (Pancreaze (Lipase 10,500u) Cap) 2 cap PO QID AGNES Stop: 08/06/21 16:59 Last Admin: 07/08/21 12:34 Dose: Not Given Documented by: [id number] Admin: 07/08/21 10:38 Dose: Not Given Documented by: [id number] Admin: 07/07/21 21:52 Dose: Not Given Documented by: [id number] Admin: 07/07/21 18:11 Dose: Not Given Documented by: [id number] Enoxaparin Sodium (Enoxaparin Inj 40 Mg/0.4 Ml Syr) 40 mg SQ Q24H AGNES Stop: 08/06/21 20:59 Last Admin: 07/07/21 22:47 Dose: 40 mg Documented by: [id number] Enteral Nutritional Formula (Peptamen 1.5 Ryan 1,000 Ml Bag) 1,000 ml GT DAILY@1700 AGNES; Protocol Stop: 08/06/21 16:59 Last Admin: 07/07/21 18:11 Dose: 1,000 ml Documented by: [id number] Fluticasone/Vilanterol (Fluticasone/Vilanterol 200/25mcg 14 Puffs/Inhaler) 1 puffs INH DAILY PENDING SALE TO [facility]; Protocol Stop: 08/07/21 08:59 Last Admin: 07/08/21 09:04 Dose: 1 puffs Documented by: [id number] Folic Acid (Folic Acid 1 Mg Tab) 1 mg PO DAILY AGNES Stop: 08/07/21 08:59 Last Admin: 07/08/21 10:38 Dose: Not Given Documented by: [id number] Pantoprazole Sodium 40 mg/ (Syringe) 10 mls @ 5 mls/min IV BID PENDING SALE TO [facility] Stop: 08/06/21 20:59 Last Admin: 07/08/21 09:32 Dose: 5 mls/min Documented by: [id number] Admin: 07/07/21 21:52 Dose: Not Given Documented by: [id number] Thiamine HCl 100 mg/ Syringe 10 mls @ 2 mls/min IV QAM PENDING SALE TO [facility] Stop: 08/06/21 16:44 Last Admin: 07/08/21 09:04 Dose: 2 mls/min Documented by: [id number] Admin: 07/07/21 17:11 Dose: 2 mls/min Documented by: [id number] Folic Acid 1 mg/ Syringe 10 mls @ 5 mls/min IV QAM PENDING SALE TO [facility] Stop: 08/06/21 16:44 Last Admin: 07/08/21 09:32 Dose: 5 mls/min Documented by: [id number] Admin: 07/07/21 17:11 Dose: 5 mls/min Documented by: [id number] Famotidine 20 mg/ Syringe 5 mls @ 2.5 mls/min IV BID AGNES Stop: 08/06/21 20:59 Last Admin: 07/08/21 09:03 Dose: 2.5 mls/min Documented by: [id number] Admin: 07/07/21 21:52 Dose: Not Given Documented by: [id number] Ceftriaxone Sodium 1,000 mg/ (Dextrose) 50 mls @ 100 mls/hr IV Q24H PENDING SALE TO [facility]; Protocol Stop: 07/12/21 16:59 Last Infusion: 07/08/21 04:54 Dose: 0 mls/hr Documented by: [id number] Infusion: 07/08/21 03:51 Dose: 50 mls/hr Documented by: [id number] Infusion: 07/08/21 03:28 Dose: 50 mls/hr Documented by: [id number] Infusion: 07/07/21 17:15 Dose: 0 mls/hr Documented by: [id number] Admin: 07/07/21 17:11 Dose: 100 mls/hr Documented by: [id number] Lorazepam (Lorazepam 1 Mg Tab) 1 - 3 mg PO UD PRN; Protocol PRN Reason: EtoH Withdrawal AWSS 6-10+ Stop: 08/06/21 14:33 Last Admin: 07/08/21 01:31 Dose: 2 mg Documented by: [id number] Admin: 07/07/21 22:45 Dose: 2 mg Documented by: [id number] Admin: 07/07/21 21:52 Dose: 2 mg Documented by: [id number] Lorazepam (Lorazepam 2 Mg/1 Ml Vial) 1 mg IV UD PRN; Protocol PRN Reason: EtOH Withdrawl AWSS Score 6,7 Stop: 08/06/21 14:33 Last Admin: 07/07/21 17:12 Dose: 1 mg Documented by: [id number] Lorazepam (Lorazepam 2 Mg/1 Ml Vial) 2 mg IV UD PRN; Protocol PRN Reason: EtOH Withdrawl AWSS Score 8,9 Stop: 08/06/21 14:33 Last Admin: 07/08/21 12:20 Dose: 2 mg Documented by: [id number] Admin: 07/08/21 10:33 Dose: 2 mg Documented by: [id number] Admin: 07/08/21 07:37 Dose: 2 mg Documented by: [id number] Admin: 07/08/21 06:08 Dose: 2 mg Documented by: [id number] Admin: 07/08/21 05:12 Dose: 2 mg Documented by: [id number] Admin: 07/08/21 03:18 Dose: 2 mg Documented by: [id number] Lorazepam (Lorazepam 2 Mg/1 Ml Vial) 3 mg IV ONCE PRN; Protocol PRN Reason: EtOH Withdrawl AWSS Score >=10 Stop: 08/06/21 14:33 Last Admin: 07/08/21 09:24 Dose: 3 mg Documented by: [id number] Montelukast Sodium (Montelukast Sodium 10 Mg Tablet) 10 mg PO DAILY PENDING SALE TO [facility] Stop: 08/07/21 08:59 Last Admin: 07/08/21 12:23 Dose: Not Given Documented by: [id number] Morphine Sulfate (Morphine Sulfate 2 Mg/Ml Carp) 2 mg IV Q4 PRN PRN Reason: Pain Scale: 2,3,4,5,6 Stop: 07/21/21 14:33 Last Admin: 07/08/21 03:18 Dose: 2 mg Documented by: [id number] Admin: 07/07/21 17:19 Dose: 2 mg Documented by: [id number] Multivitamins/Minerals (Multi Vit W/Minerals Liquid 15 Ml Udp) 15 ml GT QAM PENDING SALE TO [facility] Stop: 08/07/21 08:59 Last Admin: 07/08/21 10:38 Dose: Not Given Documented by: [id number] Ondansetron HCl (Ondansetron 4 Mg Od Tab) 4 mg PO Q6H PRN PRN Reason: nausea and vomiting Stop: 08/06/21 16:16 Last Admin: 07/07/21 20:21 Dose: 4 mg Documented by: [id number] Ondansetron HCl (Ondansetron Inj 2 Mg/Ml 2 Ml Vial) 4 mg IV Q6H PRN PRN Reason: Nausea Stop: 08/06/21 16:16 Last Admin: 07/08/21 12:19 Dose: 4 mg Documented by: [id number] Admin: 07/08/21 04:12 Dose: 4 mg Documented by: [id number] Admin: 07/07/21 17:20 Dose: 4 mg Documented by: [id number] Sterile Water (Tube Feeding Water Flush) 125 ml GT Q4H AGNES Stop: 08/06/21 16:59 Last Admin: 07/08/21 12:34 Dose: Not Given Documented by: [id number] Admin: 07/08/21 09:05 Dose: Not Given Documented by: [id number] Admin: 07/08/21 06:12 Dose: 125 ml Documented by: [id number] Admin: 07/08/21 01:20 Dose: Not Given Documented by: [id number] Admin: 07/07/21 23:49 Dose: Not Given Documented by: [id number] Admin: 07/07/21 18:12 Dose: 125 ml Documented by: [id number] Umeclidinium [place] (Umeclidinium [place] 62.5mcg/Blister 7 Puffs/Inhaler) 1 puffs INH DAILY AGNES; Protocol Stop: 08/07/21 08:59 Last Admin: 07/08/21 09:05 Dose: 1 puffs Documented by: [id number] Coding Level of Care Code 80425 Inpt Consult Level 3 Diagnoses Alcohol use disorder, severe, dependence F10.20 Chronic pancreatitis K86.1 Pancreatitis type: other
[2021-07-08] MEDS: METOPROLOL TARTRATE 1 MG/ML VIAL IV PRN (16:45)
[2021-07-08] MEDS: cefTRIAXone SODIUM 1,000 MG in DEXTROSE 5% 50 ML IV SCH (16:59)
[2021-07-08] MEDS: PEPTAMEN 1.5 CAL 1,000 ML BAG GT SCH (17:05)
[2021-07-08] MEDS ORDERED: NICOTINE POLACRILEX 2 MG GUM MT PRN (18:20)
[2021-07-08] MEDS: NICOTINE 21 MG/24 HR TDSY TD SCH (18:38)
[2021-07-08 19:28] LABS: BUN Creatinine Ratio 4.1 (10-20); Calcium 8.4 mg/dl (8.5-10.1); Creatinine Clr Calc Pharmacy 138.4 ml/min; Est GFR (African American) 146.3 ml/min; Est GFR (Non-African American) 126.2 ml/min; Potassium 3.7 mmol/L (3.5-5.1)
[2021-07-08] MEDS: ENOXAPARIN INJ 40 MG/0.4 ML SYR SQ SCH (21:15)
[2021-07-09] MEDS: TUBE FEEDING WATER FLUSH GT SCH ×7 (00:02→23:30)
[2021-07-09] MEDS: LORazepam 2 MG/1 ML VIAL IV PRN ×13 (00:09→15:05)
[2021-07-09] MEDS: METOPROLOL TARTRATE 1 MG/ML VIAL IV PRN ×3 (00:09→07:48)
[2021-07-09] MEDS: MoRPHine SULFATE 2 MG/ML CARP IV PRN ×4 (02:57→17:52)
[2021-07-09] MEDS: PROMETHAZINE HCL 12.5 MG in SODIUM CHLORIDE 0.9% 50 ML IV PRN ×2 (04:22→11:56)
[2021-07-09 05:34] LABS: Alanine Aminotransferase 12 U/L (7-52); Albumin Globulin Ratio 0.7 (0.9-2); Albumin Level 2.9 gm/dl (3.4-5.0); Alkaline Phosphatase 307 U/L (34-104); Anion Gap 11 (3-11); BUN Creatinine Ratio 4.1 (10-20); Bilirubin,Total 1.1 mg/dl (0.2-1.0); Blood Urea Nitrogen 2 mg/dl (6-23); Calcium 8.7 mg/dl (8.5-10.1); Carbon Dioxide 21 mmol/L (21-32); Chloride 106 mmol/L (98-107); Creatinine Clr Calc Pharmacy 138.4 ml/min; Est GFR (African American) 146.3 ml/min; Est GFR (Non-African American) 126.2 ml/min; Globulin 4.1 gm/dl (2.5-4.0); Glucose 92 mg/dl (70-99(Fasting)); Magnesium 1.7 mg/dl (1.7-2.4); Phosphorus 3.5 mg/dl (2.5-4.9); Sodium 138 mmol/L (136-145)
--- NOTE | 2021-07-09 05:40 | Communication Note ---
Date of Service: July 09, 2021 At 4:34 AM received message from RN that patient had been receiving Ativan 2 mg IV every 60 to 90 minutes since 8 PM on 07/08/2021 for AWSS scores of 8-9. At the time of the message patient was more restless and agitated. Per review of attending physician's note, consideration had been made during day shift to transition to Librium taper. I conversed with pharmacy about the possibility of administering Librium through G-tube. Pharmacist informed me that there was no information on this and that there would be no way of knowing whether the G-tube would actually tolerate administration of this med. However, we did discuss that a diazepam taper could potentially be an option. As referenced on up-to-date, a diazepam fixed taper could be an option as discussed with pharmacy, a possible regimen would be 15 mg every 6 hours x4, then 15 mg q. 8 hours x 3, then 8 mg every 8 hours x 3, then 3 mg every 12 hours x2, then stop. Received message at 5:22 AM that patient had received Ativan 2 mg for AWSS score of 13. Discussed with overnight attending and decision was made to administer a dose of diazepam 10 mg x 1, recheck AWSS score 30 minutes after dose, and if still scoring high, will administer a second 10 mg dose. Resident Activity Tracking Resident Involvement: Resident Care Provided Care Provided: Adult [facility]
[2021-07-09 06:19] LABS: Potassium 3.3 mmol/L (3.5-5.1)
[2021-07-09] MEDS: FOLIC ACID 1 MG TAB PO SCH (07:08)
[2021-07-09] MEDS: PANCREAZE (LIPASE 10,500U) CAP PO SCH ×4 (07:08→21:10)
[2021-07-09] MEDS: MONTELUKAST SODIUM 10 MG TABLET PO SCH (07:13)
[2021-07-09] MEDS: MULTI VIT W/MINERALS LIQUID 15 ML UDP GT SCH (07:13)
[2021-07-09] MEDS: PANTOprazole 40 MG in SYRINGE 0 ML IV SCH ×2 (07:48→21:09)
[2021-07-09] MEDS: ONDANSETRON INJ 2 MG/ML 2 ML VIAL IV PRN (07:48)
[2021-07-09] MEDS: FOLIC ACID 1 MG in SYRINGE 9.8 ML IV SCH (07:50)
[2021-07-09] MEDS: FAMOTIDINE 20 MG in SYRINGE 3 ML IV SCH ×2 (07:50→21:09)
[2021-07-09] MEDS: UMECLIDINIUM BROMIDE 62.5MCG/BLISTER 7 PUFFS/INHALER INH SCH (07:50)
[2021-07-09] MEDS: FLUTICASONE/VILANTEROL 200/25MCG 14 PUFFS/INHALER INH SCH (07:50)
[2021-07-09] MEDS: THIAMINE HCL 100 MG in SYRINGE 9 ML IV SCH (07:50)
[2021-07-09] MEDS: NICOTINE 21 MG/24 HR TDSY TD SCH ×2 (07:51→17:01)
--- NOTE | 2021-07-09 08:05 | Gastroenterology Progress Note ---
Date of Service July 09, 2021 Assessment & Plan (1) Chronic pancreatitis: Plan: Alcoholic hepatitis: The patient has a history significant for alcoholism. She has abstained from alcohol the 2 days prior to her admission. Patient is confused today and exhibiting alcohol withdrawal symptoms. Total bilirubin 1.1, AST 36, alk phos 307, ALT 12 this morning. Current findings are consistent with alcoholic hepatitis. Recommend supportive care measures. Abstinence from alcohol. Referral for drug and alcohol counseling/treatment. Abdominal pain: Acute exacerbation of chronic symptoms. Patient does have a history of chronic pancreatitis from alcohol abuse. Normal lipase with no acute pancreatitis noted on imaging. Supportive care measures at this time. Nausea and vomiting: Acute exacerbation of chronic symptoms. Patient has previous history of gastroparesis. Most recent gastric emptying study obtained while inpatient at [facility] 05/2021 demonstrated normal gastric emptying. Recommend supportive care measures including IV fluids and nausea medication. Patient does chronically use marijuana at home and this may be contributing to her symptoms. Chronic gastritis: Related to alcohol intake. Patient has history of esophagitis and gastritis. Current medication regimen of pantoprazole IV and Pepcid IV both twice daily. Recommend continuing current regimen. She has no complaints of melena or hematemesis at this time. Would defer EGD at this time due to current comorbidities. Supportive care measures and continue to monitor closely. Drainage around feeding tube: Patient has noted increased drainage around her feeding tube. It was most recently changed to [place] about a month ago for a low-profile feeding tube. No s/s infection. Preliminary culture demonstrating staph species - will await final culture results. Malnutrition: Chronic. Patient is current patient of [facility]. She has had difficulty managing increased tube feedings due to abdominal pain, nausea, vomiting. Recommend nutrition evaluation to ensure that nutritional and hydration needs are being met. Case reviewed with Dr. Houston. Please refer to supervising physician addendum for further recommendations. I have spent 20 minutes of discrete time performing the activities of this visit which include but are not limited to review of the medical record, obtaining a history, physical exam, and entering information in the electronic record. (2) Abdominal pain: (3) Vomiting: (4) Alcoholic hepatitis: (5) Chronic alcoholic liver disease: (6) Alcohol use disorder, severe, dependence: Admission and Anticipated Discharge Date Admission Date: July 07, 2021 Supervising Physician Co-Signing Physician Notes I interviewed and examined the patient and reviewed the medical record, with the following observations: Subjective: No specific complaints on rounds today. Physical Examination: She is awake and conversant today, oriented only to person. Confusion related to alcohol withdrawal syndrome, she is not agitated or combative, has resting tachycardia, benign abdominal exam Chart Review: No new concerning findungs I agree with the assessment as outlined in this consultation, with the following observations: Agree with assessment I agree with the plan of care as outlined in this consultation, with the following changes and/or additions: Agree with management of the alcohol withdrawal syndrome and general supportive care. As the supervising physician, I have spent 15 minutes of discrete time performing the activities of this consultation which include, but are not limited to, review of the medical record, obtaining a history, physical examination, and entering information into the electronic record. ANTONIO Fairchild, has reported spending 20 minutes of discrete time with the activities of the consultation. Subjective Patient awake and oriented to person this morning. Agitated and walking around room trying to leave unit. Cooperative with redirection. Nursing reports she has had high doses of Ativan and Valium overnight and this morning. Patient pleasant. Reports abdominal pain around feeding tube insertion site. Did not answer questions regarding nausea or vomiting directly, kept talking about abdominal discomfort. Review of Systems Review of Systems: Unobtainable due to cognitive status Physical Exam Constitutional: WD/WN, vitals as above Respiratory: normal respiratory effort, lungs clear to auscultation Gastrointestinal (Abdomen): Inspection/Auscultation: abdomen normal to inspection and normal bowel sounds; abdomen not distended Percussion/Palpation: + abdomen tender (RUQ and epigastric pain) and abdomen soft; no guarding and abdomen not rigid drainage noted surrounding tube insertion site Psychiatric: Orientation: alert and oriented to person Results & Data ([facility]) Vital Signs (Past 12 Hours) Vital Signs Temp Pulse Pulse Resp BP BP Pulse Ox 07/09/21 07:48 105 H 152/116 H 07/09/21 07:01 105 H 28 H 152/116 H 07/09/21 07:00 108 H 9 L 07/09/21 06:51 95 H 15 152/117 H 07/09/21 06:30 90 12 07/09/21 06:00 104 H 16 07/09/21 05:55 89 20 133/100 07/09/21 05:30 108 H 26 H 07/09/21 05:16 37.0 C 94 H 95 H 17 150/116 H 150/116 H 100 07/09/21 05:02 98 H 14 07/09/21 04:30 85 14 07/09/21 04:18 95 H 153/117 H 07/09/21 04:01 100 H 17 07/09/21 03:30 36.8 C 153/117 H 99 07/09/21 03:16 87 14 07/09/21 02:30 96 H 14 07/09/21 02:00 100 H 19 07/09/21 01:45 133/95 07/09/21 01:30 37.2 C 97 H 23 133/95 07/09/21 01:07 102 H 07/09/21 00:35 90 07/09/21 00:09 95 H 150/110 H 07/09/21 00:05 85 150/110 H 07/09/21 00:01 92 H 07/08/21 23:32 36.9 C 100 H 07/08/21 23:00 86 07/08/21 22:56 36.8 C 87 22 145/112 H 100 07/08/21 22:30 94 H 07/08/21 22:00 86 15 07/08/21 21:30 84 12 07/08/21 21:16 103 H 22 153/103 H 07/08/21 21:00 82 07/08/21 20:45 81 07/08/21 20:30 88 07/08/21 20:15 83 Laboratory Results Laboratory Results - last 24 hr 07/08/21 07/09/21 07/09/21 18:41 04:43 05:47 Sodium 135 L 138 Potassium 3.7 TNP 3.3 L Chloride 103 106 Carbon Dioxide 24 21 Anion Gap 8 11 BUN 2 L 2 L Creatinine 0.49 L 0.49 L Est Cr Clr Drug Dosing 138.4 138.4 Est GFR ( Amer) 146.3 146.3 Est GFR (Non-Af Amer) 126.2 126.2 BUN/Creatinine Ratio 4.1 L 4.1 L Glucose 115 H 92 Calcium 8.4 L 8.7 Phosphorus 3.5 Magnesium 1.7 Total Bilirubin 1.1 H AST TNP 36 ALT 12 Alkaline Phosphatase 307 H Total Protein 7.0 Albumin 2.9 L Globulin 4.1 H Albumin/Globulin Ratio 0.7 L (1) Chronic pancreatitis Pancreatitis type: other Qualified Code(s): K86.1 - Other chronic pancreatitis (2) Abdominal pain Abdominal location: generalized Qualified Code(s): R10.84 - Generalized abdominal pain (3) Vomiting Nausea presence: with nausea Vomiting type: unspecified Qualified Code(s): R11.2 - Nausea with vomiting, unspecified
--- NOTE | 2021-07-09 09:13 | Hospitalist Progress Note ---
Date of Service July 09, 2021 Assessment & Plan (1) Alcohol use disorder, moderate, dependence: Plan: Perla is a 36-year-old female with a past medical history of alcohol dependence, pancreatitis, tobacco use, gastrostomy tube placement, chronic back pain who presented in acute alcohol withdrawal after being abstinent for 48 hours and was found to be tachycardic and hypertensive on admission. Alcohol use disorder with acute withdrawal, history of alcoholic hepatitis - Midmorning patient does express that she would like to leave AGAINST MEDICAL ADVICE. She has a history of leaving AMA in the past in association with alcohol withdrawal, she reports she has had seizures in the past. Patient does verbalize an understanding that once in alcohol withdrawal the symptoms can be treated, but the withdrawal itself cannot be reversed and has to be supported through the process with time and symptom support. Treatment with benzodiazepines and resuming alcohol will not necessarily prevent DTs or seizure once in withdrawal. Patient expresses that if she goes home she could easily have another seizure tonight which could be life-threatening or fatal, and patient does express that she would probably go home to drink. She has capacity to leave AMA at time of assessment fortunately she is agreeable to staying for continued care at this time - Patient has seen psychiatry in the past, and psychiatry was initially ~patient request. Did discuss her case with Dr. Brown who saw her at bedside. Patient does have decision-making capacity to leave AMA, as she expresses understanding of her medical condition, the risks of nontreatment, and the risks as outlined above but is now agreeable to staying for ongoing medical treatment. Is not 302 at this time. On admission received banana bag, 3 mg lorazepam, 1 mg hydromorphone for back pain Patient is intolerant of gabapentin in the past due to nausea Oral benzodiazepines were not able to be tolerated in ER due to vomiting Patient requesting psych consultation, consultation placed Unable to tolerate p.o. initiate Librium taper at admission currently persistent vomiting with any G-tube flush and gastroenterology consulted for potential endoscopy on admission, consultation pending Unable to take diltiazem 120. Toprol every 4 hours IV as needed for breakthrough AWSS: Patient routinely scoring 89 on scale, received approximately 24 mg over 24 hours. Patient reports allergy to gabapentin in the past, reports had an adverse reaction to this and does not qualify this further Patient unable to tolerate pills at this time, discussed with pharmacy if Librium can be given through PEG. Pending callback Moved to PCU for close monitoring, if would continue to worsen through withdrawal may require ICU level of care. Continue thiamine, high risk thiamine 3 times daily taper down to 100 daily protocol deferred as patient very agitated with recurrent IVs, reasonable to continue normal supplementation 100 mg daily at this time after additional repletion Patient has declined residential treatment/alcohol rehab and medical assisted therapy. Reports he is not interested in naltrexone or can proceed at this time, but is aware these are options open to her for outpatient treatment when she is through withdrawal. No SI, stable from a psychiatric standpoint although is an active alcohol withdrawal at this time and requires ongoing inpatient treatment of withdrawal - Librium unable to be given via peg, not tolerating PO. Poor efficacy/intolerance of gabapentin with withdrawal in the past per pt. Diazepam fixed taper was discussed with pharmacy overnight; reasonable regimen 15 mg every 6 hours x4, then 15 mg q. 8 hours x 3, then 8 mg every 8 hours x 3, then 3 mg every 12 hours x2, then stop. Will initiate at this time due to consident scoring, agitation, tremors, and hx of seizure. Continues PCU status in ICU bed. - Patient is agitated on morning visit. Is tangential on thought process, oriented to name, birthdate, place, and city and intermittently to date. Does endorse tremors reports she would like to have some pick her up to leave AMA. She is able to verbalize that if she were to return home there is a high chance of worsening respiratory status, seizure, alcohol withdrawal, DTs which could result in serious permanent bodily harm or . She endorses that she feels tremulous and wants to be treated with medications for her withdrawal while waiting for a ride. At time of assessment she is able to demonstrate capacity, and acknowledges the high risks of leaving AMA and active withdrawal. Capacity should be reassessed at each decision point. She does not meet 302 criteria. She is aware she is able to get a ride from the hospital she can leave, and until then given continue to remain for withdrawal treatment. Patient did attempt to contact her father who reported he 'thinks she needs to dry out', and refused to provide a ride for the patient. (2) Chronic alcoholic liver disease: Plan: GI consulted supportive care for alcoholic liver disease, alcohol withdrawal, nutritional support. PEG tube management as per below. Madrey score 13, no indication for steroids at this time CT consistent with alcoholic hepatitis and inactive chronic pancreatitis with atrophy Appreciate recommendations (3) Chronic pancreatitis: Plan: Lipase of 9 on admission CTa/P 07/07/21: Gastrostomy tube in place, no SBO, bladder wall circumferentially thickened. Hepatomegaly and severe hepatic steatosis, evidence of chronic pancreatitis Clears, n.p.o. if worsening mental status or concern for aspiration Nutrition consulted (4) Asthma: Plan: History of intrinsic asthma Continue Spiriva, singular/Symbicort/formulary conversion No smoking in previous 2 months, previously with tobacco use regularly. No nicotine patch required admission (5) Gastrostomy tube in place: Plan: Continue Creon With history of gastritis no esophagitis likely related to alcohol intake per prior nutrition assessment Albumin 3.3 on admission Received magnesium supplementation in ER Nausea management GI consulted, have seen before, appreciate recommendations. Drainage appreciated rate around feeding tube which was cultured, no signs of cellulitis surrounding. Agree with nutrition evaluation. (6) Abnormal urinalysis: Plan: Abnormal UA on admission, CT scan consistent with cystitis Patient with clinical dysuria 1 g Rocephin empiric for UTI, UC pending. Pinpoint growth reincubating, continue empiric treatment for now (7) DVT prophylaxis: Plan: Patient did have a Nunes associated upper extremity DVT in the past. She is no longer taking Eliquis at this time. Lovenox on 07/08/2021 (8) Alcoholic hepatitis: Plan: As above Plan: Acute alcohol withdrawal management Psych consulted at patient request for alcohol dependence Electrolyte management, BMP trend as needed Tube feeds as tolerated, antiemetics, GI consulted Admission and Anticipated Discharge Date Admission Date: July 07, 2021 Subjective Pacing around room, redirectable but agitated through morning and paces in hallway. Consisently AWSS >=8 overnight. Librium PEG not a viable option. Received 10mg valium at 530am, and 10mg at 600am. Remains in ICU under PCU status at this time. Patient is agitated on morning visit. Is tangential on thought process, oriented to name, birthdate, place, and city and intermittently to date. Does endorse tremors reports she would like to have some pick her up to leave AMA. She is able to verbalize that if she were to return home there is a high chance of worsening respiratory status, seizure, alcohol withdrawal, DTs which could result in serious permanent bodily harm or . She endorses that she feels tremulous and wants to be treated with medications for her withdrawal while waiting for a ride. At time of assessment she is able to demonstrate capacity, and acknowledges the high risks of leaving AMA and active withdrawal. She is aware she is able to get a ride from the hospital she can leave, and until then given continue to remain for withdrawal treatment. Patient did attempt to contact her father who reported he think she needs to dry out, and refused to provide a ride for the patient. Review of Systems Review of Systems: Constitutional: Denies fever, chills. Endorses tremors. Denies auditory hallucinations, visual hallucinations, itching, SI, HI Eyes: Denies vision change ENT: Denies ear pain, sore throat, sinus pain Cardiovascular: Denies Chest pain, chest pressure, palpitations, extremity swelling Respiratory: Denies shortness of breath, cough, sputum production, difficulty breathing Gastrointestinal: Endorses nausea/intolerance to p.o., denies abdominal pain. Denies diarrhea/constipation Genitourinary: Denies dysuria, urinary frequency Musculoskeletal: Denies acute focal weakness, muscle aches/pain, joint aches/pain endorses tremor. Integumentary:Denies acute rash, lesions, bruising Physical Exam Physical Exam: General: Bilateral resting tremor, no*us. No diaphoresis. With psychomotor agitation. Not responding to internal stimuli. Tangential thought process, is oriented to name/place/intermittently to date. HEENT: Atraumatic, normocephalic. Visual acuity and hearing grossly intact Pulm: CTAB A&P. -wheezes, -rales, -rhonchi. Symmetrical chest rise. No increased work of breathing. No respiratory distress. Cardiac: Regular, tachycardic, -mrg. Radial pulses intact and symmetrical. Abdominal: Nontender, nondistended, soft. BS present. PEG tube. Extremities: Moving all extremities equally, does walk especially around the room. Does not engage for strength or sensation exam. Results & Data Results & Data ([facility]) Vital Signs (Past 12 Hours) Vital Signs Temp Pulse Pulse Resp BP BP Pulse Ox 07/09/21 08:01 90 23 147/109 H 97 07/09/21 08:00 37.1 C 07/09/21 07:48 105 H 152/116 H 07/09/21 07:01 105 H 28 H 152/116 H 07/09/21 07:00 108 H 9 L 07/09/21 06:51 95 H 15 152/117 H 07/09/21 06:30 90 12 07/09/21 06:00 104 H 16 07/09/21 05:55 89 20 133/100 07/09/21 05:30 108 H 26 H 07/09/21 05:16 37.0 C 94 H 95 H 17 150/116 H 150/116 H 100 07/09/21 05:02 98 H 14 07/09/21 04:30 85 14 07/09/21 04:18 95 H 153/117 H 07/09/21 04:01 100 H 17 07/09/21 03:30 36.8 C 153/117 H 99 07/09/21 03:16 87 14 07/09/21 02:30 96 H 14 07/09/21 02:00 100 H 19 07/09/21 01:45 133/95 07/09/21 01:30 37.2 C 97 H 23 133/95 07/09/21 01:07 102 H 07/09/21 00:35 90 07/09/21 00:09 95 H 150/110 H 07/09/21 00:05 85 150/110 H 07/09/21 00:01 92 H 07/08/21 23:32 36.9 C 100 H 07/08/21 23:00 86 07/08/21 22:56 36.8 C 87 22 145/112 H 100 07/08/21 22:30 94 H 07/08/21 22:00 86 15 07/08/21 21:30 84 12 07/08/21 21:16 103 H 22 153/103 H PG Care Time/CCT Total # of Minutes Spent Total Time Spent with Patient: Total time spent is greater than 50% in coordination of care (as documented) at patient's floor/unit and/or counseling patient: Coding Level of Care Code 24971 Subseq Hosp Care Lvl 3 Diagnoses Alcohol use disorder, moderate, dependence F10.20 Chronic alcoholic liver disease K70.9 Chronic pancreatitis K86.1 Asthma J45.[address] Z93.1 Abnormal urinalysis R82.90 DVT prophylaxis Z29.9 Alcoholic hepatitis K70.10
[2021-07-09] MEDS: POTASSIUM CHLORIDE / WTR 10 MEQ/100 ML PLCT IV SCH ×6 (10:52→23:25)
[2021-07-09] MEDS: DIAZEPAM IV SCH ×2 (11:11→17:01)
[2021-07-09] MEDS ORDERED: OLANZapine ZYDIS 5 MG ORALLY DIS. TAB PO ONE (12:15)
[2021-07-09] MEDS ORDERED: LORazepam 2 MG/1 ML VIAL IV PRN (14:08)
[2021-07-09] MEDS ORDERED: STAT IV Infusion **Titration per Protocol STA (16:42)
[2021-07-09] MEDS: PEPTAMEN 1.5 CAL 1,000 ML BAG GT SCH (16:59)
[2021-07-09] MEDS: cefTRIAXone SODIUM 1,000 MG in DEXTROSE 5% 50 ML IV SCH (17:01)
[2021-07-09] MEDS: dexMEDEtomidine 200 MCG/50 ML BAG IV SCH ×3 (17:29→23:40)
--- NOTE | 2021-07-09 17:44 | Critical Care Progress Note ---
Date of Service July 09, 2021 Assessment & Plan (1) Alcohol withdrawal: (2) Chronic pancreatitis: (3) Alcohol use disorder, severe, dependence: (4) Chronic alcoholic liver disease: (5) Abdominal pain: (6) Gastrostomy tube in place: (7) Smoker: Plan: ICU Assessment and Plans Reason Critically Ill: 36-year-old female here with a PMHx significant for alcohol use disorder, PEG tube, chronic pancreatitis, alcoholic hepatitis, who presented with abd pain tachycardia and hypertension after stopping alcohol and who was admitted for alcohol withdrawal. Neuro - Alcohol use disorder in withdrawal with concern delirium tremens, high seizure risk, has required high dose benzodiazepines due to high tolerance Last AWSS 22 in ICU received 15mg diazapam, started precedex drip, ativan 5mg q6h, ativan 2mg q2h PRN for agitation goal to maintain RASS -1 On IV folic acid and thiamine Given patient's current delirium, patient should not leave AMA unattended at this time Sedation: Dexmedetomidine drip, ativan 5mg q6hr, ativan 2mg q2hr PRN Analgesia: PRN morphine, tylenol IV Cardiac - EKG 07/07 prolonged QTc 482, avoid QT prolonging medication Respiratory - Patient received diazapam, precedex, ativan, has PRN morphine, monitor for respiratory depression GI - GI consulted, Recommend supportive care measures. Abstinence from alcohol. Referral for drug and alcohol counseling/treatment. noted hx gastritis marijuana use, chronic malnutrition, defer EGD at this time drainage around feeding tube grew staph species PEG tube present, does not tolerate PO well Pantoprazole 40mg IV BID, Famotidine 20mg IV BID daily enteral feed ordered, continue as tolerated Abd pain noted, may use morphine or tylenol Nausea noted, avoid zofran reglan given QT prolongation RENAL/LYTES - No significant electrolyte derangement. Repleted K, Mg Maintain K>4, Mg>2, Phos>3 Replace lytes as needed. - Abnormal UA on Ceftriaxone 1g daily, culture negative. ENDO - history mild low TSH normal T4 not on medication history elevated AM cortisol HEME - Stable H&H. Started on Lovenox ID - Concern for UTI on ceftriaxone 1g daily, this is day 3 Wound culture from PEG tube grew staph species, continue ceftriaxone Monitor fever curve. INTEGUMENTARY - skin dry warm intact LINES/IV ACCESS - PIVs leaking after patient agitation no lazo DVT PROPHYLAXIS - On Lovenox Thank you for allowing us to be part of this patient's care. Please refer to Dr. Lama's documentation for any further recommendations. Admission and Anticipated Discharge Date Admission Date: July 07, 2021 Supervising Physician Co-Signing Physician Notes Dr. Jasmine was the resident-physician during care of patient. I separately evalua araceli patient for nieto portions of the history and the exam. I was present during the critical portion of medical decision making, and I discussed the case with the resident. I generally agree with the findings and plan except for any additions/exceptions noted. Patient seen and examined at bedside. Patient has been getting diazepam [id number] 15 mg every 6 and now they were going down to 15 Q's 8. She was getting very restless and agitated. Pulling out IVs. ICU was consulted as the patient seemed to be going into DTs. Plan: DC diazepam Start the patient on Ativan 5 mg every 6 hours [id number] along with 2 mg every 2 hours as needed on top of that We will start the patient on Precedex to give her the edge. Patient has MSSA growing around the PEG tube site. She is on Rocephin which should cover it Thrombocytopenia is most likely from alcohol use. I have personally spent 51 minutes of critical care time in the direct management of this patient. This is a life/limb threatening event. This includes time spent evaluating patient, direct bedside care, chart review, placing orders, interpretation of diagnostic studies, discussion with public relations consultant s, patient, and/or family members regarding treatment decisions, as well as other required patient management activities. This time is exclusive of all separately billable procedures, and teaching time and separate from and in addition to any other critical care service time. Subjective Patient seen at bedside, drowsy comfortable cooperative. Per patient she is currently having some nausea, tremors in her hands, expresses abd pain but no shortness of breath. Patient understands she is here for alcohol withdrawal, believes she is in [place], knows today's date. Patient admitted to hospital with PMH alcohol use disorder chornic pancreatitic alcoholic hepatits PEG tube, was abstinent 48hr began having withdrawal symptoms increasing abd pain tachycardia hypertension, continued having agitation after over fairly high doses of ativan unable to tolerate PO medication. Throughout the day patient has had intermittent agitation trying to leave AMA, however she has no ride as her family would like her to stay in the hospital. Patient was found later today trying to 'smoke a tampon', increased disorientation and tremors, no longer determined to have decision making capacity to leave unattended at this time, started on precedex drip and admitted to ICU for concerns of delirium tremens. Review of Systems Review of Systems: Positive headache, light sensitivity, dizziness, nausea, tremors in hands Negative vomitting, SOB, chest pain, abd pain Physical Exam Constitutional: average body habitus, cooperative, comfortable and + lethargic Eyes: PERRL, conjunctivae normal, anicteric sclerae ENMT: external ear and nose normal, oropharynx normal Neck: trachea midline, no thyromegaly Respiratory: normal respiratory effort Auscultation: lungs clear to auscultation bilaterally Cardiovascular: RRR, no murmur, no edema Chest (Breasts): Chest: normal inspection of chest Gastrointestinal (Abdomen): Inspection/Auscultation: normal bowel sounds Tube inserted in RUQ, tenderness noted in upper abd quadrants, mild tenderness in lower abd quadrants Skin: no rashes, warm and dry Psychiatric: Orientation: oriented to person and oriented to time Results & Data Results & Data ([facility]) Vital Signs (Past 12 Hours) Vital Signs Temp Pulse Pulse Resp BP BP Pulse Ox 07/09/21 16:42 36.9 C 18 95 07/09/21 16:41 128/103 H 07/09/21 14:00 36.9 C 100 H 18 121/88 96 07/09/21 11:42 37.2 C 07/09/21 10:46 96 H 07/09/21 10:36 123/80 07/09/21 10:33 110 H 17 96 07/09/21 10:26 97 H 23 07/09/21 08:01 90 23 147/109 H 97 07/09/21 08:00 37.1 C 07/09/21 07:48 105 H 152/116 H 07/09/21 07:01 105 H 28 H 152/116 H 07/09/21 07:00 108 H 9 L 07/09/21 06:51 95 H 15 152/117 H 07/09/21 06:30 90 12 07/09/21 06:00 104 H 16 07/09/21 05:55 89 20 133/100 Resident Activity Tracking Resident Involvement: Resident Care Provided Care Provided: Adult Hospital Medicine (1) Alcohol withdrawal Complication of substance-induced condition: uncomplicated Qualified Code(s): F10.230 - Alcohol dependence with withdrawal, uncomplicated (2) Chronic pancreatitis Pancreatitis type: other Qualified Code(s): K86.1 - Other chronic pancreatitis (3) Abdominal pain Abdominal location: generalized Qualified Code(s): R10.84 - Generalized abdominal pain
[2021-07-09] MEDS ORDERED: ACETAMINOPHEN 65 ML IV PRN (17:49)
[2021-07-09] MEDS: LORazepam 2 MG/1 ML VIAL IV SCH ×2 (17:53→23:40)
[2021-07-09 20:06] LABS: Albumin Globulin Ratio 0.7 (0.9-2); Albumin Level 2.7 gm/dl (3.4-5.0); BUN Creatinine Ratio 5.2 (10-20); Bilirubin,Total 0.7 mg/dl (0.2-1.0); Calcium 8.1 mg/dl (8.5-10.1); Creatinine Clr Calc Pharmacy 116.9 ml/min; Est GFR (African American) 138.4 ml/min; Est GFR (Non-African American) 119.4 ml/min; Globulin 3.7 gm/dl (2.5-4.0); Magnesium 1.6 mg/dl (1.7-2.4); Phosphorus 3.9 mg/dl (2.5-4.9); Potassium 3.3 mmol/L (3.5-5.1); Total Protein 6.4 gm/dl (6.0-8.3)
[2021-07-09] MEDS: MAGNESIUM SULFATE / D5W 1 GM/100 ML BAG IV SCH ×2 (21:08→23:24)
[2021-07-09] MEDS: ENOXAPARIN INJ 40 MG/0.4 ML SYR SQ SCH (21:09)
[2021-07-10] MEDS: POTASSIUM CHLORIDE / WTR 10 MEQ/100 ML PLCT IV SCH (00:38)
[2021-07-10] MEDS: TUBE FEEDING WATER FLUSH GT SCH ×5 (01:28→22:09)
[2021-07-10 05:15] LABS: Basophils # (auto) 0.03 K/uL (0-0.2); Basophils % (auto) 0.6 %; Eosinophils # (auto) 0.27 K/uL (0-0.5); Eosinophils % (auto) 5.5 %; Hematocrit (blood only) 32.4 % (37-47); Hemoglobin 10.7 g/dL (12.0-16.0); Immature Granulocytes # (auto) 0.02 K/uL (0.00-0.02); Immature Granulocytes % (auto) 0.4 %; Lymphocytes # (auto) 1.93 K/uL (1.2-3.4); Lymphocytes % (auto) 39.6 %; Mean Corpuscular Hemoglobin 32.1 pg (25-34); Mean Corpuscular Volume 97.3 fL (80-100); Monocytes # (auto) 0.54 K/uL (0.11-0.59); Monocytes % (auto) 11.1 %; Neutrophils # (auto) 2.08 K/uL (1.4-6.5); Neutrophils % (auto) 42.8 %; Platelet Count 124 K/uL (130-400); RDW Coefficient of Variation 16.1 % (11.5-14.5); Red Blood Count 3.33 M/uL (4.2-5.4); White Blood Count 4.87 K/uL (4.8-10.8)
[2021-07-10 05:42] LABS: Albumin Globulin Ratio 0.7 (0.9-2); Albumin Level 2.6 gm/dl (3.4-5.0); BUN Creatinine Ratio 6.1 (10-20); Bilirubin,Total 0.8 mg/dl (0.2-1.0); Calcium 8.2 mg/dl (8.5-10.1); Creatinine Clr Calc Pharmacy 138.4 ml/min; Est GFR (African American) 146.3 ml/min; Est GFR (Non-African American) 126.2 ml/min; Globulin 3.7 gm/dl (2.5-4.0); Magnesium 2.2 mg/dl (1.7-2.4); Phosphorus 3.9 mg/dl (2.5-4.9); Potassium 3.6 mmol/L (3.5-5.1); Total Protein 6.3 gm/dl (6.0-8.3)
[2021-07-10] MEDS: LORazepam 2 MG/1 ML VIAL IV SCH ×3 (05:44→18:35)
[2021-07-10] MEDS: dexMEDEtomidine 200 MCG/50 ML BAG IV SCH (05:45)
[2021-07-10] MEDS ORDERED: POTASSIUM PHOS 3 MMOL/1 ML INFUSION IV STA (06:28)
[2021-07-10] MEDS ORDERED: POTASSIUM PHOSPHATE 15 MMOL in SODIUM CHLORIDE 0.9% 250 ML IV ONE (07:00)
[2021-07-10] MEDS ORDERED: POTASSIUM CHLORIDE / WTR 10 MEQ/100 ML PLCT IV STA (07:12)
[2021-07-10] MEDS ORDERED: ONDANSETRON INJ 2 MG/ML 2 ML VIAL IV PRN (07:33)
[2021-07-10] MEDS: PANCREAZE (LIPASE 10,500U) CAP PO SCH ×4 (07:43→20:05)
[2021-07-10] MEDS: FOLIC ACID 1 MG TAB PO SCH (07:43)
[2021-07-10] MEDS: FLUTICASONE/VILANTEROL 200/25MCG 14 PUFFS/INHALER INH SCH (07:43)
[2021-07-10] MEDS: MONTELUKAST SODIUM 10 MG TABLET PO SCH (07:43)
[2021-07-10] MEDS: MULTI VIT W/MINERALS LIQUID 15 ML UDP GT SCH (07:44)
[2021-07-10] MEDS: UMECLIDINIUM BROMIDE 62.5MCG/BLISTER 7 PUFFS/INHALER INH SCH (07:44)
[2021-07-10] MEDS: PANTOprazole 40 MG in SYRINGE 0 ML IV SCH ×2 (07:46→20:06)
[2021-07-10] MEDS: FOLIC ACID 1 MG in SYRINGE 9.8 ML IV SCH (07:46)
[2021-07-10] MEDS: THIAMINE HCL 100 MG in SYRINGE 9 ML IV SCH (07:46)
[2021-07-10] MEDS: FAMOTIDINE 20 MG in SYRINGE 3 ML IV SCH (07:47)
--- NOTE | 2021-07-10 08:05 | Critical Care Progress Note ---
Date of Service July 10, 2021 Assessment & Plan (1) Alcohol withdrawal: (2) Chronic pancreatitis: (3) Alcohol use disorder, severe, dependence: (4) Chronic alcoholic liver disease: (5) Abdominal pain: (6) Gastrostomy tube in place: (7) Smoker: Plan: ICU Assessment and Plans Reason Critically Ill: 36-year-old female here with a PMHx significant for alcohol use disorder, PEG tube, chronic pancreatitis, alcoholic hepatitis, who presented with abd pain tachycardia and hypertension after stopping alcohol and who was admitted for alcohol withdrawal. Neuro - Alcohol use disorder in withdrawal with concern delirium tremens, high seizure risk, has required high dose benzodiazepines due to high tolerance Last AWSS 6 in ICU received 15mg diazapam, started precedex drip, ativan 5mg q6h, ativan 2mg q2h PRN for agitation goal to maintain RASS -1 On IV folic acid and thiamine 200mg Given patient's current delirium, patient should not leave AMA unattended at this time CAM ICU: unable to assess Sedation: Dexmedetomidine drip at 0.2mcg/kg/hr, ativan 5mg q6hr, ativan 2mg q2hr PRN Analgesia: PRN morphine, tylenol IV Cardiac - EKG 07/07 prolonged QTc 482, avoid QT prolonging medication Respiratory - Patient received diazapam, precedex, ativan, has PRN morphine, monitor for respiratory depression GI - GI consulted, Recommend supportive care measures. Abstinence from alcohol. Referral for drug and alcohol counseling/treatment. noted hx gastritis marijuana use, chronic malnutrition, defer EGD at this time drainage around feeding tube grew staph species PEG tube present, does not tolerate PO well Pantoprazole 40mg IV BID daily enteral feed ordered, continue as tolerated Abd pain noted, may use morphine or tylenol Nausea noted, avoid zofran reglan given QT prolongation RENAL/LYTES - No significant electrolyte derangement. Repleted K, Mg Maintain K>4, Mg>2, Phos>3 Replace lytes as needed. - Abnormal UA on Ceftriaxone 1g daily, culture negative. ENDO - history mild low TSH normal T4 not on medication history elevated AM cortisol HEME - Stable H&H. Started on Lovenox thrombocytopenia noted, stop lovenox if continues to decrease chronic anemia noted ID - Concern for UTI on ceftriaxone 1g daily, this is day 4 Wound culture from PEG tube grew staph aureus and groupB beta strep species, continue ceftriaxone Monitor fever curve. INTEGUMENTARY - skin dry warm intact LINES/IV ACCESS - PIVs intact no lazo DVT PROPHYLAXIS - On Lovenox Thank you for allowing us to be part of this patient's care. Please refer to Dr. Lama's documentation for any further recommendations. Admission and Anticipated Discharge Date Admission Date: July 07, 2021 Supervising Physician Co-Signing Physician Notes Dr. Jasmine was the resident-physician during care of patient. I separately evaluated patient for nieto portions of the history and the exam. I was present during the critical portion of medical decision making, and I discussed the case with the resident. I generally agree with the findings and plan except for any additions/exceptions noted. Patient seen and examined at bedside. No acute distress, no adverse events overnight Patient was on 0.4 Precedex at time of examination She was waking up and answering simple questions. Did complain of mild headache, no nausea vomiting, no abdominal pain, no chest pain, no shortness of breath Constitutional: No acute distress HEENT: EOMI, PERRLA Respiratory system: Good air entry bilaterally, no wheeze, no rhonchi, no crackles CVS: S1-S2 positive, no murmurs or gallops Abdomen: Soft, nontender, nondistended, positive bowel sounds x4, positive GJ tube Extremities: +2 pulses bilaterally radialis/ dorsalis pedis, no cyanosis, no edema Neuro: Awake alert oriented to self Psych: Normal mood and affect G/U: No Lazo --Prophylaxis VTE: Lovenox GI: Protonix Lines: Peripheral Diet: N.p.o., will consider starting tube feeds Plan: In/out: +1 L, urine output 5 Patient got 40 mEq of potassium, 50 mEq of K-Phos, 2 g of magnesium overnight. Her alk phos is still elevated but it is trending down We will able to go down on her Precedex to 0.2. For the time being continue with 5 mg every 6 hours of Ativan. If the patient is able to stay RASS -1 then I will go down to 4 mg every 6 hours Goal will be to take the patient off Precedex I have personally spent 37 minutes of critical care time in the direct management of this patient. This is a life/limb threatening event. This includes time spent evaluating patient, direct bedside care, chart review, placing orders, interpretation of diagnostic studies, discussion with consultants, patient, and/or family members regarding treatment decisions, as well as other required patient management activities. This time is exclusive of all separately billable procedures, and teaching time and separate from and in addition to any other critical care service time. Subjective Patient seen at bedside, asleep comfortable. She denies any pain at this time. Per nursing she slept through most of the night, were able to decrease her precedex. No events overnight Review of Systems Review of Systems: Unobtainable due to reduced consciousness Physical Exam Constitutional: average body habitus, cooperative, comfortable and + lethargic Eyes: PERRL, conjunctivae normal, anicteric sclerae ENMT: external ear and nose normal, oropharynx normal Neck: trachea midline, no thyromegaly Respiratory: normal respiratory effort Auscultation: lungs clear to auscultation bilaterally Cardiovascular: RRR, no murmur, no edema Chest (Breasts): Chest: normal inspection of chest Gastrointestinal (Abdomen): Inspection/Auscultation: normal bowel sounds Skin: no rashes, warm and dry Psychiatric: Orientation: oriented to person and oriented to time Results & Data Results & [facility] ([facility]) Vital Signs (Past 12 Hours) Vital Signs Temp Pulse Resp BP Pulse Ox 07/10/21 06:00 64 22 135/101 H 97 07/10/21 05:30 69 21 97 07/10/21 05:02 71 16 119/89 98 07/10/21 04:30 70 23 96 07/10/21 04:00 36.4 C L 70 24 132/90 96 07/10/21 03:30 74 23 95 07/10/21 03:02 74 25 H 112/86 95 07/10/21 02:34 74 25 H 95 07/10/21 02:02 73 27 H 111/86 95 07/10/21 01:05 73 22 116/85 95 07/10/21 00:31 71 25 H 96 07/10/21 00:03 71 27 H 125/92 95 07/10/21 00:00 72 07/09/21 23:45 71 25 H 96 07/09/21 23:32 71 25 H 96 07/09/21 23:17 36.8 C 71 25 H 96 07/09/21 23:03 71 25 H 118/87 96 07/09/21 22:45 72 27 H 96 07/09/21 22:33 72 25 H 96 07/09/21 22:15 71 25 H 96 07/09/21 22:02 71 25 H 121/92 96 07/09/21 21:45 71 26 H 121/92 96 07/09/21 21:32 71 21 96 07/09/21 21:15 67 25 H 97 07/09/21 21:02 70 21 120/80 96 07/09/21 20:45 72 25 H 95 07/09/21 20:32 72 21 95 07/09/21 20:17 73 22 105/75 95 07/09/21 20:10 36.8 C 73 23 95 Resident Activity Tracking Resident Involvement: Resident Care Provided Care Provided: Adult Hospital Medicine (1) Alcohol withdrawal Complication of substance-induced condition: uncomplicated Qualified Code(s): F10.230 - Alcohol dependence with withdrawal, uncomplicated (2) Chronic pancreatitis Pancreatitis type: other Qualified Code(s): K86.1 - Other chronic pancreatitis (3) Abdominal pain Abdominal location: generalized Qualified Code(s): R10.84 - Generalized abdominal pain
[2021-07-10] MEDS ORDERED: THIAMINE HCL 200 MG in SYRINGE 8 ML IV SCH (09:00)
[2021-07-10] MEDS ORDERED: THIAMINE HCL 200 MG in SYRINGE 9 ML IV SCH (09:00)
--- NOTE | 2021-07-10 10:02 | Billing Data ---
Date of Service July 09, 2021 Coding Level of Care Code Critical Care 1st 30-74 mins Time Spent (min) 51
--- NOTE | 2021-07-10 10:03 | Billing Data ---
Date of Service July 10, 2021 Coding Level of Care Code Critical Care 1st 30-74 mins Time Spent (min) 37
[2021-07-10] MEDS: NICOTINE 21 MG/24 HR TDSY TD SCH (10:10)
[2021-07-10] MEDS: MoRPHine SULFATE 2 MG/ML CARP IV PRN ×3 (10:13→20:18)
[2021-07-10] MEDS ORDERED: DIAZEPAM IV SCH (14:00)
[2021-07-10] MEDS: LORazepam 2 MG/1 ML VIAL IV PRN ×2 (15:28→20:04)
--- NOTE | 2021-07-10 15:59 | Hospitalist Progress Note ---
Date of Service July 10, 2021 Assessment & Plan (1) Alcohol use disorder, moderate, dependence: Plan: Perla is a 36-year-old female with a past medical history of alcohol dependence, pancreatitis, tobacco use, gastrostomy tube placement, chronic back pain who presented in acute alcohol withdrawal after being abstinent for 48 hours and was found to be tachycardic and hypertensive on admission. Alcohol use disorder with acute withdrawal, history of alcoholic hepatitis Pt decompensated on 07/09/21 necessitating ICU admission and starting precedex, some issues of limitation of taking po meds and meds available for g tube administration. however is not stabilized, would this pt be a good candidate for phenobarb protocol (2) Chronic alcoholic liver disease: Plan: GI consulted supportive care for alcoholic liver disease, alcohol withdrawal, nutritional support. Madrey score 13, no concern for need of steroids for alcholic hepatitis although Ct abdomen and pelvis consistent with alcoholic hepatitis and inactive chronic pancreatitis with atrophy (3) Chronic pancreatitis: Plan: Lipase of 9 on admission CTa/P 07/07/21: Gastrostomy tube in place, no SBO, bladder wall circumferentially thickened. Hepatomegaly and severe hepatic steatosis, evidence of chronic pancreatitis Clears, n.p.o. if worsening mental status or concern for aspiration Nutrition consulted (4) Asthma: Plan: History of intrinsic asthma Continue Spiriva, singular/Symbicort/formulary conversion No smoking in previous 2 months, previously with tobacco use regularly. No nicotine patch required admission (5) Gastrostomy tube in place: Plan: Continue Creon With history of gastritis no esophagitis likely related to alcohol intake per prior nutrition assessment Albumin 3.3 on admission Received magnesium supplementation in ER Nausea management GI consulted, have seen before, appreciate recommendations. Drainage appreciated rate around feeding tube which was cultured, no signs of cellulitis surrounding. Agree with nutrition evaluation. (6) Abnormal urinalysis: Plan: Abnormal UA on admission, CT scan consistent with cystitis Patient with clinical dysuria 1 g Rocephin empiric for UTI, UC pending. Pinpoint growth re incubating, continue empiric treatment for now (7) DVT prophylaxis: Plan: Patient did have a Nunes associated upper extremity DVT in the past. She is no longer taking Eliquis at this time. Lovenox on 07/08/2021 (8) Alcoholic hepatitis: Plan: As above Plan: Acute alcohol withdrawal management Psych consulted at patient request for alcohol dependence Electrolyte management, BMP trend as needed Tube feeds as tolerated coordinated by dietitian consult, antiemetics, GI consulted Admission and Anticipated Discharge Date Admission Date: July 07, 2021 Subjective Patient is confused she does not recall any events from yesterday she got some bruises on her hands from being agitated and cannot recall how these got there. She has no complaints or problems although previously she told the nurse that abdominal pain. This is her chronic complaint issues chronic pancreatitis she frequently asked for medication for this. On my evaluation though she had none of that Review of Systems Review of Systems: Mild distress and fatigue is sedated however on my examination of her no headache, no visual changes no speech or swallowing issues, some slurring from meds no chest pain, pressure or palpitations no shortness of breath, cough or wheezes no abdominal pain, g button in place no dysuria, hematuria or frequency some hand pain and swelling no back pain, CVA tenderness or radicular pain Physical Exam Physical Exam: The patient appeared well nourished and normally developed. Vital signs as documented. Head exam is normocephalic atraumatic Neck is without JVD, thyromegaly, or carotid bruits. Lungs are clear to auscultation, no focal loss of breath sounds Cardiac exam, Rhythm is regular.. No murmurs, rubs or gallops. Abdominal exam reveals normal bowel sounds, soft non tender, no masses, Gastrostomy button in place Extremities are nonedematous and both pedal pulses are present Neurologic exam is alert and oriented, sedate, no focal loss of strength or sensation Skin is without bruises or rashes Psychologically is without concerns for anxiety or depression.. Results & Data Results & Data ([facility]) Vital Signs (Past 12 Hours) Vital Signs Temp Pulse Pulse Resp BP BP Pulse Ox 07/10/21 15:38 97.5 F L 74 16 106/78 99 07/10/21 11:47 97.3 F L 63 16 97/67 L 97 07/10/21 10:00 67 12 125/94 99 07/10/21 08:00 97.5 F L 70 26 H 123/95 97 07/10/21 06:00 64 22 135/101 H 97 07/10/21 05:30 69 21 97 07/10/21 05:02 71 16 119/89 98 07/10/21 04:30 70 23 96 07/10/21 04:00 97.5 F L 70 24 132/90 96 PG Care Time/CCT Total # of Minutes Spent Total Time Spent with Patient: Total time spent is greater than 50% in coordination of care (as documented) at patient's floor/unit and/or counseling patient: Coding Level of Care Code 26547 Subseq Hosp Care Lvl 3 Diagnoses Alcohol use disorder, moderate, dependence F10.20 Chronic alcoholic liver disease K70.9 Chronic pancreatitis K86.1 Asthma J45.[address] Z93.1 Abnormal urinalysis R82.90 DVT prophylaxis Z29.9 Alcoholic hepatitis K70.10
[2021-07-10] MEDS: PEPTAMEN 1.5 CAL 1,000 ML BAG GT SCH (16:13)
--- NOTE | 2021-07-10 16:40 | Gastroenterology Progress Note ---
Date of Service July 10, 2021 Assessment & Plan (1) Alcohol withdrawal: (2) Alcohol use disorder, severe, dependence: (3) Alcoholic hepatitis: (4) Chronic alcoholic liver disease: (5) Chronic pancreatitis: (6) Vomiting: (7) Abdominal pain: (8) Hypomagnesemia: (9) Hypokalemia: Plan: Ms. Byrd is improving gradually with supportive care. I recommend continuing the same plan of care of meds for symptom control and to control withdrawal syndrome, hydration and repletion of electrolytes, no procedures planned. I think G tube feeding could be resumed at a low rate with observation, then advanced as tolerated. Admission and Anticipated Discharge Date Admission Date: July 07, 2021 Subjective Ms. Byrd is stable today, denies nausea or vomiting, but remains NPO with tube feeding held. On questioning she has mild persistent LUQ abdominal pain, no other complaints. She is getting IV fluids with potassium and magnesium supplementation. Review of Systems Review of Systems: All systems reviewed & are unremarkable except as noted in Subjective Physical Exam Constitutional: + altered mental status and + lethargic Eyes: + anicteric sclerae and EOM intact bilaterally Respiratory: normal respiratory effort, lungs clear to auscultation Cardiovascular: RRR, no murmur, no edema Gastrointestinal (Abdomen): Inspection/Auscultation: abdomen normal to inspection and normal bowel sounds Percussion/Palpation: + abdomen tender (Tenderness to palpation noted in the LUQ without guarding, rebound) and abdomen soft; no guarding, no hepatomegaly and no splenomegaly No signs of infection at G tube stoma, and only slight drainage of clear fluid. Neurologic: Alert but lethargic, oriented to person and place but not time. Results & Data ([facility]) Vital Signs (Past 12 Hours) Vital Signs Temp Pulse Pulse Resp BP BP Pulse Ox 07/10/21 15:38 36.4 C L 74 16 106/78 99 07/10/21 11:47 36.3 C L 63 16 97/67 L 97 07/10/21 10:00 67 12 125/94 99 07/10/21 08:00 36.4 C L 70 26 H 123/95 97 07/10/21 06:00 64 22 135/101 H 97 07/10/21 05:30 69 21 97 07/10/21 05:02 71 16 119/89 98 07/10/21 04:30 70 23 96 Laboratory Results Laboratory Results WBC 4.87 K/uL (4.8-10.8) 07/10/21 04:54 RBC 3.33 M/uL (4.2-5.4) L 07/10/21 04:54 Hgb 10.7 g/dL (12.0-16.0) L 07/10/21 04:54 Hct 32.4 % (37-47) L 07/10/21 04:54 MCV 97.3 fL (80-100) 07/10/21 04:54 MCH 32.1 pg (25-34) 07/10/21 04:54 MCHC 33.0 g/dL (32-36) 07/10/21 04:54 RDW Std Deviation 57.0 fL (36.4-46.3) H 07/10/21 04:54 RDW Coeff of Paulina 16.1 % (11.5-14.5) H 07/10/21 04:54 Plt Count 124 K/uL (130-400) L 07/10/21 04:54 MPV 10.0 fL (7.4-10.4) 07/10/21 04:54 Immature Gran % (Auto) 0.4 % 07/10/21 04:54 Neut % (Auto) 42.8 % 07/10/21 04:54 Lymph % (Auto) 39.6 % 07/10/21 04:54 [place] % (Auto) 11.1 % 07/10/21 04:54 Eos % (Auto) 5.5 % 07/10/21 04:54 Baso % (Auto) 0.6 % 07/10/21 04:54 Neut # (Auto) 2.08 K/uL (1.4-6.5) 07/10/21 04:54 Lymph # (Auto) 1.93 K/uL (1.2-3.4) 07/10/21 04:54 [place] # (Auto) 0.54 K/uL (0.11-0.59) 07/10/21 04:54 Eos # (Auto) 0.27 K/uL (0-0.5) 07/10/21 04:54 Baso # (Auto) 0.03 K/uL (0-0.2) 07/10/21 04:54 Immature Gran # (Auto) 0.02 K/uL (0.00-0.02) 07/10/21 04:54 PT 14.5 Seconds (9.0-12.0) H 07/07/21 11:54 INR 1.4 (0.9-1.1) H 07/07/21 11:54 APTT 26.9 Seconds (21.0-31.0) 07/07/21 11:54 PTT Ratio 1.0 07/07/21 11:54 Sodium 137 mmol/L (136-145) 07/10/21 04:54 Potassium 3.6 mmol/L (3.5-5.1) 07/10/21 04:54 Chloride 107 mmol/L (98-107) 07/10/21 04:54 Carbon Dioxide 25 mmol/L (21-32) 07/10/21 04:54 Anion Gap 5 (3-11) 07/10/21 04:54 BUN 3 mg/dl (6-23) L 07/10/21 04:54 Creatinine 0.49 mg/dl (0.6-1.2) L 07/10/21 04:54 Est Cr Clr Drug Dosing 138.4 ml/min 07/10/21 04:54 Est GFR ( Amer) 146.3 ml/min 07/10/21 04:54 Est GFR (Non-Af Amer) 126.2 ml/min 07/10/21 04:54 BUN/Creatinine Ratio 6.1 (10-20) L 07/10/21 04:54 Glucose 113 mg/dl (70-99(Fasting)) H 07/10/21 04:54 POC Glucose 123 mg/dl (70-99) H 07/09/21 23:38 Calcium 8.2 mg/dl (8.5-10.1) L 07/10/21 04:54 Phosphorus 3.9 mg/dl (2.5-4.9) 07/10/21 04:54 Magnesium 2.2 mg/dl (1.7-2.4) 07/10/21 04:54 Total Bilirubin 0.8 mg/dl (0.2-1.0) 07/10/21 04:54 AST 26 U/L (13-39) 07/10/21 04:54 ALT 10 U/L (7-52) 07/10/21 04:54 Alkaline Phosphatase 247 U/L (34-104) H 07/10/21 04:54 Total Protein 6.3 gm/dl (6.0-8.3) 07/10/21 04:54 Albumin 2.6 gm/dl (3.4-5.0) L 07/10/21 04:54 Globulin 3.7 gm/dl (2.5-4.0) 07/10/21 04:54 Albumin/Globulin Ratio 0.7 (0.9-2) L 07/10/21 04:54 Lipase 9 U/L (11-82) L 07/07/21 11:54 HCG, Qual Negative (Negative) 07/07/21 11:54 Urine Color Dark Yellow 07/07/21 11:40 Urine Appearance Clear (Clear) 07/07/21 11:40 Urine pH >= 9.0 (4.5-7.5) H 07/07/21 11:40 Ur Specific [place] 1.022 (1.000-1.030) 07/07/21 11:40 Urine Protein 2+ (Negative) H 07/07/21 11:40 Urine Glucose (UA) Negative (Negative) 07/07/21 11:40 Urine Ketones Trace (Negative) H 07/07/21 11:40 Urine Blood Negative (Negative) 07/07/21 11:40 Urine Nitrite Positive (Negative) A 07/07/21 11:40 Urine Bilirubin Negative (Negative) 07/07/21 11:40 Urine Urobilinogen Negative (Negative) 07/07/21 11:40 Ur Leukocyte Esterase Trace (Negative) H 07/07/21 11:40 Urine WBC (Auto) 1-5 /hpf (0-5) 07/07/21 11:40 Urine RBC (Auto) 0-4 /hpf (0-4) 07/07/21 11:40 U Hyaline Cast (Auto) 1-5 /lpf (0-5) 07/07/21 11:40 U Epithel Cells (Auto) >30 /lpf (0-5) H 07/07/21 11:40 Urine Bacteria (Auto) 2+ (Negative) H 07/07/21 11:40 Ur Renal Epithelial Cell Not Reportable 07/07/21 11:40 Ethyl Alcohol mg/dL < 10.0 mg/dl (<10.0) 07/07/21 11:54 SARS-CoV-2, RNA, NAAT NEGATIVE (NEGATIVE) 07/07/21 12:45 Impressions Abdomen/Pelvis CT 07/07/21 10:37 CT SCAN OF THE ABDOMEN AND PELVIS WITHOUT IV CONTRAST CLINICAL HISTORY: Vomiting. COMPARISON STUDY: Abdominal CT dated 03/21/2021. TECHNIQUE: CT scan of the abdomen and pelvis is performed from the lung bases to the proximal femora. Images are reviewed in the axial, sagittal, and coronal planes. IV contrast was not administered for this examination. Note that the examination is suboptimal without oral and IV contrast. A dose lowering technique was utilized adhering to the principles of ALARA. CT DOSE: 272.17 mGy.cm FINDINGS: Lung bases: The heart is normal in size and without pericardial effusion. The lung bases are clear. Liver: The unenhanced liver is enlarged, measuring 20.2 cm in length. The liver demonstrates diffusely diminished attenuation consistent with severe hepatic steatosis. There is no intrahepatic biliary ductal dilatation. Gallbladder: Surgically absent noting clips in the gallbladder fossa. Spleen: Normal in size and attenuation. Pancreas: The unenhanced pancreas is moderately atrophic. Parenchymal calcifications indicate chronic pancreatitis. Adrenal glands: Unremarkable. Kidneys: The unenhanced kidneys are normal in size and without hydronephrosis. There are no renal calculi identified. There is no evidence of contour deforming renal mass lesion. A subcentimeter complex/hyperdense cyst is seen in the upper pole of the right kidney on image #111. Abdominal vasculature: The abdominal aorta is normal in course and caliber. Stomach and bowel: A percutaneous gastrostomy is in place. The stomach and duodenum are normal in configuration. No bowel obstruction is identified. The appendix is well-visualized and normal. Peritoneum: There is no intraperitoneal free air or abdominal ascites. There is a fat-containing periumbilical hernia. Lymphadenopathy: None. Pelvic viscera: The bladder wall appears circumferentially thickened. The uterus is normal as visualized. Bilateral ovarian follicles are incidentally noted. Skeletal structures: No lytic or blastic lesions are seen. IMPRESSION: 1. Suboptimal examination without oral and IV contrast. 2. A cutaneous gastrostomy tube is in place. There is no bowel obstruction. 3. The bladder wall appears circumferentially thickened. Correlate with clinical findings and urinalysis. 4. Hepatomegaly and severe hepatic steatosis. 5. There is evidence of chronic pancreatitis. 6. Additional findings as above. ACT 112: Negative or not required by law. Electronically signed by: Jc Ta M.D. 07/07/2021 1:36 PM (1) Alcohol withdrawal Complication of substance-induced condition: uncomplicated Qualified Code(s): F10.230 - Alcohol dependence with withdrawal, uncomplicated (2) Chronic pancreatitis Pancreatitis type: other Qualified Code(s): K86.1 - Other chronic pancreatitis (3) Vomiting Nausea presence: with nausea Vomiting type: unspecified Qualified Code(s): R11.2 - Nausea with vomiting, unspecified (4) Abdominal pain Abdominal location: generalized Qualified Code(s): R10.84 - Generalized abdominal pain
[2021-07-10] MEDS: cefTRIAXone SODIUM 1,000 MG in DEXTROSE 5% 50 ML IV SCH (17:04)
[2021-07-10] MEDS: ENOXAPARIN INJ 40 MG/0.4 ML SYR SQ SCH (20:04)
[2021-07-11] MEDS: MoRPHine SULFATE 2 MG/ML CARP IV PRN ×4 (00:01→19:26)
[2021-07-11] MEDS: dexMEDEtomidine 200 MCG/50 ML BAG IV SCH ×2 (00:48→18:05)
[2021-07-11] MEDS: TUBE FEEDING WATER FLUSH GT SCH ×6 (01:48→20:54)
[2021-07-11] MEDS: LORazepam 2 MG/1 ML VIAL IV PRN ×3 (02:48→20:51)
[2021-07-11 04:56] LABS: Hematocrit (blood only) 29.6 % (37-47); Hemoglobin 10.1 g/dL (12.0-16.0); Mean Corpuscular Hgb Conc 34.1 g/dL (32-36); Mean Corpuscular Volume 96.7 fL (80-100); Mean Platelet Volume 9.9 fL (7.4-10.4); Platelet Count 130 K/uL (130-400); RDW Coefficient of Variation 16.2 % (11.5-14.5); RDW Standard Deviation 57.3 fL (36.4-46.3); Red Blood Count 3.06 M/uL (4.2-5.4); White Blood Count 5.07 K/uL (4.8-10.8)
[2021-07-11 05:18] LABS: Anion Gap 5 (3-11); BUN Creatinine Ratio 4.9 (10-20); Blood Urea Nitrogen 2 mg/dl (6-23); Calcium 7.9 mg/dl (8.5-10.1); Carbon Dioxide 25 mmol/L (21-32); Chloride 104 mmol/L (98-107); Creatinine Clr Calc Pharmacy 140.6 ml/min; Est GFR (African American) > 150.0 ml/min; Est GFR (Non-African American) 133.9 ml/min; Glucose 125 mg/dl (70-99(Fasting)); Magnesium 1.5 mg/dl (1.7-2.4); Phosphorus 4.4 mg/dl (2.5-4.9); Potassium 3.8 mmol/L (3.5-5.1); Sodium 134 mmol/L (136-145)
[2021-07-11] MEDS: LORazepam 2 MG/1 ML VIAL IV SCH ×5 (06:33→23:07)
[2021-07-11] MEDS ORDERED: POTASSIUM CHLORIDE / WTR 10 MEQ/100 ML PLCT IV STA (07:49)
[2021-07-11] MEDS ORDERED: POTASSIUM CHLORIDE 20 MEQ/15 ML UDC PO STA (07:51)
[2021-07-11] MEDS ORDERED: LORazepam 2 MG/1 ML VIAL IV SCH (08:00)
[2021-07-11] MEDS: THIAMINE HCL IV SCH (08:19)
[2021-07-11] MEDS: SODIUM CHLORIDE 0.9% IV SCH (08:19)
[2021-07-11] MEDS: MAGNESIUM SULFATE / D5W 1 GM/100 ML BAG IV SCH ×2 (08:27→11:07)
[2021-07-11] MEDS: PANTOprazole 40 MG in SYRINGE 0 ML IV SCH ×2 (08:27→20:52)
[2021-07-11] MEDS: FOLIC ACID 1 MG in SYRINGE 9.8 ML IV SCH (08:28)
[2021-07-11] MEDS: FOLIC ACID 1 MG TAB PO SCH (08:28)
[2021-07-11] MEDS: FLUTICASONE/VILANTEROL 200/25MCG 14 PUFFS/INHALER INH SCH (08:28)
[2021-07-11] MEDS: PANCREAZE (LIPASE 10,500U) CAP PO SCH ×4 (08:29→20:53)
[2021-07-11] MEDS: MULTI VIT W/MINERALS LIQUID 15 ML UDP GT SCH (08:30)
[2021-07-11] MEDS: NICOTINE 21 MG/24 HR TDSY TD SCH (08:30)
[2021-07-11] MEDS: MONTELUKAST SODIUM 10 MG TABLET PO SCH (08:30)
[2021-07-11] MEDS: UMECLIDINIUM BROMIDE 62.5MCG/BLISTER 7 PUFFS/INHALER INH SCH (08:32)
--- NOTE | 2021-07-11 08:47 | Critical Care Progress Note ---
Date of Service July 11, 2021 Assessment & Plan (1) Alcohol withdrawal: (2) Chronic pancreatitis: (3) Alcohol use disorder, severe, dependence: (4) Chronic alcoholic liver disease: (5) Abdominal pain: (6) Gastrostomy tube in place: (7) Smoker: Plan: ICU Assessment and Plans Reason Critically Ill: 36-year-old female here with a PMHx significant for alcohol use disorder, GJ tube, chronic pancreatitis, alcoholic hepatitis, who presented with abd pain tachycardia and hypertension after stopping alcohol and who was admitted for alcohol withdrawal. Neuro - Alcohol use disorder in withdrawal with concern delirium tremens, high seizure risk, has required high dose benzodiazepines due to high tolerance Last AWSS 6 On precedex drip, ativan 4mg q6h, ativan 2mg q2h PRN for agitation, will continue to wean down goal to maintain RASS -1 On IV folic acid and thiamine 200mg Given patient's current delirium, patient should not leave AMA unattended at this time CAM ICU: unable to assess Sedation: Dexmedetomidine drip at 0.2mcg/kg/hr, ativan 4mg q6hr, ativan 2mg q2hr PRN Analgesia: PRN morphine, tylenol IV Cardiac - EKG 07/07 prolonged QTc 482, avoid QT prolonging medication Respiratory - Patient received diazapam, precedex, ativan, has PRN morphine, monitor for respiratory depression GI - GI consulted, Recommend supportive care measures. Abstinence from alcohol. Referral for drug and alcohol counseling/treatment. noted hx gastritis marijuana use, chronic malnutrition, defer EGD at this time drainage around feeding tube grew staph species may resume G tube feeds, continue as tolerated GJ tube present, does not tolerate PO well Pantoprazole 40mg IV BID Abd pain noted, may use morphine or tylenol Nausea noted, avoid zofran reglan given QT prolongation RENAL/LYTES - No significant electrolyte derangement. Maintain K>4, Mg>2, Phos>3 Replace lytes as needed. Given 2mg Mg - Abnormal UA on Ceftriaxone 1g daily, culture negative. I/O: +1059, 500ml urine ENDO - history mild low TSH normal T4 not on medication history elevated AM cortisol HEME - Stable H&H. Started on Lovenox thrombocytopenia noted, stop lovenox if continues to decrease chronic anemia noted ID - Concern for UTI on ceftriaxone 1g daily, this is day 5 Wound culture from PEG tube grew staph aureus and groupB beta strep species, continue ceftriaxone Monitor fever curve. INTEGUMENTARY - skin dry warm intact LINES/IV ACCESS - PIVs intact no lazo DVT PROPHYLAXIS - On Lovenox Thank you for allowing us to be part of this patient's care. Please refer to Dr. Lama's documentation for any further recommendations. Admission and Anticipated Discharge Date Admission Date: July 07, 2021 Supervising Physician Co-Signing Physician Notes Dr. Jasmine was the resident-physician during care of patient. I separately evaluated patient for nieto portions of the history and the exam. I was present during the critical portion of medical decision making, and I discussed the case with the resident. I generally agree with the findings and plan except for any additions/exceptions noted. Patient seen and examined at bedside. No acute distress Overnight patient did get 2 mg extra of Ativan Today at the time of examination was on Precedex 0.2. She is calm and composed answering all questions appropriately. Denies any visual, tactile or auditory hallucinations. Had breakfast and getting tube feeds as well Constitutional: No acute distress HEENT: EOMI, PERRLA Respiratory system: Good air entry bilaterally, no wheeze, no rhonchi, no cr ackles CVS: S1-S2 positive, no murmurs or gallops Abdomen: Soft, nontender, nondistended, positive bowel sounds x4, positive GJ tube Extremities: +2 pulses bilaterally radialis/ dorsalis pedis, no cyanosis, no edema Neuro: Awake alert oriented to self and place Psych: Normal mood and affect G/U: No Lazo --Prophylaxis VTE: Lovenox GI: Protonix Lines: Peripheral Diet: Tube feeds along with regular diet Plan: In/out: -56, urine output 400 Magnesium being replaced Patient also got 20 mEq of KCl. We will go down on Ativan to 4 mg every 6 hours. If she is doing well then I will change it to 4 mg every 8 hours starting tomorrow Continue with 1 is to 1. Try to turn off Precedex if possible. I have personally spent 35 minutes of critical care time in the direct management of this patient. This is a life/limb threatening event. This includes time spent evaluating patient, direct bedside care, chart review, placing orders, interpretation of diagnostic studies, discussion with consultants, patient, and/or family members regarding treatment decisions, as well as other required patient management activities. This time is exclusive of all separately billable procedures, and teaching time and separate from and in addition to any other critical care service time. Subjective Patient seen at bedside, calm comfortable, sleepy. Patient complains of mild nausea but no pain, is orientedx3. Per nursing she was less agitated overnight. No further events overnight. Review of Systems Review of Systems: Unobtainable due to reduced consciousness Physical Exam Constitutional: average body habitus, cooperative, comfortable and + lethargic Eyes: PERRL, conjunctivae normal, anicteric sclerae ENMT: external ear and nose normal, oropharynx normal Neck: trachea midline, no thyromegaly Respiratory: normal respiratory effort Auscultation: lungs clear to auscultation bilaterally Cardiovascular: RRR, no murmur, no edema Chest (Breasts): Chest: normal inspection of chest Gastrointestinal (Abdomen): Inspection/Auscultation: normal bowel sounds GJ tube in place Skin: no rashes, warm and dry Psychiatric: Orientation: oriented to person and oriented to time Results & Data Results & Data ([facility]) Vital Signs (Past 12 Hours) Vital Signs Temp Pulse Resp BP Pulse Ox 07/11/21 06:00 69 0 L 97/72 L 97 07/11/21 05:00 71 0 L 97/67 L 97 07/11/21 04:00 75 0 L 97/65 L 98 07/11/21 03:00 78 0 L 84/58 L 97 07/11/21 02:16 78 0 L 89/58 L 07/11/21 02:00 78 0 L 73/59 L 07/11/21 01:00 77 0 L 88/57 L 97 07/11/21 00:00 36.8 C 75 0 L 106/73 95 07/10/21 23:00 73 0 L 104/69 95 07/10/21 22:00 77 0 L 100/69 97 07/10/21 21:00 75 0 L 92/77 L 98 Laboratory Results 07/11/21 04:46 07/11/21 04:46 Resident Activity Tracking Resident Involvement: Resident Care Provided Care Provided: Adult Hospital Medicine (1) Alcohol withdrawal Complication of substance-induced condition: uncomplicated Qualified Code(s): F10.230 - Alcohol dependence with withdrawal, uncomplicated (2) Chronic pancreatitis Pancreatitis type: other Qualified Code(s): K86.1 - Other chronic pancreatitis (3) Abdominal pain Abdominal location: generalized Qualified Code(s): R10.84 - Generalized abdominal pain
[2021-07-11] MEDS ORDERED: DIAZEPAM IV SCH (14:00)
[2021-07-11] MEDS: GABAPENTIN 300 MG CAP PO SCH ×2 (14:43→20:52)
--- NOTE | 2021-07-11 15:43 | Gastroenterology Progress Note ---
Date of Service July 11, 2021 Assessment & Plan (1) Abdominal pain: Plan: Continue to advance tube feeds as tolerated. Has chronic pancreattis which could be contributing. NO obvious tube site infection. Continue PPI for possible PUD. Positive culture around PEG--Staph and Grp B strep--no obvious infection chronic pancretitis--continue pancreas enzymes ETOH withdrawal --per critical care, hospitalists IChau MD have spent 20 minutes of discrete time performing the activities of this visit which include but are not limited to review of the medical record, obtaining a history, physical exam, and entering information in the electronic record. . Admission and Anticipated Discharge Date Admission Date: July 07, 2021 Subjective cc f/u nausea, abd pain HPI Per nursing no nausea for 2 days. Tolerating 10 cc/hour Peptamen through G tube. Pt does complain of some pain at PEG site. Physical Exam Gastrointestinal (Abdomen): diminished bowel sounds, no guarding nor rebound. PEG site without obvius infection. Results & Data ([facility]) Vital Signs (Past 12 Hours) Vital Signs Temp Pulse Pulse Resp BP BP Pulse Ox 07/11/21 08:00 36.6 C 91 H 16 98/74 L 97 07/11/21 06:00 69 0 L 97/72 L 97 07/11/21 05:00 71 0 L 97/67 L 97 07/11/21 04:00 75 0 L 97/65 L 98 (1) Abdominal pain Abdominal location: generalized Qualified Code(s): R10.84 - Generalized abdominal pain
[2021-07-11] MEDS: cefTRIAXone SODIUM 1,000 MG in DEXTROSE 5% 50 ML IV SCH (16:15)
--- NOTE | 2021-07-11 16:15 | Billing Data ---
Date of Service July 11, 2021 Coding Level of Care Code Critical Care 1st 30-74 mins Time Spent (min) 35
--- NOTE | 2021-07-11 18:50 | Hospitalist Progress Note ---
Date of Service July 11, 2021 Assessment & Plan (1) Alcohol use disorder, moderate, dependence: Plan: Perla is a 36-year-old female with a past medical history of alcohol dependence, pancreatitis, tobacco use, gastrostomy tube placement, chronic back pain who presented in acute alcohol withdrawal after being abstinent for 48 hours and was found to be tachycardic and hypertensive on admission. Alcohol use disorder with acute withdrawal, history of alcoholic hepatitis Pt decompensated on 07/09/21 necessitating ICU admission and starting precedex, some issues of limitation of taking po meds and meds available for g tube administration. however if is not stabilized, would this pt be a good candidate for phenobarb protocol PT with continued outbursts makes me consider if there is underlying psyche issues as should be coming to end of etoh withdrawal soon (2) Chronic alcoholic liver disease: Plan: GI consulted supportive care for alcoholic liver disease, alcohol withdrawal, nutritional support. Madrey score 13, no concern for need of steroids for alcholic hepatitis although Ct abdomen and pelvis consistent with alcoholic hepatitis and inactive chronic pancreatitis with atrophy (3) Chronic pancreatitis: Plan: Lipase of 9 on admission CTa/P 07/07/21: Gastrostomy tube in place, no SBO, bladder wall circumf erentially thickened. Hepatomegaly and severe hepatic steatosis, evidence of chronic pancreatitis Clears, n.p.o. if worsening mental status or concern for aspiration Nutrition consulted (4) Asthma: Plan: History of intrinsic asthma Continue Spiriva, singular/Symbicort/formulary conversion No smoking in previous 2 months, previously with tobacco use regularly. No nicotine patch required admission (5) Gastrostomy tube in place: Plan: Continue Creon With history of gastritis no esophagitis likely related to alcohol intake per prior nutrition assessment GI consulted, have seen before, appreciate recommendations. Drainage appreciated rate around feeding tube which was cultured, no signs of cellulitis surrounding. will use topical muripocin Agree with nutrition evaluation. (6) Abnormal urinalysis: Plan: Abnormal UA on admission, CT scan consistent with cystitis Patient with clinical dysuria urine culture ruled out infection (7) DVT prophylaxis: Plan: Patient did have a Nunes associated upper extremity DVT in the past. She is no longer taking Eliquis at this time. Lovenox on 07/08/2021 (8) Alcoholic hepatitis: Plan: As above Plan: Acute alcohol withdrawal management Psych consulted at patient request for alcohol dependence Electrolyte management, BMP trend as needed Tube feeds as tolerated coordinated by dietitian consult, antiemetics, GI consulted Admission and Anticipated Discharge Date Admission Date: July 07, 2021 Subjective pt is improving still failure sedate did have agitation 07/10/21 pm, required to go up on meds Review of Systems Review of Systems: Mild distress and fatigue is sedated however on my examination of her no headache, no visual changes no speech or swallowing issues, some slurring from meds no chest pain, pressure or palpitations no shortness of breath, cough or wheezes no abdominal pain, g button in place no dysuria, hematuria or frequency some hand pain and swelling no back pain, CVA tenderness or radicular pain Physical Exam Physical Exam: The patient appeared well nourished and normally developed. Vital signs as documented. Head exam is normocephalic atraumatic Neck is without JVD, thyromegaly, or carotid bruits. Lungs are clear to auscultation, no focal loss of breath sounds Cardiac exam, Rhythm is regular.. No murmurs, rubs or gallops. Abdominal exam reveals normal bowel sounds, soft non tender, no masses, Gastrostomy button in place Extremities are nonedematous and both pedal pulses are present Neurologic exam is alert and oriented, sedate, no focal loss of strength or sensation Skin is without bruises or rashes Psychologically is without concerns for anxiety or depression.. Results & Data Results & Data ([facility]) Vital Signs (Past 12 Hours) Vital Signs Temp Pulse Pulse Resp BP BP Pulse Ox 07/11/21 18:34 66 14 105/73 99 07/11/21 17:01 81 118/85 100 07/11/21 17:00 79 100 07/11/21 16:00 69 104/75 98 07/11/21 15:00 70 103/74 98 07/11/21 14:00 69 91/66 L 99 07/11/21 13:00 66 87/63 L 98 07/11/21 12:00 70 95/67 L 07/11/21 11:00 68 101/64 07/11/21 10:00 71 99/71 L 97 07/11/21 09:00 72 98/74 L 98 07/11/21 08:01 72 90/62 L 98 07/11/21 08:00 97.9 F 72 91 H 16 98/74 L 98 07/11/21 07:00 69 100/75 98 PG Care Time/CCT Total # of Minutes Spent Total Time Spent with Patient: Total time spent is greater than 50% in coordination of care (as documented) at patient's floor/unit and/or counseling patient: Coding Level of Care Code 16438 Subseq Hosp Care Lvl 2 Diagnoses Alcohol use disorder, moderate, dependence F10.20 Chronic alcoholic liver disease K70.9 Chronic pancreatitis K86.1 Asthma J45.[address] Z93.1 Abnormal urinalysis R82.90 DVT prophylaxis Z29.9 Alcoholic hepatitis K70.10
[2021-07-11] MEDS: ENOXAPARIN INJ 40 MG/0.4 ML SYR SQ SCH (20:52)
[2021-07-11] MEDS: MUPIROCIN 2% OINT 22 GM TUBE EXT SCH (20:54)
[2021-07-11] MEDS: PEPTAMEN 1.5 CAL 1,000 ML BAG GT SCH (23:07)
[2021-07-12] MEDS: MoRPHine SULFATE 2 MG/ML CARP IV PRN ×6 (00:13→22:10)
[2021-07-12] MEDS: TUBE FEEDING WATER FLUSH GT SCH ×6 (00:13→20:03)
[2021-07-12] MEDS: dexMEDEtomidine 200 MCG/50 ML BAG IV SCH ×4 (00:57→20:58)
[2021-07-12 05:16] LABS: Basophils # (auto) 0.01 K/uL (0-0.2); Basophils % (auto) 0.2 %; Eosinophils # (auto) 0.19 K/uL (0-0.5); Eosinophils % (auto) 3.8 %; Hematocrit (blood only) 32.1 % (37-47); Hemoglobin 10.7 g/dL (12.0-16.0); Immature Granulocytes # (auto) 0.01 K/uL (0.00-0.02); Immature Granulocytes % (auto) 0.2 %; Lymphocytes % (auto) 46.2 %; Mean Corpuscular Hemoglobin 32.3 pg (25-34); Mean Corpuscular Hgb Conc 33.3 g/dL (32-36); Mean Platelet Volume 10.7 fL (7.4-10.4); Monocytes # (auto) 0.68 K/uL (0.11-0.59); Monocytes % (auto) 13.7 %; Neutrophils # (auto) 1.79 K/uL (1.4-6.5); Neutrophils % (auto) 35.9 %; Platelet Count 157 K/uL (130-400); RDW Coefficient of Variation 16.2 % (11.5-14.5); RDW Standard Deviation 57.7 fL (36.4-46.3); Red Blood Count 3.31 M/uL (4.2-5.4); White Blood Count 4.98 K/uL (4.8-10.8)
[2021-07-12] MEDS: LORazepam 2 MG/1 ML VIAL IV SCH ×4 (05:18→23:33)
[2021-07-12] MEDS: ACETAMINOPHEN 325 MG TAB PO PRN ×2 (05:19→21:34)
[2021-07-12 05:42] LABS: Albumin Globulin Ratio 0.8 (0.9-2); Albumin Level 2.7 gm/dl (3.4-5.0); BUN Creatinine Ratio 3.6 (10-20); Bilirubin,Total 0.4 mg/dl (0.2-1.0); Calcium 8.3 mg/dl (8.5-10.1); Creatinine Clr Calc Pharmacy 99.4 ml/min; Est GFR (Non-African American) 120.8 ml/min; Globulin 3.6 gm/dl (2.5-4.0); Magnesium 1.4 mg/dl (1.7-2.4); Phosphorus 4.2 mg/dl (2.5-4.9); Total Protein 6.3 gm/dl (6.0-8.3)
[2021-07-12] MEDS: MAGNESIUM SULFATE / D5W 1 GM/100 ML BAG IV SCH ×4 (06:39→12:54)
[2021-07-12] MEDS: UMECLIDINIUM BROMIDE 62.5MCG/BLISTER 7 PUFFS/INHALER INH SCH (08:11)
[2021-07-12] MEDS: FLUTICASONE/VILANTEROL 200/25MCG 14 PUFFS/INHALER INH SCH (08:11)
[2021-07-12] MEDS: MONTELUKAST SODIUM 10 MG TABLET PO SCH (08:14)
[2021-07-12] MEDS: FOLIC ACID 1 MG TAB PO SCH (08:14)
[2021-07-12] MEDS: PANCREAZE (LIPASE 10,500U) CAP PO SCH ×4 (08:14→20:03)
[2021-07-12] MEDS: GABAPENTIN 300 MG CAP PO SCH ×3 (08:14→20:02)
[2021-07-12] MEDS: MUPIROCIN 2% OINT 22 GM TUBE EXT SCH ×2 (08:16→20:03)
[2021-07-12] MEDS: MULTI VIT W/MINERALS LIQUID 15 ML UDP GT SCH (08:16)
[2021-07-12] MEDS: NICOTINE 21 MG/24 HR TDSY TD SCH (08:17)
[2021-07-12] MEDS: PANTOprazole 40 MG in SYRINGE 0 ML IV SCH ×2 (08:28→20:03)
[2021-07-12] MEDS: SODIUM CHLORIDE 0.9% IV SCH (08:28)
[2021-07-12] MEDS: THIAMINE HCL IV SCH (08:28)
--- NOTE | 2021-07-12 08:35 | Gastroenterology Progress Note ---
Date of Service July 12, 2021 Assessment & Plan (1) Abdominal pain: Plan: Abdominal pain --continue to advance tube feeds as tolerated. Has chronic pancreatitis which could be contributing. NO obvious tube site infection. Continue PPI for possible PUD. Positive culture around PEG--Staph and Group B strep without obvious infection chronic pancreatitis--continue pancreas enzymes ETOH withdrawal --per critical care, hospitalists Please refer to supervising physician addendum for further recommendations. I have spent 20 minutes of discrete time performing the activities of this visit which include but are not limited to review of the medical record, obtaining a history, physical exam, and entering information in the electronic record. Admission and Anticipated Discharge Date Admission Date: July 07, 2021 Supervising Physician Co-Signing Physician Notes I have seen and examined the patient. I agree with note above by ANTONIO Fairchild except as noted below. HPI Pt states has abd pain 8/10 vs 6/10 baseline. Tolerating solid diet. No stools for several day. PE Abdomen pos bs, soft, guaridn but nor rebound at PEG site. No evidene of infection of PEG. A/P chronic abd pain---advance diet as tolerated Miralax for constipation. I am going off service today at [address] Tello is on the schedule to cover. As the supervising physician, I , Chau Payan MD have spent 14 minutes of discrete time performing the activities of this visit which include but not limited to review of the medical records, obtaining a history, physical exam and entering information in the electronic record. ANTONIO Fairchild has reported spending 20 minutes of discrete time with the activities of this visit. Subjective Patient lying in bed. She is alert to person place this morning recently medicated with pain meds from nursing and Precedex drip had to be increased overnight due to agitation. Patient is drowsy and slurring her words this morning. She is answering questions appropriately. She is taking pills by mouth. Reports continued abdominal pain. Reports nausea with no vomiting. No documented bowel movement by nursing and patient has no recall of last bowel movement. She is taking some p.o. intake. Review of Systems Gastrointestinal: + abdominal pain and + nausea Physical Exam Gastrointestinal (Abdomen): diminished bowel sounds, no guarding nor rebound. PEG site without obvious infection. Results & Data ([facility]) Vital Signs (Past 12 Hours) Vital Signs Temp Pulse Pulse Resp BP BP Pulse Ox 07/12/21 07:48 37.6 C H 07/12/21 07:00 71 18 128/91 95 07/12/21 06:57 85 109/73 93 07/12/21 06:00 66 25 H 120/86 94 07/12/21 05:00 69 26 H 126/95 95 07/12/21 04:50 79 122/88 97 07/12/21 04:00 76 130/105 H 97 07/12/21 03:00 84 22 95 07/12/21 02:00 73 22 143/104 H 92 07/12/21 01:00 69 22 134/99 93 07/12/21 00:05 71 143/99 H 97 07/12/21 00:01 37 C 68 22 143/99 H 97 07/12/21 00:00 75 22 96 07/11/21 23:32 73 22 128/97 07/11/21 23:00 66 18 93 07/11/21 22:00 67 0 L 122/89 94 07/11/21 21:57 71 0 L 124/86 95 07/11/21 21:01 87 0 L 108/75 94 07/11/21 21:00 79 0 L 96 07/11/21 20:46 36.7 C 80 0 L 125/90 91 Laboratory Results Laboratory Results - last 24 hr 07/12/21 07/12/21 04:56 04:56 WBC 4.98 RBC 3.31 L Hgb 10.7 L Hct 32.1 L MCV 97.0 MCH 32.3 MCHC 33.3 RDW Std Deviation 57.7 H RDW Coeff of Paulina 16.2 H Plt Count 157 MPV 10.7 H Immature Gran % (Auto) 0.2 Neut % (Auto) 35.9 Lymph % (Auto) 46.2 Faulkner % (Auto) 13.7 Eos % (Auto) 3.8 Baso % (Auto) 0.2 Neut # (Auto) 1.79 Lymph # (Auto) 2.30 Faulkner # (Auto) 0.68 H Eos # (Auto) 0.19 Baso # (Auto) 0.01 Immature Gran # (Auto) 0.01 Sodium 135 L Potassium 4.0 Chloride 103 Carbon Dioxide 26 Anion Gap 6 BUN 2 L Creatinine 0.56 L Est Cr Clr Drug Dosing 99.4 Est GFR ( Amer) 140.0 Est GFR (Non-Af Amer) 120.8 BUN/Creatinine Ratio 3.6 L Glucose 110 H Calcium 8.3 L Phosphorus 4.2 Magnesium 1.4 L Total Bilirubin 0.4 AST 28 ALT 10 Alkaline Phosphatase 223 H Total Protein 6.3 Albumin 2.7 L Globulin 3.6 Albumin/Globulin Ratio 0.8 L (1) Abdominal pain Abdominal location: generalized Qualified Code(s): R10.84 - Generalized abdominal pain
--- NOTE | 2021-07-12 08:35 | Critical Care Progress Note ---
Date of Service July 12, 2021 Assessment & Plan (1) Alcohol withdrawal: (2) Chronic pancreatitis: (3) Alcohol use disorder, severe, dependence: (4) Chronic alcoholic liver disease: (5) Abdominal pain: (6) Gastrostomy tube in place: (7) Smoker: Plan: ICU Assessment and Plans Reason Critically Ill: 36-year-old female here with a PMHx significant for alcohol use disorder, GJ tube, chronic pancreatitis, alcoholic hepatitis, who presented with abd pain tachycardia and hypertension after stopping alcohol and who was admitted for alcohol withdrawal. Neuro - Alcohol use disorder in withdrawal with concern delirium tremens, high seizure risk, has required high dose benzodiazepines due to high tolerance Last AWSS 6 On precedex drip, ativan 4mg q6h, ativan 2mg q2h PRN for agitation, will continue to wean down goal to maintain RASS -1 On IV folic acid and thiamine 200mg 1:1 present Given patient's current delirium, patient should not leave AMA unattended at this time CAM ICU: unable to assess Sedation: Dexmedetomidine drip at 0.4mcg/kg/hr, ativan 4mg q6hr, ativan 2mg q2hr PRN Analgesia: PRN morphine, tylenol IV If she does well can change to ativan 4 mg every 8 hours Cardiac - EKG 07/07 prolonged QTc 482, avoid QT prolonging medication Respiratory - Patient received diazapam, precedex, ativan, has PRN morphine, monitor for respiratory depression GI - GI consulted, Recommend supportive care measures. Abstinence from alcohol. Referral for drug and alcohol counseling/treatment. noted hx gastritis marijuana use, chronic malnutrition, defer EGD at this time drainage around feeding tube grew staph species may resume G tube feeds, continue as tolerated GJ tube present, does not tolerate PO well Pantoprazole 40mg IV BID Abd pain noted, may use morphine or tylenol Nausea noted, avoid zofran reglan given QT prolongation RENAL/LYTES - No significant electrolyte derangement. Maintain K>4, Mg>2, Phos>3 Replace lytes as needed. Given 4mg Mg - Abnormal UA on Ceftriaxone 1g daily, culture negative. track I/O's ENDO - history mild low TSH normal T4 not on medication history elevated AM cortisol HEME - Stable H&H. On Lovenox thrombocytopenia noted, stop lovenox if continues to decrease chronic anemia noted ID - Concern for UTI on ceftriaxone 1g daily, this is day 6 Wound culture from PEG tube grew staph aureus and group B beta strep species, continue ceftriaxone INTEGUMENTARY - skin dry warm intact LINES/IV ACCESS - PIVs intact no lazo DVT PROPHYLAXIS - On Lovenox Thank you for allowing us to be part of this patient's care. Please refer to Dr. Lama's documentation for any further recommendations. Admission and Anticipated Discharge Date Admission Date: July 07, 2021 Supervising Physician Co-Signing Physician Notes Dr. Jasmine was the resident-physician during care of patient. I separately evaluated patient for nieto portions of the history and the exam. I was present during the critical portion of medical decision making, and I discussed the case with the resident. I generally agree with the findings and plan except for any additions/exceptions noted. Patient seen and examined at bedside. No acute distress Overnight patient again had bouts of agitation/hallucination for which she got Ativan and Precedex was as high as 0.7 The time of examination patient's was on 0.4 of Precedex She has been getting 4 mg every 6 hours of Ativan. She was answering simple questions. She was a little bit groggy. Did complain of mild headache. No blurry vision. No auditory or visual hallucination. Has been eating. Constitutional: No acute distress HEENT: EOMI, PERRLA Respiratory system: Good air entry bilaterally, no wheeze, no rhonchi, no crackles CVS: S1-S2 positive, no murmurs or gallops Abdomen: Soft, nontender, nondistended, positive bowel sounds x4, positive GJ tube, no erythema around the tube site Extremities: +2 pulses bilaterally radialis/ dorsalis pedis, no cyanosis, no edema Neuro: Awake alert oriented to self and place Psych: Normal mood and affect G/U: No Lazo --Prophylaxis VTE: Lovenox GI: Protonix Lines: Peripheral Diet: Tube feeds along with regular diet Plan: In/out: +1311 Magnesium being replaced by 4 g. DC Rocephin today. Given the patient is still having bouts of agitation I will continue with Ativan 4 mg every 6 for the time being with as needed Ativan 2 mg every 2 on top of it. Continue with 1 is to 1. Try to turn off Precedex if possible. I have personally spent 35 minutes of critical care time in the direct management of this patient. This is a life/limb threatening event. This includes time spent evaluating patient, direct bedside care, chart review, placing orders, interpretation of diagnostic studies, discussion with consultants, patient, and/or family members regarding treatment decisions, as well as other required patient management activities. This time is exclusive of all separately billable procedures, and teaching time and separate from and in addition to any other critical care service time. Subjective Patient seen at bedside, comfortable cooperative lethargic. She states she has a mild headache this morning. She still has tremors holding her arms in front of her. Per nursing she required higher precedex drip up to 0.7 due to aggltation threatened to hit nursing, decreased this morning to 0.4. Review of Systems Review of Systems: Positive headache, nausea Negative fever chills Negative dizziness Negative chest pain palpitations SOB Negative vomitting diarrhea constipation Negative numbness tingling rash swelling Physical Exam Constitutional: average body habitus, cooperative, comfortable and + lethargic Eyes: PERRL, conjunctivae normal, anicteric sclerae ENMT: external ear and nose normal, oropharynx normal Neck: trachea midline, no thyromegaly Respiratory: normal respiratory effort Auscultation: lungs clear to auscultation bilaterally Cardiovascular: RRR, no murmur, no edema Chest (Breasts): Chest: normal inspection of chest Gastrointestinal (Abdomen): Inspection/Auscultation: normal bowel sounds GJ tube noted no discharge erythema noted Skin: no rashes, warm and dry Neurologic: Motor/Sensory: + tremor (b/l upper extremities) Psychiatric: Orientation: oriented x 3 Results & Data Results & Data ([facility]) Vital Signs (Past 12 Hours) Vital Signs Temp Pulse Pulse Resp BP BP Pulse Ox 07/12/21 07:48 37.6 C H 07/12/21 07:00 71 18 128/91 95 07/12/21 06:57 85 109/73 93 07/12/21 06:00 66 25 H 120/86 94 07/12/21 05:00 69 26 H 126/95 95 07/12/21 04:50 79 122/88 97 07/12/21 04:00 76 130/105 H 97 07/12/21 03:00 84 22 95 07/12/21 02:00 73 22 143/104 H 92 07/12/21 01:00 69 22 134/99 93 07/12/21 00:05 71 143/99 H 97 07/12/21 00:01 37 C 68 22 143/99 H 97 07/12/21 00:00 75 22 96 07/11/21 23:32 73 22 128/97 07/11/21 23:00 66 18 93 07/11/21 22:00 67 0 L 122/89 94 07/11/21 21:57 71 0 L 124/86 95 07/11/21 21:01 87 0 L 108/75 94 07/11/21 21:00 79 0 L 96 07/11/21 20:46 36.7 C 80 0 L 125/90 91 Resident Activity Tracking Resident Involvement: Resident Care Provided Care Provided: Adult Hospital Medicine (1) Alcohol withdrawal Complication of substance-induced condition: uncomplicated Qualified Code(s): F10.230 - Alcohol dependence with withdrawal, uncomplicated (2) Chronic pancreatitis Pancreatitis type: other Qualified Code(s): K86.1 - Other chronic pancreatitis (3) Abdominal pain Abdominal location: generalized Qualified Code(s): R10.84 - Generalized abdominal pain
[2021-07-12] MEDS: LORazepam 2 MG/1 ML VIAL IV PRN ×4 (09:20→20:00)
[2021-07-12] MEDS ORDERED: ACETAMINOPHEN 65 ML IV PRN (09:44)
--- NOTE | 2021-07-12 12:10 | Billing Data ---
Date of Service July 12, 2021 Coding Level of Care Code Critical Care 1st 30-74 mins Time Spent (min) 35
--- NOTE | 2021-07-12 12:55 | Hospitalist Progress Note ---
Date of Service July 12, 2021 Assessment & Plan (1) Alcohol use disorder, moderate, dependence: Plan: Perla is a 36-year-old female with a past medical history of alcohol dependence, pancreatitis, tobacco use, gastrostomy tube placement, chronic back pain who presented in acute alcohol withdrawal after being abstinent for 48 hours and was found to be tachycardic and hypertensive on admission. Alcohol use disorder with acute withdrawal, history of alcoholic hepatitis Pt decompensated on 07/09/21 necessitating ICU admission and starting precedex, some issues of limitation of taking po meds and meds available for g tube administration. PT with continued outbursts makes me consider if there is underlying psyche issues as should be coming to end of etoh withdrawal soon (2) Chronic alcoholic liver disease: Plan: GI consulted supportive care for alcoholic liver disease, alcohol withdrawal, nutritional support. Madrey score 13, no concern for need of steroids for alcoholic hepatitis although Ct abdomen and pelvis consistent with alcoholic hepatitis and inactive chronic pancreatitis with atrophy (3) Chronic pancreatitis: Plan: Lipase of 9 on admission CTa/P 07/07/21: Gastrostomy tube in place, no SBO, bladder wall circumferentially thickened. Hepatomegaly and severe hepatic steatosis, evidence of chronic pancreatitis Clears, n.p.o. if worsening mental status or concern for aspiration Nutrition consulted (4) Asthma: Plan: History of intrinsic asthma Continue Spiriva, singular/Symbicort/formulary conversion No smoking in previous 2 months, previously with tobacco use regularly. No nicotine patch required admission (5) Gastrostomy tube in place: Plan: Continue Creon With history of gastritis no esophagitis likely related to alcohol intake per prior nutrition assessment GI consulted, have seen before, appreciate recommendations. Drainage appreciated rate around feeding tube which was cultured, no signs of cellulitis surrounding. will use topical muripocin Agree with nutrition evaluation. (6) Abnormal urinalysis: Plan: Abnormal UA on admission, CT scan consistent with cystitis Patient with clinical dysuria urine culture contaminated x2, try to recollect (7) DVT prophylaxis: Plan: Patient did have a Nunes associated upper extremity DVT in the past. She is no longer taking Eliquis at this time. Lovenox on 07/08/2021 (8) Alcoholic hepatitis: Plan: As above Plan: Acute alcohol withdrawal management Psych consulted at patient request for alcohol dependence Electrolyte management, BMP trend as needed Tube feeds as tolerated coordinated by dietitian consult, antiemetics, GI consulted Admission and Anticipated Discharge Date Admission Date: July 07, 2021 Subjective pt is sedated on precedex, she has nocturnal agitation that has been requiring increased precedex. otherwise is with chronic abdominal pain Review of Systems Review of Systems: Mild distress and fatigue is sedated however on my examination of her no headache, no visual changes no speech or swallowing issues, some slurring from meds no chest pain, pressure or palpitations no shortness of breath, cough or wheezes no abdominal pain, g button in place no dysuria, hematuria or frequency some hand pain and swelling no back pain, CVA tenderness or radicular pain Physical Exam Physical Exam: The patient appeared well nourished and normally developed. Vital signs as documented. Head exam is normocephalic atraumatic Neck is without JVD, thyromegaly, or carotid bruits. Lungs are clear to auscultation, no focal loss of breath sounds Cardiac exam, Rhythm is regular.. No murmurs, rubs or gallops. Abdominal exam reveals normal bowel sounds, soft non tender, no masses, Gastrostomy button in place Extremities are nonedematous and both pedal pulses are present Neurologic exam is alert and oriented, sedate, no focal loss of strength or sensation Skin is without bruises or rashes Psychologically is without concerns for anxiety or depression.. Results & Data Results & Data ([facility]) Vital Signs (Past 12 Hours) Vital Signs Temp Pulse Resp BP Pulse Ox 07/12/21 09:00 67 18 110/82 95 07/12/21 08:00 71 101/79 95 07/12/21 07:48 99.7 F H 07/12/21 07:00 71 18 128/91 95 07/12/21 06:57 85 109/73 93 07/12/21 06:00 66 25 H 120/86 94 07/12/21 05:00 69 26 H 126/95 95 07/12/21 04:50 79 122/88 97 07/12/21 04:00 76 130/105 H 97 07/12/21 03:00 84 22 95 07/12/21 02:00 73 22 143/104 H 92 07/12/21 01:00 69 22 134/99 93 PG Care Time/CCT Total # of Minutes Spent Total Time Spent with Patient: Total time spent is greater than 50% in coordination of care (as documented) at patient's floor/unit and/or counseling patient: Coding Level of Care Code 54305 Subseq Hosp Care Lvl 2 Diagnoses Alcohol use disorder, moderate, dependence F10.20 Chronic alcoholic liver disease K70.9 Chronic pancreatitis K86.1 Asthma J45.[address] Z93.1 Abnormal urinalysis R82.90 DVT prophylaxis Z29.9 Alcoholic hepatitis K70.10
[2021-07-12] MEDS: POLYETHYLENE (MIRALAX) 17 GM PACK PO SCH ×2 (13:18→20:03)
[2021-07-12] MEDS ORDERED: SODIUM CHLORIDE 0.9% 1000ML 500 ML IV ONE (15:03)
[2021-07-12] MEDS ORDERED: DIAZEPAM IV SCH (18:00)
[2021-07-12] MEDS: PEPTAMEN 1.5 CAL 1,000 ML BAG GT SCH (18:17)
[2021-07-12] MEDS: ENOXAPARIN INJ 40 MG/0.4 ML SYR SQ SCH (20:01)
[2021-07-13] MEDS: LORazepam 2 MG/1 ML VIAL IV PRN ×4 (00:01→19:27)
[2021-07-13] MEDS: TUBE FEEDING WATER FLUSH GT SCH ×6 (01:00→20:11)
[2021-07-13] MEDS: MoRPHine SULFATE 2 MG/ML CARP IV PRN ×5 (02:08→23:44)
[2021-07-13] MEDS: dexMEDEtomidine 200 MCG/50 ML BAG IV SCH ×3 (02:54→10:37)
[2021-07-13] MEDS: LORazepam 2 MG/1 ML VIAL IV SCH ×3 (05:34→22:57)
[2021-07-13 05:52] LABS: Basophils # (auto) 0.02 K/uL (0-0.2); Basophils % (auto) 0.3 %; Eosinophils # (auto) 0.29 K/uL (0-0.5); Eosinophils % (auto) 4.5 %; Immature Granulocytes # (auto) 0.03 K/uL (0.00-0.02); Immature Granulocytes % (auto) 0.5 %; Lymphocytes # (auto) 2.91 K/uL (1.2-3.4); Lymphocytes % (auto) 45.2 %; Mean Corpuscular Hemoglobin 33.5 pg (25-34); Mean Corpuscular Hgb Conc 34.3 g/dL (32-36); Mean Corpuscular Volume 97.8 fL (80-100); Mean Platelet Volume 11.6 fL (7.4-10.4); Monocytes % (auto) 9.3 %; Neutrophils # (auto) 2.59 K/uL (1.4-6.5); Neutrophils % (auto) 40.2 %; Platelet Count 106 K/uL (130-400); RDW Coefficient of Variation 16.6 % (11.5-14.5); RDW Standard Deviation 59.6 fL (36.4-46.3); Red Blood Count 3.58 M/uL (4.2-5.4); White Blood Count 6.44 K/uL (4.8-10.8)
[2021-07-13 06:15] LABS: Albumin Globulin Ratio 0.7 (0.9-2); Albumin Level 2.8 gm/dl (3.4-5.0); BUN Creatinine Ratio 4.8 (10-20); Bilirubin,Total 0.4 mg/dl (0.2-1.0); Calcium 8.7 mg/dl (8.5-10.1); Creatinine Clr Calc Pharmacy 92.4 ml/min; Est GFR (African American) 135.4 ml/min; Est GFR (Non-African American) 116.8 ml/min; Magnesium 1.7 mg/dl (1.7-2.4); Phosphorus 4.7 mg/dl (2.5-4.9); Potassium 4.4 mmol/L (3.5-5.1); Total Protein 6.8 gm/dl (6.0-8.3)
[2021-07-13] MEDS: MAGNESIUM SULFATE / D5W 1 GM/100 ML BAG IV SCH ×4 (07:16→10:08)
--- NOTE | 2021-07-13 07:49 | Critical Care Progress Note ---
Date of Service July 13, 2021 Assessment & Plan (1) Alcohol withdrawal: (2) Chronic pancreatitis: (3) Alcohol use disorder, severe, dependence: (4) Chronic alcoholic liver disease: (5) Abdominal pain: (6) Gastrostomy tube in place: (7) Smoker: Plan: ICU Assessment and Plans Reason Critically Ill: 36-year-old female here with a PMHx significant for alcohol use disorder, GJ tube, chronic pancreatitis, alcoholic hepatitis, who presented with abd pain tachycardia and hypertension after stopping alcohol and who was admitted for alcohol withdrawal. Neuro - Alcohol use disorder in withdrawal with concern delirium tremens, high seizure risk, has required high dose benzodiazepines due to high tolerance Last AWSS 4 On precedex drip, ativan, used 22mg ativan over 24hr, will continue to wean down goal to maintain RASS -1 On IV thiamine 200mg and PO folic acid Given patient's current delirium, patient should not leave AMA unattended at this time Suspect underlying psych issues given withdrawal should be coming to an end added seroquel 25mg HS CAM ICU: unable to assess Sedation: Dexmedetomidine drip at 0.4mcg/kg/hr, ativan 4mg q8hr, ativan 2mg q2hr PRN Analgesia: PRN morphine, tylenol Cardiac - EKG 07/07 prolonged QTc 482 --> 462, avoid QT prolonging medication repeated EKG Respiratory - Patient on precedex, ativan, has PRN morphine, monitor for respiratory depression GI - GI consulted, Recommend supportive care measures. Abstinence from alcohol. Referral for drug and alcohol counseling/treatment. noted hx gastritis marijuana use, chronic malnutrition, defer EGD at this time drainage around feeding tube grew staph species may resume G tube feeds, continue as tolerated GJ tube present, tolerating PO medication Pantoprazole 40mg IV BID Abd pain noted, may use morphine or tylenol Nausea noted, avoid zofran reglan given QT prolongation RENAL/LYTES - No significant electrolyte derangement. Maintain K>4, Mg>2, Phos>3 Replace lytes as needed. Given 3mg Mg - Abnormal UA on Ceftriaxone 1g daily dc/d after 6 days, culture negative. track I/O's ENDO - history mild low TSH normal T4 not on medication history elevated AM cortisol HEME - Stable H&H. On Lovenox thrombocytopenia noted, stop lovenox if continues to decrease chronic anemia noted ID - Concern for UTI on ceftriaxone dc'd after 6 days Wound culture from PEG tube grew staph aureus and group B beta strep species, given 6 days ceftriaxone INTEGUMENTARY - skin dry warm intact LINES/IV ACCESS - PIVs intact no lazo DVT PROPHYLAXIS - On Lovenox Thank you for allowing us to be part of this patient's care. Please refer to Dr. Lama's documentation for any further recommendations. Admission and Anticipated Discharge Date Admission Date: July 07, 2021 Supervising Physician Co-Signing Physician Notes Dr. Jasmine was the resident-physician during care of patient. I separately evaluated patient for nieto portions of the history and the exam. I was present during the critical portion of medical decision making, and I discussed the case with the resident. I generally agree with the findings and plan except for any additions/exceptions noted. Patient seen and examined at bedside.No acute distress Overnight patient got 4 milligrams of Ativan on top of the standing dose At the time of examination patient was on Precedex 0.3 She was answering all the questions appropriately Asking if he can put a port in given that she is a hard stick. No fever or chills. Does complain of mild headache. No nausea or vomiting. Has been tolerating diet. Constitutional: No acute distress HEENT: EOMI, PERRLA Respiratory system:Good air entry bilaterally, no wheeze, no rhonchi, no crackles CVS: S1-S2 positive, no murmurs or gallops Abdomen: Soft, nontender, nondistended, positive bowel sounds x4,positive GJ tube, no erythema around the tube site Extremities: +2 pulses bilaterally radialis/ dorsalis pedis,no cyanosis, no edema Neuro:Awake alert oriented to self and place Psych: Normal mood and affect G/U:No Lazo --Prophylaxis VTE: Lovenox GI: Protonix Lines: Peripheral Diet: Tube feeds along with regular diet Plan: In/out: +2.1 L, we do not have a good output measurement 3 g of magnesium given to the patient today Thrombocytopenia is most likely from patient's alcohol use. Continue to monitor Patient always has bouts of restlessness agitation and hallucination in the evening. I am going to start the patient on quetiapine 25 mg nightly. Patient's QTC was 462 today I will go down on Ativan 4 mg every 8 hours we will continue with 2 mg every 2 hours as needed Try to go down on Precedex and turning off if possible I have personally spent 35 minutes of critical care time in the direct management of this patient. This is a life/limb threatening event. This includes time spent evaluating patient, direct bedside care, chart review, placing orders, interpretation of diagnostic studies, discussion with consultants, patient, and/or family members regarding treatment decisions, as well as other required patient management activities. This time is exclusive of all separately billable procedures, and teaching time and separate from and in addition to any other critical care service time. Subjective Patient seen at bedside cooperative drowsy, states she still has occasional headache nausea ab pain though better than when she came in, states last night she was speaking to something she saw out of the corner of her eye. Patient requests a port placed because she did not appreciate being stuck with many IV attempts. Patient understands we will not have a port placed at this time as her IV line is still working at this time. No other events overnight. Review of Systems Review of Systems: Positive headache, nausea, abd pain, improved from yesterday Negative fever chills Negative dizziness Negative chest pain palpitations SOB Negative vomitting diarrhea constipation Negative numbness tingling rash swelling Physical Exam Constitutional: average body habitus, cooperative, comfortable and + lethargic Eyes: PERRL, conjunctivae normal, anicteric sclerae ENMT: external ear and nose normal, oropharynx normal Neck: trachea midline, no thyromegaly Respiratory: normal respiratory effort Auscultation: lungs clear to auscultation bilaterally Cardiovascular: RRR, no murmur, no edema Chest (Breasts): Chest: normal inspection of chest Gastrointestinal (Abdomen): Inspection/Auscultation: normal bowel sounds GJ tube noted no discharge erythema noted Skin: no rashes, warm and dry Neurologic: Motor/Sensory: + tremor (b/l upper extremities) Psychiatric: Orientation: oriented to person and oriented to place Results & Data Results & Data ([facility]) Vital Signs (Past 12 Hours) Vital Signs Temp Pulse Resp BP Pulse Ox 07/13/21 06:00 70 16 98/64 L 95 07/13/21 05:00 36.7 C 69 21 105/76 93 07/13/21 04:00 36.8 C 70 21 114/85 94 07/13/21 03:11 75 21 114/78 92 07/13/21 03:04 85 12 07/13/21 03:00 84/62 L 07/13/21 02:59 83 15 92 07/13/21 02:00 79 18 92/77 L 98 07/13/21 01:00 69 115/87 95 07/13/21 00:00 75 14 93 07/12/21 23:01 74 16 134/100 96 07/12/21 23:00 68 19 95 07/12/21 22:00 69 18 111/77 95 07/12/21 21:03 66 15 101/76 97 07/12/21 21:02 71 18 112/79 98 07/12/21 21:01 85 16 98 07/12/21 20:01 36.8 C 72 17 104/59 L 07/12/21 20:00 70 26 H Resident Activity Tracking Resident Involvement: Resident Care Provided Care Provided: Adult Hospital Medicine (1) Alcohol withdrawal Complication of substance-induced condition: uncomplicated Qualified Code(s): F10.230 - Alcohol dependence with withdrawal, uncomplicated (2) Chronic pancreatitis Pancreatitis type: other Qualified Code(s): K86.1 - Other chronic pancrea titis (3) Abdominal pain Abdominal location: generalized Qualified Code(s): R10.84 - Generalized abdominal pain
[2021-07-13] MEDS: FOLIC ACID 1 MG TAB PO SCH (08:15)
[2021-07-13] MEDS: GABAPENTIN 300 MG CAP PO SCH ×3 (08:15→20:10)
[2021-07-13] MEDS: MONTELUKAST SODIUM 10 MG TABLET PO SCH (08:15)
[2021-07-13] MEDS: NICOTINE 21 MG/24 HR TDSY TD SCH (08:15)
[2021-07-13] MEDS: PANCREAZE (LIPASE 10,500U) CAP PO SCH ×4 (08:16→20:10)
[2021-07-13] MEDS: MUPIROCIN 2% OINT 22 GM TUBE EXT SCH ×2 (08:16→20:11)
[2021-07-13] MEDS: MULTI VIT W/MINERALS LIQUID 15 ML UDP GT SCH (08:17)
[2021-07-13] MEDS: POLYETHYLENE (MIRALAX) 17 GM PACK PO SCH ×2 (08:18→20:11)
[2021-07-13] MEDS: UMECLIDINIUM BROMIDE 62.5MCG/BLISTER 7 PUFFS/INHALER INH SCH (08:18)
[2021-07-13] MEDS: FLUTICASONE/VILANTEROL 200/25MCG 14 PUFFS/INHALER INH SCH (08:19)
[2021-07-13] MEDS: PANTOprazole 40 MG in SYRINGE 0 ML IV SCH ×2 (08:19→20:10)
--- NOTE | 2021-07-13 10:45 | Billing Data ---
Date of Service July 13, 2021 Coding Level of Care Code Critical Care 1st 30-74 mins Time Spent (min) 35
--- NOTE | 2021-07-13 10:48 | Gastroenterology Progress Note ---
Date of Service July 13, 2021 Assessment & Plan (1) Abdominal pain: Plan: Please continue to advance tube feeds as tolerated. Continue PPI. No additional recommendations at this time chronic pancreatitis--continue pancreas enzymes ETOH withdrawal --per critical care, hospitalists. On Precedex I have spent 10 minutes of discrete time performing the activities of this visit which include review of the medical record, obtaining a history, physical exam, and entering information in the electronic record. Admission and Anticipated Discharge Date Admission Date: July 07, 2021 Subjective She is stable, did not offer any complaint. Said doing "so so". Recognized her from seeing her in [place]. Physical Exam Physical Exam: no acute distress, sleepy easily woken up. Gastrointestinal (Abdomen): Inspection/Auscultation: abdomen not distended PEG site good Results & Data ([facility]) Vital Signs (Past 12 Hours) Vital Signs Temp Pulse Resp BP Pulse Ox 07/13/21 08:00 70 07/13/21 06:00 70 16 98/64 L 95 07/13/21 05:00 36.7 C 69 21 105/76 93 07/13/21 04:00 36.8 C 70 21 114/85 94 07/13/21 03:11 75 21 114/78 92 07/13/21 03:04 85 12 07/13/21 03:00 84/62 L 07/13/21 02:59 83 15 92 07/13/21 02:00 79 18 92/77 L 98 07/13/21 01:00 69 115/87 95 07/13/21 00:00 75 14 93 07/12/21 23:01 74 16 134/100 96 07/12/21 23:00 68 19 95 (1) Abdominal pain Abdominal location: generalized Qualified Code(s): R10.84 - Generalized abdominal pain
--- NOTE | 2021-07-13 11:17 | Communication Note ---
Date of Service: July 13, 2021 Critical CARE addendum: It was notified by ELVIS Gtz that there is a possibility patient has been taking Precedex out of her IV and drinking/sucking it. Patient was not on 1:1 observation since this morning. Patient does have history of drug abuse in the past and her tendency of asking for morphine [id number]. I think patient is very high risk to be kept alone. I would like the patient to be on one-to-one observation all the time Please note the above document was generated using voice recognition software. It may contain grammatical, syntax or spelling errors.Any formal questions or concerns about the content, text or information contained within the body of this dictation should be directly addressed to the provider for clarification. Coding Level of Care Code None
--- NOTE | 2021-07-13 12:23 | Electrocardiogram Report ---
Test Reason : Blood Pressure : / mmHG Vent. Rate : 069 BPM Atrial Rate : 069 BPM P-R Int : 156 ms QRS Dur : 070 ms QT Int : 432 ms P-R-T Axes : 049 044 074 degrees QTc Int : 462 ms Normal sinus rhythm Normal ECG When compared with ECG of 07-JUL-2021 11:49, Nonspecific T wave abnormality no longer evident in Anterior leads Confirmed by Casa Ferro ([id number]) on 07/13/2021 12:23:18 PM Referred By: REFERRED SELF Confirmed By:Casa Ferro
[2021-07-13] MEDS: THIAMINE HCL IV SCH (12:56)
[2021-07-13] MEDS: SODIUM CHLORIDE 0.9% IV SCH (12:56)
[2021-07-13] MEDS ORDERED: Nursing to Pharmacy Communication SCH (14:45)
[2021-07-13] MEDS: QUEtiapine FUMARATE 25 MG TABLET PO SCH (16:08)
[2021-07-13] MEDS ORDERED: SODIUM CHLORIDE 0.9% 1000ML 500 ML IV ONE (16:44)
--- NOTE | 2021-07-13 17:02 | Hospitalist Progress Note ---
Date of Service July 13, 2021 Assessment & Plan (1) Alcohol use disorder, moderate, dependence: Plan: Perla is a 36-year-old female with a past medical history of alcohol dependence, pancreatitis, tobacco use, gastrostomy tube placement, chronic back pain who presented in acute alcohol withdrawal after being abstinent for 48 hours and was found to be tachycardic and hypertensive on admission. Alcohol use disorder with acute withdrawal, history of alcoholic hepatitis Pt decompensated on 07/09/21 necessitating ICU admission and starting precedex, some issues of limitation of taking po meds and meds available for g tube administration. Is now improved on Precedex drip and scheduled IV Ativan -Appreciate ICU management -Weaning off Precedex drip -Decreased frequency of IV lorazepam today to 4 mg IV every 8 hours -Start Seroquel 25 mg p.o. at bedtime -Recommend inpatient alcohol rehab but she is not sure that she is agreeable at this time -Continue folic acid, IV thiamine -Continue IV Protonix -Psychiatry consulted-recommends inpatient rehab treatment and also recommends either naltrexone 50 mg once daily if AST is normalized and not on concurrent opioids, or preferably acamprosate 333 mg p.o. 3 times daily if renal function normal (2) Chronic alcoholic liver disease: Plan: GI consulted supportive care for alcoholic liver disease, alcohol withdrawal, nutritional support. Maddrey score 13, no concern for need of steroids for alcoholic hepatitis although Ct abdomen and pelvis consistent with alcoholic hepatitis and inactive chronic pancreatitis with atrophy With thrombocytopenia slightly worse today Follow CBC, LFTs, INR (3) Chronic pancreatitis: Plan: Lipase of 9 on admission CTa/P 07/07/21: Gastrostomy tube in place, no SBO, bladder wall circumferentially thickened. Hepatomegaly and severe hepatic steatosis, evidence of chronic pancreatitis Tolerating tube feeds and titrating up -Appreciate GI consultation Nutrition consulted (4) Asthma: Plan: History of intrinsic asthma Continue Spiriva, singular/Symbicort/formulary conversion No smoking in previous 2 months, previously with tobacco use regularly. Nicotine patch as needed (5) Gastrostomy tube in place: Plan: Continue Creon With history of gastritis no esophagitis likely related to alcohol intake per prior nutrition assessment GI consulted, have seen before, appreciate recommendations. Drainage appreciated rate around feeding tube which was cultured, no signs of cellulitis surrounding. will use topical muripocin and completed a week course of ceftriaxone Agree with nutrition evaluation. (6) Abnormal urinalysis: Plan: Abnormal UA on admission, CT scan consistent with cystitis Patient with clinical dysuria urine culture contaminated x2, recollect is pending but she is already completed a week of ceftriaxone (7) DVT prophylaxis: Plan: Patient did have a Nunes associated upper extremity DVT in the past. She is no longer taking Eliquis at this time. SQ Lovenox (8) Alcoholic hepatitis: Plan: As above Plan: Disposition-continued stay in the ICU Admission and Anticipated Discharge Date Admission Date: July 07, 2021 Subjective Patient seen briefly in the morning and she was independently bathing herself. She was seen again in the evening prior to dinner and reported that she was feeling okay just "groggy." She is not take anything by mouth and says she typically does not at home either. She is getting continuous tube feeds here but does use bolus feeds x2 during the day and continuous feeds at 20 mL/h for 8 hours overnight at home. She has chronic abdominal pain. She does report she is having auditory hallucinations mostly in the evenings. She remains on a Precedex drip. Review of Systems Review of Systems: All systems reviewed & are unremarkable except as noted in HPI & below Physical Exam Constitutional: WD/WN, vitals as above Eyes: + anicteric sclerae Neck: trachea midline, no thyromegaly Respiratory: normal respiratory effort, lungs clear to auscultation Cardiovascular: RRR, no murmur, no edema Chest (Breasts): Chest: normal inspection of chest Gastrointestinal (Abdomen): Inspection/Auscultation: + abdomen abnormal to inspection (G-tube in place) Percussion/Palpation: + abdomen tender (Diffusely with minimal palpation) and abdomen soft; no guarding Musculoskeletal: Extremities: extremities normal to inspection; no cyanosis and no clubbing Skin: no rashes, warm and dry Neurologic: moves all extremities and awake; no focal motor deficits Psychiatric: A+Ox3, euthymic affect Lymphatic: no lymphedema Results & Data Results & Data ([facility]) Vital Signs (Past 12 Hours) Vital Signs Temp Pulse Resp BP Pulse Ox 07/13/21 14:17 61 16 133/92 07/13/21 14:00 71 22 07/13/21 13:00 63 16 85/45 L 93 07/13/21 12:41 63 18 89/64 L 91 07/13/21 12:08 63 16 79/60 L 91 07/13/21 12:00 65 19 90 07/13/21 11:00 68 19 88/68 L 93 07/13/21 10:15 91 H 07/13/21 09:00 68 20 94 07/13/21 08:04 65 17 89/58 L 94 07/13/21 08:01 64 16 80/57 L 94 07/13/21 08:00 67 19 95 07/13/21 07:40 62 17 88/70 L 96 07/13/21 07:00 62 22 94 07/13/21 06:00 70 16 98/64 L 95 07/13/21 05:00 36.7 C 69 21 105/76 93 Laboratory Results 07/13/21 07/13/21 Range/Units 05:34 05:34 WBC 6.44 (4.8-10.8) K/uL RBC 3.58 L (4.2-5.4) M/uL Hgb 12.0 (12.0-16.0) g/dL Hct 35.0 L (37-47) % MCV 97.8 (80-100) fL MCH 33.5 (25-34) pg MCHC 34.3 (32-36) g/dL RDW Std Deviation 59.6 H (36.4-46.3) fL RDW Coeff of Paulina 16.6 H (11.5-14.5) % Plt Count 106 L (130-400) K/uL MPV 11.6 H (7.4-10.4) fL Immature Gran % (Auto) 0.5 % Neut % (Auto) 40.2 % Lymph % (Auto) 45.2 % [place] % (Auto) 9.3 % Eos % (Auto) 4.5 % Baso % (Auto) 0.3 % Neut # (Auto) 2.59 (1.4-6.5) K/uL Lymph # (Auto) 2.91 (1.2-3.4) K/uL [place] # (Auto) 0.60 H (0.11-0.59) K/uL Eos # (Auto) 0.29 (0-0.5) K/uL Baso # (Auto) 0.02 (0-0.2) K/uL Immature Gran # (Auto) 0.03 H (0.00-0.02) K/uL Sodium 133 L (136-145) mmol/L Potassium 4.4 (3.5-5.1) mmol/L Chloride 100 (98-107) mmol/L Carbon Dioxide 28 (21-32) mmol/L Anion Gap 5 (3-11) BUN 3 L (6-23) mg/dl Creatinine 0.62 (0.6-1.2) mg/dl Est Cr Clr Drug Dosing 92.4 ml/min Est GFR ( Amer) 135.4 ml/min Est GFR (Non-Af Amer) 116.8 ml/min BUN/Creatinine Ratio 4.8 L (10-20) Glucose 132 H (70-99(Fasting)) mg/dl Calcium 8.7 (8.5-10.1) mg/dl Phosphorus 4.7 (2.5-4.9) mg/dl Magnesium 1.7 (1.7-2.4) mg/dl Total Bilirubin 0.4 (0.2-1.0) mg/dl AST 37 (13-39) U/L ALT 11 (7-52) U/L Alkaline Phosphatase 217 H (34-104) U/L Total Protein 6.8 (6.0-8.3) gm/dl Albumin 2.8 L (3.4-5.0) gm/dl Globulin 4.0 (2.5-4.0) gm/dl Albumin/Globulin Ratio 0.7 L (0.9-2) PG Care Time/CCT Total # of Minutes Spent Total Time Spent with Patient: Total time spent is greater than 50% in coordination of care (as documented) at patient's floor/unit and/or counseling patient: Coding Level of Care Code 67979 Subseq Hosp Care Lvl 3 Diagnoses Alcohol use disorder, moderate, dependence F10.20 Chronic alcoholic liver disease K70.9 Chronic pancreatitis K86.1 Asthma J45.[address] Z93.1 Abnormal urinalysis R82.90 DVT prophylaxis Z29.9 Alcoholic hepatitis K70.10
[2021-07-13] MEDS ORDERED: STAT IV Infusion **Titration per Protocol STA (18:02)
[2021-07-13] MEDS: PEPTAMEN 1.5 CAL 1,000 ML BAG GT SCH (18:48)
[2021-07-13] MEDS: ENOXAPARIN INJ 40 MG/0.4 ML SYR SQ SCH (20:11)
[2021-07-13] MEDS ORDERED: QUEtiapine FUMARATE 25 MG TABLET PO SCH (21:00)
[2021-07-14] MEDS: TUBE FEEDING WATER FLUSH GT SCH ×7 (01:13→23:54)
[2021-07-14] MEDS: LORazepam 2 MG/1 ML VIAL IV PRN ×8 (02:21→21:04)
[2021-07-14] MEDS: dexMEDEtomidine 200 MCG/50 ML BAG IV SCH ×4 (03:17→18:11)
[2021-07-14] MEDS: MoRPHine SULFATE 2 MG/ML CARP IV PRN ×4 (03:54→18:40)
[2021-07-14] MEDS: LORazepam 2 MG/1 ML VIAL IV SCH ×2 (05:26→23:54)
[2021-07-14 06:22] LABS: INR 1.1 (0.9-1.1); Prothrombin Time 11.6 Seconds (9.0-12.0)
[2021-07-14 06:39] LABS: Hematocrit (blood only) 35.4 % (37-47); Hemoglobin 11.5 g/dL (12.0-16.0); Mean Corpuscular Hemoglobin 32.7 pg (25-34); Mean Corpuscular Hgb Conc 32.5 g/dL (32-36); Mean Corpuscular Volume 100.6 fL (80-100); Mean Platelet Volume 11.4 fL (7.4-10.4); Platelet Count 224 K/uL (130-400); RDW Coefficient of Variation 17.2 % (11.5-14.5); RDW Standard Deviation 63.7 fL (36.4-46.3); Red Blood Count 3.52 M/uL (4.2-5.4); White Blood Count 7.72 K/uL (4.8-10.8)
[2021-07-14 06:40] LABS: Albumin Globulin Ratio 0.8 (0.9-2); Albumin Level 2.9 gm/dl (3.4-5.0); BUN Creatinine Ratio 9.4 (10-20); Bilirubin,Total 0.4 mg/dl (0.2-1.0); Calcium 8.7 mg/dl (8.5-10.1); Creatinine Clr Calc Pharmacy 113.7 ml/min; Est GFR (African American) 142.6 ml/min; Globulin 3.6 gm/dl (2.5-4.0); Magnesium 1.5 mg/dl (1.7-2.4); Phosphorus 4.6 mg/dl (2.5-4.9); Potassium 4.4 mmol/L (3.5-5.1); Total Protein 6.5 gm/dl (6.0-8.3)
[2021-07-14 07:17] LABS: Basophils # (auto) 0.02 K/uL (0-0.2); Basophils % (auto) 0.3 %; Eosinophils % (auto) 2.6 %; Immature Granulocytes # (auto) 0.02 K/uL (0.00-0.02); Immature Granulocytes % (auto) 0.3 %; Lymphocytes # (auto) 2.74 K/uL (1.2-3.4); Lymphocytes % (auto) 35.5 %; Monocytes # (auto) 0.82 K/uL (0.11-0.59); Monocytes % (auto) 10.6 %; Neutrophils # (auto) 3.92 K/uL (1.4-6.5); Neutrophils % (auto) 50.7 %
[2021-07-14] MEDS: MAGNESIUM SULFATE / D5W 1 GM/100 ML BAG IV SCH ×4 (08:00→14:13)
--- NOTE | 2021-07-14 08:24 | Critical Care Progress Note ---
Date of Service July 14, 2021 Assessment & Plan (1) Alcohol withdrawal: (2) Chronic pancreatitis: (3) Alcohol use disorder, severe, dependence: (4) Chronic alcoholic liver disease: (5) Abdominal pain: (6) Gastrostomy tube in place: (7) Smoker: Plan: ICU Assessment and Plans Reason Critically Ill: 36-year-old female here with a PMHx significant for alcohol use disorder, GJ tube, chronic pancreatitis, alcoholic hepatitis, who presented with abd pain tachycardia and hypertension after stopping alcohol and who was admitted for alcohol withdrawal. Neuro - Alcohol use disorder in withdrawal with concern delirium tremens, high seizure risk, has required high dose benzodiazepines due to high tolerance On precedex drip, ativan, used 20mg ativan over 24hr, will continue to wean down goal to maintain RASS -1 On IV thiamine 200mg and PO folic acid Given patient's current delirium, patient should not leave AMA unattended at this time Suspect underlying psych issues given withdrawal should be coming to an end added seroquel 25mg HS on 07/13/21 [facility] ICU: Negative Sedation: Dexmedetomidine drip at 0.3mcg/kg/hr, ativan 4mg q8hr, ativan 2mg q2hr PRN Analgesia: PRN morphine, tylenol Cardiac - EKG 07/07 prolonged QTc 482 --> 07/12/21 QTc 462 Respiratory - Monitor for respiratory depression GI - GI consulted, Recommend supportive care measures. Abstinence from alcohol. Referral for drug and alcohol counseling/treatment. noted hx gastritis marijuana use, chronic malnutrition drainage around feeding tube grew staph species --> s/p antibiotics GJ tube present, tolerating PO medication Pantoprazole 40mg IV BID Abd pain could be from chronic pancreatitis may use morphine or tylenol RENAL/LYTES - No significant electrolyte derangement. Maintain K>4, Mg>2, Phos>3 Replace lytes as needed. Given 3mg Mg - Abnormal UA on Ceftriaxone 1g daily dc/d after 6 days, culture negative. track I/O's ENDO - history mild low TSH normal T4 not on medication history elevated AM cortisol HEME - Stable H&H. On Lovenox thrombocytopenia noted, stop lovenox if continues to decrease chronic anemia noted ID - Concern for UTI on ceftriaxone dc'd after 6 days Wound culture from PEG tube grew staph aureus and group B beta strep species, given 6 days ceftriaxone INTEGUMENTARY - skin dry warm intact --Prophylaxis VTE: Lovenox GI: Protonix Lines: Peripheral Diet: Tube feeds along with regular diet Plan: In/out: +1 L, we do not have a good output measurement 4 g of magnesium given to the patient today Patient got 4 mg of as needed Ativan overnight. The last 24 hours patient got 20 mg of Ativan I would like to transition standing IV Ativan to p.o. Librium. I discussed this with pharmacy and will start the patient on 75 mg of chlordiazepoxide to 8 hours and continue with 2 mg as needed Ativan every 2 hours. We will discontinue Precedex today. Case discussed with Dr. Ahmadi I have personally spent 38 minutes of critical care time in the direct management of this patient. This is a life/limb threatening event. This includes time spent evaluating patient, direct bedside care, chart review, placing orders, interpretation of diagnostic studies, discussion with consultants, patient, and/or family members regarding treatment decisions, as well as other required patient management activities. This time is exclusive of all separately billable procedures, and teaching time and separate from and in addition to any other critical care service time. Thank you for allowing us to be part of this patient's care. Please refer to Dr. Lama's documentation for any further recommendations. Admission and Anticipated Discharge Date Admission Date: July 07, 2021 Supervising Physician Co-Signing Physician Notes Dr. Jasmine was the resident-physician during care of patient. I separately evaluated patient for nieto portions of the history and the exam. I was present during the critical portion of medical decision making, and I discussed the case with the resident. I generally agree with the findings and plan except for any additions/exceptions noted. Subjective Patient seen and examined at bedside.No acute distress Overnight patient got 4 milligrams of Ativan on top of the standing dose Patient was on 0.3 of Precedex in the morning. On my arrival I had asked him to stop the Precedex At time of examination she was not on Precedex. At the time of examination patient was somnolent. On waking up she denied any chest pain, no shortness of breath No belly pain. Does complain of mild headache No nausea or vomiting. Review of Systems Review of Systems: All systems reviewed & are unremarkable except as noted in Subjective Physical Exam Physical Exam: Constitutional: No acute distress HEENT: EOMI, PERRLA Respiratory system:Good air entry bilaterally, no wheeze, no rhonchi, no crackles CVS: S1-S2 positive, no murmurs or gallops Abdomen: Soft, nontender, nondistended, positive bowel sounds x4,positive GJ tube, no erythema around the tube site Extremities: +2 pulses bilaterally radialis/ dorsalis pedis,no cyanosis, no edema Neuro:Awake alert oriented to self and place Psych: Normal mood and affect G/U:No [place] Skin: no rashes, warm and dry Lymphatic: no cervical or axillary lymphadenopathy Results & Data Results & Data ([facility]) Vital Signs (Past 12 Hours) Vital Signs Temp Pulse Resp BP Pulse Ox 07/14/21 06:00 83 24 93/51 L 95 07/14/21 05:57 86 18 85/52 L 95 07/14/21 05:55 89 19 92/58 L 96 07/14/21 05:01 88 17 85/57 L 95 07/14/21 05:00 90 23 95 07/14/21 04:51 87 20 93/56 L 95 07/14/21 04:01 36.8 C 109 H 19 81/63 L 97 07/14/21 04:00 106 H 21 96 07/14/21 03:00 87 13 91/62 L 95 07/14/21 02:00 85 17 101/72 97 07/14/21 01:47 81 14 97/63 L 97 07/14/21 01:00 86 15 97/69 L 93 07/14/21 00:02 79 14 82/51 L 95 07/14/21 00:00 36.8 C 77 23 71/41 L 91 07/13/21 23:00 67 22 101/76 94 07/13/21 22:00 70 22 90/66 L 91 07/13/21 21:00 77 16 92 Laboratory Results 07/14/21 05:52 07/14/21 05:52 Coding Level of Care Code Critical Care 1st 30-74 mins Diagnoses Alcohol withdrawal F10.230 Complication of substance-induced condition: uncomplicated Chronic pancreatitis K86.1 Pancreatitis type: other Alcohol use disorder, severe, dependence F10.20 Chronic alcoholic liver disease K70.9 Abdominal pain R10.84 Abdominal location: generalized Gastrostomy tube in place Z93.1 Smoker F17.200 Time Spent (min) 38 (1) Alcohol withdrawal Complication of substance-induced condition: uncomplicated Qualified Code(s): F10.230 - Alcohol dependence with withdrawal, uncomplicated (2) Chronic pancreatitis Pancreatitis type: other Qualified Code(s): K86.1 - Other chronic pancreatitis (3) Abdominal pain Abdominal location: generalized Qualified Code(s): R10.84 - Generalized abdominal pain
--- NOTE | 2021-07-14 09:14 | Hospitalist Progress Note ---
Date of Service July 14, 2021 Assessment & Plan (1) Alcohol use disorder, moderate, dependence: Plan: Perla is a 36-year-old female with a past medical history of alcohol use disorder with dependence, chronic pancreatitis, tobacco use, gastrostomy tube placement, chronic back pain who presented in acute alcohol withdrawal after being abstinent for 48 hours and was found to be tachycardic and hypertensive on admission, with N/V. Alcohol use disorder with acute withdrawal, history of alcoholic hepatitis Pt decompensated on 07/09/21 necessitating ICU admission and starting precedex, some issues of limitation of taking po meds and meds available for g tube admin istration. Weaned off Precedex drip and scheduled IV Ativan on 07/14, stable Converted to Librium taper, and only prn ativan -Appreciate ICU management-can likely be downgraded later today to PCU if stable off Precedex -continue Seroquel 25 mg p.o. at bedtime -Recommend inpatient alcohol rehab but she is not sure that she is agreeable at this time -Continue folic acid, IV thiamine -Continue IV Protonix but could convert to Prevacid per GT -Psychiatry consulted-recommends inpatient rehab treatment and also recommends either naltrexone 50 mg once daily if AST is normalized and not on concurrent opioids, or preferably acamprosate 333 mg p.o. 3 times daily if renal function normal -pt not sure if she wants to go to EtOH rehab. Still has cravings to drink (2) Chronic alcoholic liver disease: Plan: GI consulted supportive care for alcoholic liver disease, alcohol withdrawal, nutritional support. Maddrey score 13, no concern for need of steroids for alcoholic hepatitis although Ct abdomen and pelvis consistent with alcoholic hepatitis and inactive chronic pancreatitis with atrophy With thrombocytopenia and elevated alk phos both improved today INR now normalized Follow CBC, LFTs (3) Chronic pancreatitis: Plan: Lipase of 9 on admission CTa/P 07/07/21: Gastrostomy tube in place, no SBO, bladder wall circumferentially thickened. Hepatomegaly and severe hepatic steatosis, evidence of chronic pancreatitis Tolerating tube feeds and titrating up -Appreciate GI consultation Nutrition consulted (4) Asthma: Plan: History of intrinsic asthma Continue Spiriva, singular/Symbicort/formulary conversion No smoking in previous 2 months, previously with tobacco use regularly. Nicotine patch as needed (5) Gastrostomy tube in place: Plan: Continue Creon With history of gastritis no esophagitis likely related to alcohol intake per prior nutrition assessment GI consulted, have seen before, appreciate recommendations. Drainage appreciated rate around feeding tube which was cultured and grew MSSA and GBS, no signs of cellulitis surrounding. will use topical muripocin and completed a week course of ceftriaxone Agree with nutrition evaluation. (6) Abnormal urinalysis: Plan: Abnormal UA on admission, CT scan consistent with cystitis Patient with clinical dysuria urine culture contaminated x2, recollect Ur cx is pending but she is already completed a week of ceftriaxone (7) Alcoholic hepatitis: Plan: As above (8) DVT prophylaxis: Plan: Patient did have a Nunes associated upper extremity DVT in the past. She is no longer taking Eliquis at this time. SQ Lovenox (9) Hyponatremia: Plan: Na 131 today decrease free water flushes from 125mL q4h to 100mL q4h for GT (10) Hypomagnesemia: Plan: replaced with IV mag follow level Plan: Disposition-continued stay in the ICU but possibly downgrade later, will ask ICU Not ready for dc and pt still considering rehab but doubtful she will be willing to go and will likely start drinking again after discharge Admission and Anticipated Discharge Date Admission Date: July 07, 2021 Subjective Reports feeling "irritable" but is quite calm, no tremors. Was requesting morphine from nurse for "pain all over my body" yet appears quite comfortable to me. Says she has the urge to start drinking EtOH again. Had trouble sleeping. Does not recall Exhibition Specialist coming to see her this AM but the 1:1 sitter confirms that the Exhibition Specialist was indeed in to see her today. Review of Systems Review of Systems: All systems reviewed & are unremarkable except as noted in HPI & below Physical Exam Constitutional: WD/WN, vitals as above Eyes: + anicteric sclerae ENMT: external ear and nose normal, oropharynx normal Neck: trachea midline, no thyromegaly Respiratory: normal respiratory effort, lungs clear to auscultation Cardiovascular: RRR, no murmur, no edema Chest (Breasts): Chest: normal inspection of chest Gastrointestinal (Abdomen): Inspection/Auscultation: + abdomen abnormal to inspection (G-tube in place) Percussion/Palpation: + abdomen tender (Diffusely with minimal palpation) and abdomen soft; no guarding Musculoskeletal: Extremities: extremities normal to inspection; no cyanosis and no clubbing Skin: no rashes, warm and dry Neurologic: moves all extremities and awake; no focal motor deficits Psychiatric: Orientation: alert, oriented to person, oriented to place and cooperative Affect: + flat affect Lymphatic: no lymphedema Results & Data Results & Data ([facility]) Vital Signs (Past 12 Hours) Vital Signs Temp Pulse Resp BP Pulse Ox 07/14/21 06:00 83 24 93/51 L 95 07/14/21 05:57 86 18 85/52 L 95 07/14/21 05:55 89 19 92/58 L 96 07/14/21 05:01 88 17 85/57 L 95 07/14/21 05:00 90 23 95 07/14/21 04:51 87 20 93/56 L 95 07/14/21 04:01 36.8 C 109 H 19 81/63 L 97 07/14/21 04:00 106 H 21 96 07/14/21 03:00 87 13 91/62 L 95 07/14/21 02:00 85 17 101/72 97 07/14/21 01:47 81 14 97/63 L 97 07/14/21 01:00 86 15 97/69 L 93 07/14/21 00:02 79 14 82/51 L 95 07/14/21 00:00 36.8 C 77 23 71/41 L 91 07/13/21 23:00 67 22 101/76 94 07/13/21 22:00 70 22 90/66 L 91 Laboratory Results 07/14/21 07/14/21 07/14/21 Range/Units 05:52 05:52 05:52 WBC 7.72 (4.8-10.8) K/uL RBC 3.52 L (4.2-5.4) M/uL Hgb 11.5 L (12.0-16.0) g/dL Hct 35.4 L (37-47) % MCV 100.6 H (80-100) fL MCH 32.7 (25-34) pg MCHC 32.5 (32-36) g/dL RDW Std Deviation 63.7 H (36.4-46.3) fL RDW Coeff of Paulina 17.2 H (11.5-14.5) % Plt Count 224 D (130-400) K/uL MPV 11.4 H (7.4-10.4) fL Immature Gran % (Auto) 0.3 % Neut % (Auto) 50.7 % Lymph % (Auto) 35.5 % [place] % (Auto) 10.6 % Eos % (Auto) 2.6 % Baso % (Auto) 0.3 % Neut # (Auto) 3.92 (1.4-6.5) K/uL Lymph # (Auto) 2.74 (1.2-3.4) K/uL [place] # (Auto) 0.82 H (0.11-0.59) K/uL Eos # (Auto) 0.20 (0-0.5) K/uL Baso # (Auto) 0.02 (0-0.2) K/uL Immature Gran # (Auto) 0.02 (0.00-0.02) K/uL PT 11.6 (9.0-12.0) Seconds INR 1.1 (0.9-1.1) Sodium 131 L (136-145) mmol/L Potassium 4.4 (3.5-5.1) mmol/L Chloride 99 (98-107) mmol/L Carbon Dioxide 25 (21-32) mmol/L Anion Gap 7 (3-11) BUN 5 L (6-23) mg/dl Creatinine 0.53 L (0.6-1.2) mg/dl Est Cr Clr Drug Dosing 113.7 ml/min Est GFR ( Amer) 142.6 ml/min Est GFR (Non-Af Amer) 123.0 ml/min BUN/Creatinine Ratio 9.4 L (10-20) Glucose 130 H (70-99(Fasting)) mg/dl Calcium 8.7 (8.5-10.1) mg/dl Phosphorus 4.6 (2.5-4.9) mg/dl Magnesium 1.5 L (1.7-2.4) mg/dl Total Bilirubin 0.4 (0.2-1.0) mg/dl AST 32 (13-39) U/L ALT 11 (7-52) U/L Alkaline Phosphatase 189 H (34-104) U/L Total Protein 6.5 (6.0-8.3) gm/dl Albumin 2.9 L (3.4-5.0) gm/dl Globulin 3.6 (2.5-4.0) gm/dl Albumin/Globulin Ratio 0.8 L (0.9-2) PG Care Time/CCT Total # of Minutes Spent Total Time Spent with Patient: Total time spent is greater than 50% in coordination of care (as documented) at patient's floor/unit and/or counseling patient: Coding Level of Care Code 37433 Subseq Hosp Care Lvl 3 Diagnoses Alcohol use disorder, moderate, dependence F10.20 Chronic alcoholic liver disease K70.9 Chronic pancreatitis K86.1 Asthma J45.[address] Z93.1 Abnormal urinalysis R82.90 DVT prophylaxis Z29.9 Alcoholic hepatitis K70.10 Hyponatremia E87.1 Hypomagnesemia E83.42
[2021-07-14] MEDS: PANCREAZE (LIPASE 10,500U) CAP PO SCH ×4 (09:16→21:04)
[2021-07-14] MEDS: GABAPENTIN 300 MG CAP PO SCH ×3 (09:16→21:05)
[2021-07-14] MEDS: MONTELUKAST SODIUM 10 MG TABLET PO SCH (09:17)
[2021-07-14] MEDS: FLUTICASONE/VILANTEROL 200/25MCG 14 PUFFS/INHALER INH SCH (09:17)
[2021-07-14] MEDS: FOLIC ACID 1 MG TAB PO SCH (09:17)
[2021-07-14] MEDS: MULTI VIT W/MINERALS LIQUID 15 ML UDP GT SCH (09:18)
[2021-07-14] MEDS: MUPIROCIN 2% OINT 22 GM TUBE EXT SCH ×2 (09:19→21:06)
[2021-07-14] MEDS: UMECLIDINIUM BROMIDE 62.5MCG/BLISTER 7 PUFFS/INHALER INH SCH (09:21)
[2021-07-14] MEDS: POLYETHYLENE (MIRALAX) 17 GM PACK PO SCH ×2 (09:21→21:06)
[2021-07-14] MEDS: NICOTINE 21 MG/24 HR TDSY TD SCH (09:21)
[2021-07-14] MEDS ORDERED: chlordiazePOXIDE HCl 25 MG CAP PO SCH ×2 (10:00→18:00)
[2021-07-14] MEDS: PANTOprazole 40 MG in SYRINGE 0 ML IV SCH ×2 (10:12→21:05)
[2021-07-14] MEDS: THIAMINE HCL IV SCH (12:58)
[2021-07-14] MEDS: SODIUM CHLORIDE 0.9% IV SCH (12:58)
[2021-07-14] MEDS ORDERED: chlordiazePOXIDE HCl 25 MG CAP PO STA (14:09)
[2021-07-14] MEDS ORDERED: LORazepam 2 MG/1 ML VIAL IV STA (16:22)
[2021-07-14] MEDS: QUEtiapine FUMARATE 25 MG TABLET PO SCH (16:34)
[2021-07-14] MEDS: PEPTAMEN 1.5 CAL 1,000 ML BAG GT SCH (18:19)
--- NOTE | 2021-07-14 18:25 | Communication Note ---
Date of Service: July 14, 2021 Critical Care addendum: We were planning to transition IV Ativan to PO Chlordiazepoxide and turn of Precedex but unfortunately patient has been requiring more PRN doses of Ativan and getting more restless and agitated. I will put the patient back on Ativan 4mg IV q6hrs. Restart precedex drip and DC Chlordiazepoxide. ELVIS Gtz made aware. Coding Level of Care Code None
[2021-07-14] MEDS: ENOXAPARIN INJ 40 MG/0.4 ML SYR SQ SCH (21:05)
[2021-07-15] MEDS: LORazepam 2 MG/1 ML VIAL IV PRN ×8 (01:57→23:32)
[2021-07-15] MEDS: MoRPHine SULFATE 2 MG/ML CARP IV PRN (03:45)
[2021-07-15] MEDS: TUBE FEEDING WATER FLUSH GT SCH ×6 (04:00→23:58)
[2021-07-15] MEDS: dexMEDEtomidine 200 MCG/50 ML BAG IV SCH (04:04)
[2021-07-15 05:15] LABS: Basophils # (auto) 0.03 K/uL (0-0.2); Basophils % (auto) 0.5 %; Eosinophils # (auto) 0.15 K/uL (0-0.5); Eosinophils % (auto) 2.6 %; Hematocrit (blood only) 36.8 % (37-47); Hemoglobin 12.2 g/dL (12.0-16.0); Immature Granulocytes # (auto) 0.02 K/uL (0.00-0.02); Immature Granulocytes % (auto) 0.4 %; Lymphocytes % (auto) 38.5 %; Mean Corpuscular Hemoglobin 33.3 pg (25-34); Mean Corpuscular Hgb Conc 33.2 g/dL (32-36); Mean Corpuscular Volume 100.5 fL (80-100); Mean Platelet Volume 10.7 fL (7.4-10.4); Monocytes # (auto) 0.98 K/uL (0.11-0.59); Monocytes % (auto) 17.2 %; Neutrophils # (auto) 2.33 K/uL (1.4-6.5); Neutrophils % (auto) 40.8 %; Platelet Count 257 K/uL (130-400); RDW Coefficient of Variation 17.1 % (11.5-14.5); RDW Standard Deviation 63.4 fL (36.4-46.3); Red Blood Count 3.66 M/uL (4.2-5.4); White Blood Count 5.71 K/uL (4.8-10.8)
[2021-07-15 05:39] LABS: Alanine Aminotransferase 8 U/L (7-52); Albumin Globulin Ratio 0.8 (0.9-2); Alkaline Phosphatase 169 U/L (34-104); Anion Gap 7 (3-11); Aspartate Aminotransferase 25 U/L (13-39); BUN Creatinine Ratio 16.7 (10-20); Bilirubin,Total 0.4 mg/dl (0.2-1.0); Blood Urea Nitrogen 7 mg/dl (6-23); Calcium 8.9 mg/dl (8.5-10.1); Carbon Dioxide 26 mmol/L (21-32); Chloride 101 mmol/L (98-107); Creatinine Clr Calc Pharmacy 143.4 ml/min; Est GFR (African American) > 150.0 ml/min; Est GFR (Non-African American) 132.8 ml/min; Globulin 3.9 gm/dl (2.5-4.0); Glucose 124 mg/dl (70-99(Fasting)); Magnesium 1.8 mg/dl (1.7-2.4); Phosphorus 4.6 mg/dl (2.5-4.9); Sodium 134 mmol/L (136-145); Total Protein 6.9 gm/dl (6.0-8.3)
[2021-07-15] MEDS: LORazepam 2 MG/1 ML VIAL IV SCH (06:07)
--- NOTE | 2021-07-15 07:38 | Critical Care Progress Note ---
Date of Service July 15, 2021 Assessment & Plan (1) Alcohol withdrawal: (2) Chronic pancreatitis: (3) Alcohol use disorder, severe, dependence: (4) Chronic alcoholic liver disease: (5) Abdominal pain: (6) Gastrostomy tube in place: (7) Smoker: Plan: ICU Assessment and Plans Reason Critically Ill: 36-year-old female here with a PMHx significant for alcohol use disorder, GJ tube, chronic pancreatitis, alcoholic hepatitis, who presented with abd pain tachycardia and hypertension after stopping alcohol and who was admitted for alcohol withdrawal. Neuro - Alcohol use disorder in withdrawal with concern delirium tremens, high seizure risk, has required high dose benzodiazepines due to high tolerance attempted to switch from precedex and ativan to librium yesterday, got 225mg librium and 30mg ativan, precedex drip resumed On precedex drip, ativan --> will try to dc precedex drip and scheduled ativan today, switch to clonidine librium and zyprexa goal to maintain RASS -1 On IV thiamine 200mg and PO folic acid Given patient's current delirium, patient should not leave AMA unattended at this time Suspect underlying psych issues given withdrawal should be coming to an end on zyprexa 5mg BID, dc'd seroquel On home Gabapentin 300mg TID CAM ICU: Negative Sedation: clonidine 0.1mg BD zyprexa 5mg BID librium 100mg QID, PRN ativan 2mg q2 Analgesia: PRN tylenol, dc'd morphine Cardiac - EKG 07/07 prolonged QTc 482 --> 07/12/21 QTc 462 Respiratory - Monitor for respiratory depression GI - GI consulted, Recommend supportive care measures. Abstinence from alcohol. Referral for drug and alcohol counseling/treatment. noted hx gastritis marijuana use, chronic malnutrition drainage around feeding tube grew staph species --> s/p antibiotics GJ tube present, tolerating PO medication Pantoprazole 40mg IV daily Abd pain could be from chronic pancreatitis may use tylenol RENAL/LYTES - No significant electrolyte derangement. Maintain K>4, Mg>2, Phos>3 Replace lytes as needed. Given 2mg Mg - Abnormal UA on Ceftriaxone 1g daily dc/d after 6 days, culture negative. track I/O's ENDO - history mild low TSH normal T4 not on medication history elevated AM cortisol HEME - Stable H&H. On Lovenox thrombocytopenia noted, stop lovenox if continues to decrease chronic anemia noted ID - Concern for UTI on ceftriaxone dc'd after 6 days Wound culture from PEG tube grew staph aureus and group B beta strep species, given 6 days ceftriaxone INTEGUMENTARY - skin dry warm intact --Prophylaxis VTE: Lovenox GI: Protonix Lines: Peripheral Diet: Tube feeds along with regular diet Please refer to Dr. Haynes's addendum for additional information Admission and Anticipated Discharge Date Admission Date: July 07, 2021 Supervising Physician Co-Signing Physician Notes Patient seen and examined. EMR reviewed. Discussed on multidisciplinary rounds and with off going professor of religious studies and overnight critical care CRISTIANO. Discussed with family practice resident and agree with assessment and plan as noted. I independently examined the patient. She is confused but awake and alert. Her G-tube site looks good. Her lungs are clear. Labs and imaging studies were independently reviewed. I completed and discussed medical decision-making with the resident. We will place the patient on clonidine and try and wean off Precedex. Transition from Seroquel to Zyprexa. Continue Neurontin. We will go from scheduled Ativan to his scheduled Librium and continue to use Ativan on an as- needed basis. Discussed with nutrition regarding tube feeding. Currently not meeting nutritional goals. Discussed with case management long-term plan as the patient's current decisions are adversely impacting her overall long-term health. Discontinue morphine. If the patient can be maintained off Precedex, can likely transfer back to the floor where her remaining medical conditions can be addressed by her hospitalist. Subjective Patient seen at bedside, sleepy. She states she has some discomfort in her back. Patient denies nausea or headache. States discomfort around GJ tube site, notes some discharge no gauze present, she wonders if she still needs antibiotics. Patient understands she does not need antibiotics for her GJ tube site at this time. Patient oriented to self and location, is able to extend her arms with minimal tremors. Per nursing she is still having hallucinations, slept through night with precedex drip. Review of Systems Review of Systems: Negative fever chills Negative headache dizziness Negative chest pain palpitations SOB Negative nausea vomitting diarrhea constipation Negative numbness tingling rash swelling Physical Exam Constitutional: average body habitus, cooperative, comfortable and + lethargic Eyes: PERRL, conjunctivae normal, anicteric sclerae ENMT: external ear and nose normal, oropharynx normal Neck: trachea midline, no thyromegaly Respiratory: normal respiratory effort Auscultation: lungs clear to auscultation bilaterally Cardiovascular: RRR, no murmur, no edema Chest (Breasts): Chest: normal inspection of chest Gastrointestinal (Abdomen): Inspection/Auscultation: normal bowel sounds Percussion/Palpation: + abdomen tender (LUQ around GJ tube) and abdomen soft Skin: no rashes, warm and dry Neurologic: Motor/Sensory: + tremor (b/l upper extremities) Psychiatric: Orientation: oriented to person and oriented to place Results & Data Results & Data ([facility]) Vital Signs (Past 12 Hours) Vital Signs Temp Pulse Resp BP Pulse Ox 07/15/21 06:00 79 17 91/71 L 07/15/21 05:03 87 17 88/58 L 95 07/15/21 05:00 88 13 93 07/15/21 04:11 88 19 103/64 96 07/15/21 04:00 36.8 C 92 H 16 96/68 L 96 07/15/21 03:03 107 H 27 H 96/68 L 96 07/15/21 03:00 99 H 15 07/15/21 02:00 88 19 103/71 95 07/15/21 01:00 97 H 16 94/64 L 98 07/15/21 00:00 84 18 89/58 L 94 07/14/21 23:00 90 21 81/52 L 93 07/14/21 22:56 91 H 07/14/21 22:00 110 H 14 84/67 L 96 07/14/21 21:00 36.6 C 98 H 15 107/67 07/14/21 20:00 108 H 17 Critical Care Results & Data Vital Signs (Past 12 Hours) Vital Signs Temp Pulse Resp BP Pulse Ox 07/15/21 09:19 36.4 C L 07/15/21 08:00 79 07/15/21 06:00 79 17 91/71 L 07/15/21 05:03 87 17 88/58 L 95 07/15/21 05:00 88 13 93 07/15/21 04:11 88 19 103/64 96 07/15/21 04:00 36.8 C 92 H 16 96/68 L 96 07/15/21 03:03 107 H 27 H 96/68 L 96 07/15/21 03:00 99 H 15 07/15/21 02:00 88 19 103/71 95 07/15/21 01:00 97 H 16 94/64 L 98 07/15/21 00:00 84 18 89/58 L 94 Lab & Micro Results (Past 24 Hours) RBC 3.66 M/uL (4.2-5.4) L 07/15/21 WBC 5.71 K/uL (4.8-10.8) 07/15/21 Hgb 12.2 g/dL (12.0-16.0) 07/15/21 Hct 36.8 % (37-47) L 07/15/21 MCV 100.5 fL (80-100) H 07/15/21 MCH 33.3 pg (25-34) 07/15/21 MCHC 33.2 g/dL (32-36) 07/15/21 RDW Standard Deviation 63.4 fL (36.4-46.3) H 07/15/21 RDW Coefficient of Variation 17.1 % (11.5-14.5) H 07/15/21 Plt Count 257 K/uL (130-400) 07/15/21 MPV 10.7 fL (7.4-10.4) H 07/15/21 Neutrophils (%) (Auto) 40.8 % 07/15/21 Lymphocytes (%) (Auto) 38.5 % 07/15/21 Monocytes # (Auto) 0.98 K/uL (0.11-0.59) H 07/15/21 Eosinophils # (Auto) 0.15 K/uL (0-0.5) 07/15/21 Immature Granulocyte % (Auto) 0.4 % 07/15/21 Neutrophils # (Auto) 2.33 K/uL (1.4-6.5) 07/15/21 Lymphocytes # (Auto) 2.20 K/uL (1.2-3.4) 07/15/21 Monocytes # (Auto) 0.98 K/uL (0.11-0.59) H 07/15/21 Eosinophils # (Auto) 0.15 K/uL (0-0.5) 07/15/21 Basophils # (Auto) 0.03 K/uL (0-0.2) 07/15/21 Immature Granulocyte # (Auto) 0.02 K/uL (0.00-0.02) 07/15/21 Na 134 mmol/L (136-145) L 07/15/21 K 4.0 mmol/L (3.5-5.1) 07/15/21 Cl 101 mmol/L (98-107) 07/15/21 CO2 26 mmol/L (21-32) 07/15/21 Anion Gap 7 (3-11) 07/15/21 BUN 7 mg/dl (6-23) 07/15/21 Creatinine 0.42 mg/dl (0.6-1.2) L 07/15/21 Estimated GFR ( Amer) > 150.0 ml/min 07/15/21 Estimated GFR (Non-Af Amer) 132.8 ml/min 07/15/21 BUN/Creatinine Ratio 16.7 (10-20) 07/15/21 Glu 124 mg/dl (70-99(Fasting)) H 07/15/21 Ca 8.9 mg/dl (8.5-10.1) 07/15/21 Phosphorus Level 4.6 mg/dl (2.5-4.9) 07/15/21 Total Bilirubin 0.4 mg/dl (0.2-1.0) 07/15/21 AST 25 U/L (13-39) 07/15/21 ALT 8 U/L (7-52) 07/15/21 Alkaline Phosphatase 169 U/L (34-104) H 07/15/21 TP 6.9 gm/dl (6.0-8.3) 07/15/21 Albumin 3.0 gm/dl (3.4-5.0) L 07/15/21 Globulin 3.9 gm/dl (2.5-4.0) 07/15/21 Albumin/Globulin Ratio 0.8 (0.9-2) L 07/15/21 Mg 1.8 mg/dl (1.7-2.4) 07/15/21 04:55 07/15/21 Calcium Level 8.9 mg/dl (8.5-10.1) 07/15/21 04:55 07/15/21 Microbiology 07/12/21 14:48 Urine Culture - Final Urine,Clean Catch Yeast not Ale albicans/dub I & O Totals 24 Hours 07/14/21 07/15/21 07/16/21 06:59 06:59 06:59 Intake Total 1058.975 / 1058.975 414.737 / 414.737 145.577 / 145.577 Output Total Balance 1057.975 / 1057.975 414.737 / 414.737 145.577 / 145.577 Cumulative 07/07/21 09:56 thru 07/15/21 11:11 Intake Total 92155.919 Output Total 1078 Balance 9800.919 RT Ventilator Mngmt (Last Documented) Ventilator Ordered Settings Respiratory Rate 17 07/15/21 06:00 Ventilator - PT Measurements Respiratory Rate 17 End-Tidal CO2 29 Resident Activity Tracking Resident Involvement: Resident Care Provided Care Provided: Adult Hospital Medicine (1) Alcohol withdrawal Complication of substance-induced condition: uncomplicated Qualified Code(s): F10.230 - Alcohol dependence with withdrawal, uncomplicated (2) Chronic pancreatitis Pancreatitis type: other Qualified Code(s): K86.1 - Other chronic pancreatitis (3) Abdominal pain Abdominal location: generalized Qualified Code(s): R10.84 - Generalized abdominal pain
--- NOTE | 2021-07-15 08:38 | Gastroenterology Progress Note ---
Date of Service July 15, 2021 Assessment & Plan (1) Abdominal pain: Plan: Malnutrition--Please continue to advance tube feeds as tolerated. Abdominal pain --Has chronic pancreatitis which could be contributing. No obvious tube site infection. Patient encouraged to stop touching tube insertion site frequently. Continue PPI for possible PUD. chronic pancreatitis--continue pancreas enzymes ETOH withdrawal --alcoholic hepatitis upon hospitalization. Alcohol withdrawal per critical care, hospitalists. On Precedex Continue supportive care. No additional recommendations at this time. At this time will sign off patient case. Please reconsult if needed Case reviewed with Dr. Payan please refer to supervising physician addendum for further recommendations. I have spent 25 minutes of discrete time performing the activities of this visit which include but are not limited to review of the medical record, obtaining a history, physical exam, and entering information in the electronic record. Admission and Anticipated Discharge Date Admission Date: July 07, 2021 Supervising Physician Co-Signing Physician Notes I have seen and examined the patient. I agree with note above by ANTONIO Fairchild except as noted below. HPI Pt states still having increased pain over baseline. States tube hurts a lot but manipulates it at will. PE Abdomen pos bs, soft, no guarding nor rebound. NO obvious infection at tube site. A/P abd pain chronic-- No furthre acute issues. Will sign off. Follow up with GI at [facility]. As the supervising physician, I , Chau Payan MD have spent 10 minutes of discrete time performing the activities of this visit which include but not limited to review of the medical records, obtaining a history, physical exam and entering information in the electronic record. ANTONIO Fairchild has reported spending 25 minutes of discrete time with the activities of this visit. Subjective Patient lying in bed and position of comfort. Voice is slurred this morning and she states she is tired. Nursing reports that she has continued to have poor tolerance of tube feeding and rate is staying around 10 to 15 mL/h. She has minimal p.o. appetite. She has some fluid intake orally. Still requiring Precedex drip and Ativan frequently. Patient reports left-sided abdominal pain and epigastric abdominal pain. No nausea or vomiting. States she did have a bowel movement over the weekend. Very concerned about her tube feeding insertion site. Continues to finger around the insertion site frequently. She is a one-to-one sitter at the bedside. Review of Systems Review of Systems: All systems reviewed & are unremarkable except as noted in Subjective Physical Exam Gastrointestinal (Abdomen): Normal bowel sounds, no guarding nor rebound. PEG site without obvious infection. Results & Data ([facility]) Vital Signs (Past 12 Hours) Vital Signs Temp Pulse Resp BP Pulse Ox 07/15/21 06:00 79 17 91/71 L 07/15/21 05:03 87 17 88/58 L 95 07/15/21 05:00 88 13 93 07/15/21 04:11 88 19 103/64 96 07/15/21 04:00 36.8 C 92 H 16 96/68 L 96 07/15/21 03:03 107 H 27 H 96/68 L 96 07/15/21 03:00 99 H 15 07/15/21 02:00 88 19 103/71 95 07/15/21 01:00 97 H 16 94/64 L 98 07/15/21 00:00 84 18 89/58 L 94 07/14/21 23:00 90 21 81/52 L 93 07/14/21 22:56 91 H 07/14/21 22:00 110 H 14 84/67 L 96 07/14/21 21:00 36.6 C 98 H 15 107/67 Laboratory Results Laboratory Results - last 24 hr 07/15/21 07/15/21 04:55 04:55 WBC 5.71 RBC 3.66 L Hgb 12.2 Hct 36.8 L MCV 100.5 H MCH 33.3 MCHC 33.2 RDW Std Deviation 63.4 H RDW Coeff of Paulina 17.1 H Plt Count 257 MPV 10.7 H Immature Gran % (Auto) 0.4 Neut % (Auto) 40.8 Lymph % (Auto) 38.5 [place] % (Auto) 17.2 Eos % (Auto) 2.6 Baso % (Auto) 0.5 Neut # (Auto) 2.33 Lymph # (Auto) 2.20 [place] # (Auto) 0.98 H Eos # (Auto) 0.15 Baso # (Auto) 0.03 Immature Gran # (Auto) 0.02 Sodium 134 L Potassium 4.0 Chloride 101 Carbon Dioxide 26 Anion Gap 7 BUN 7 Creatinine 0.42 L Est Cr Clr Drug Dosing 143.4 Est GFR ( Amer) > 150.0 Est GFR (Non-Af Amer) 132.8 BUN/Creatinine Ratio 16.7 Glucose 124 H Calcium 8.9 Phosphorus 4.6 Magnesium 1.8 Total Bilirubin 0.4 AST 25 ALT 8 Alkaline Phosphatase 169 H Total Protein 6.9 Albumin 3.0 L Globulin 3.9 Albumin/Globulin Ratio 0.8 L (1) Abdominal pain Abdominal location: generalized Qualified Code(s): R10.84 - Generalized abdominal pain
[2021-07-15] MEDS: MAGNESIUM SULFATE / D5W 1 GM/100 ML BAG IV SCH ×2 (08:51→10:41)
[2021-07-15] MEDS: GABAPENTIN 300 MG CAP PO SCH ×3 (08:58→20:01)
[2021-07-15] MEDS: MONTELUKAST SODIUM 10 MG TABLET PO SCH (08:59)
[2021-07-15] MEDS: PANCREAZE (LIPASE 10,500U) CAP PO SCH ×4 (08:59→20:04)
[2021-07-15] MEDS: FOLIC ACID 1 MG TAB PO SCH (09:00)
[2021-07-15] MEDS: PANTOprazole 40 MG in SYRINGE 0 ML IV SCH (09:07)
[2021-07-15] MEDS: MUPIROCIN 2% OINT 22 GM TUBE EXT SCH ×2 (09:08→20:08)
[2021-07-15] MEDS: POLYETHYLENE (MIRALAX) 17 GM PACK PO SCH ×2 (09:08→20:09)
[2021-07-15] MEDS ORDERED: cloNIDine HCL 0.1 MG TAB PO SCH (09:45)
[2021-07-15] MEDS: NICOTINE 21 MG/24 HR TDSY TD SCH (09:54)
[2021-07-15] MEDS: UMECLIDINIUM BROMIDE 62.5MCG/BLISTER 7 PUFFS/INHALER INH SCH (09:54)
[2021-07-15] MEDS: FLUTICASONE/VILANTEROL 200/25MCG 14 PUFFS/INHALER INH SCH (09:54)
[2021-07-15] MEDS: MULTI VIT W/MINERALS LIQUID 15 ML UDP GT SCH (09:54)
[2021-07-15] MEDS: SODIUM CHLORIDE 0.9% IV SCH (10:42)
[2021-07-15] MEDS: THIAMINE HCL IV SCH (10:42)
[2021-07-15] MEDS: OLANZapine 5 MG TABLET PO SCH ×2 (10:44→20:08)
[2021-07-15] MEDS: chlordiazePOXIDE HCl 25 MG CAP PO SCH ×4 (10:44→20:00)
[2021-07-15] MEDS: cloNIDine HCL 0.1 MG TAB PO SCH ×2 (10:59→20:01)
--- NOTE | 2021-07-15 11:58 | Billing Data ---
Date of Service July 15, 2021 Coding Level of Care Code 50807 Subseq Hosp Care Lvl 3
[2021-07-15] MEDS ORDERED: dilTIAZem HCL 120 MG CAPCR PO SCH (14:30)
[2021-07-15] MEDS: PEPTAMEN 1.5 CAL 1,000 ML BAG GT SCH (17:25)
--- NOTE | 2021-07-15 18:56 | Hospitalist Progress Note ---
Date of Service July 15, 2021 Assessment & Plan (1) Alcohol use disorder, moderate, dependence: Plan: Perla is a 36-year-old female with a past medical history of alcohol use disorder with dependence, chronic pancreatitis, tobacco use, gastrostomy tube placement, chronic back pain who presented in acute alcohol withdrawal after being abstinent for 48 hours and was found to be tachycardic and hypertensive on admission, with N/V. Alcohol use disorder with acute withdrawal, history of alcoholic hepatitis Pt decompensated on 07/09/21 necessitating ICU admission and starting precedex, some issues of limitation of taking po meds and meds available for g tube admin istration. Weaned off Precedex drip and scheduled IV Ativan on 07/14, stable Restarted on Precedex drip overnight on 07/14 but discontinued on the morning 07/15 Started on Librium 100 mg p.o. 4 times daily, with IV lorazepam 2 mg every 2 hours as needed, taper Librium down as able to Started Zyprexa 5 mg p.o. twice daily and clonidine 0.1 mg p.o. twice daily -Appreciate ICU management-can be downgraded from ICU today as is off Precedex -Discontinuing Seroquel -Recommend inpatient alcohol rehab but she is not sure that she is agreeable at this time. In fact, she reports that she wants to go home and drink alcohol-she is thinking about leaving AGAINST MEDICAL ADVICE. At this point, she can make her own decisions -Continue folic acid, convert to p.o. thiamine -Continue PPI but could convert to Prevacid per GT -Psychiatry consulted-recommends inpatient rehab treatment and also recommends either naltrexone 50 mg once daily if AST is normalized and not on concurrent opioids, or preferably acamprosate 333 mg p.o. 3 times daily if renal function normal (2) Chronic alcoholic liver disease: Plan: GI consulted supportive care for alcoholic liver disease, alcohol withdrawal, nutritional support. Maddrey score 13, no concern for need of steroids for alcoholic hepatitis although Ct abdomen and pelvis consistent with alcoholic hepatitis and inactive chronic pancreatitis with atrophy With thrombocytopenia and elevated alk phos both improved today INR now normalized Follow CBC, LFTs (3) Chronic pancreatitis: Plan: Lipase of 9 on admission CTa/P 07/07/21: Gastrostomy tube in place, no SBO, bladder wall circumferentially thickened. Hepatomegaly and severe hepatic steatosis, evidence of chronic pancreatitis Tolerating tube feeds and titrating up to 20 mL/h today which she is not happy about as she thinks it increases her abdominal pain -Appreciate GI consultation Nutrition consulted (4) Asthma: Plan: History of intrinsic asthma Continue Spiriva, singular/Symbicort/formulary conversion No smoking in previous 2 months, previously with tobacco use regularly. Nicotine patch as needed (5) Gastrostomy tube in place: Plan: Continue Creon With history of gastritis no esophagitis likely related to alcohol intake per prior nutrition assessment GI consulted, have seen before, appreciate recommendations. Drainage appreciated rate around feeding tube which was cultured and grew MSSA and GBS, no signs of cellulitis surrounding. will use topical muripocin and completed a week course of ceftriaxone Agree with nutrition evaluation. (6) Abnormal urinalysis: Plan: Abnormal UA on admission, CT scan consistent with cystitis Patient with clinical dysuria urine culture contaminated x2, recollect Ur cx growing yeast -Already completed a week of ceftriaxone (7) Alcoholic hepatitis: Plan: As above (8) DVT prophylaxis: Plan: Patient did have a Nunes associated upper extremity DVT in the past. She is no longer taking Eliquis at this time. SQ Lovenox (9) Hyponatremia: Plan: Na 131 but now improved to 134 after decreasing free water flushes Follow BMP (10) Hypomagnesemia: Plan: Replaced and now resolved Plan: Disposition-continued stay but downgrade to PCU Not ready for dc and pt still considering rehab but doubtful she will be willing to go and will likely start drinking again after discharge Admission and Anticipated Discharge Date Admission Date: July 07, 2021 Subjective Patient angry today and says that she is not being kept "comfortable." She states that she does not really think that she is going to quit drinking alcohol and wants to go home and drink more alcohol. She understands that withdrawal is hard and she does not like going through it and does not care if she ends up returning to the hospital with recurrent withdrawal symptoms in the future. She threatened to leave at least 2 times AGAINST MEDICAL ADVICE throughout the day but then changed her mind after each time. She is angry that her tube feed rate was increased to 20 mL/h. She also is angry about being started on Zyprexa because "it killed my grandfather." She is also angry about being started on clonidine because she says that we do not need to be treating her blood pressure. When I explained the clonidine can be used for withdrawal symptoms, she was upset. Notably, her morphine was discontinued today and she is saying that her pain is not being treated. She was restarted on Precedex last night for reported visual hallucinations. It was turned off this morning by the forestry hunter. Review of Systems Review of Systems: All systems reviewed & are unremarkable except as noted in HPI & below Physical Exam Constitutional: WD/WN, vitals as above Eyes: + anicteric sclerae Neck: trachea midline, no thyromegaly Respiratory: normal respiratory effort, lungs clear to auscultation Cardiovascular: RRR, no murmur, no edema Chest (Breasts): Chest: normal inspection of chest Gastrointestinal (Abdomen): Inspection/Auscultation: + abdomen abnormal to inspection (G-tube in place) Percussion/Palpation: + abdomen tender (Diffusely with minimal palpation) and abdomen soft; no guarding Musculoskeletal: Extremities: extremities normal to inspection; no cyanosis and no clubbing Skin: no rashes, warm and dry Neurologic: moves all extremities and awake; no focal motor deficits Psychiatric: Orientation: alert, oriented x 3, oriented to person and cooperative Affect: + irritable affect Lymphatic: no lymphedema Results & Data Results & Data ([facility]) Vital Signs (Past 12 Hours) Vital Signs Temp Pulse Pulse Resp BP BP Pulse Ox 07/15/21 16:29 36.6 C 70 20 83/49 L 96 07/15/21 16:00 70 07/15/21 13:00 87 14 07/15/21 12:00 84 19 07/15/21 11:00 101 H 19 07/15/21 10:58 82 10 L 104/62 07/15/21 10:54 73 18 93/60 L 07/15/21 10:40 74 18 84/53 L 07/15/21 10:26 74 17 84/52 L 07/15/21 10:00 77 16 85/54 L 07/15/21 09:19 36.4 C L 07/15/21 09:00 81 16 110/68 07/15/21 08:00 78 19 07/15/21 07:00 76 17 83/53 L Laboratory Results 07/15/21 07/15/21 Range/Units 04:55 04:55 WBC 5.71 (4.8-10.8) K/uL RBC 3.66 L (4.2-5.4) M/uL Hgb 12.2 (12.0-16.0) g/dL Hct 36.8 L (37-47) % MCV 100.5 H (80-100) fL MCH 33.3 (25-34) pg MCHC 33.2 (32-36) g/dL RDW Std Deviation 63.4 H (36.4-46.3) fL RDW Coeff of Paulina 17.1 H (11.5-14.5) % Plt Count 257 (130-400) K/uL MPV 10.7 H (7.4-10.4) fL Immature Gran % (Auto) 0.4 % Neut % (Auto) 40.8 % Lymph % (Auto) 38.5 % [place] % (Auto) 17.2 % Eos % (Auto) 2.6 % Baso % (Auto) 0.5 % Neut # (Auto) 2.33 (1.4-6.5) K/uL Lymph # (Auto) 2.20 (1.2-3.4) K/uL [place] # (Auto) 0.98 H (0.11-0.59) K/uL Eos # (Auto) 0.15 (0-0.5) K/uL Baso # (Auto) 0.03 (0-0.2) K/uL Immature Gran # (Auto) 0.02 (0.00-0.02) K/uL Sodium 134 L (136-145) mmol/L Potassium 4.0 (3.5-5.1) mmol/L Chloride 101 (98-107) mmol/L Carbon Dioxide 26 (21-32) mmol/L Anion Gap 7 (3-11) BUN 7 (6-23) mg/dl Creatinine 0.42 L (0.6-1.2) mg/dl Est Cr Clr Drug Dosing 143.4 ml/min Est GFR ( Amer) > 150.0 ml/min Est GFR (Non-Af Amer) 132.8 ml/min BUN/Creatinine Ratio 16.7 (10-20) Glucose 124 H (70-99(Fasting)) mg/dl Calcium 8.9 (8.5-10.1) mg/dl Phosphorus 4.6 (2.5-4.9) mg/dl Magnesium 1.8 (1.7-2.4) mg/dl Total Bilirubin 0.4 (0.2-1.0) mg/dl AST 25 (13-39) U/L ALT 8 (7-52) U/L Alkaline Phosphatase 169 H (34-104) U/L Total Protein 6.9 (6.0-8.3) gm/dl Albumin 3.0 L (3.4-5.0) gm/dl Globulin 3.9 (2.5-4.0) gm/dl Albumin/Globulin Ratio 0.8 L (0.9-2) PG Care Time/CCT Total # of Minutes Spent Total Time Spent with Patient: Total time spent is greater than 50% in coordination of care (as documented) at patient's floor/unit and/or counseling patient: Coding Level of Care Code 48247 Subseq Hosp Care Lvl 3 Diagnoses Alcohol use disorder, moderate, dependence F10.20 Chronic alcoholic liver disease K70.9 Chronic pancreatitis K86.1 Asthma J45.[address] Z93.1 Abnormal urinalysis R82.90 Alcoholic hepatitis K70.10 DVT prophylaxis Z29.9 Hyponatremia E87.1 Hypomagnesemia E83.42
[2021-07-15] MEDS: ENOXAPARIN INJ 40 MG/0.4 ML SYR SQ SCH (20:01)
[2021-07-16] MEDS ORDERED: KETOROLAC TROMETHAMINE 15 MG/ML VIAL IV ONE (00:38)
[2021-07-16] MEDS: MELATONIN 3 MG TAB PO PRN ×2 (00:57→22:25)
[2021-07-16] MEDS: LORazepam 2 MG/1 ML VIAL IV PRN ×10 (01:31→22:25)
[2021-07-16] MEDS: TUBE FEEDING WATER FLUSH GT SCH ×5 (04:03→20:10)
[2021-07-16 06:14] LABS: Appearance Urine Clear (Clear); Bilirubin Urine Negative (Negative); Blood Urine Negative (Negative); Color Urine Yellow; Glucose Urine UA Negative (Negative); Ketones Urine Trace (Negative); Leukocyte Esterase Urine Negative (Negative); Nitrite Urine Negative (Negative); Protein Urine Negative (Negative); Specific Gravity Urine 1.019 (1.000-1.030); Urobilinogen Urine Negative (Negative); pH Urine 5.5 (4.5-7.5)
[2021-07-16 06:26] LABS: Basophils # (auto) 0.03 K/uL (0-0.2); Basophils % (auto) 0.5 %; Eosinophils # (auto) 0.15 K/uL (0-0.5); Eosinophils % (auto) 2.6 %; Hematocrit (blood only) 33.4 % (37-47); Hemoglobin 11.1 g/dL (12.0-16.0); Immature Granulocytes # (auto) 0.01 K/uL (0.00-0.02); Immature Granulocytes % (auto) 0.2 %; Lymphocytes # (auto) 2.42 K/uL (1.2-3.4); Lymphocytes % (auto) 42.3 %; Mean Corpuscular Hemoglobin 32.6 pg (25-34); Mean Corpuscular Hgb Conc 33.2 g/dL (32-36); Mean Corpuscular Volume 98.2 fL (80-100); Mean Platelet Volume 10.5 fL (7.4-10.4); Monocytes % (auto) 8.7 %; Neutrophils # (auto) 2.61 K/uL (1.4-6.5); Neutrophils % (auto) 45.7 %; Platelet Count 283 K/uL (130-400); RDW Coefficient of Variation 16.7 % (11.5-14.5); RDW Standard Deviation 60.1 fL (36.4-46.3); White Blood Count 5.72 K/uL (4.8-10.8)
[2021-07-16 06:56] LABS: Albumin Globulin Ratio 0.9 (0.9-2); Bilirubin,Total 0.4 mg/dl (0.2-1.0); Calcium 8.9 mg/dl (8.5-10.1); Creatinine Clr Calc Pharmacy 110.6 ml/min; Est GFR (African American) 142.6 ml/min; Globulin 3.5 gm/dl (2.5-4.0); Magnesium 1.7 mg/dl (1.7-2.4); Phosphorus 4.7 mg/dl (2.5-4.9); Potassium 3.9 mmol/L (3.5-5.1); Total Protein 6.5 gm/dl (6.0-8.3)
[2021-07-16] MEDS: FOLIC ACID 1 MG TAB PO SCH (08:04)
[2021-07-16] MEDS: MONTELUKAST SODIUM 10 MG TABLET PO SCH (08:04)
[2021-07-16] MEDS: MULTI VIT W/MINERALS LIQUID 15 ML UDP GT SCH (08:04)
[2021-07-16] MEDS: POLYETHYLENE (MIRALAX) 17 GM PACK PO SCH ×2 (08:05→21:34)
[2021-07-16] MEDS: OLANZapine 5 MG TABLET PO SCH ×2 (08:05→20:23)
[2021-07-16] MEDS: FLUTICASONE/VILANTEROL 200/25MCG 14 PUFFS/INHALER INH SCH (08:06)
[2021-07-16] MEDS: UMECLIDINIUM BROMIDE 62.5MCG/BLISTER 7 PUFFS/INHALER INH SCH (08:06)
[2021-07-16] MEDS: cloNIDine HCL 0.1 MG TAB PO SCH ×2 (08:07→20:21)
[2021-07-16] MEDS: GABAPENTIN 300 MG CAP PO SCH ×3 (08:07→20:23)
[2021-07-16] MEDS: PANCREAZE (LIPASE 10,500U) CAP PO SCH ×5 (08:08→20:23)
[2021-07-16] MEDS: NICOTINE 21 MG/24 HR TDSY TD SCH ×2 (08:09→18:34)
[2021-07-16] MEDS: chlordiazePOXIDE HCl 25 MG CAP PO SCH ×3 (08:11→20:21)
[2021-07-16] MEDS: LANSOPRAZOLE 30 MG SOLTAB PO SCH (08:14)
[2021-07-16] MEDS ORDERED: PANTOprazole 40 MG in SYRINGE 0 ML IV SCH (09:00)
[2021-07-16] MEDS: MUPIROCIN 2% OINT 22 GM TUBE EXT SCH ×2 (10:04→20:24)
[2021-07-16] MEDS: THIAMINE HCL 100 MG TAB PEG SCH (10:04)
[2021-07-16] MEDS: MAGNESIUM SULFATE / D5W 1 GM/100 ML BAG IV SCH ×2 (10:12→12:12)
[2021-07-16] MEDS ORDERED: KETOROLAC TROMETHAMINE 15 MG/ML VIAL IV PRN (12:13)
--- NOTE | 2021-07-16 12:21 | Hospitalist Progress Note ---
Date of Service July 16, 2021 Assessment & Plan (1) Alcohol use disorder, moderate, dependence: Plan: Perla is a 36-year-old female with a past medical history of alcohol use disorder with dependence, chronic pancreatitis, tobacco use, gastrostomy tube placement, chronic back pain who presented in acute alcohol withdrawal after being abstinent for 48 hours and was found to be tachycardic and hypertensive on admission, with N/V. Alcohol use disorder with acute withdrawal, history of alcoholic hepatitis Pt decompensated on 07/09/21 necessitating ICU admission and starting precedex, some issues of limitation of taking po meds and meds available for g tube admin istration. Weaned off Precedex drip and scheduled IV Ativan on 07/14, stable Restarted on Precedex drip overnight on 07/14 but discontinued on the morning 07/15, downgraded out of ICU Started on Librium 100 mg p.o. 4 times daily, with IV lorazepam 2 mg every 2 hours as needed, taper Librium down as able to-go down to 100 mg p.o. 3 times daily on 07/16 Started Zyprexa 5 mg p.o. at bedtime for agitation at bedtime and for sleep Continue clonidine 0.1 mg p.o. twice daily Continue home gabapentin 300 mg p.o. 3 times daily -Continue folic acid, convert to p.o. thiamine -Continue PPI but could convert to Prevacid per GT -Psychiatry consulted-recommends inpatient rehab treatment and also recommends either naltrexone 50 mg once daily if AST is normalized and not on concurrent opioids, or preferably acamprosate 333 mg p.o. 3 times daily if renal function normal -Recommend inpatient alcohol rehab but she is not sure that she is agreeable at this time-she waffles [id number] minute to minute. At times, she reports that she wants to go home and drink alcohol-and states she will be leaving AGAINST MEDICAL ADVICE. At this point, she can make her own decisions. On the other hand, then she changed her mind and decide to stay. I do think there is a part of her that wants to quit drinking. I have asked the transplant case manager to look into the places that would be willing to take her for inpatient rehab given that she has some complex medical issues and a G-tube Asked psychiatry nurse liaison to reach back out to her with supportive counseling today-appreciated (2) Chronic alcoholic liver disease: Plan: GI consulted supportive care for alcoholic liver disease, alcohol withdrawal, nutritional support. Maddrey score 13, no concern for need of steroids for alcoholic hepatitis although Ct abdomen and pelvis consistent with alcoholic hepatitis and inactive chronic pancreatitis with atrophy With thrombocytopenia and elevated alk phos both improved INR now normalized (3) Chronic pancreatitis: Plan: Lipase of 9 on admission CTa/P 07/07/21: Gastrostomy tube in place, no SBO, bladder wall circumferentially thickened. Hepatomegaly and severe hepatic steatosis, evidence of chronic pancreatitis Continuous tube feeds and plan to titrate up to 30 mL/h today-she does worry about increasing the amount as it tends to increase her abdominal pain -Appreciate GI consultation-signed off Nutrition consulted-appreciated The patient was requesting her home p.o. Dilaudid on 07/16. I confirmed on the PDMP website that she has not been prescribed p.o. Dilaudid since 02/2021. I advised her that I would not prescribe Dilaudid for her in the hospital as she does not take it as an outpatient and we need to look at nonopioid pain management choices that she can go home with Continue Tylenol as needed for pain Add on IV Toradol as needed for pain (4) Asthma: Plan: History of intrinsic asthma Continue Spiriva, singular/Symbicort/formulary conversion No smoking in previous 2 months, previously with tobacco use regularly. Nicotine patch as needed (5) Gastrostomy tube in place: Plan: Continue Creon With history of gastritis no esophagitis likely related to alcohol intake per prior nutrition assessment GI consulted, have seen before, appreciate recommendations. Drainage appreciated from around feeding tube which was cultured and grew MSSA and GBS, no signs of cellulitis surrounding. Completed 7 days of ceftriaxone and using topical mupirocin Patient complaining of purulent drainage which I did witness on 07/16-reculture the fluid and restart ceftriaxone at patient's request (6) Abnormal urinalysis: Plan: Abnormal UA on admission, CT scan consistent with cystitis Patient with clinical dysuria urine culture contaminated x2, recollect Ur cx growing yeast -Already completed a week of ceftriaxone Repeat urinalysis on 07/15 - for UTI (7) Alcoholic hepatitis: Plan: As above (8) DVT prophylaxis: Plan: Patient did have a Nunes associated upper extremity DVT in the past. She is no longer taking Eliquis at this time. SQ Lovenox (9) Hyponatremia: Plan: Na 131 but now normalized after decreasing free water flushes Follow BMP (10) Hypomagnesemia: Plan: Replaced and now resolved Plan: Disposition-continued stay on PCU Not ready for dc and pt still considering inpatient rehab but doubtful she will be willing to go and will likely start drinking again after discharge Admission and Anticipated Discharge Date Admission Date: July 07, 2021 Subjective Patient reports concern for drainage around her G-tube is asking if it should be cultured again and started on antibiotics. Last evening she was concerned that she may have a UTI and her UA was checked and was negative. She reports that she always has abdominal pain and takes p.o. Dilaudid at home and is prescribed this regularly by her surgeon. I told her I would prescribe Dilaudid to her only if I found proof that it was being prescribed routinely as an outpatient, but if not, I would not prescribe it. She was agreeable to this. I checked the [facility] website and saw that the last time she was prescribed p.o. Dilaudid was 40 tablets in 02/2021 which was after a recent surgery. Patient reports she was finally able to sleep this morning for the first time in 5 days but could not sleep last night. She was asking for something for sleep. She is agreeable to taking the Zyprexa. She goes back and forth about whether she wants inpatient rehab or not, but ultimately at the end of our conversation today, stated that she was interested in having case management reach out for inpatient rehab places for her. Review of Systems Review of Systems: All systems reviewed & are unremarkable except as noted in HPI & below Physical Exam Constitutional: WD/WN, vitals as above Eyes: + anicteric sclerae ENMT: external ear and nose normal, oropharynx normal Neck: trachea midline, no thyromegaly Respiratory: normal respiratory effort, lungs clear to auscultation Cardiovascular: RRR, no murmur, no edema Chest (Breasts): Chest: normal inspection of chest Gastrointestinal (Abdomen): Inspection/Auscultation: + abdomen abnormal to inspection (G-tube in place with scant purulent drainage on gauze) Percussion/Palpation: abdomen soft; abdomen nontender Musculoskeletal: Extremities: extremities normal to inspection; no cyanosis and no clubbing Skin: no rashes, warm and dry Neurologic: moves all extremities and awake; no focal motor deficits Psychiatric: Orientation: alert, oriented to person, oriented to place and cooperative Lymphatic: no lymphedema Results & Data Results & Data ([facility]) Vital Signs (Past 12 Hours) Vital Signs Temp Pulse Pulse Resp BP Pulse Ox 07/16/21 08:00 80 07/16/21 07:42 80 07/16/21 07:25 36.8 C 101 H 16 103/73 98 07/16/21 03:30 36.9 C 85 16 99/60 L 96 Laboratory Results 07/16/21 07/16/21 07/16/21 Range/Units 06:00 05:59 05:59 WBC 5.72 (4.8-10.8) K/uL RBC 3.40 L (4.2-5.4) M/uL Hgb 11.1 L (12.0-16.0) g/dL Hct 33.4 L (37-47) % MCV 98.2 (80-100) fL MCH 32.6 (25-34) pg MCHC 33.2 (32-36) g/dL RDW Std Deviation 60.1 H (36.4-46.3) fL RDW Coeff of Paulina 16.7 H (11.5-14.5) % Plt Count 283 (130-400) K/uL MPV 10.5 H (7.4-10.4) fL Immature Gran % (Auto) 0.2 % Neut % (Auto) 45.7 % Lymph % (Auto) 42.3 % [place] % (Auto) 8.7 % Eos % (Auto) 2.6 % Baso % (Auto) 0.5 % Neut # (Auto) 2.61 (1.4-6.5) K/uL Lymph # (Auto) 2.42 (1.2-3.4) K/uL [place] # (Auto) 0.50 (0.11-0.59) K/uL Eos # (Auto) 0.15 (0-0.5) K/uL Baso # (Auto) 0.03 (0-0.2) K/uL Immature Gran # (Auto) 0.01 (0.00-0.02) K/uL Sodium 136 (136-145) mmol/L Potassium 3.9 (3.5-5.1) mmol/L Chloride 103 (98-107) mmol/L Carbon Dioxide 26 (21-32) mmol/L Anion Gap 7 (3-11) BUN 9 (6-23) mg/dl Creatinine 0.53 L (0.6-1.2) mg/dl Est Cr Clr Drug Dosing 110.6 ml/min Est GFR ( Amer) 142.6 ml/min Est GFR (Non-Af Amer) 123.0 ml/min BUN/Creatinine Ratio 17.0 (10-20) Glucose 110 H (70-99(Fasting)) mg/dl Calcium 8.9 (8.5-10.1) mg/dl Phosphorus 4.7 (2.5-4.9) mg/dl Magnesium 1.7 (1.7-2.4) mg/dl Total Bilirubin 0.4 (0.2-1.0) mg/dl AST 20 (13-39) U/L ALT 8 (7-52) U/L Alkaline Phosphatase 157 H (34-104) U/L Total Protein 6.5 (6.0-8.3) gm/dl Albumin 3.0 L (3.4-5.0) gm/dl Globulin 3.5 (2.5-4.0) gm/dl Albumin/Globulin Ratio 0.9 (0.9-2) Urine Color Yellow Urine Appearance Clear (Clear) Urine pH 5.5 (4.5-7.5) Ur Specific [place] 1.019 (1.000-1.030) Urine Protein Negative (Negative) Urine Glucose (UA) Negative (Negative) Urine Ketones Trace H (Negative) Urine Blood Negative (Negative) Urine Nitrite Negative (Negative) Urine Bilirubin Negative (Negative) Urine Urobilinogen Negative (Negative) Ur Leukocyte Esterase Negative (Negative) PG Care Time/CCT Total # of Minutes Spent Total Time Spent with Patient: Total time spent is greater than 50% in coordination of care (as documented) at patient's floor/unit and/or counseling patient: Coding Level of Care Code 28922 Subseq Hosp Care Lvl 3 Diagnoses Alcohol use disorder, moderate, dependence F10.20 Chronic alcoholic liver disease K70.9 Chronic pancreatitis K86.1 Asthma J45.[address] Z93.1 Abnormal urinalysis R82.90 Alcoholic hepatitis K70.10 DVT prophylaxis Z29.9 Hyponatremia E87.1 Hypomagnesemia E83.42
[2021-07-16] MEDS: cefTRIAXone SODIUM 1,000 MG in DEXTROSE 5% 50 ML IV SCH (14:03)
[2021-07-16] MEDS ORDERED: PEPTAMEN 1.5 CAL 1,000 ML BAG GT SCH (17:00)
[2021-07-16] MEDS: ENOXAPARIN INJ 40 MG/0.4 ML SYR SQ SCH (20:22)
[2021-07-17] MEDS: TUBE FEEDING WATER FLUSH GT SCH ×6 (01:11→20:16)
[2021-07-17] MEDS: LORazepam 2 MG/1 ML VIAL IV PRN ×4 (02:45→13:05)
[2021-07-17] MEDS: ACETAMINOPHEN 325 MG TAB PO PRN (05:39)
--- NOTE | 2021-07-17 09:12 | Psychiatric Progress Note ---
Date of Service July 17, 2021 Impression / Recommendations Impression Diagnostically consistent with alcohol use disorder. At this point risk of harm to self and others is slightly increased, even with denial of SI and denial of any mood symptoms, due to substance use with substance use treatment being the most significant modifiable risk factor to reduce acute and chronic risk. They do not meet criteria for inpatient psychiatric treatment at this time rather recommendation is for residential substance use treatment. They are not interested in residential treatment at this time. Reviewed recommendations if not willing for residential including outpatient services to help with substance use and medication assisted treatment which she will consider. She is felt to have decision making capacity to leave AMA should she decide to do this given no evidence for acute encephalopathy, no abhi, no psychosis and can communicate a choice, understands information hospitalist discussed with her (re: seizures, ), appreciates consequences including potential fatality, and can manipulate relevant information. (1) Alcohol use disorder, severe, dependence: (2) Chronic pancreatitis: Risk Factors Assessment Male: No : Yes Do You Have Access To A Gun?: No Health Problems: Yes Mental Health Diagnoses: Yes Substance Use Disorders: Yes Previous Attempt: No Family History of Suicide: No Previous Psychiatric Hospitalization: No Hopelessness: No Protective Factors Assessment Stable Relationships: Yes Supportive Family: Yes Interval History Identifying Information 36 yo woman 3with history of alcohol use disorder, chronic pancreatitis, chronic back pain, gastrostomy tube, ADHD and alcohol use disorder admitted medically for supervised alcohol withdrawal and stomach pain related to her G-tube. Psychiatry consult was initially completed for decision making capacity. Chief Complaint ongoing anxiety, med seeking Review of Systems Notes reports poor sleep, ongoing anxiety Subjective Subjective Patient was seen. Interval progress reviewed. Liaison attended to patient yesterday at request of Dr. Ahmadi given patient's level of attention seeking and continuously requesting medication despite standing Librium and slurring of speech at times. Physical Exam Psychiatric A+Ox3, euthymic affect Orientation: alert, oriented x 3, oriented to person, oriented to place, oriented to time and cooperative Apperance: appropriately dressed and appropriately groomed Eye Contact: good eye contact Motor Behavior: no abnormal motor movements Speech: normal rate/rhythm/volume of speech Affect: + flat affect, + irritable affect and + constricted affect Mood: no depressed mood and no anxious mood Thought Process: goal directed thought process Thought Content: reality based without delusions Suicidal Thoughts: denies suicidal thoughts Homicidal Thoughts: denies homicidal thoughts Hallucinations: no auditory hallucinations and no visual hallucinations Cognition: recent memory grossly intact, remote memory grossly intact, attention grossly intact and language grossly intact Estimated Intelligence: consistent with education level Insight: + limited insight Judgement: + limited judgement Vital Signs (Past 24 Hours) Last Vital Signs Temp 36.6 C 07/17/21 07:10 Pulse 85 07/17/21 07:10 Resp 18 07/17/21 07:10 BP 82/53 L 07/17/21 07:10 Pulse Ox 98 07/17/21 07:10 Results & Data ([facility]) Current Inpatient Medications Current Inpatient Medications: Current Inpatient Medications Acetaminophen (Acetaminophen 325 Mg Tab) 650 mg PO Q4H PRN PRN Reason: Pain Stop: 08/11/21 04:59 Last Admin: 07/17/21 05:39 Dose: 650 mg Documented by: Al Hydrox/Mg Hydrox/Simethicone (Aluminum/Magnesium Susp 30 Ml Udc) 15 ml PO Q4H PRN PRN Reason: Dyspepsia Stop: 08/06/21 16:16 Lipase/Protease/Amylase (Pancreaze (Lipase 10,500u) Cap) 2 cap PO QID AGNES Stop: 08/06/21 16:59 Last Admin: 07/16/21 20:23 Dose: Not Given Documented by: Chlordiazepoxide HCl (Chlordiazepoxide Hcl 25 Mg Cap) 100 mg PO TID AGNES Stop: 08/15/21 13:59 Last Admin: 07/16/21 20:21 Dose: 100 mg Documented by: Clonidine HCl (Clonidine Hcl 0.1 Mg Tab) 0.05 mg PO BID AGNES Stop: 08/16/21 08:59 Enoxaparin Sodium (Enoxaparin Inj 40 Mg/0.4 Ml Syr) 40 mg SQ Q24H AGNES Stop: 08/06/21 20:59 Last Admin: 07/16/21 20:22 Dose: 40 mg Documented by: Enteral Nutritional Formula (Peptamen 1.5 Ryan 1,000 Ml Bag) 1,000 ml GT UD [facility]; Protocol Stop: 08/15/21 16:59 Fluticasone/Vilanterol (Fluticasone/Vilanterol 200/25mcg 14 Puffs/Inhaler) 1 puffs INH DAILY [facility]; Protocol Stop: 08/07/21 08:59 Last Admin: 07/16/21 08:06 Dose: Not Given Documented by: Folic Acid (Folic Acid 1 Mg Tab) 1 mg PO DAILY [facility] Stop: 08/07/21 08:59 Last Admin: 07/16/21 08:04 Dose: Not Given Documented by: Gabapentin (Gabapentin 300 Mg Cap) 300 mg PO TID [facility] Stop: 08/10/21 13:59 Last Admin: 07/16/21 20:23 Dose: 300 mg Documented by: Ceftriaxone Sodium 1,000 mg/ (Dextrose) 50 mls @ 100 mls/hr IV Q24H [facility]; Protocol Stop: 07/23/21 12:59 Last Infusion: 07/16/21 14:33 Dose: Infused Documented by: Ketorolac Tromethamine (Ketorolac Tromethamine 15 Mg/Ml Vial) 15 mg IV Q6H PRN PRN Reason: Pain Stop: 07/21/21 12:12 Last Admin: 07/17/21 04:48 Dose: 15 mg Documented by: Lansoprazole (Lansoprazole 30 Mg Soltab) 30 mg PO DAILY [facility] Stop: 08/15/21 08:59 Last Admin: 07/16/21 08:14 Dose: Not Given Documented by: Lorazepam (Lorazepam 2 Mg/1 Ml Vial) 2 mg IV Q2H PRN PRN Reason: Alcohol Withdrawal Stop: 08/08/21 17:22 Last Admin: 07/17/21 05:32 Dose: 2 mg Documented by: Melatonin (Melatonin 3 Mg Tab) 3 mg PO HS PRN PRN Reason: Sleep Stop: 08/15/21 00:34 Last Admin: 07/16/21 22:25 Dose: 3 mg Documented by: Miscellaneous (Remove Nicoderm Patch) 1 ea N/A DAILY@[id number] [facility] Stop: 08/08/21 08:58 Last Admin: 07/16/21 08:15 Dose: 1 ea Documented by: Montelukast Sodium (Montelukast Sodium 10 Mg Tablet) 10 mg PO DAILY [facility] Stop: 08/07/21 08:59 Last Admin: 07/16/21 08:04 Dose: Not Given Documented by: Multivitamins/Minerals (Multi Vit W/Minerals Liquid 15 Ml Udp) 15 ml GT QAM [facility] Stop: 08/07/21 08:59 Last Admin: 07/16/21 08:04 Dose: Not Given Documented by: Mupirocin (Mupirocin 2% Oint 22 Gm Tube) 1 appln EXT BID AGNES Stop: 08/10/21 20:59 Last Admin: 07/16/21 20:24 Dose: 1 appln Documented by: Nicotine (Nicotine 21 Mg/24 Hr Tdsy) 21 mg TD QAM AGNES Stop: 08/07/21 18:19 Last Admin: 07/16/21 18:34 Dose: 21 mg Documented by: Nicotine Polacrilex (Nicotine Polacrilex 2 Mg Gum) 1 piece MT PRN PRN PRN Reason: tobacco craving Stop: 08/07/21 18:19 Olanzapine (Olanzapine 5 Mg Tablet) 5 mg PO HS AGNES Stop: 08/15/21 20:59 Last Admin: 07/16/21 20:23 Dose: 5 mg Documented by: Ondansetron HCl (Ondansetron Inj 2 Mg/Ml 2 Ml Vial) 4 mg IV Q12H PRN PRN Reason: Nausea Stop: 08/06/21 16:16 Last Admin: 07/16/21 14:06 Dose: 4 mg Documented by: Polyethylene Glycol (Polyethylene (Miralax) 17 Gm Pack) 17 gm PO BID AGNES Stop: 08/11/21 12:49 Last Admin: 07/16/21 21:34 Dose: Not Given Documented by: Sterile Water (Tube Feeding Water Flush) 100 ml GT Q4H [facility] Stop: 08/13/21 11:59 Last Admin: 07/17/21 04:43 Dose: 100 ml Documented by: Thiamine HCl (Thiamine Hcl 100 Mg Tab) 200 mg PEG QAM [facility] Stop: 08/15/21 08:59 Last Admin: 07/16/21 10:04 Dose: Not Given Documented by: Umeclidinium Shepherd (Umeclidinium Shepherd 62.5mcg/Blister 7 Puffs/Inhaler) 1 puffs INH DAILY [facility]; Protocol Stop: 08/07/21 08:59 Last Admin: 07/16/21 08:06 Dose: Not Given Documented by: (1) Chronic pancreatitis Pancreatitis type: other Qualified Code(s): K86.1 - Other chronic pancreatitis
[2021-07-17] MEDS: PANCREAZE (LIPASE 10,500U) CAP PO SCH ×4 (09:20→20:15)
[2021-07-17] MEDS: GABAPENTIN 300 MG CAP PO SCH ×3 (09:23→20:26)
[2021-07-17] MEDS: MONTELUKAST SODIUM 10 MG TABLET PO SCH (09:23)
[2021-07-17] MEDS: THIAMINE HCL 100 MG TAB PEG SCH (09:24)
[2021-07-17] MEDS: MULTI VIT W/MINERALS LIQUID 15 ML UDP GT SCH (09:24)
[2021-07-17] MEDS: FOLIC ACID 1 MG TAB PO SCH (09:25)
[2021-07-17] MEDS: LANSOPRAZOLE 30 MG SOLTAB PO SCH (09:26)
[2021-07-17] MEDS: chlordiazePOXIDE HCl 25 MG CAP PO SCH ×2 (09:29→13:04)
[2021-07-17] MEDS: MUPIROCIN 2% OINT 22 GM TUBE EXT SCH ×2 (09:31→20:15)
[2021-07-17] MEDS: UMECLIDINIUM BROMIDE 62.5MCG/BLISTER 7 PUFFS/INHALER INH SCH (09:31)
[2021-07-17] MEDS: cloNIDine HCL 0.1 MG TAB PO SCH ×2 (09:31→20:26)
[2021-07-17] MEDS: NICOTINE 21 MG/24 HR TDSY TD SCH (09:31)
[2021-07-17] MEDS: POLYETHYLENE (MIRALAX) 17 GM PACK PO SCH ×2 (09:31→20:15)
[2021-07-17] MEDS: FLUTICASONE/VILANTEROL 200/25MCG 14 PUFFS/INHALER INH SCH (09:31)
--- NOTE | 2021-07-17 12:52 | Communication Note ---
Date of Service: July 17, 2021 patient was sleeping during consult rounds. Typical asks for additional benzodiazepine and declines additional mood stabilizer or services but liaison will continue to round for support. She is still requiring librium and slurring speech at times. She does note difficulty sleeping but is also an unreliable historian. When/if patient is willing would titrate Zyprexa to 10 mg daily, either hs or 5 mg BID dosing.
[2021-07-17] MEDS: cefTRIAXone SODIUM 1,000 MG in DEXTROSE 5% 50 ML IV SCH (13:03)
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
[2021-07-17] MEDS ORDERED: KETOROLAC TROMETHAMINE 15 MG/ML VIAL IV SCH (16:00)
[2021-07-17] MEDS ORDERED: LIDOCAINE 5% 1 PATCH TD SCH (16:00)
[2021-07-17] MEDS ORDERED: LORazepam 2 MG/1 ML VIAL IV PRN (16:09)
[2021-07-17] MEDS ORDERED: LORazepam 1 MG TAB PO PRN (17:58)
[2021-07-17] MEDS ORDERED: KETOROLAC TROMETHAMINE 10 MG TABLET PO STA (18:00)
--- NOTE | 2021-07-17 18:57 | XRay Report ---
XR lumbar spine min 4V routine CLINICAL HISTORY: Left sacroiliac joint pain. Chronic low back pain. COMPARISON STUDY: None. FINDINGS: Overlying cardiac leads are noted. There is a gastrostomy tube within left upper quadrant. There is a surgical clip within the deep pelvis. No fracture or subluxation within the lumbar spine. Disc spaces are preserved. The sacrum and bilateral sacroiliac joints are within normal limits. Mild facet degenerative changes at L5-S1. IMPRESSION: 1. No fractures within the lumbar spine. 2. The bilateral sacroiliac joints are within normal limits. 3. Mild facet degenerative changes at L5-S1. ACT 112: Negative or not required by law. Electronically signed by: Kei Espinoza M.D. 07/17/2021 6:55 PM
[2021-07-17] MEDS: ENOXAPARIN INJ 40 MG/0.4 ML SYR SQ SCH (20:15)
[2021-07-17] MEDS: OLANZapine 5 MG TABLET PO SCH (20:27)
[2021-07-17] MEDS ORDERED: chlordiazePOXIDE HCl 25 MG CAP PO SCH (21:00)
--- NOTE | 2021-07-17 21:04 | Communication Note ---
Date of Service: July 17, 2021 Contacted by nursing at 20:35 re: pt Prela Byrd. Patient becoming increasingly agitated, demanding pain medication, IV Ativan. Patient disrespectful to staff - cursing and yelling. Patient states that her back hurts. I discussed with patient that her current condition does not warrant IV pain medication or IV Ativan and that doing so may overall harmful and that I would be happy to offer therapies such as Tylenol, Lidoderm and heat. Also informed patient that she cannot curse and yell at the staff and asked her to refrain from disrespecting the nurses, aides and sitter Patient agreeable at first and requested to be discharged in the morning. I told her that I would discuss the matter with the day team and that discharge in the morning would most likely not be a problem. Back examined and there is no spinal tenderness. Some muscular tension. Several minutes later patient became more agitated and stated that she is going to leave the hospital. She refuses to sign the AMA paperwork. States that she lives 45 minutes away in [place] and that she has someone that will come pick her up
[2021-07-18] MEDS ORDERED: LIDOCAINE 5% 1 PATCH TD SCH (09:00)
--- NOTE | 2021-07-18 10:20 | Discharge Summary ---
Date of Service date of admission - July 07, 2021 date of discharge - July 18, 2021 (patient left Against Medical Advice) Admission HPI Per Admitting Provider 36-year-old female who has been admitted in the past for chronic pancreatitis, abdominal pain, and also alcohol abuse. Patient states that she has had increasing left-sided abdominal pain and vomitus even after using her GJ tube over the last 3 to 4 days. Patient has been abstinent from alcohol for 2 days and initially presented in what was described as alcohol withdrawal by the emergency department attending. The patient states that she uses 6 - 10 16 ounce beers through her G-tube daily. Most recently after putting anything through her G-tube she vomits orally usually yellow liquid. She is not on any change in bowel habits but is been constipated for the last 3 to 4 days States that she had some fevers at home but has had not here. She has tried oral Zofran and Phenergan at home without relief and comes in with increasing left-sided abdominal pain and nausea. She does try to put liquids and nutrition through her GJ tube and says that things go in well but afterward there is some liquid leaking around it however she frequently vomits within the hour. Her last discharge was in April of this year it does not look like she has had any follow-up within our system. Patient in the past has had gram-positive bacteremia from an infected Nunes which is since been removed by Dr. Valle March 2021. She is been seen in the past by [facility] gastroenterology. In the emergency department she required significant benzodiazepines to quell her alcohol withdrawal. Covid test negative. Principal Diagnosis 1. alcohol withdrawal 2. alcoholism 3. chronic low back pain 4. chronic pancreatitis 5. left against medical advice 6. abdominal pain 7. PEG tube insertion site cellulitis Discharge Exam gen - comfortable while laying in the bed; with sitting up she c/o low back pain; no signs of etoh withdrawal, calm/cooperative; no tremors, no hallucinations mouth - MMM neck - no JVD heart - RRR, s1 s2 lungs - CTA b/l abd - soft NT ND BS+; PEG tube insertion site scant discharge, no cellulitis; no flank tenderness b/l to palpation ext - no edema, pulses 2+ b/l musculo - tender over L SI joint to palpation; no tenderness R SI joint; no tenderness over c-spine, t-spine or l-spine; with passive adduction of the L hip she has reported pain in the L SI joint region; abduction of L hip does not cause pain neuro - strength 5/5 x 4 exts; scant tremors with outstretched arms; gait - in tact psych - a/o x 3; calm, cooperative during my visit; no hallucinations or delusions or signs of DTs Discharge Data Allergies Allergy/AdvReac Type Severity Reaction Status Date / Time Pertussis Vaccines Allergy Intermediate Hives Verified 07/07/21 15:00 amlodipine [From Norvas] AdvReac Intermediate LEGS SWELL Verified 07/07/21 15:00 morphine AdvReac Intermediate HALLUCINATI Verified 07/07/21 15:00 ONS Consultations [facility] Gastroenterology Psychiatry Critical Care Ordered Studies Abdomen/Pelvis CT 07/07/21 10:37 CT SCAN OF THE ABDOMEN AND PELVIS WITHOUT IV CONTRAST CLINICAL HISTORY: Vomiting. COMPARISON STUDY: Abdominal CT dated 03/21/2021. TECHNIQUE: CT scan of the abdomen and pelvis is performed from the lung bases to the proximal femora. Images are reviewed in the axial, sagittal, and coronal planes. IV contrast was not administered for this examination. Note that the examination is suboptimal without oral and IV contrast. A dose lowering te chnique was utilized adhering to the principles of ALARA. CT DOSE: 272.17 mGy.cm FINDINGS: Lung bases: The heart is normal in size and without pericardial effusion. The lung bases are clear. Liver: The unenhanced liver is enlarged, measuring 20.2 cm in length. The liver demonstrates diffusely diminished attenuation consistent with severe hepatic steatosis. There is no intrahepatic biliary ductal dilatation. Gallbladder: Surgically absent noting clips in the gallbladder fossa. Spleen: Normal in size and attenuation. Pancreas: The unenhanced pancreas is moderately atrophic. Parenchymal calcifications indicate chronic pancreatitis. Adrenal glands: Unremarkable. Kidneys: The unenhanced kidneys are normal in size and without hydronephrosis. There are no renal calculi identified. There is no evidence of contour deforming renal mass lesion. A subcentimeter complex/hyperdense cyst is seen in the upper pole of the right kidney on image #111. Abdominal vasculature: The abdominal aorta is normal in course and caliber. Stomach and bowel: A percutaneous gastrostomy is in place. The stomach and duodenum are normal in configuration. No bowel obstruction is identified. The ap pendix is well-visualized and normal. Peritoneum: There is no intraperitoneal free air or abdominal ascites. There is a fat-containing periumbilical hernia. Lymphadenopathy: None. Pelvic viscera: The bladder wall appears circumferentially thickened. The uterus is normal as visualized. Bilateral ovarian follicles are incidentally noted. Skeletal structures: No lytic or blastic lesions are seen. IMPRESSION: 1. Suboptimal examination without oral and IV contrast. 2. A cutaneous gastrostomy tube is in place. There is no bowel obstruction. 3. The bladder wall appears circumferentially thickened. Correlate with clinical findings and urinalysis. 4. Hepatomegaly and severe hepatic steatosis. 5. There is evidence of chronic pancreatitis. 6. Additional findings as above. ACT 112: Negative or not required by law. Electronically signed by: Jc Ta M.D. 07/07/2021 1:36 PM Lumbar Spine X-Ray 07/17/21 15:54 XR lumbar spine min 4V routine CLINICAL HISTORY: Left sacroiliac joint pain. Chronic low back pain. COMPARISON STUDY: None. FINDINGS: Overlying cardiac leads are noted. There is a gastrostomy tube within left upper quadrant. There is a surgical clip within the deep pelvis. No fracture or subluxation within the lumbar spine. Disc spaces are preserved. The sacrum and bilateral sacroiliac joints are within normal limits. Mild facet degenerative changes at L5-S1. IMPRESSION: 1. No fractures within the lumbar spine. 2. The bilateral sacroiliac joints are within normal limits. 3. Mild facet degenerative changes at L5-S1. ACT 112: Negative or not required by law. Electronically signed by: Kei Espinoza M.D. 07/17/2021 6:55 PM Hospital Course (1) Alcohol withdrawal: Appeared to be in active alcohol withdrawal at time of hospital presentation. Following admission was placed on alcohol withdrawal protocol and precautions. She ultimately required admission to the ICU on 07/09/21 due to need for IV precedex. Precedex weaned off fully by AM of 07/15/21. Transfer from ICU to PCU at that time. After transfer to the PCU she was maintained on librium scheduled and ativan prn. Prior to her leaving AMA (leaving against medical advice) she appeared to have resolution of her alcohol withdrawal and her benzodiazepines were being actively weaned. She had NO evidence of DTs at time of AMA. She was awake/alert/oriented x 3 at time of AMA. No prescriptions were provided to her at time of AMA discharge. (2) Abdominal pain: Seen by [facility] GI. Pain likely due to alcoholic gastritis/esophagitis which she has had in the past. She also suffers from chronic pain due to chronic pancreatitis. Endoscopic evaluation was deferred during this admission. She was treated with IV PPI and H2 eddie. (3) SI (sacroiliac) joint dysfunction: Pt's back pain was directly over the Left SI joint. Her pain was reproduced with adduction of the left hip which also suggests SI joint dysfunction. She denied any injury to the back prior to this admission. Lumbar spine x-rays were without fracture or other significant pathology. Narcotics were deferred for her back pain. Offered lidoderm patches, tylenol, heating pad, etc. to treat her pain. (4) Alcohol use disorder, moderate, dependence: Acute etoh withdrawal - resolved by the time she left AMA. s/p ICU admission on 07/09/21 due to need for IV precedex. Precedex weaned off fully by AM of 07/15/21. Tx from ICU to PCU at that time. Was previously on librium 100 mg p.o. 4 times daily, with IV lorazepam 2 mg every 2 hours as needed. Librium decreased to 100mg TID on 07/16/21. Librium again decreased to 50mg TID on 07/17/21. Clonidine decreased to 0.05mg BID on day of discharge. Ativan dosing interval was decreased on 07/17/21. Was seen by [facility] during the stay. Inpatient alcohol rehab treatment advised, but patient had been going back & forth about her desire to pursue such or simply return home. Psychiatry recommended that she receive naltrexone 50 mg once daily or acamprosate 333mg TID for her alcoholism but neither was initiated while here. (5) Chronic alcoholic liver disease: with acute etoh hepatitis - LFTs were normal by discharge. (6) Chronic pancreatitis: continue creon TID w/ meals. she reports normal stools thus does not seem to be having active pancreatic insufficiency. (7) Asthma: Stable, no flare while here. Continue inhalers. (8) Gastrostomy tube in place: Had had drainage from around her feeding tube. Cultures with MSSA and GBS. Completed 7 days of ceftriaxone previously. Patient complained of purulent drainage on 07/16/21 once again - rocephin restarted at that time. Insertion site looked good on 07/17/21 physical exam. Due to AMA status on 07/17 she was NOT prescribed oral antibiotics. (9) Abnormal urinalysis: Her admission U/A was suspicious for UTI but urine culture only grew keila species. She never received anti-fungal therapy. A repeat U/A later in the stay was largely normal. She had no UTI symptoms. (10) Alcoholic hepatitis: resolved (11) Hyponatremia: resolved with IVF (12) Hypomagnesemia: Replaced and resolved After my bedside visit on 07/17/21 the patient became very agitated that narcotics had not been prescribed for her back pain. See discussion above in #3. Due to pacing around the room, agitation, etc she lost 2 peripheral IVs on day of leaving AMA. All IV meds were converted to PO meds on the afternoon of 07/17. Late in the evening on 07/17 the patient became even more angry/agitated. See Dr Ivania Brown's communication note regarding events of the evening of 07/17. She ultimately left the hospital against medical advice. The patient was alert/oriented x 3 when she made her AMA decision. Total Time Total Time Spent Total Time Spent (In Minutes): 45 Discharge Plan Discharge Items Patient Disposition: Against Medical Advice Reason For Visit: ALCOHOL WITHDRAWAL, INABILITY TO TAKE PO Activity: Resume your previous activity Bathing: No limitations Non-emergency contact: Primary Care Provider Follow-up/Referrals: Luci Espinoza [Primary Care Provider] - Pending Studies at Discharge: No Stand-Alone Forms: My [facility] [employer], Smoking Cessation Medications and DC Order Prescriptions: Continued clonidine HCl 0.1 mg tablet 0.1 mg PO TID PRN (Reason: systolic greater than 160) RF: 0 lansoprazole 30 mg capsule,delayed release(DR/EC) 30 mg PO DAILY RF: 0 diltiazem HCl 120 mg capsule,extended release 24hr 120 mg PO DAILY RF: 0 montelukast 10 mg tablet 10 mg PO DAILY RF: 0 albuterol sulfate [Ventolin HFA] 90 mcg/actuation HFA aerosol inhaler 1 inh INHALATION Q4H PRN (Reason: Shortness Of Breath) RF: 0 Creon 24,000-76,000 -120,000 unit capsule,delayed release(DR/EC) 1 cap PO QID RF: 0 Spiriva Respimat 2.5 mcg/actuation mist 1 inh INHALATION DAILY RF: 0 acetaminophen 500 mg Tablet 500 mg PO TID RF: 0 hydromorphone 2 mg tablet 2 mg PO Q2H PRN (Reason: Pain) RF: 0 gabapentin 100 mg capsule 300 mg PO TID RF: 0 ondansetron 4 mg tablet,disintegrating 4 mg PO Q6H PRN (Reason: nausea and vomiting) RF: 0 prochlorperazine maleate [Compazine] 5 mg tablet 5 mg PO Q12H PRN (Reason: nausea and vomiting) Qty: 30 RF: 0 potassium chloride 40 mEq/15 mL liquid 40 meq PO DAILY Qty: 473 RF: 0 dextroamphetamine-amphetamine [Adderall] 20 mg tablet 20 mg PO BID RF: 0 folic acid 1 mg tablet 1 mg PO DAILY RF: 0 thiamine HCl (vitamin B1) 100 mg Tablet 100 mg PEG QAM Qty: 30 RF: 0 Discharge Orders: Discharge Order (Routine); Ordered 07/17/21 Ordered By: Ivania Brown Left Against Medical Advice (Routine); Ordered 07/17/21 Ordered By: Ivania Brown Admission Data Admit Date/Time: 07/07/21 14:34 Attending Provider: Loyd English Admit Provider: Agustin Lee Primary Care Provider: Luci Espinoza Other Providers: Agustin Lee ; Mary Carmen Dash ; Faye Yen ; Gertrude Frias ; Ashanti Veliz Coding Level of Care Code D/C DAY MANAGEMENT >30 MINS Diagnoses SI (sacroiliac) joint dysfunction M53.3 Alcohol use disorder, moderate, dependence F10.20 Chronic alcoholic liver disease K70.9 Chronic pancreatitis K86.1 Asthma J45.[address] Z93.1 Abnormal urinalysis R82.90 Alcoholic hepatitis K70.10 Hyponatremia E87.1 Hypomagnesemia E83.42 Alcohol withdrawal F10.230 Complication of substance-induced condition: uncomplicated Abdominal pain R10.84 Abdominal location: generalized
== END 2021-07-17 21:20 | disposition left against medical advice (07) | DRG 894 ==
LOC: ED 09:56 → SUATTDRO 14:34 → 2N 14:34 → 1E 07-08 18:14 → 2E 07-15 16:39
DX: K29.20 Alcoholic gastritis without bleeding; F05 Delirium due to known physiological condition; E87.1 Hypo-osmolality and hyponatremia; Y92.009 Unspecified place in unspecified non-institutional (private) residence as the place of occurrence of the external cause; N39.0 Urinary tract infection, site not specified; E83.42 Hypomagnesemia; F17.210 Nicotine dependence, cigarettes, uncomplicated; F10.239 Alcohol dependence with withdrawal, unspecified; D64.9 Anemia, unspecified; Z88.5 Allergy status to narcotic agent; K70.10 Alcoholic hepatitis without ascites; E86.0 Dehydration; J45.909 Unspecified asthma, uncomplicated; R45.1 Restlessness and agitation; Z93.1 Gastrostomy status; R44.0 Auditory hallucinations; K31.84 Gastroparesis; Z86.718 Personal history of other venous thrombosis and embolism; D69.59 Other secondary thrombocytopenia; M46.1 Sacroiliitis, not elsewhere classified; K86.1 Other chronic pancreatitis; E44.1 Mild protein-calorie malnutrition; R30.0 Dysuria

== ENCOUNTER 2021-10-02 17:56 | Inpatient (IN) ==
[2021-10-02] MEDS ORDERED: THIAMINE HCL 200 MG in SODIUM CHLORIDE 0.9% 50 ML IV STA (18:22)
[2021-10-02] MEDS ORDERED: MULTI-VITAMIN INFUSION 10 ML, THIAMINE HCL 100 MG, FOLIC ACID 1 MG in SODIUM CHLORIDE 0... IV ONE (18:22)
[2021-10-02] MEDS ORDERED: LORazepam 1 MG in SYRINGE 0.5 ML IV STA (19:56)
[2021-10-02] MEDS ORDERED: LORazepam 3 MG in SYRINGE 1.5 ML IV PRN (19:57)
[2021-10-02] MEDS ORDERED: ATIVAN IV ALCOHOL WITHDRAWL IV PRN (19:57)
[2021-10-02] MEDS ORDERED: LORazepam 2 MG/1 ML VIAL ONE ×2 (20:02→21:17)
[2021-10-02 20:05] LABS: Albumin Level 3.8 gm/dl (3.4-5.0); BUN Creatinine Ratio 7.3 (10-20); Bilirubin Direct 0.2 mg/dl (0-0.2); Bilirubin,Total 0.8 mg/dl (0.2-1.0); Calcium 8.8 mg/dl (8.5-10.1); Creatinine Clr Calc Pharmacy 124.1 ml/min; Est GFR (African American) 140.8 ml/min; Est GFR (Non-African American) 121.5 ml/min; Globulin 3.9 gm/dl (2.5-4.0); Magnesium 1.8 mg/dl (1.7-2.4); Phosphorus 2.5 mg/dl (2.5-4.9); Total Protein 7.7 gm/dl (6.0-8.3)
[2021-10-02 20:25] LABS: Basophils # (auto) 0.02 K/uL (0-0.2); Basophils % (auto) 0.3 %; Eosinophils # (auto) 0.07 K/uL (0-0.5); Eosinophils % (auto) 0.9 %; Hematocrit (blood only) 35.2 % (37-47); Hemoglobin 11.9 g/dL (12.0-16.0); Immature Granulocytes # (auto) 0.01 K/uL (0.00-0.02); Immature Granulocytes % (auto) 0.1 %; Lymphocytes # (auto) 2.35 K/uL (1.2-3.4); Lymphocytes % (auto) 31.1 %; Mean Corpuscular Hemoglobin 28.7 pg (25-34); Mean Corpuscular Hgb Conc 33.8 g/dL (32-36); Mean Corpuscular Volume 84.8 fL (80-100); Mean Platelet Volume 9.1 fL (7.4-10.4); Monocytes # (auto) 0.39 K/uL (0.11-0.59); Monocytes % (auto) 5.2 %; Neutrophils # (auto) 4.71 K/uL (1.4-6.5); Neutrophils % (auto) 62.4 %; Platelet Count 167 K/uL (130-400); RDW Coefficient of Variation 17.9 % (11.5-14.5); RDW Standard Deviation 55.3 fL (36.4-46.3); Red Blood Count 4.15 M/uL (4.2-5.4); White Blood Count 7.55 K/uL (4.8-10.8)
[2021-10-02 20:43] LABS: INR 1.2 (0.9-1.1); Prothrombin Time 12.6 Seconds (9.0-12.0)
[2021-10-02 20:45] LABS: Pregnancy Test, Serum Negative (Negative)
[2021-10-02 21:18] LABS: Appearance Urine Clear (Clear); Bilirubin Urine Negative (Negative); Blood Urine Negative (Negative); Color Urine Yellow; Glucose Urine UA Negative (Negative); Ketones Urine Negative (Negative); Leukocyte Esterase Urine Negative (Negative); Nitrite Urine Negative (Negative); Protein Urine Negative (Negative); Specific Gravity Urine 1.006 (1.000-1.030); Urobilinogen Urine Negative (Negative); pH Urine 8.5 (4.5-7.5)
[2021-10-02] MEDS: LORazepam 1 MG in SYRINGE 0.5 ML IV PRN (21:20)
[2021-10-02] MEDS ORDERED: SODIUM CHLORIDE 0.9% 1000ML 1,000 ML IV SCH (22:15)
[2021-10-02] MEDS ORDERED: ONDANSETRON INJ 2 MG/ML 2 ML VIAL IV STA (22:38)
[2021-10-02] MEDS: POTASSIUM CHLORIDE / WTR 10 MEQ/100 ML PLCT IV SCH (23:09)
--- NOTE | 2021-10-02 23:28 | History & Physical Report ---
Date of Service October 02, 2021 Assessment & Plan (1) Alcohol use disorder, severe, dependence: Plan: Patient is a 36-year-old female with significant history for alcohol use disorder and withdrawal presenting to the emergency department for concern regarding seizure and intoxication. Patient currently treated with Ativan and fluid resuscitation in the emergency department and being admitted to the hospital for further treatment. Severe alcohol use disorder in withdrawal -Patient presenting to the hospital with concern for seizure, current intoxication with an alcohol level 404, and tachycardia suggestive of possible alcohol withdrawal -Patient is a longstanding history of severe alcohol use disorder, so possible to have withdrawal with her current level of alcohol -AWSS protocol in place, given 2 mg of Ativan in the emergency department -Seizure precautions with mats in bed -Following labs pending at the time of writing this note: Vitamin B12, folate, CK, lactate, ammonia, VBG, phosphorus -Patient has an anion gap that could be suggestive of acidosis, VBG pending -Patient on gabapentin for chronic back pain, continue this both dual effect for back pain and benefit for alcohol withdrawal -Rehydration with lactated Ringer's at 100 mils per hour -Continue Cardizem for hypertension with regard to alcohol use disorder -Nausea medication as needed -N.p.o. Hypokalemia -Mild hypokalemia at 3.0 in the emergency department -Receiving lactated Ringer's with 2K riders, recheck in morning -Given 1 g of magnesium as level was 1.8 Chronic pancreatitis -Continue exogenous lipase, amylase, and protease supplementation Alcoholic hepatitis -Elevated liver enzymes of AST at 171, ALT at 81, alk phos at 598 -Daily monitoring with CMP G-tube dependence -Patient does some oral intake. On last admission patient took Peptamen 1.5 to 10 mL/h NG tube for nutritional intake -We will consult nutrition for Peptamen management when able to tolerate feeding Asthma -Continue Symbicort, Spiriva, montelukast Diet: N.p.o. DVT prophylaxis: None Disposition: PCU CODE STATUS: Full code (2) Alcohol intoxication: (3) Chronic pancreatitis: (4) Alcoholic hepatitis: (5) Alcohol withdrawal: (6) Hypokalemia: History of Present Illness Chief Complaint: Seizure/intoxication Primary Care Provider: Luci Espinoza Patient is a 36-year-old female with past medical history of alcohol use disorder, chronic alcohol liver disease, chronic pancreatitis, and G-tube in place presenting to the hospital for the chief complaint of seizure. Patient is currently intoxicated making her poor historian. Pt reports that she has been binge drinking for the past few days and had 4, 24-ounce alcoholic beverages today (13% alcohol). Reports about 5 hours ago she had a seizure and called her mother to ask her to call an ambulance. Per history gathered from the mother and the patient it seems that the patient also seized once again while EMS was at the scene. Denies hallucinations at this time. Patient does have a reported history in the past of seizures at other facilities when withdrawing from alcohol. Recently patient did complete a 2-week course of inpatient detox at [facility]. Patient does have a frequent history of hospitalization secondary to intoxication and withdrawal with multiple instances of leaving against medical advice. Significant work-up in the ED so far has consisted of low potassium at 3.0 and anion gap of 15, elevated liver enzymes, elevated alk phos, mildly elevated lipase, and alcohol level of 404. Patient received 2 doses of Ativan in the ED, 200 mg of thiamine, 1 mg of folic acid, Zofran, and fluid resuscitation with potassium. No other complaints at today's admission Patient was seen in the ER in [place] on 09/28/21 when she presented with possible seizure - reportedly patient was staring blankly at the ceiling and had decreased responsiveness to painful stimuli which lasted approximately 5 minutes. After which she became responsive and was joking and laughing with staff. Workup during that ER visit significant for serum HCO3=22, Anion Gap=13.9, Lactate=3.9, LCR=974, NSN=059, CC=320 and EtOH > 300. She was treated with NSS and Thiamine and ultimately left the ER against medical advice. Allergies Allergy/AdvReac Type Severity Reaction Status Date / Time Pertussis Vaccines Allergy Intermediate Hives Verified 10/02/21 23:41 butorphanol [From Stadol] AdvReac Severe Hallucinati Verified 10/02/21 23:41 ng amlodipine [From Norvasc] AdvReac Intermediate LEGS SWELL Verified 10/02/21 23:41 morphine AdvReac Intermediate HALLUCINATI Verified 10/02/21 23:41 ONS Home Medications Medication Instructions Recorded Confirmed Type acetaminophen 500 mg tablet 500 mg FEEDING TUBE TID 03/21/21 10/02/21 History hydromorphone 2 mg tablet 2 mg FEEDING TUBE Q2H PRN 03/21/21 10/02/21 History mddkea-yrdywrlw-xerlogr 1 cap QID 03/21/21 10/02/21 History 24,000-76,000-120,000 unit capsule,delayed rel (Creon) tiotropium bromide 2.5 1 inh INHALATION DAILY 03/21/21 10/02/21 History mcg/actuation mist for inhalation (Spiriva Respimat) dextroamphetamine-amphetamine 20 20 mg FEEDING TUBE BID 04/27/21 10/02/21 History mg tablet (Adderall) thiamine HCl (vitamin B1) 100 mg 100 mg PEG QAM #30 tab 04/29/21 10/02/21 Rx tablet albuterol sulfate 90 mcg/actuation 2 puff INHALATION Q4 PRN 10/02/21 10/02/21 History aerosol inhaler (Ventolin HFA) budesonide-formoterol HFA 160 2 puff INHALATION BID 10/02/21 10/02/21 History mcg-4.5 mcg/actuation aerosol inhaler (Symbicort) chlordiazepoxide HCl 25 mg capsule 25 mg FEEDING TUBE DAILY 10/02/21 10/02/21 History clonidine HCl 0.1 mg tablet 0.1 mg FEEDING TUBE TID 10/02/21 10/02/21 History diltiazem HCl 120 mg 120 mg QAM 10/02/21 10/02/21 History capsule,extended release 24 hr folic acid 1 mg tablet 1 mg FEEDING TUBE DAILY 10/02/21 10/02/21 History gabapentin 300 mg capsule 300 mg FEEDING TUBE TID 10/02/21 10/02/21 History montelukast 10 mg tablet 10 mg FEEDING TUBE DAILY 10/02/21 10/02/21 History nortriptyline 25 mg capsule 50 mg FEEDING TUBE HS 10/02/21 10/02/21 History ondansetron HCl 4 mg tablet 4 mg FEEDING TUBE Q6 PRN 10/02/21 10/02/21 History pantoprazole 40 mg tablet,delayed 40 mg Q12 10/02/21 10/02/21 History release potassium bicarbonate-citric acid 40 meq DAILY 10/02/21 10/02/21 History 20 mEq effervescent tablet (Effer-K) prochlorperazine maleate 5 mg 5 mg FEEDING TUBE Q12H PRN 10/02/21 10/02/21 History tablet (Compazine) promethazine 12.5 mg tablet 12.5 mg FEEDING TUBE Q6 PRN 10/02/21 10/02/21 History Past Med/Surg History Medical History (Updated 10/02/21 @ 23:43 by Charlie Basilio DO) Alcohol use disorder, moderate, dependence Alcohol withdrawal Alcoholic hepatitis Asthma Chronic alcoholic liver disease Chronic back pain Gastrostomy tube in place No pertinent family history Sepsis Smoker Suicidal ideation Surgical History H/O shoulder surgery H/O wrist surgery Social History Smoking Status: Current some day smoker Tobacco Type: Cigarettes Cigarettes Per Day: did not respond when asked; Second Hand Exposure: Yes; Hx Alcohol Use: No Hx Substance Use: No Preferred Language: [place] Communication Ability: Effective Visual Impairment: No 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 Children's Father is involved Feels Safe at Home: Yes Assistive Devices: None Review of Systems Review of Systems: All systems reviewed & are unremarkable except as noted in HPI & below Physical Exam Constitutional: well developed, average body habitus, cooperative and comfortable Eyes: + anicteric sclerae and + photophobia Neck: normal visual inspection Respiratory: normal respiratory effort, lungs clear to auscultation Cardiovascular: RRR, no murmur, no edema Gastrointestinal (Abdomen): Inspection/Auscultation: normal bowel sounds Percussion/Palpation: + abdomen tender (Diffusely) and abdomen soft G-tube in appropriate placement in the left upper quadrant without surrounding erythema or discharge. Musculoskeletal: no cyanosis or clubbing, extremities motor strength 5/5 Head/Neck/Chest: normocephalic and head atraumatic Skin: no rashes, warm and dry Neurologic: moves all extremities Resting tremor noted in the hands bilaterally. Psychiatric: Orientation: oriented x 3 Eye Contact: good eye contact Motor Behavior: + tremor Suicidal Thoughts: denies suicidal thoughts Homicidal Thoughts: denies homicidal thoughts Lymphatic: no cervical lymphadenopathy Results & Data Results & Data ([facility]) Vital Signs (Past 12 Hours) Vital Signs Temp Pulse Pulse Resp BP BP Pulse Ox 10/02/21 22:06 36.7 C 119 H 19 130/98 98 10/02/21 21:14 36.7 C 122 H 18 132/69 98 10/02/21 19:51 115 H 19 133/95 97 10/02/21 18:31 120 H 98 10/02/21 18:25 36.2 C L 126 H 126 H 16 129/95 129/95 99 Laboratory Results Laboratory Results WBC 7.55 K/uL (4.8-10.8) 10/02/21 20:07 RBC 4.15 M/uL (4.2-5.4) L 10/02/21 20:07 Hgb 11.9 g/dL (12.0-16.0) L 10/02/21 20:07 Hct 35.2 % (37-47) L 10/02/21 20:07 MCV 84.8 fL (80-100) 10/02/21 20:07 MCH 28.7 pg (25-34) 10/02/21 20:07 MCHC 33.8 g/dL (32-36) 10/02/21 20:07 RDW Std Deviation 55.3 fL (36.4-46.3) H 10/02/21 20:07 RDW Coeff of Paulina 17.9 % (11.5-14.5) H 10/02/21 20:07 Plt Count 167 K/uL (130-400) 10/02/21 20:07 MPV 9.1 fL (7.4-10.4) 10/02/21 20:07 Immature Gran % (Auto) 0.1 % 10/02/21 20:07 Neut % (Auto) 62.4 % 10/02/21 20:07 Lymph % (Auto) 31.1 % 10/02/21 20:07 [place] % (Auto) 5.2 % 10/02/21 20:07 Eos % (Auto) 0.9 % 10/02/21 20:07 Baso % (Auto) 0.3 % 10/02/21 20:07 Neut # (Auto) 4.71 K/uL (1.4-6.5) 10/02/21 20:07 Lymph # (Auto) 2.35 K/uL (1.2-3.4) 10/02/21 20:07 [place] # (Auto) 0.39 K/uL (0.11-0.59) 10/02/21 20:07 Eos # (Auto) 0.07 K/uL (0-0.5) 10/02/21 20:07 Baso # (Auto) 0.02 K/uL (0-0.2) 10/02/21 20:07 Immature Gran # (Auto) 0.01 K/uL (0.00-0.02) 10/02/21 20:07 Absolute Nucleated RBC Cancelled 10/02/21 19:21 Nucleated RBC % (auto) Cancelled 10/02/21 19:21 Neutrophils % (Manual) Cancelled 10/02/21 19:21 Band Neutrophils % Cancelled 10/02/21 19:21 Lymphocytes % (Manual) Cancelled 10/02/21 19:21 Prolymphocyte % Cancelled 10/02/21 19:21 Reactive Lymphs % (Man) Cancelled 10/02/21 19:21 Monocytes % (Manual) Cancelled 10/02/21 19:21 Eosinophils % (Manual) Cancelled 10/02/21 19:21 Basophils % (Manual) Cancelled 10/02/21 19:21 Metamyelocytes % (Man) Cancelled 10/02/21 19:21 Myelocytes % (Man) Cancelled 10/02/21 19:21 Promyelocytes % (Man) Cancelled 10/02/21 19:21 Blast Cells % (Manual) Cancelled 10/02/21 19:21 Plasma Cell % (Manual) Cancelled 10/02/21 19:21 Other Cells % Cancelled 10/02/21 19:21 Nucleated RBC % Cancelled 10/02/21 19:21 Neutrophils # (Manual) Cancelled 10/02/21 19:21 Band Neutrophils # Cancelled 10/02/21 19:21 Total Absolute Neuts Cancelled 10/02/21 19:21 Lymphocytes # (Manual) Cancelled 10/02/21 19:21 Prolymphocyte # Cancelled 10/02/21 19:21 Reactive Lymphs # Cancelled 10/02/21 19:21 Total Abs Lymphocytes Cancelled 10/02/21 19:21 Monocytes # (Manual) Cancelled 10/02/21 19:21 Eosinophils # (Manual) Cancelled 10/02/21 19:21 Basophils # (Manual) Cancelled 10/02/21 19:21 Metamyelocytes # (Man) Cancelled 10/02/21 19:21 Myelocytes # (Manual) Cancelled 10/02/21 19:21 Promyelocytes # (Man) Cancelled 10/02/21 19:21 Blast Cells # (Man) Cancelled 10/02/21 19:21 Plasma Cell # (Manual) Cancelled 10/02/21 19:21 Other Cells # Cancelled 10/02/21 19:21 Nucleated RBCs # (Man) Cancelled 10/02/21 19:21 Hypersegmented Neuts Cancelled 10/02/21 19:21 Hyposegmented Neuts Cancelled 10/02/21 19:21 Hypogranular Neuts Cancelled 10/02/21 19:21 Large Granular Lymphs Cancelled 10/02/21 19:21 # Lrg Granular Lymphs Cancelled 10/02/21 19:21 Hairy Cells Cancelled 10/02/21 19:21 Smudge Cells Cancelled 10/02/21 19:21 Toxic Granulation Cancelled 10/02/21 19:21 Toxic Vacuolation Cancelled 10/02/21 19:21 Dohle Bodies Cancelled 10/02/21 19:21 Arnold Rods Cancelled 10/02/21 19:21 Platelet Estimate Cancelled 10/02/21 19:21 Hypogranular Platelets Cancelled 10/02/21 19:21 Clumped Platelets Cancelled 10/02/21 19:21 Giant Platelets Cancelled 10/02/21 19:21 Platelet Satelliting Cancelled 10/02/21 19:21 RBC Morphology Cancelled 10/02/21 19:21 Polychromasia Cancelled 10/02/21 19:21 Hypochromasia Cancelled 10/02/21 19:21 Poikilocytosis Cancelled 10/02/21 19:21 Basophilic Stippling Cancelled 10/02/21 19:21 Anisocytosis Cancelled 10/02/21 19:21 Microcytosis Cancelled 10/02/21 19:21 Macrocytosis Cancelled 10/02/21 19:21 Spherocytes Cancelled 10/02/21 19:21 Pappenheimer Bodies Cancelled 10/02/21 19:21 Sickle Cells Cancelled 10/02/21 19:21 Target Cells Cancelled 10/02/21 19:21 Tear Drop Cells Cancelled 10/02/21 19:21 Ovalocytes Cancelled 10/02/21 19:21 Stomatocytes Cancelled 10/02/21 19:21 [place] Bodies Cancelled 10/02/21 19:21 Echinocytes Cancelled 10/02/21 19:21 Acanthocytes (Spur) Cancelled 10/02/21 19:21 Rouleaux Cancelled 10/02/21 19:21 RBC Agglutinates Cancelled 10/02/21 19:21 Schistocytes Cancelled 10/02/21 19:21 Sezary Cell Cancelled 10/02/21 19:21 PT 12.6 Seconds (9.0-12.0) H 10/02/21 20:07 INR 1.2 (0.9-1.1) H 10/02/21 20:07 Sodium 139 mmol/L (136-145) 10/02/21 18:55 Potassium 3.0 mmol/L (3.5-5.1) L 10/02/21 18:55 Chloride 95 mmol/L (98-107) L 10/02/21 18:55 Carbon Dioxide 29 mmol/L (21-32) 10/02/21 18:55 Anion Gap 15 (3-11) H 10/02/21 18:55 BUN 4 mg/dl (6-23) L 10/02/21 18:55 Creatinine 0.55 mg/dl (0.6-1.2) L 10/02/21 18:55 Est Cr Clr Drug Dosing 124.1 ml/min 10/02/21 18:55 Est GFR ( Amer) 140.8 ml/min 10/02/21 18:55 Est GFR (Non-Af Amer) 121.5 ml/min 10/02/21 18:55 BUN/Creatinine Ratio 7.3 (10-20) L 10/02/21 18:55 Glucose 144 mg/dl (70-99(Fasting)) H 10/02/21 18:55 Calcium 8.8 mg/dl (8.5-10.1) 10/02/21 18:55 Phosphorus 2.5 mg/dl (2.5-4.9) 10/02/21 18:55 Magnesium 1.8 mg/dl (1.7-2.4) 10/02/21 18:55 Total Bilirubin 0.8 mg/dl (0.2-1.0) 10/02/21 18:55 Direct Bilirubin 0.2 mg/dl (0-0.2) 10/02/21 18:55 AST 171 U/L (13-39) H 10/02/21 18:55 ALT 81 U/L (7-52) H 10/02/21 18:55 Alkaline Phosphatase 598 U/L (34-104) H 10/02/21 18:55 Total Protein 7.7 gm/dl (6.0-8.3) 10/02/21 18:55 Albumin 3.8 gm/dl (3.4-5.0) 10/02/21 18:55 Globulin 3.9 gm/dl (2.5-4.0) 10/02/21 18:55 Albumin/Globulin Ratio 1.0 (0.9-2) 10/02/21 18:55 Lipase 88 U/L (11-82) H 10/02/21 18:55 HCG, Qual Negative (Negative) 10/02/21 20:07 Urine Color Yellow 10/02/21 21:09 Urine Appearance Clear (Clear) 10/02/21 21:09 Urine pH 8.5 (4.5-7.5) H 10/02/21 21:09 Ur Specific Orange 1.006 (1.000-1.030) 10/02/21 21:09 Urine Protein Negative (Negative) 10/02/21 21:09 Urine Glucose (UA) Negative (Negative) 10/02/21 21:09 Urine Ketones Negative (Negative) 10/02/21 21:09 Urine Blood Negative (Negative) 10/02/21 21:09 Urine Nitrite Negative (Negative) 10/02/21 21:09 Urine Bilirubin Negative (Negative) 10/02/21 21:09 Urine Urobilinogen Negative (Negative) 10/02/21 21:09 Ur Leukocyte Esterase Negative (Negative) 10/02/21 21:09 Ethyl Alcohol mg/dL 404.0 mg/dl (<10.0) H 10/02/21 18:55 SARS-CoV-2, RNA, NAAT NEGATIVE (NEGATIVE) 10/02/21 Unknown Supervising Physician Co-Signing Physician Notes Patient seen and examined, chart reviewed, case discussed with Dr. Basilio and I agree with the assessment and plan as above. In brief, patilondon is a 36yo female with longstanding history of EtOH dependence with EtOH hepatitis, pancreatitis, prior withdrawal presenting with possible seizure. EtOH level of 404. Patient has been drinking heavily for several days. Did undergo inpatient detox several weeks ago but started drinking again following discharge. On exam she is visibly intoxicated, NAD Skin - intact HEENT - MMM, Neck supple Heart - +S1/S2, regular, tachycardic Lungs - CTA Abd - +BS, soft, diffusely tender without rebound/guarding Ext - warm, well perfused Labs and images reviewed. AGMA with Gap=15. Elevation of AST, ALT, AP with normal Tbili. INR=1.2 Alcoholic hepatitis - no need for steroids, low MDF. Repeat levels in AM. Check acute hepatitis panel Withdrawal - EtOH related seizure vs withdrawal - quite a high serum EtOH level for withdrawal. AWSS, low threshold for increased benzo use/phenobarb/MICU transfer. Folate/B12 supplementation Electrolyte repletion Continue Creon Continue Asthma management - no cough/SOB or wheeze Remainder as above Resident Activity Tracking Resident Involvement: Resident Care Provided Care Provided: Adult Hospital Medicine (1) Alcohol withdrawal Complication of substance-induced condition: uncomplicated Qualified Code(s): F10.230 - Alcohol dependence with withdrawal, uncomplicated (2) Chronic pancreatitis Pancreatitis type: other Qualified Code(s): K86.1 - Other chronic pancreatitis
[2021-10-03] MEDS ORDERED: LORazepam 2 MG/1 ML VIAL ONE (00:09)
[2021-10-03] MEDS: LORazepam 1 MG in SYRINGE 0.5 ML IV PRN ×3 (00:12→21:27)
--- NOTE | 2021-10-03 00:20 | Billing Data ---
Date of Service October 02, 2021 Coding Level of Care Code 71745 Initial Inpt Care Lvl 3
[2021-10-03] MEDS ORDERED: MAGNESIUM SULFATE / D5W 1 GM/100 ML BAG IV ONE (00:42)
[2021-10-03] MEDS ORDERED: ONDANSETRON INJ 2 MG/ML 2 ML VIAL IV PRN (00:42)
[2021-10-03] MEDS ORDERED: PROCHLORPERAZINE MALEATE 5 MG TAB PO PRN (00:42)
[2021-10-03] MEDS ORDERED: ALBUTEROL HFA 8 GM INHALER INH PRN (00:42)
--- NOTE | 2021-10-03 00:52 | Emergency Department Note ---
Impression & Plan Alcohol dependence, Alcohol intoxication, Alcohol withdrawal, Chronic alcoholic liver disease, Gastrostomy tube in place, Chronic pancreatitis, Hypokalemia ED Provider Note NAME: ZORAIDA STEWARD AGE: 36 SEX: F ARRIVES VIA: Ambulance INFORMANT: Patient, EMS, mother ED PROVIDER(S): Wade Nichole MD CHIEF COMPLAINT: Seizure PLAN: Disposition: Admit MEDICAL DECISION MAKING: The patient is a 36-year-old woman with a past medical history of alcoholism/dep endence, chronic alcoholic liver disease, asthma, chronic pancreatitis status post gastrostomy tube who presents to the emergency department via EMS for evaluation of seizure episode. The details of the patient's presentation is unclear however per the patient's mother who this provider discussed with over the phone with the patient's permission she reports that patient called her to ask her to call 911 because she was "having seizures". Mother was not there and so she did call as she was requested. Mother reports that when EMS arrived they contacted her and told her that she was having seizure-like activity. Of note, the patient was admitted to [facility] on 09/28 for similar presentation but left AMA upon becoming clinically sober. Patient reports she is interested in being admitted today given recurrence of her symptoms. Per EMS the patient understands that she was on seizure medication in the past but is no longer however it is unclear if the patient had a true seizure disorder or more likely was related to alcohol withdrawal and therefore not necessarily required. On arrival the patient is intoxicated appearing with mild dysarthric speech no acute distress, afebrile HR 120s and otherwise sable vital signs. She appears clinically dry. She has no focal neurologic deficits. She has no clonus. Reflexes within normal limits. Head is atraumatic. EKG without overt acute ischemia. WBC and platelets within normal limits. H/H similar to prior values. INR 1.2 similar to prior values. Potassium 3.0 with repletion initiated. Chemistry without metabolic acidosis. Electrolytes without significant abnormality. LFTs are mildly elevated from recent with AST 171 and ALT 81 consistent with alcoholic pattern. Alk phos 598. Total and direct bilirubin are within normal limits. Lipase is marginally elevated at 88, nonspecific. hCG was negative. UA without convincing evidence of infection. Covid-19 RNA, NAAT negative. Patient's medical alcohol was elevated at 404 and so likely even higher when EMS was called. Given the patient's blood alcohol was essentially elevated is unlikely that the patient was experiencing any alcohol withdrawal seizure prior to arrival. Rather likely related to her intoxication. However, during patient's ED observation she was started to develop alcohol withdrawal symptoms and was scoring on the LEEROY S. Patient was additionally treated with IV fluid hydration with banana bag and additional thiamine. The patient and the patient's mother who I spoke with over the phone did agree with plan for admission for further management. Case was discussed with Dr. Brown [facility] hospitalist, who will evaluate the patient for admission. Triage Nursing notes reviewed and agree them. Prior medical records reviewed Vital Signs: reviewed and remarkable for tachycardia. Differential diagnosis: Overdose, toxicologic, infection, hypoglycemia, electrolyte abnormalities, cardiac sources, intracerebral event, neurologic, trauma, as well as other pathologies. ER treatment provided: See below. Diagnostics interpreted by me: ECG: Sinus tachycardia, 118 bpm, no ectopy, no overt ST elevation or depression Cardiac Monitoring: An order for continuous cardiac monitoring was placed and demonstrated sinus tachycardia, 118 bpm, no ectopy. Laboratory studies: See below Imaging studies: See below Consultation(s): Case was discussed with REGINO Bateman hospitalist, who will evaluate the patient for admission. HPI: The patient is a 36-year-old woman with a past medical history of alcoholism/dependence, chronic alcoholic liver disease, asthma, chronic pancreatitis status post gastrostomy tube who presents to the emergency department via EMS for evaluation of seizure episode. The details of the patient's presentation is unclear however per the patient's mother who this provider discussed with over the phone with the patient's permission she reports that patient called her to ask her to call 911 because she was "having seizures". Mother was not there and so she did call as she was requested. Mother reports that when EMS arrived they contacted her and told her that she was having seizure-like activity. ROS: See above HPI for pertinent positives & negatives. A total of 10 systems reviewed and were otherwise negative. VITALS:See Below PHYSICAL EXAMINATION: GENERAL: Awake, alert, intoxicated-appearing, in no distress HENT: Normocephalic, atraumatic. Oropharynx with dry mucous membranes and otherwise unremarkable EYES: Normal conjunctiva. Sclera non-icteric. EOMI. No nystamgus. PEARRL. NECK: Supple. No nuchal rigidity. FROM. No JVD. RESPIRATORY: Clear to auscultation. CARDIAC: Tachycardic ate, normal rhythm. Extremities warm and well perfused. Pul ses equal. ABDOMEN: Soft, non-distended. No tenderness to palpation. No rebound or guarding. No masses. RECTAL: Deferred. MUSCULOSKELETAL: Chest examination reveals no tenderness. The back is symmetri gonzalo on inspection without obvious abnormality. There is no CVA tenderness to palpation. No joint edema. LOWER EXTREMITIES: Calves are equal size bilaterally and non-tender. No edema. No discoloration. NEURO: Mildly drowsy, dysarthric speech. No focal sensory or motor deficits noted. Reflexes within normal limits. There is no clonus. SKIN: No rash or jaundice noted. Fela Chavez Past Med/Surg History Medical History Alcohol use disorder, moderate, dependence Alcohol withdrawal Alcoholic hepatitis Asthma Chronic alcoholic liver disease Chronic back pain Gastrostomy tube in place No pertinent family history Sepsis Smoker Suicidal ideation Surgical History H/O shoulder surgery H/O wrist surgery Social History Smoking Status: Current some day smoker Tobacco Type: Cigarettes Cigarettes Per Day: did not respond when asked; Second Hand Exposure: Yes; Hx Alcohol Use: Yes Alcohol type: beer Hx Substance Use: Yes Last Used Substance: Unknown Preferred Language: Ecuadorean Communication Ability: Effective Visual Impairment: No Limitations 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 Children's Father is involved Feels Safe at Home: Yes Assistive Devices: None Allergies Allergies Allergy/AdvReac Type Severity Reaction Status Date / Time Pertussis Vaccines Allergy Intermediate Hives Verified 10/02/21 23:41 butorphanol [From Stadol] AdvReac Severe Hallucinati Verified 10/02/21 23:41 ng amlodipine [From Norvasc] AdvReac Intermediate LEGS SWELL Verified 10/02/21 23:41 morphine AdvReac Intermediate HALLUCINATI Verified 10/02/21 23:41 ONS Home Meds Home Medications Medication Instructions Recorded Confirmed acetaminophen 500 mg tablet 500 mg FEEDING TUBE TID 03/21/21 10/02/21 hydromorphone 2 mg tablet 2 mg FEEDING TUBE Q2H PRN 03/21/21 10/02/21 [id number] 1 cap QID 03/21/21 10/02/21 24,000-76,000-120,000 unit capsule,delayed rel (Creon) tiotropium bromide 2.5 1 inh INHALATION DAILY 03/21/21 10/02/21 mcg/actuation mist for inhalation (Spiriva Respimat) dextroamphetamine-amphetamine 20 20 mg FEEDING TUBE BID 04/27/21 10/02/21 mg tablet (Adderall) albuterol sulfate 90 mcg/actuation 2 puff INHALATION Q4 PRN 10/02/21 10/02/21 aerosol inhaler (Ventolin HFA) budesonide-formoterol HFA 160 2 puff INHALATION BID 10/02/21 10/02/21 mcg-4.5 mcg/actuation aerosol inhaler (Symbicort) chlordiazepoxide HCl 25 mg capsule 25 mg FEEDING TUBE DAILY 10/02/21 10/02/21 clonidine HCl 0.1 mg tablet 0.1 mg FEEDING TUBE TID 10/02/21 10/02/21 diltiazem HCl 120 mg 120 mg QAM 10/02/21 10/02/21 capsule,extended release 24 hr folic acid 1 mg tablet 1 mg FEEDING TUBE DAILY 10/02/21 10/02/21 gabapentin 300 mg capsule 300 mg FEEDING TUBE TID 10/02/21 10/02/21 montelukast 10 mg tablet 10 mg FEEDING TUBE DAILY 10/02/21 10/02/21 nortriptyline 25 mg capsule 50 mg FEEDING TUBE HS 10/02/21 10/02/21 ondansetron HCl 4 mg tablet 4 mg FEEDING TUBE Q6 PRN 10/02/21 10/02/21 pantoprazole 40 mg tablet,delayed 40 mg Q12 10/02/21 10/02/21 release potassium bicarbonate-citric acid 40 meq DAILY 10/02/21 10/02/21 20 mEq effervescent tablet (Effer-K) prochlorperazine maleate 5 mg 5 mg FEEDING TUBE Q12H PRN 10/02/21 10/02/21 tablet (Compazine) promethazine 12.5 mg tablet 12.5 mg FEEDING TUBE Q6 PRN 10/02/21 10/02/21 Previous Rx's Medication Instructions Recorded thiamine HCl (vitamin B1) 100 mg 100 mg PEG QAM #30 tab 04/29/21 tablet Results & Data (ED) Vital Signs Vital Signs - 24 hr 10/02/21 18:25 10/02/21 18:31 10/02/21 19:51 Temperature 36.2 C L Temperature Source Axillary Pulse Rate 126 H 120 H Pulse Rate [Apical] 126 H 115 H Pulse Rhythm [Apical] Regular Regular Pulse Strength [Apical] Normal Respiratory Rate 16 19 Respiratory Effort / Characteristics Non-Labored Spontaneous Respiratory Depth Normal Normal Respiratory Pattern Blood Pressure 129/95 Blood Pressure [Left Arm] 129/95 133/95 Blood Pressure Mean 106 Blood Pressure Mean [Left Arm] 106 107 Blood Pressure Position [Left Arm] Sitting Pulse Oximetry 99 98 97 Oxygen Delivery Method Room Air Room Air Room Air Sepsis Recent Fever Within 48 Hours No Sepsis New/Unexplained Change in Mental Status No Sepsis Action Taken by Nursing No Action Required 10/02/21 21:14 10/02/21 22:06 Temperature 36.7 C 36.7 C Temperature Source Oral Oral Pulse Rate Pulse Rate [Apical] 122 H 119 H Pulse Rhythm [Apical] Regular Regular Pulse Strength [Apical] Normal Normal Respiratory Rate 18 19 Respiratory Effort / Characteristics Non-Labored Non-Labored Spontaneous Respiratory Depth Normal Normal Respiratory Pattern Regular Blood Pressure Blood Pressure [Left Arm] 132/69 130/98 Blood Pressure Mean Blood Pressure Mean [Left Arm] 90 108 Blood Pressure Position [Left Arm] Lying Pulse Oximetry 98 98 Oxygen Delivery Method Room Air Room Air Sepsis Recent Fever Within 48 Hours Sepsis New/Unexplained Change in Mental Status Sepsis Action Taken by Nursing Laboratory Data Attestation: I reviewed the patient's lab results. Result diagrams: 10/02/21 20:07 10/02/21 18:55 Lab Results 10/02/21 10/02/21 10/02/21 Range/Units 18:55 18:55 19:21 WBC Cancelled RBC Cancelled Hgb Cancelled Hct Cancelled MCV Cancelled MCH Cancelled MCHC Cancelled RDW Std Deviation Cancelled RDW Coeff of Paulina Cancelled Plt Count Cancelled MPV Cancelled Immature Gran % (Auto) Cancelled Neut % (Auto) Cancelled Lymph % (Auto) Cancelled [place] % (Auto) Cancelled Eos % (Auto) Cancelled Baso % (Auto) Cancelled Neut # (Auto) Cancelled Lymph # (Auto) Cancelled [place] # (Auto) Cancelled Eos # (Auto) Cancelled Baso # (Auto) Cancelled Immature Gran # (Auto) Cancelled Absolute Nucleated RBC Cancelled Nucleated RBC % (auto) Cancelled Neutrophils % (Manual) Cancelled Band Neutrophils % Cancelled Lymphocytes % (Manual) Cancelled Prolymphocyte % Cancelled Reactive Lymphs % (Man) Cancelled Monocytes % (Manual) Cancelled Eosinophils % (Manual) Cancelled Basophils % (Manual) Cancelled Metamyelocytes % (Man) Cancelled Myelocytes % (Man) Cancelled Promyelocytes % (Man) Cancelled Blast Cells % (Manual) Cancelled Plasma Cell % (Manual) Cancelled Other Cells % Cancelled Nucleated RBC % Cancelled Neutrophils # (Manual) Cancelled Band Neutrophils # Cancelled Total Absolute Neuts Cancelled Lymphocytes # (Manual) Cancelled Prolymphocyte # Cancelled Reactive Lymphs # Cancelled Total Abs Lymphocytes Cancelled Monocytes # (Manual) Cancelled Eosinophils # (Manual) Cancelled Basophils # (Manual) Cancelled Metamyelocytes # (Man) Cancelled Myelocytes # (Manual) Cancelled Promyelocytes # (Man) Cancelled Blast Cells # (Man) Cancelled Plasma Cell # (Manual) Cancelled Other Cells # Cancelled Nucleated RBCs # (Man) Cancelled Hypersegmented Neuts Cancelled Hyposegmented Neuts Cancelled Hypogranular Neuts Cancelled Large Granular Lymphs Cancelled # Lrg Granular Lymphs Cancelled Hairy Cells Cancelled Smudge Cells Cancelled Toxic Granulation Cancelled Toxic Vacuolation Cancelled Dohle Bodies Cancelled Arnold Rods Cancelled Platelet Estimate Cancelled Hypogranular Platelets Cancelled Clumped Platelets Cancelled Giant Platelets Cancelled Platelet Satelliting Cancelled RBC Morphology Cancelled Polychromasia Cancelled Hypochromasia Cancelled Poikilocytosis Cancelled Basophilic Stippling Cancelled Anisocytosis Cancelled Microcytosis Cancelled Macrocytosis Cancelled Spherocytes Cancelled Pappenheimer Bodies Cancelled Sickle Cells Cancelled Target Cells Cancelled Tear Drop Cells Cancelled Ovalocytes Cancelled Stomatocytes Cancelled [place] Bodies Cancelled Echinocytes Cancelled Acanthocytes (Spur) Cancelled Rouleaux Cancelled RBC Agglutinates Cancelled Schistocytes Cancelled Sezary Cell Cancelled PT (9.0-12.0) Seconds INR (0.9-1.1) Sodium 139 (136-145) mmol/L Potassium 3.0 L (3.5-5.1) mmol/L Chloride 95 L (98-107) mmol/L Carbon Dioxide 29 (21-32) mmol/L Anion Gap 15 H (3-11) BUN 4 L (6-23) mg/dl Creatinine 0.55 L (0.6-1.2) mg/dl Est Cr Clr Drug Dosing 124.1 ml/min Est GFR ( Amer) 140.8 ml/min Est GFR (Non-Af Amer) 121.5 ml/min BUN/Creatinine Ratio 7.3 L (10-20) Glucose 144 H (70-99(Fasting)) mg/dl Calcium 8.8 (8.5-10.1) mg/dl Phosphorus 2.5 (2.5-4.9) mg/dl Magnesium 1.8 (1.7-2.4) mg/dl Total Bilirubin 0.8 (0.2-1.0) mg/dl Direct Bilirubin 0.2 (0-0.2) mg/dl AST 171 H (13-39) U/L ALT 81 H (7-52) U/L Alkaline Phosphatase 598 H (34-104) U/L Total Protein 7.7 (6.0-8.3) gm/dl Albumin 3.8 (3.4-5.0) gm/dl Globulin 3.9 (2.5-4.0) gm/dl Albumin/Globulin Ratio 1.0 (0.9-2) Lipase 88 H (11-82) U/L HCG, Qual (Negative) Urine Color Urine Appearance (Clear) Urine pH (4.5-7.5) Ur Specific [place] (1.000-1.030) Urine Protein (Negative) Urine Glucose (UA) (Negative) Urine Ketones (Negative) Urine Blood (Negative) Urine Nitrite (Negative) Urine Bilirubin (Negative) Urine Urobilinogen (Negative) Ur Leukocyte Esterase (Negative) Ethyl Alcohol mg/dL 404.0 H (<10.0) mg/dl 10/02/21 10/02/21 10/02/21 Range/Units 20:07 20:07 20:07 WBC 7.55 RBC 4.15 L Hgb 11.9 L Hct 35.2 L MCV 84.8 MCH 28.7 MCHC 33.8 RDW Std Deviation 55.3 H RDW Coeff of Paulina 17.9 H Plt Count 167 MPV 9.1 Immature Gran % (Auto) 0.1 Neut % (Auto) 62.4 Lymph % (Auto) 31.1 [place] % (Auto) 5.2 Eos % (Auto) 0.9 Baso % (Auto) 0.3 Neut # (Auto) 4.71 Lymph # (Auto) 2.35 [place] # (Auto) 0.39 Eos # (Auto) 0.07 Baso # (Auto) 0.02 Immature Gran # (Auto) 0.01 Absolute Nucleated RBC Nucleated RBC % (auto) Neutrophils % (Manual) Band Neutrophils % Lymphocytes % (Manual) Prolymphocyte % Reactive Lymphs % (Man) Monocytes % (Manual) Eosinophils % (Manual) Basophils % (Manual) Metamyelocytes % (Man) Myelocytes % (Man) Promyelocytes % (Man) Blast Cells % (Manual) Plasma Cell % (Manual) Other Cells % Nucleated RBC % Neutrophils # (Manual) Band Neutrophils # Total Absolute Neuts Lymphocytes # (Manual) Prolymphocyte # Reactive Lymphs # Total Abs Lymphocytes Monocytes # (Manual) Eosinophils # (Manual) Basophils # (Manual) Metamyelocytes # (Man) Myelocytes # (Manual) Promyelocytes # (Man) Blast Cells # (Man) Plasma Cell # (Manual) Other Cells # Nucleated RBCs # (Man) Hypersegmented Neuts Hyposegmented Neuts Hypogranular Neuts Large Granular Lymphs # Lrg Granular Lymphs Hairy Cells Smudge Cells Toxic Granulation Toxic Vacuolation Dohle Bodies Arnold Rods Platelet Estimate Hypogranular Platelets Clumped Platelets Giant Platelets Platelet Satelliting RBC Morphology Polychromasia Hypochromasia Poikilocytosis Basophilic Stippling Anisocytosis Microcytosis Macrocytosis Spherocytes Pappenheimer Bodies Sickle Cells Target Cells Tear Drop Cells Ovalocytes Stomatocytes [place] Bodies Echinocytes Acanthocytes (Spur) Rouleaux RBC Agglutinates Schistocytes Sezary Cell PT 12.6 H (9.0-12.0) Seconds INR 1.2 H (0.9-1.1) Sodium (136-145) mmol/L Potassium (3.5-5.1) mmol/L Chloride (98-107) mmol/L Carbon Dioxide (21-32) mmol/L Anion Gap (3-11) BUN (6-23) mg/dl Creatinine (0.6-1.2) mg/dl Est Cr Clr Drug Dosing ml/min Est GFR ( Amer) ml/min Est GFR (Non-Af Amer) ml/min BUN/Creatinine Ratio (10-20) Glucose (70-99(Fasting)) mg/dl Calcium (8.5-10.1) mg/dl Phosphorus (2.5-4.9) mg/dl Magnesium (1.7-2.4) mg/dl Total Bilirubin (0.2-1.0) mg/dl Direct Bilirubin (0-0.2) mg/dl AST (13-39) U/L ALT (7-52) U/L Alkaline Phosphatase (34-104) U/L Total Protein (6.0-8.3) gm/dl Albumin (3.4-5.0) gm/dl Globulin (2.5-4.0) gm/dl Albumin/Globulin Ratio (0.9-2) Lipase (11-82) U/L HCG, Qual Negative (Negative) Urine Color Urine Appearance (Clear) Urine pH (4.5-7.5) Ur Specific [place] (1.000-1.030) Urine Protein (Negative) Urine Glucose (UA) (Negative) Urine Ketones (Negative) Urine Blood (Negative) Urine Nitrite (Negative) Urine Bilirubin (Negative) Urine Urobilinogen (Negative) Ur Leukocyte Esterase (Negative) Ethyl Alcohol mg/dL (<10.0) mg/dl 10/02/21 Range/Units 21:09 WBC RBC Hgb Hct MCV MCH MCHC RDW Std Deviation RDW Coeff of Paulina Plt Count MPV Immature Gran % (Auto) Neut % (Auto) Lymph % (Auto) [place] % (Auto) Eos % (Auto) Baso % (Auto) Neut # (Auto) Lymph # (Auto) [place] # (Auto) Eos # (Auto) Baso # (Auto) Immature Gran # (Auto) Absolute Nucleated RBC Nucleated RBC % (auto) Neutrophils % (Manual) Band Neutrophils % Lymphocytes % (Manual) Prolymphocyte % Reactive Lymphs % (Man) Monocytes % (Manual) Eosinophils % (Manual) Basophils % (Manual) Metamyelocytes % (Man) Myelocytes % (Man) Promyelocytes % (Man) Blast Cells % (Manual) Plasma Cell % (Manual) Other Cells % Nucleated RBC % Neutrophils # (Manual) Band Neutrophils # Total Absolute Neuts Lymphocytes # (Manual) Prolymphocyte # Reactive Lymphs # Total Abs Lymphocytes Monocytes # (Manual) Eosinophils # (Manual) Basophils # (Manual) Metamyelocytes # (Man) Myelocytes # (Manual) Promyelocytes # (Man) Blast Cells # (Man) Plasma Cell # (Manual) Other Cells # Nucleated RBCs # (Man) Hypersegmented Neuts Hyposegmented Neuts Hypogranular Neuts Large Granular Lymphs # Lrg Granular Lymphs Hairy Cells Smudge Cells Toxic Granulation Toxic Vacuolation Dohle Bodies Arnold Rods Platelet Estimate Hypogranular Platelets Clumped Platelets Giant Platelets Platelet Satelliting RBC Morphology Polychromasia Hypochromasia Poikilocytosis Basophilic Stippling Anisocytosis Microcytosis Macrocytosis Spherocytes Pappenheimer Bodies Sickle Cells Target Cells Tear Drop Cells Ovalocytes Stomatocytes [place] Bodies Echinocytes Acanthocytes (Spur) Rouleaux RBC Agglutinates Schistocytes Sezary Cell PT (9.0-12.0) Seconds INR (0.9-1.1) Sodium (136-145) mmol/L Potassium (3.5-5.1) mmol/L Chloride (98-107) mmol/L Carbon Dioxide (21-32) mmol/L Anion Gap (3-11) BUN (6-23) mg/dl Creatinine (0.6-1.2) mg/dl Est Cr Clr Drug Dosing ml/min Est GFR ( Amer) ml/min Est GFR (Non-Af Amer) ml/min BUN/Creatinine Ratio (10-20) Glucose (70-99(Fasting)) mg/dl Calcium (8.5-10.1) mg/dl Phosphorus (2.5-4.9) mg/dl Magnesium (1.7-2.4) mg/dl Total Bilirubin (0.2-1.0) mg/dl Direct Bilirubin (0-0.2) mg/dl AST (13-39) U/L ALT (7-52) U/L Alkaline Phosphatase (34-104) U/L Total Protein (6.0-8.3) gm/dl Albumin (3.4-5.0) gm/dl Globulin (2.5-4.0) gm/dl Albumin/Globulin Ratio (0.9-2) Lipase (11-82) U/L HCG, Qual (Negative) Urine Color Yellow Urine Appearance Clear (Clear) Urine pH 8.5 H (4.5-7.5) Ur Specific [place] 1.006 (1.000-1.030) Urine Protein Negative (Negative) Urine Glucose (UA) Negative (Negative) Urine Ketones Negative (Negative) Urine Blood Negative (Negative) Urine Nitrite Negative (Negative) Urine Bilirubin Negative (Negative) Urine Urobilinogen Negative (Negative) Ur Leukocyte Esterase Negative (Negative) Ethyl Alcohol mg/dL (<10.0) mg/dl Administered Medications Lorazepam 1 mg/ Syringe 1 mls @ 2 mls/min IV UD PRN; Protocol PRN Reason: EtOH Withdrawal AWSS Score 6,7 Stop: 11/01/21 19:56 Last Admin: 10/03/21 00:12 Dose: 2 mls/min Documented by: [id number] Admin: 10/02/21 21:20 Dose: 2 mls/min Documented by: [id number] Lorazepam 2 mg/ Syringe 2 mls @ 2 mls/min IV UD PRN; Protocol PRN Reason: EtOH Withdrawal AWSS Score 8,9 Stop: 11/01/21 19:56 Last Admin: 10/03/21 03:28 Dose: 2 mls/min Documented by: [id number] Admin: 10/03/21 01:31 Dose: 2 mls/min Documented by: [id number] Lactated Ringer's (Lr) 1,000 mls @ 100 mls/hr IV .Q10H AGNES Stop: 11/02/21 00:41 Last Admin: 10/03/21 01:30 Dose: 100 mls/hr Documented by: [id number] Discontinued Medications Multivitamins 10 ml/ Thiamine HCl 100 mg/ Folic Acid 1 mg/Sodium Chloride 1,011.2 mls @ 1,011.2 mls/hr IV .Q1H ONE Stop: 10/02/21 19:21 Last Infusion: 10/02/21 23:10 Dose: 0 mls/hr Documented by: [id number] Admin: 10/02/21 19:02 Dose: 1,011.2 mls/hr Documented by: [id number] Thiamine HCl 200 mg/ Sodium (Chloride) 52 mls @ 208 mls/hr IV NOW STA Stop: 10/02/21 18:23 Last Infusion: 10/02/21 19:55 Dose: 0 mls/hr Documented by: [id number] Admin: 10/02/21 19:02 Dose: 208 mls/hr Documented by: [id number] Lorazepam 1 mg/ Syringe 1 mls @ 2 mls/min IV NOW STA Stop: 10/02/21 19:57 Last Admin: 10/02/21 20:04 Dose: 2 mls/min Documented by: [id number] Potassium Chloride (K Trell / Wtr) 10 meq in 100 mls @ 100 mls/hr IV Q1H AGNES; Protocol Stop: 10/03/21 00:14 Last Admin: 10/03/21 02:31 Dose: 33 mls/hr Documented by: [id number] Infusion: 10/03/21 02:11 Dose: 33 mls/hr Documented by: [id number] Admin: 10/02/21 23:09 Dose: 33 mls/hr Documented by: [id number] Sodium Chloride (Nss 1000ml) 1,000 mls @ 125 mls/hr IV .Q8H AGNES Stop: 11/01/21 22:14 Last Infusion: 10/03/21 01:45 Dose: 0 mls/hr Documented by: [id number] Admin: 10/02/21 23:07 Dose: 125 mls/hr Documented by: [id number] Magnesium Sulfate/Dextrose (Magnesium Sulfate / D5w) 1 gm in 100 mls @ 50 mls/hr IV ONE ONE Stop: 10/03/21 02:41 Last Infusion: 10/03/21 03:24 Dose: 0 mls/hr Documented by: [id number] Admin: 10/03/21 01:42 Dose: 50 mls/hr Documented by: [id number] Lorazepam (Lorazepam 2 Mg/1 Ml Vial) Confirm Administered Dose 1 mg .ROUTE .STK- MED ONE Stop: 10/02/21 20:03 Last Admin: 10/02/21 21:06 Dose: Not Given Documented by: [id number] Lorazepam (Lorazepam 2 Mg/1 Ml Vial) Confirm Administered Dose 1 mg .ROUTE .STK- MED ONE Stop: 10/02/21 21:18 Last Admin: 10/02/21 21:46 Dose: Not Given Documented by: [id number] Lorazepam (Lorazepam 2 Mg/1 Ml Vial) Confirm Administered Dose 1 mg .ROUTE .STK- MED ONE Stop: 10/03/21 00:10 Last Admin: 10/03/21 01:25 Dose: Not Given Documented by: [id number] Ondansetron HCl (Ondansetron Inj 2 Mg/Ml 2 Ml Vial) 4 mg IV NOW STA Stop: 10/02/21 22:39 Last Admin: 10/02/21 22:42 Dose: 4 mg Documented by: [id number] Discharge Plan Visit Data Chief Complaint: Seizure Discharge Problem: Alcohol dependence, Alcohol intoxication, Alcohol withdrawal, Chronic alcoholic liver disease, Gastrostomy tube in place, Chronic pancreatitis, Hypokalemia Patient Disposition: Admitted As Inpatient Discharge Instructions Interventions: ED Discharge Assessment Last Done: 10/03/21 00:23 Discharge Problem: Alcohol dependence Qualifiers: Substance use status: other alcohol-induced disorder Qualified Code(s): F10.288 - Alcohol dependence with other alcohol-induced disorder Alcohol intoxication Qualifiers: Complication of substance-induced condition: with unspecified complication Qualified Code(s): F10.929 - Alcohol use, unspecified with intoxication, unspecified Alcohol withdrawal Qualifiers: Complication of substance-induced condition: with unspecified complication Qualified Code(s): F10.239 - Alcohol dependence with withdrawal, unspecified Chronic pancreatitis Qualifiers: Pancreatitis type: unspecified pancreatitis type Qualified Code(s): K86.1 - Other chronic pancreatitis
[2021-10-03] MEDS: LACTATED RINGER'S 1,000 ML IV SCH ×3 (01:30→22:25)
[2021-10-03] MEDS: LORazepam 2 MG in SYRINGE 1 ML IV PRN ×5 (01:31→23:14)
[2021-10-03] MEDS: POTASSIUM CHLORIDE / WTR 10 MEQ/100 ML PLCT IV SCH ×3 (02:31→13:26)
[2021-10-03 02:33] LABS: Base Excess VBG 7.4 mEq/L; HCO3 VBG 32 mmol/L; PCO2 VBG 47 mmHg (38-50); PO2 VBG 29 mmHg; pH VBG 7.45 (7.36-7.41)
[2021-10-03 02:34] LABS: Oxygen Saturation VBG < 60.0 %
[2021-10-03 02:45] LABS: Phosphorus 2.4 mg/dl (2.5-4.9)
[2021-10-03 04:05] LABS: Albumin Level 3.4 gm/dl (3.4-5.0); BUN Creatinine Ratio 8.2 (10-20); Bilirubin,Total 0.8 mg/dl (0.2-1.0); Calcium 8.1 mg/dl (8.5-10.1); Creatinine Clr Calc Pharmacy 138.4 ml/min; Est GFR (African American) 146.3 ml/min; Est GFR (Non-African American) 126.2 ml/min; Globulin 3.4 gm/dl (2.5-4.0); Potassium 3.2 mmol/L (3.5-5.1); Total Protein 6.8 gm/dl (6.0-8.3)
[2021-10-03 04:42] LABS: Folate (Folic Acid) > 22.30 ng/ml (>5.38)
[2021-10-03 04:43] LABS: Vitamin B12 330 pg/ml (180-914)
[2021-10-03 04:55] LABS: Basophils # (auto) 0.03 K/uL (0-0.2); Basophils % (auto) 0.5 %; Eosinophils # (auto) 0.19 K/uL (0-0.5); Eosinophils % (auto) 3.5 %; Hemoglobin 10.8 g/dL (12.0-16.0); Lymphocytes # (auto) 2.34 K/uL (1.2-3.4); Lymphocytes % (auto) 42.5 %; Mean Corpuscular Hemoglobin 28.7 pg (25-34); Mean Corpuscular Hgb Conc 33.8 g/dL (32-36); Mean Corpuscular Volume 85.1 fL (80-100); Mean Platelet Volume 9.5 fL (7.4-10.4); Monocytes % (auto) 7.3 %; Neutrophils # (auto) 2.54 K/uL (1.4-6.5); Neutrophils % (auto) 46.2 %; Platelet Count 146 K/uL (130-400); RDW Standard Deviation 55.3 fL (36.4-46.3); Red Blood Count 3.76 M/uL (4.2-5.4)
[2021-10-03] MEDS ORDERED: AMPHETAMINE ASP/SULF/DEXTRAMPH 5 MG TAB PO SCH (08:00)
[2021-10-03] MEDS ORDERED: NON-FORMULARY MEDICATION (Tiotropium Bromide [Spiriva Respimat] 2.5 mcg/actuation mist) INH SCH (09:00)
[2021-10-03] MEDS ORDERED: MONTELUKAST SODIUM 10 MG TABLET PO SCH (09:00)
[2021-10-03] MEDS ORDERED: POTASSIUM CHLORIDE 20 MEQ/15 ML UDC GT STA (09:45)
[2021-10-03] MEDS: GABAPENTIN 300 MG CAP PO SCH ×3 (10:10→21:26)
[2021-10-03] MEDS: FOLIC ACID 1 MG in SYRINGE 9.8 ML IV SCH (10:10)
[2021-10-03] MEDS: PANTOprazole 40 MG TAB PO SCH (10:10)
[2021-10-03] MEDS: dilTIAZem HCL 120 MG CAPCR PO SCH (10:10)
[2021-10-03] MEDS: THIAMINE HCL 100 MG in SYRINGE 9 ML IV SCH (10:11)
[2021-10-03] MEDS: UMECLIDINIUM BROMIDE 62.5MCG/BLISTER 7 PUFFS/INHALER INH SCH (10:11)
[2021-10-03] MEDS: PANCREAZE (LIPASE 10,500U) CAP PO SCH ×4 (10:15→21:37)
[2021-10-03] MEDS ORDERED: chlordiazePOXIDE ALCOHOL WITHDRAWL 50MG PO STA (10:36)
--- NOTE | 2021-10-03 10:42 | Hospitalist Progress Note ---
Date of Service October 03, 2021 Assessment & Plan (1) Alcohol use disorder, severe, dependence: Plan: Patient is a 36-year-old female with significant history for alcohol use disorder and withdrawal presenting to the emergency department for concern regarding seizure and intoxication. Severe alcohol use disorder in withdrawal, seizure -Patient presenting to the hospital with concern for seizure, current intoxication with an alcohol level 404, and tachycardia suggestive of possible alcohol withdrawal -Patient is a longstanding history of severe alcohol use disorder, so possible to have withdrawal with her current level of alcohol With current N/V, tremulousness, anxiety, but no delirium Has a h/o severe withdrawal, has required ICU stays for Precedex in the past along with extremely high doses of Librium, clonidine, gabapentin,and ativan. Frequently leaves AMA but recently completed 2 week inpatient detox stay at [facility] and is now requesting inpatient alcohol rehab program after detox-family caseworker consulted -AWSS protocol in place, IV ativan as needed -start Librium 50mg po q6h and taper down after 3 days -Seizure precautions -Vitamin B12, folate, CK, lactate, ammonia, VBG, phosphorus all acceptable -Patient has an anion gap that could be suggestive of acidosis, VBG normal--> now resolved -Patient on gabapentin for chronic back pain, continue this both dual effect for back pain and benefit for alcohol withdrawal -continue Rehydration with lactated Ringer's at 100mL/hr -Continue Cardizem for hypertension with regard to alcohol use disorder -Nausea medication as needed-IV zofran, change compazine to IV (2) Seizure: Plan: likely from EtOH withdrawal she has been cutting back on EtOH intake despite EtOH level being 404 (not her highest here in the past) nonfocal neuro exam check head CT now seizure precautions IM Valium 10mg prn seizure in case loses IV access, otherwise can use IV ativan (3) Alcohol intoxication: Plan: as above (4) Alcoholic hepatitis: Plan: LFTs trending downward Maddrey's discriminant function score low at 3.6, good prognosis refrain from EtOH counseled follow LFTs (5) Alcohol withdrawal: Plan: as above (6) Hypokalemia: Plan: replace with KCl elixir-vomited -add KCl 20 meq IV now follow BMP, mag (7) Chronic pancreatitis: Plan: -Continue exogenous lipase, amylase, and protease supplementation once taking po and/or TFs (8) Gastrostomy tube in place: Plan: placed 2/2 chronic pancreatitis -Patient does some oral intake. On last admission patient took Peptamen 1.5 to 10 mL/h NG tube for nutritional intake -We will consult nutrition for Peptamen management when able to tolerate feeding -hold TFs for now given ongoing N/V change diet to clears for now (9) Asthma: Plan: no acute issues -Continue Symbicort, Spiriva, montelukast Plan: DVT proph- add Lovenox Dispo-continued stay PCU, high risk for needing transfer to ICU Admission and Anticipated Discharge Date Admission Date: October 02, 2021 Subjective Pt feeling nauseated and vomited in front of me shortly after getting KCL elixir via G tube. Denies headache. Feels generally bad similar to previous EtOH withdrawal episodes. Reports she recently has been cutting back on her drinking lately. Wants to go back to inpatient rehab and says she will not be leaving AMA. Tele with ST rates 110s-120s Review of Systems Review of Systems: All systems reviewed & are unremarkable except as noted in HPI & below Physical Exam Constitutional: WD/WN, vitals as above Eyes: PERRL, conjunctivae normal, anicteric sclerae EOM intact bilaterally; no nystagmus ENMT: external ear and nose normal, oropharynx normal Neck: trachea midline, no thyromegaly Respiratory: normal respiratory effort, lungs clear to auscultation Cardiovascular: RRR, no murmur, no edema Chest (Breasts): Chest: normal inspection of chest Gastrointestinal (Abdomen): normal bowel sounds, soft, nontender, no hepatosplenomegaly Inspection/Auscultation: + abdomen abnormal to inspection (G tube in place) Musculoskeletal: Extremities: extremities normal to inspection; no cyanosis and no clubbing Skin: no rashes, warm and dry Neurologic: moves all extremities and awake; no focal motor deficits intermittent tremors all over, conscious and talking Psychiatric: A+Ox3, euthymic affect Lymphatic: no lymphedema Results & Data Results & Data ([facility]) Vital Signs (Past 12 Hours) Vital Signs Temp Pulse Pulse Resp BP BP Pulse Ox 10/03/21 09:00 36.8 C 125 H 22 150/113 H 100 10/03/21 07:01 104 H 10/03/21 06:34 36.8 C 102 H 20 137/93 96 10/03/21 03:02 104 H 10/03/21 02:48 36.5 C 111 H 18 139/97 99 10/03/21 01:02 37 C 124 H 18 142/105 H 96 10/03/21 00:42 95 10/03/21 00:05 36.7 C 114 H 16 136/103 H 97 10/02/21 23:50 36.7 C 11 L 14 138/102 H 97 Laboratory Results 10/03/21 10/03/21 10/03/21 Range/Units 04:44 03:42 03:36 WBC Cancelled 5.50 RBC Cancelled 3.76 L Hgb Cancelled 10.8 L Hct Cancelled 32.0 L MCV Cancelled 85.1 MCH Cancelled 28.7 MCHC Cancelled 33.8 RDW Std Deviation Cancelled 55.3 H RDW Coeff of Paulina Cancelled 18.0 H Plt Count Cancelled 146 MPV Cancelled 9.5 Immature Gran % (Auto) Cancelled 0.0 Neut % (Auto) Cancelled 46.2 Lymph % (Auto) Cancelled 42.5 Campbell % (Auto) Cancelled 7.3 Eos % (Auto) Cancelled 3.5 Baso % (Auto) Cancelled 0.5 Neut # (Auto) Cancelled 2.54 Lymph # (Auto) Cancelled 2.34 Campbell # (Auto) Cancelled 0.40 Eos # (Auto) Cancelled 0.19 Baso # (Auto) Cancelled 0.03 Immature Gran # (Auto) Cancelled 0.00 Absolute Nucleated RBC Cancelled Nucleated RBC % (auto) Cancelled Neutrophils % (Manual) Cancelled Band Neutrophils % Cancelled Lymphocytes % (Manual) Cancelled Prolymphocyte % Cancelled Reactive Lymphs % (Man) Cancelled Monocytes % (Manual) Cancelled Eosinophils % (Manual) Cancelled Basophils % (Manual) Cancelled Metamyelocytes % (Man) Cancelled Myelocytes % (Man) Cancelled Promyelocytes % (Man) Cancelled Blast Cells % (Manual) Cancelled Plasma Cell % (Manual) Cancelled Other Cells % Cancelled Nucleated RBC % Cancelled Neutrophils # (Manual) Cancelled Band Neutrophils # Cancelled Total Absolute Neuts Cancelled Lymphocytes # (Manual) Cancelled Prolymphocyte # Cancelled Reactive Lymphs # Cancelled Total Abs Lymphocytes Cancelled Monocytes # (Manual) Cancelled Eosinophils # (Manual) Cancelled Basophils # (Manual) Cancelled Metamyelocytes # (Man) Cancelled Myelocytes # (Manual) Cancelled Promyelocytes # (Man) Cancelled Blast Cells # (Man) Cancelled Plasma Cell # (Manual) Cancelled Other Cells # Cancelled Nucleated RBCs # (Man) Cancelled Hypersegmented Neuts Cancelled Hyposegmented Neuts Cancelled Hypogranular Neuts Cancelled Large Granular Lymphs Cancelled # Lrg Granular Lymphs Cancelled Hairy Cells Cancelled Smudge Cells Cancelled Toxic Granulation Cancelled Toxic Vacuolation Cancelled Dohle Bodies Cancelled Arnold Rods Cancelled Platelet Estimate Cancelled Hypogranular Platelets Cancelled Clumped Platelets Cancelled Giant Platelets Cancelled Platelet Satelliting Cancelled RBC Morphology Cancelled Polychromasia Cancelled Hypochromasia Cancelled Poikilocytosis Cancelled Basophilic Stippling Cancelled Anisocytosis Cancelled Microcytosis Cancelled Macrocytosis Cancelled Spherocytes Cancelled Pappenheimer Bodies Cancelled Sickle Cells Cancelled Target Cells Cancelled Tear Drop Cells Cancelled Ovalocytes Cancelled Stomatocytes Cancelled [place] Bodies Cancelled Echinocytes Cancelled Acanthocytes (Spur) Cancelled Rouleaux Cancelled RBC Agglutinates Cancelled Schistocytes Cancelled Sezary Cell Cancelled PT (9.0-12.0) Seconds INR (0.9-1.1) VBG pH (7.36-7.41) VBG pCO2 (38-50) mmHg VBG pO2 mmHg VBG HCO3 mmol/L VBG O2 Saturation % VBG Base Excess mEq/L Barometric Pressure mm/Hg Sodium (136-145) mmol/L Potassium (3.5-5.1) mmol/L Chloride (98-107) mmol/L Carbon Dioxide (21-32) mmol/L Anion Gap (3-11) BUN (6-23) mg/dl Creatinine (0.6-1.2) mg/dl Est Cr Clr Drug Dosing ml/min Est GFR ( Amer) ml/min Est GFR (Non-Af Amer) ml/min BUN/Creatinine Ratio (10-20) Glucose (70-99(Fasting)) mg/dl Calcium (8.5-10.1) mg/dl Phosphorus (2.5-4.9) mg/dl Magnesium (1.7-2.4) mg/dl Total Bilirubin (0.2-1.0) mg/dl Direct Bilirubin (0-0.2) mg/dl AST (13-39) U/L ALT (7-52) U/L Alkaline Phosphatase (34-104) U/L Ammonia 51.0 Total Creatine Kinase (26-192) U/L Total Protein (6.0-8.3) gm/dl Albumin (3.4-5.0) gm/dl Globulin (2.5-4.0) gm/dl Albumin/Globulin Ratio (0.9-2) Lipase (11-82) U/L Vitamin B12 (180-914) pg/ml Folate (>5.38) ng/ml HCG, Qual (Negative) Urine Color Urine Appearance (Clear) Urine pH (4.5-7.5) Ur Specific [place] (1.000-1.030) Urine Protein (Negative) Urine Glucose (UA) (Negative) Urine Ketones (Negative) Urine Blood (Negative) Urine Nitrite (Negative) Urine Bilirubin (Negative) Urine Urobilinogen (Negative) Ur Leukocyte Esterase (Negative) Ethyl Alcohol mg/dL (<10.0) mg/dl Hepatitis A IgM Ab Hep Bs Antigen Hep Bs Ag Confirmation Hep B Core IgM Ab Hepatitis C Ab (EIA) Hep C Ab Signal/Cutoff SARS-CoV-2, RNA, NAAT (NEGATIVE) 10/03/21 10/03/21 10/03/21 Range/Units 03:27 03:27 02:04 WBC RBC Hgb Hct MCV MCH MCHC RDW Std Deviation RDW Coeff of Paulina Plt Count MPV Immature Gran % (Auto) Neut % (Auto) Lymph % (Auto) Campbell % (Auto) Eos % (Auto) Baso % (Auto) Neut # (Auto) Lymph # (Auto) Campbell # (Auto) Eos # (Auto) Baso # (Auto) Immature Gran # (Auto) Absolute Nucleated RBC Nucleated RBC % (auto) Neutrophils % (Manual) Band Neutrophils % Lymphocytes % (Manual) Prolymphocyte % Reactive Lymphs % (Man) Monocytes % (Manual) Eosinophils % (Manual) Basophils % (Manual) Metamyelocytes % (Man) Myelocytes % (Man) Promyelocytes % (Man) Blast Cells % (Manual) Plasma Cell % (Manual) Other Cells % Nucleated RBC % Neutrophils # (Manual) Band Neutrophils # Total Absolute Neuts Lymphocytes # (Manual) Prolymphocyte # Reactive Lymphs # Total Abs Lymphocytes Monocytes # (Manual) Eosinophils # (Manual) Basophils # (Manual) Metamyelocytes # (Man) Myelocytes # (Manual) Promyelocytes # (Man) Blast Cells # (Man) Plasma Cell # (Manual) Other Cells # Nucleated RBCs # (Man) Hypersegmented Neuts Hyposegmented Neuts Hypogranular Neuts Large Granular Lymphs # Lrg Granular Lymphs Hairy Cells Smudge Cells Toxic Granulation Toxic Vacuolation Dohle Bodies Arnold Rods Platelet Estimate Hypogranular Platelets Clumped Platelets Giant Platelets Platelet Satelliting RBC Morphology Polychromasia Hypochromasia Poikilocytosis Basophilic Stippling Anisocytosis Microcytosis Macrocytosis Spherocytes Pappenheimer Bodies Sickle Cells Target Cells Tear Drop Cells Ovalocytes Stomatocytes Brow[place] Bodies Echinocytes Acanthocytes (Spur) Rouleaux RBC Agglutinates Schistocytes Sezary Cell PT (9.0-12.0) Seconds INR (0.9-1.1) VBG pH (7.36-7.41) VBG pCO2 (38-50) mmHg VBG pO2 mmHg VBG HCO3 mmol/L VBG O2 Saturation % VBG Base Excess mEq/L Barometric Pressure mm/Hg Sodium 137 (136-145) mmol/L Potassium 3.2 L (3.5-5.1) mmol/L Chloride 100 (98-107) mmol/L Carbon Dioxide 28 (21-32) mmol/L Anion Gap 9 (3-11) BUN 4 L (6-23) mg/dl Creatinine 0.49 L (0.6-1.2) mg/dl Est Cr Clr Drug Dosing 138.4 ml/min Est GFR ( Amer) 146.3 ml/min Est GFR (Non-Af Amer) 126.2 ml/min BUN/Creatinine Ratio 8.2 L (10-20) Glucose 105 H (70-99(Fasting)) mg/dl Calcium 8.1 L (8.5-10.1) mg/dl Phosphorus (2.5-4.9) mg/dl Magnesium (1.7-2.4) mg/dl Total Bilirubin 0.8 (0.2-1.0) mg/dl Direct Bilirubin (0-0.2) mg/dl AST 101 H (13-39) U/L ALT 61 H (7-52) U/L Alkaline Phosphatase 469 H (34-104) U/L Ammonia Total Creatine Kinase (26-192) U/L Total Protein 6.8 (6.0-8.3) gm/dl Albumin 3.4 (3.4-5.0) gm/dl Globulin 3.4 (2.5-4.0) gm/dl Albumin/Globulin Ratio 1.0 (0.9-2) Lipase (11-82) U/L Vitamin B12 330 (180-914) pg/ml Folate > 22.30 (>5.38) ng/ml HCG, Qual (Negative) Urine Color Urine Appearance (Clear) Urine pH (4.5-7.5) Ur Specific [place] (1.000-1.030) Urine Protein (Negative) Urine Glucose (UA) (Negative) Urine Ketones (Negative) Urine Blood (Negative) Urine Nitrite (Negative) Urine Bilirubin (Negative) Urine Urobilinogen (Negative) Ur Leukocyte Esterase (Negative) Ethyl Alcohol mg/dL (<10.0) mg/dl Hepatitis A IgM Ab Pending Hep Bs Antigen Pending Hep Bs Ag Confirmation Pending Hep B Core IgM Ab Pending Hepatitis C Ab (EIA) Pending Hep C Ab Signal/Cutoff Pending SARS-CoV-2, RNA, NAAT (NEGATIVE) 10/03/21 10/03/21 10/03/21 Range/Units 02:04 02:04 02:04 WBC RBC Hgb Hct MCV MCH MCHC RDW Std Deviation RDW Coeff of Paulina Plt Count MPV Immature Gran % (Auto) Neut % (Auto) Lymph % (Auto) Campbell % (Auto) Eos % (Auto) Baso % (Auto) Neut # (Auto) Lymph # (Auto) Campbell # (Auto) Eos # (Auto) Baso # (Auto) Immature Gran # (Auto) Absolute Nucleated RBC Nucleated RBC % (auto) Neutrophils % (Manual) Band Neutrophils % Lymphocytes % (Manual) Prolymphocyte % Reactive Lymphs % (Man) Monocytes % (Manual) Eosinophils % (Manual) Basophils % (Manual) Metamyelocytes % (Man) Myelocytes % (Man) Promyelocytes % (Man) Blast Cells % (Manual) Plasma Cell % (Manual) Other Cells % Nucleated RBC % Neutrophils # (Manual) Band Neutrophils # Total Absolute Neuts Lymphocytes # (Manual) Prolymphocyte # Reactive Lymphs # Total Abs Lymphocytes Monocytes # (Manual) Eosinophils # (Manual) Basophils # (Manual) Metamyelocytes # (Man) Myelocytes # (Manual) Promyelocytes # (Man) Blast Cells # (Man) Plasma Cell # (Manual) Other Cells # Nucleated RBCs # (Man) Hypersegmented Neuts Hyposegmented Neuts Hypogranular Neuts Large Granular Lymphs # Lrg Granular Lymphs Hairy Cells Smudge Cells Toxic Granulation Toxic Vacuolation Dohle Bodies Arnold Rods Platelet Estimate Hypogranular Platelets Clumped Platelets Giant Platelets Platelet Satelliting RBC Morphology Polychromasia Hypochromasia Poikilocytosis Basophilic Stippling Anisocytosis Microcytosis Macrocytosis Spherocytes Pappenheimer Bodies Sickle Cells Target Cells Tear Drop Cells Ovalocytes Stomatocytes Browning-[place] Bodies Echinocytes Acanthocytes (Spur) Rouleaux RBC Agglutinates Schistocytes Sezary Cell PT (9.0-12.0) Seconds INR (0.9-1.1) VBG pH 7.45 H (7.36-7.41) VBG pCO2 47 (38-50) mmHg VBG pO2 29 mmHg VBG HCO3 32 mmol/L VBG O2 Saturation < 60.0 % VBG Base Excess 7.4 mEq/L Barometric Pressure 733.2 mm/Hg Sodium (136-145) mmol/L Potassium (3.5-5.1) mmol/L Chloride (98-107) mmol/L Carbon Dioxide (21-32) mmol/L Anion Gap (3-11) BUN (6-23) mg/dl Creatinine (0.6-1.2) mg/dl Est Cr Clr Drug Dosing ml/min Est GFR ( Amer) ml/min Est GFR (Non-Af Amer) ml/min BUN/Creatinine Ratio (10-20) Glucose (70-99(Fasting)) mg/dl Calcium (8.5-10.1) mg/dl Phosphorus 2.4 L (2.5-4.9) mg/dl Magnesium (1.7-2.4) mg/dl Total Bilirubin (0.2-1.0) mg/dl Direct Bilirubin (0-0.2) mg/dl AST (13-39) U/L ALT (7-52) U/L Alkaline Phosphatase (34-104) U/L Ammonia TNP Total Creatine Kinase 50 (26-192) U/L Total Protein (6.0-8.3) gm/dl Albumin (3.4-5.0) gm/dl Globulin (2.5-4.0) gm/dl Albumin/Globulin Ratio (0.9-2) Lipase (11-82) U/L Vitamin B12 (180-914) pg/ml Folate (>5.38) ng/ml HCG, Qual (Negative) Urine Color Urine Appearance (Clear) Urine pH (4.5-7.5) Ur Specific [place] (1.000-1.030) Urine Protein (Negative) Urine Glucose (UA) (Negative) Urine Ketones (Negative) Urine Blood (Negative) Urine Nitrite (Negative) Urine Bilirubin (Negative) Urine Urobilinogen (Negative) Ur Leukocyte Esterase (Negative) Ethyl Alcohol mg/dL (<10.0) mg/dl Hepatitis A IgM Ab Hep Bs Antigen Hep Bs Ag Confirmation Hep B Core IgM Ab Hepatitis C Ab (EIA) Hep C Ab Signal/Cutoff SARS-CoV-2, RNA, NAAT (NEGATIVE) 10/02/21 10/02/21 10/02/21 Range/Units Unknown 21:09 20:07 WBC 7.55 RBC 4.15 L Hgb 11.9 L Hct 35.2 L MCV 84.8 MCH 28.7 MCHC 33.8 RDW Std Deviation 55.3 H RDW Coeff of Paulina 17.9 H Plt Count 167 MPV 9.1 Immature Gran % (Auto) 0.1 Neut % (Auto) 62.4 Lymph % (Auto) 31.1 Campbell % (Auto) 5.2 Eos % (Auto) 0.9 Baso % (Auto) 0.3 Neut # (Auto) 4.71 Lymph # (Auto) 2.35 Campbell # (Auto) 0.39 Eos # (Auto) 0.07 Baso # (Auto) 0.02 Immature Gran # (Auto) 0.01 Absolute Nucleated RBC Nucleated RBC % (auto) Neutrophils % (Manual) Band Neutrophils % Lymphocytes % (Manual) Prolymphocyte % Reactive Lymphs % (Man) Monocytes % (Manual) Eosinophils % (Manual) Basophils % (Manual) Metamyelocytes % (Man) Myelocytes % (Man) Promyelocytes % (Man) Blast Cells % (Manual) Plasma Cell % (Manual) Other Cells % Nucleated RBC % Neutrophils # (Manual) Band Neutrophils # Total Absolute Neuts Lymphocytes # (Manual) Prolymphocyte # Reactive Lymphs # Total Abs Lymphocytes Monocytes # (Manual) Eosinophils # (Manual) Basophils # (Manual) Metamyelocytes # (Man) Myelocytes # (Manual) Promyelocytes # (Man) Blast Cells # (Man) Plasma Cell # (Manual) Other Cells # Nucleated RBCs # (Man) Hypersegmented Neuts Hyposegmented Neuts Hypogranular Neuts Large Granular Lymphs # Lrg Granular Lymphs Hairy Cells Smudge Cells Toxic Granulation Toxic Vacuolation Dohle Bodies Arnold Rods Platelet Estimate Hypogranular Platelets Clumped Platelets Giant Platelets Platelet Satelliting RBC Morphology Polychromasia Hypochromasia Poikilocytosis Basophilic Stippling Anisocytosis Microcytosis Macrocytosis Spherocytes Pappenheimer Bodies Sickle Cells Target Cells Tear Drop Cells Ovalocytes Stomatocytes Brow[place] Bodies Echinocytes Acanthocytes (Spur) Rouleaux RBC Agglutinates Schistocytes Sezary Cell PT (9.0-12.0) Seconds INR (0.9-1.1) VBG pH (7.36-7.41) VBG pCO2 (38-50) mmHg VBG pO2 mmHg VBG HCO3 mmol/L VBG O2 Saturation % VBG Base Excess mEq/L Barometric Pressure mm/Hg Sodium (136-145) mmol/L Potassium (3.5-5.1) mmol/L Chloride (98-107) mmol/L Carbon Dioxide (21-32) mmol/L Anion Gap (3-11) BUN (6-23) mg/dl Creatinine (0.6-1.2) mg/dl Est Cr Clr Drug Dosing ml/min Est GFR ( Amer) ml/min Est GFR (Non-Af Amer) ml/min BUN/Creatinine Ratio (10-20) Glucose (70-99(Fasting)) mg/dl Calcium (8.5-10.1) mg/dl Phosphorus (2.5-4.9) mg/dl Magnesium (1.7-2.4) mg/dl Total Bilirubin (0.2-1.0) mg/dl Direct Bilirubin (0-0.2) mg/dl AST (13-39) U/L ALT (7-52) U/L Alkaline Phosphatase (34-104) U/L Ammonia Total Creatine Kinase (26-192) U/L Total Protein (6.0-8.3) gm/dl Albumin (3.4-5.0) gm/dl Globulin (2.5-4.0) gm/dl Albumin/Globulin Ratio (0.9-2) Lipase (11-82) U/L Vitamin B12 (180-914) pg/ml Folate (>5.38) ng/ml HCG, Qual (Negative) Urine Color Yellow Urine Appearance Clear (Clear) Urine pH 8.5 H (4.5-7.5) Ur Specific [place] 1.006 (1.000-1.030) Urine Protein Negative (Negative) Urine Glucose (UA) Negative (Negative) Urine Ketones Negative (Negative) Urine Blood Negative (Negative) Urine Nitrite Negative (Negative) Urine Bilirubin Negative (Negative) Urine Urobilinogen Negative (Negative) Ur Leukocyte Esterase Negative (Negative) Ethyl Alcohol mg/dL (<10.0) mg/dl Hepatitis A IgM Ab Hep Bs Antigen Hep Bs Ag Confirmation Hep B Core IgM Ab Hepatitis C Ab (EIA) Hep C Ab Signal/Cutoff SARS-CoV-2, RNA, NAAT NEGATIVE (NEGATIVE) 10/02/21 10/02/21 10/02/21 Range/Units 20:07 20:07 19:21 WBC Cancelled RBC Cancelled Hgb Cancelled Hct Cancelled MCV Cancelled MCH Cancelled MCHC Cancelled RDW Std Deviation Cancelled RDW Coeff of Paulina Cancelled Plt Count Cancelled MPV Cancelled Immature Gran % (Auto) Cancelled Neut % (Auto) Cancelled Lymph % (Auto) Cancelled Campbell % (Auto) Cancelled Eos % (Auto) Cancelled Baso % (Auto) Cancelled Neut # (Auto) Cancelled Lymph # (Auto) Cancelled Campbell # (Auto) Cancelled Eos # (Auto) Cancelled Baso # (Auto) Cancelled Immature Gran # (Auto) Cancelled Absolute Nucleated RBC Cancelled Nucleated RBC % (auto) Cancelled Neutrophils % (Manual) Cancelled Band Neutrophils % Cancelled Lymphocytes % (Manual) Cancelled Prolymphocyte % Cancelled Reactive Lymphs % (Man) Cancelled Monocytes % (Manual) Cancelled Eosinophils % (Manual) Cancelled Basophils % (Manual) Cancelled Metamyelocytes % (Man) Cancelled Myelocytes % (Man) Cancelled Promyelocytes % (Man) Cancelled Blast Cells % (Manual) Cancelled Plasma Cell % (Manual) Cancelled Other Cells % Cancelled Nucleated RBC % Cancelled Neutrophils # (Manual) Cancelled Band Neutrophils # Cancelled Total Absolute Neuts Cancelled Lymphocytes # (Manual) Cancelled Prolymphocyte # Cancelled Reactive Lymphs # Cancelled Total Abs Lymphocytes Cancelled Monocytes # (Manual) Cancelled Eosinophils # (Manual) Cancelled Basophils # (Manual) Cancelled Metamyelocytes # (Man) Cancelled Myelocytes # (Manual) Cancelled Promyelocytes # (Man) Cancelled Blast Cells # (Man) Cancelled Plasma Cell # (Manual) Cancelled Other Cells # Cancelled Nucleated RBCs # (Man) Cancelled Hypersegmented Neuts Cancelled Hyposegmented Neuts Cancelled Hypogranular Neuts Cancelled Large Granular Lymphs Cancelled # Lrg Granular Lymphs Cancelled Hairy Cells Cancelled Smudge Cells Cancelled Toxic Granulation Cancelled Toxic Vacuolation Cancelled Dohle Bodies Cancelled Arnold Rods Cancelled Platelet Estimate Cancelled Hypogranular Platelets Cancelled Clumped Platelets Cancelled Giant Platelets Cancelled Platelet Satelliting Cancelled RBC Morphology Cancelled Polychromasia Cancelled Hypochromasia Cancelled Poikilocytosis Cancelled Basophilic Stippling Cancelled Anisocytosis Cancelled Microcytosis Cancelled Macrocytosis Cancelled Spherocytes Cancelled Pappenheimer Bodies Cancelled Sickle Cells Cancelled Target Cells Cancelled Tear Drop Cells Cancelled Ovalocytes Cancelled Stomatocytes Cancelled [place] Bodies Cancelled Echinocytes Cancelled Acanthocytes (Spur) Cancelled Rouleaux Cancelled RBC Agglutinates Cancelled Schistocytes Cancelled Sezary Cell Cancelled PT 12.6 H (9.0-12.0) Seconds INR 1.2 H (0.9-1.1) VBG pH (7.36-7.41) VBG pCO2 (38-50) mmHg VBG pO2 mmHg VBG HCO3 mmol/L VBG O2 Saturation % VBG Base Excess mEq/L Barometric Pressure mm/Hg Sodium (136-145) mmol/L Potassium (3.5-5.1) mmol/L Chloride (98-107) mmol/L Carbon Dioxide (21-32) mmol/L Anion Gap (3-11) BUN (6-23) mg/dl Creatinine (0.6-1.2) mg/dl Est Cr Clr Drug Dosing ml/min Est GFR ( Amer) ml/min Est GFR (Non-Af Amer) ml/min BUN/Creatinine Ratio (10-20) Glucose (70-99(Fasting)) mg/dl Calcium (8.5-10.1) mg/dl Phosphorus (2.5-4.9) mg/dl Magnesium (1.7-2.4) mg/dl Total Bilirubin (0.2-1.0) mg/dl Direct Bilirubin (0-0.2) mg/dl AST (13-39) U/L ALT (7-52) U/L Alkaline Phosphatase (34-104) U/L Ammonia Total Creatine Kinase (26-192) U/L Total Protein (6.0-8.3) gm/dl Albumin (3.4-5.0) gm/dl Globulin (2.5-4.0) gm/dl Albumin/Globulin Ratio (0.9-2) Lipase (11-82) U/L Vitamin B12 (180-914) pg/ml Folate (>5.38) ng/ml HCG, Qual Negative (Negative) Urine Color Urine Appearance (Clear) Urine pH (4.5-7.5) Ur Specific [place] (1.000-1.030) Urine Protein (Negative) Urine Glucose (UA) (Negative) Urine Ketones (Negative) Urine Blood (Negative) Urine Nitrite (Negative) Urine Bilirubin (Negative) Urine Urobilinogen (Negative) Ur Leukocyte Esterase (Negative) Ethyl Alcohol mg/dL (<10.0) mg/dl Hepatitis A IgM Ab Hep Bs Antigen Hep Bs Ag Confirmation Hep B Core IgM Ab Hepatitis C Ab (EIA) Hep C Ab Signal/Cutoff SARS-CoV-2, RNA, NAAT (NEGATIVE) 10/02/21 10/02/21 Range/Units 18:55 18:55 WBC RBC Hgb Hct MCV MCH MCHC RDW Std Deviation RDW Coeff of Paulina Plt Count MPV Immature Gran % (Auto) Neut % (Auto) Lymph % (Auto) Campbell % (Auto) Eos % (Auto) Baso % (Auto) Neut # (Auto) Lymph # (Auto) Campbell # (Auto) Eos # (Auto) Baso # (Auto) Immature Gran # (Auto) Absolute Nucleated RBC Nucleated RBC % (auto) Neutrophils % (Manual) Band Neutrophils % Lymphocytes % (Manual) Prolymphocyte % Reactive Lymphs % (Man) Monocytes % (Manual) Eosinophils % (Manual) Basophils % (Manual) Metamyelocytes % (Man) Myelocytes % (Man) Promyelocytes % (Man) Blast Cells % (Manual) Plasma Cell % (Manual) Other Cells % Nucleated RBC % Neutrophils # (Manual) Band Neutrophils # Total Absolute Neuts Lymphocytes # (Manual) Prolymphocyte # Reactive Lymphs # Total Abs Lymphocytes Monocytes # (Manual) Eosinophils # (Manual) Basophils # (Manual) Metamyelocytes # (Man) Myelocytes # (Manual) Promyelocytes # (Man) Blast Cells # (Man) Plasma Cell # (Manual) Other Cells # Nucleated RBCs # (Man) Hypersegmented Neuts Hyposegmented Neuts Hypogranular Neuts Large Granular Lymphs # Lrg Granular Lymphs Hairy Cells Smudge Cells Toxic Granulation Toxic Vacuolation Dohle Bodies Arnold Rods Platelet Estimate Hypogranular Platelets Clumped Platelets Giant Platelets Platelet Satelliting RBC Morphology Polychromasia Hypochromasia Poikilocytosis Basophilic Stippling Anisocytosis Microcytosis Macrocytosis Spherocytes Pappenheimer Bodies Sickle Cells Target Cells Tear Drop Cells Ovalocytes Stomatocytes [place] Bodies Echinocytes Acanthocytes (Spur) Rouleaux RBC Agglutinates Schistocytes Sezary Cell PT (9.0-12.0) Seconds INR (0.9-1.1) VBG pH (7.36-7.41) VBG pCO2 (38-50) mmHg VBG pO2 mmHg VBG HCO3 mmol/L VBG O2 Saturation % VBG Base Excess mEq/L Barometric Pressure mm/Hg Sodium 139 (136-145) mmol/L Potassium 3.0 L (3.5-5.1) mmol/L Chloride 95 L (98-107) mmol/L Carbon Dioxide 29 (21-32) mmol/L Anion Gap 15 H (3-11) BUN 4 L (6-23) mg/dl Creatinine 0.55 L (0.6-1.2) mg/dl Est Cr Clr Drug Dosing 124.1 ml/min Est GFR ( Amer) 140.8 ml/min Est GFR (Non-Af Amer) 121.5 ml/min BUN/Creatinine Ratio 7.3 L (10-20) Glucose 144 H (70-99(Fasting)) mg/dl Calcium 8.8 (8.5-10.1) mg/dl Phosphorus 2.5 (2.5-4.9) mg/dl Magnesium 1.8 (1.7-2.4) mg/dl Total Bilirubin 0.8 (0.2-1.0) mg/dl Direct Bilirubin 0.2 (0-0.2) mg/dl AST 171 H (13-39) U/L ALT 81 H (7-52) U/L Alkaline Phosphatase 598 H (34-104) U/L Ammonia Total Creatine Kinase (26-192) U/L Total Protein 7.7 (6.0-8.3) gm/dl Albumin 3.8 (3.4-5.0) gm/dl Globulin 3.9 (2.5-4.0) gm/dl Albumin/Globulin Ratio 1.0 (0.9-2) Lipase 88 H (11-82) U/L Vitamin B12 (180-914) pg/ml Folate (>5.38) ng/ml HCG, Qual (Negative) Urine Color Urine Appearance (Clear) Urine pH (4.5-7.5) Ur Specific [place] (1.000-1.030) Urine Protein (Negative) Urine Glucose (UA) (Negative) Urine Ketones (Negative) Urine Blood (Negative) Urine Nitrite (Negative) Urine Bilirubin (Negative) Urine Urobilinogen (Negative) Ur Leukocyte Esterase (Negative) Ethyl Alcohol mg/dL 404.0 H (<10.0) mg/dl Hepatitis A IgM Ab Hep Bs Antigen Hep Bs Ag Confirmation Hep B Core IgM Ab Hepatitis C Ab (EIA) Hep C Ab Signal/Cutoff SARS-CoV-2, RNA, NAAT (NEGATIVE) PG Care Time/CCT Total # of Minutes Spent Total Time Spent with Patient: Total time spent is greater than 50% in coordination of care (as documented) at patient's floor/unit and/or counseling patient: Coding Level of Care Code 67458 Subseq Hosp Care Lvl 3 Diagnoses Alcohol use disorder, severe, dependence F10.20 Alcohol intoxication F10.929 Complication of substance-induced condition: with unspecified complication Chronic pancreatitis K86.1 Pancreatitis type: unspecified pancreatitis type Alcoholic hepatitis K70.10 Alcohol withdrawal F10.239 Complication of substance-induced condition: with unspecified complication Hypokalemia E87.6 Seizure R56.[address] Z93.1 Asthma J45.909 (1) Alcohol intoxication Complication of substance-induced condition: with unspecified complication Qualified Code(s): F10.929 - Alcohol use, unspecified with intoxication, unspecified (2) Chronic pancreatitis Pancreatitis type: unspecified pancreatitis type Qualified Code(s): K86.1 - Other chronic pancreatitis (3) Alcohol withdrawal Complication of substance-induced condition: with unspecified complication Qualified Code(s): F10.239 - Alcohol dependence with withdrawal, unspecified
[2021-10-03] MEDS ORDERED: PROCHLORPERAZINE 10 MG in SYRINGE 8 ML IV PRN (11:04)
[2021-10-03] MEDS: ENOXAPARIN INJ 40 MG/0.4 ML SYR SQ SCH (12:16)
--- NOTE | 2021-10-03 12:54 | Electrocardiogram Report ---
Test Reason : Blood Pressure : / mmHG Vent. Rate : 118 BPM Atrial Rate : 118 BPM P-R Int : 150 ms QRS Dur : 068 ms QT Int : 336 ms P-R-T Axes : 061 051 044 degrees QTc Int : 470 ms Sinus tachycardia Otherwise normal ECG When compared with ECG of 13-JUL-2021 09:08, Vent. rate has increased BY 49 BPM Confirmed by Shoaib Mclean ([id number]) on 10/03/2021 12:54:24 PM Referred By: REFERRED SELF Confirmed By:Gee Mclean
[2021-10-03 13:53] LABS: Amphetamines+Metham, Urine Neg (Neg); Barbiturates, Urine Pos (Neg); Benzodiazepine, Urine Pos (Neg); Cocaine, Urine Neg (Neg); MDMA (Ecstacy), Urine Neg (Neg); Methadone, Urine Neg (Neg); Opiate, Urine Neg (Neg); Phencyclidine, Urine Neg (Neg)
[2021-10-03] MEDS ORDERED: PROMETHAZINE HCL 25 MG SUPP PR PRN (14:44)
--- NOTE | 2021-10-03 16:31 | Procedure Note ---
Procedure Note Date of Service October 03, 2021 Note Procedure date: Noted above Procedure: Central venous access Pre-procedure indication: Poor vascular access Post-procedure Diagnosis: same as above Prior to Procedure: Informed Consent: The risks, benefits, indications, potential complications, and alternatives were explained to the patient and informed consent obtained. Attending Staff: Jen Bernard DO Resident/APC: Eri Skin Prep: Chlorhexidine Anesthesia: 4 mL 1% lidocaine without epinephrine The identity of the patient was confirmed and a bedside time out was performed. Description of Procedure: After sterile prep and sterile drape utilizing standard sterile technique the superficial skin of the left internal jugular area was anesthetized. The target vessel was identified and entered with an 18- gauge needle. Dark venous blood return was noted. A guidewire was inserted through the needle and into the vessel. The needle was withdrawn and a skin yakov was made. A tissue dilator was advanced via Seldinger technique. A single lumen catheter was inserted through the tear-away introducer. The port ayde and flushed easily. A Biopatch was placed, and the catheter was secured via commercial securement device. A sterile dressing was then applied. Complications: None Estimated blood loss: Trace Patient tolerated the procedure well. Procedure Date: Noted Above Procedure: Procedural Ultrasound Indication: Central venous access Attending: Jen Bernard DO Resident/Physician Broach Setter: Eri Artery visualized: Yes Vein visualized: Yes Compressible Vein: Yes Vein patent: Yes Guidewire or Short Catheter seen in vein prior to dilation: Yes Line confirmed in Vein with ultrasound: Yes Lung Sliding on side of attempt (if applicable): NA If no lung sliding or not obtained has CXR been ordered: Yes Impression: Successful central venous access placement Images obtained are saved for permanent record Coding CPT Codes Tubes, Drains, and Vasc Access - Tubes, Drains, and Vasc Access: [id number] Insertion Tunneled Catheter w/o port or pump 5 Yrs> ([id number]) Tubes, Drains, and Vasc Access - Tubes, Drains, and Vasc Access: [id number] Ultrasound Guidance For Vascular ([id number]) [facility] [place] Codes (Charges) Tubes, Drains, and Vasc Access Procedure 1: Tubes, Drains, and Vasc Access: [id number] Insertion Tunneled Catheter w/o port or pump 5 Yrs> Procedure 2: Tubes, Drains, and Vasc Access: [id number] Ultrasound Guidance For Vascular
--- NOTE | 2021-10-03 16:31 | Critical Care Consultation ---
Date of Consultation October 03, 2021 Assessment & Plan (1) Encounter for central line placement: Ultrasound guided central line placment - See attached reports - difficulty with maintaining access on the right IJ with threading of needle- procedure aborted - Left IJ was cannulated by Dr. Bernard and SLIC catether was placed under ultrasound guidance - Post procedure CXR without any pneumothorax/hemothorax either side and SLIC in acceptable position - OK to use left IJ central line 45 minutes of Critical Care time was spent- discussing options with patient, consent, ultrasound use and scouting of vessels- this is not including procedure time History of Present Illness Reason for Consultation: Central venous access Attending Physician: Leslie Ahmadi MD History of Present Illness 36 YOF with history of pancreatitis with G-tube secondary to severe alcohol abuse. Patient has history of poor vascular access and previously had PICC line placed in the past with DVT of LUE as well as right SCL tunneled catheter that was removed in April 09 secondary to infection. Critical Care was consulted for evaluation for placement of central venous access in the setting of 2 failed ultrasound guided IVs. Patient is still requiring treatment for alcohol withdraw, experiencing severe nausea and unable to keep medications or fluids down even through G-tube. She is also complicating her withdrawal with seizure prior to this admission. Peripheral access was also attempted with ultrasound guidance prior to placement of central line by myself. I have discussed the case with Dr. Bernard. See attached procedure notes. Allergies Allergy/AdvReac Type Severity Reaction Status Date / Time Pertussis Vaccines Allergy Intermediate Hives Verified 10/02/21 23:41 butorphanol [From Stadol] AdvReac Severe Hallucinati Verified 10/02/21 23:41 ng amlodipine [From Norvasc] AdvReac Intermediate LEGS SWELL Verified 10/02/21 23:41 morphine AdvReac Intermediate HALLUCINATI Verified 10/02/21 23:41 ONS Home Medications Medication Instructions Recorded Confirmed Type acetaminophen 500 mg tablet 500 mg FEEDING TUBE TID 03/21/21 10/02/21 History hydromorphone 2 mg tablet 2 mg FEEDING TUBE Q2H PRN 03/21/21 10/02/21 History [id number] 1 cap QID 03/21/21 10/02/21 History 24,000-76,000-120,000 unit capsule,delayed rel (Creon) tiotropium bromide 2.5 1 inh INHALATION DAILY 12/02/21 06/15/22 History mcg/actuation mist for inhalation (Spiriva Respimat) dextroamphetamine-amphetamine 20 20 mg FEEDING TUBE BID 04/27/21 10/02/21 History mg tablet (Adderall) thiamine HCl (vitamin B1) 100 mg 100 mg PEG QAM #30 tab 04/29/21 10/02/21 Rx tablet albuterol sulfate 90 mcg/actuation 2 puff INHALATION Q4 PRN 10/02/21 10/02/21 History aerosol inhaler (Ventolin HFA) budesonide-formoterol HFA 160 2 puff INHALATION BID 10/02/21 10/02/21 History mcg-4.5 mcg/actuation aerosol inhaler (Symbicort) chlordiazepoxide HCl 25 mg capsule 25 mg FEEDING TUBE DAILY 10/02/21 10/02/21 History clonidine HCl 0.1 mg tablet 0.1 mg FEEDING TUBE TID 10/02/21 10/02/21 History diltiazem HCl 120 mg 120 mg QAM 10/02/21 10/02/21 History capsule,extended release 24 hr folic acid 1 mg tablet 1 mg FEEDING TUBE DAILY 10/02/21 10/02/21 History gabapentin 300 mg capsule 300 mg FEEDING TUBE TID 10/02/21 10/02/21 History montelukast 10 mg tablet 10 mg FEEDING TUBE DAILY 10/02/21 10/02/21 History nortriptyline 25 mg capsule 50 mg FEEDING TUBE HS 10/02/21 10/02/21 History ondansetron HCl 4 mg tablet 4 mg FEEDING TUBE Q6 PRN 10/02/21 10/02/21 History pantoprazole 40 mg tablet,delayed 40 mg Q12 10/02/21 10/02/21 History release potassium bicarbonate-citric acid 40 meq DAILY 10/02/21 10/02/21 History 20 mEq effervescent tablet (Effer-K) prochlorperazine maleate 5 mg 5 mg FEEDING TUBE Q12H PRN 10/02/21 10/02/21 History tablet (Compazine) promethazine 12.5 mg tablet 12.5 mg FEEDING TUBE Q6 PRN 10/02/21 10/02/21 History Patient History Medical History Alcohol use disorder, moderate, dependence Alcohol withdrawal Alcoholic hepatitis Asthma Chronic alcoholic liver disease Chronic back pain Gastrostomy tube in place No pertinent family history Sepsis Smoker Suicidal ideation Surgical History H/O shoulder surgery H/O wrist surgery Social History Smoking Status: Current some day smoker Tobacco Type: Cigarettes Cigarettes Per Day: did not respond when asked; Second Hand Exposure: Yes; Hx Alcohol Use: Yes Alcohol type: beer Hx Substance Use: Yes Last Used Substance: Unknown Preferred Language: Swedish Communication Ability: Effective Visual Impairment: No Limitations Laboratory Equipment Installer Required: No Beliefs That Will Affect Care: None marital status: Single Current Living Situation: Family Current Living Situation Comment: Currently lives with Father and 2 children. Children's Father is involved Feels Safe at Home: Yes Assistive Devices: Special Shoe Review of Systems Review of Systems: REVIEW OF SYSTEMS: Constitutional: No fever, sweats or chills Eyes: No diplopia, no worsening or blurred vision ENT: normal hearing, no trouble swallowing Respiratory: No cough, sputum, dyspnea at rest or on exertion Cardiovascular: No chest pain, tightness or palpitations Abdomen: (+) pain, nausea, vomiting, diarrhea or constipation Musculoskeletal: No joint pain, calf pain, swelling Neurologic: No weakness, numbness/tingling, or balance problems Psychiatric: (+) anxiety Skin: No rash or itch Physical Exam Physical Exam: PHYSICAL EXAM: General: awake, alert, calm and in no apparent distress Head: Normocephalic, atraumatic ENT: PERRLA, EOMI, no pharyngeal exudate, mucous membranes moist Neuro: AAO x 3, speech clear and appropriate, strength intact bilaterally 5/5, sensation intact and equal all extremities and dermatones, no pronator drift POCUS- evaluation or righ IJ and left IJ with adequate target- respiratory variance noted and remains hypovolemic by POCUS. Results & Data Results & Data ([facility]) Vital Signs (Past 12 Hours) Vital Signs Temp Pulse Pulse Resp BP BP Pulse Ox 10/03/21 16:04 36.7 C 107 H 20 130/95 96 10/03/21 10:59 36.7 C 103 H 22 155/119 H 99 06/16/22 09:00 36.8 C 125 H 22 150/113 H 100 10/03/21 07:01 104 H 10/03/21 06:34 36.8 C 102 H 20 137/93 96 Laboratory Results Abnormal lab results 10/02/21 10/02/21 10/02/21 Range/Units 18:55 18:55 20:07 RBC (4.2-5.4) M/uL Hgb (12.0-16.0) g/dL Hct (37-47) % RDW Std Deviation (36.4-46.3) fL RDW Coeff of Paulina (11.5-14.5) % PT 12.6 H (9.0-12.0) Seconds INR 1.2 H (0.9-1.1) VBG pH (7.36-7.41) Potassium 3.0 L (3.5-5.1) mmol/L Chloride 95 L (98-107) mmol/L Anion Gap 15 H (3-11) BUN 4 L (6-23) mg/dl Creatinine 0.55 L (0.6-1.2) mg/dl BUN/Creatinine Ratio 7.3 L (10-20) Glucose 144 H (70-99(Fasting)) mg/dl Calcium (8.5-10.1) mg/dl Phosphorus (2.5-4.9) mg/dl AST 171 H (13-39) U/L ALT 81 H (7-52) U/L Alkaline Phosphatase 598 H (34-104) U/L Lipase 88 H (11-82) U/L Urine pH (4.5-7.5) Urine Barbiturates (Neg) U Benzodiazepines Scrn (Neg) U Marijuana (THC) Screen (Neg) Ethyl Alcohol mg/dL 404.0 H (<10.0) mg/dl 10/02/21 10/02/21 10/03/21 Range/Units 20:07 21:09 02:04 RBC 4.15 L (4.2-5.4) M/uL Hgb 11.9 L (12.0-16.0) g/dL Hct 35.2 L (37-47) % RDW Std Deviation 55.3 H (36.4-46.3) fL RDW Coeff of Paulina 17.9 H (11.5-14.5) % PT (9.0-12.0) Seconds INR (0.9-1.1) VBG pH (7.36-7.41) Potassium (3.5-5.1) mmol/L Chloride (98-107) mmol/L Anion Gap (3-11) BUN (6-23) mg/dl Creatinine (0.6-1.2) mg/dl BUN/Creatinine Ratio (10-20) Glucose (70-99(Fasting)) mg/dl Calcium (8.5-10.1) mg/dl Phosphorus 2.4 L (2.5-4.9) mg/dl AST (13-39) U/L ALT (7-52) U/L Alkaline Phosphatase (34-104) U/L Lipase (11-82) U/L Urine pH 8.5 H (4.5-7.5) Urine Barbiturates (Neg) U Benzodiazepines Scrn (Neg) U Marijuana (THC) Screen (Neg) Ethyl Alcohol mg/dL (<10.0) mg/dl 10/03/21 10/03/21 10/03/21 Range/Units 02:04 03:27 03:42 RBC 3.76 L (4.2-5.4) M/uL Hgb 10.8 L (12.0-16.0) g/dL Hct 32.0 L (37-47) % RDW Std Deviation 55.3 H (36.4-46.3) fL RDW Coeff of Paulina 18.0 H (11.5-14.5) % PT (9.0-12.0) Seconds INR (0.9-1.1) VBG pH 7.45 H (7.36-7.41) Potassium 3.2 L (3.5-5.1) mmol/L Chloride (98-107) mmol/L Anion Gap (3-11) BUN 4 L (6-23) mg/dl Creatinine 0.49 L (0.6-1.2) mg/dl BUN/Creatinine Ratio 8.2 L (10-20) Glucose 105 H (70-99(Fasting)) mg/dl Calcium 8.1 L (8.5-10.1) mg/dl Phosphorus (2.5-4.9) mg/dl AST 101 H (13-39) U/L ALT 61 H (7-52) U/L Alkaline Phosphatase 469 H (34-104) U/L Lipase (11-82) U/L Urine pH (4.5-7.5) Urine Barbiturates (Neg) U Benzodiazepines Scrn (Neg) U Marijuana (THC) Screen (Neg) Ethyl Alcohol mg/dL (<10.0) mg/dl 10/03/21 Range/Units 12:33 RBC (4.2-5.4) M/uL Hgb (12.0-16.0) g/dL Hct (37-47) % RDW Std Deviation (36.4-46.3) fL RDW Coeff of Paulina (11.5-14.5) % PT (9.0-12.0) Seconds INR (0.9-1.1) VBG pH (7.36-7.41) Potassium (3.5-5.1) mmol/L Chloride (98-107) mmol/L Anion Gap (3-11) BUN (6-23) mg/dl Creatinine (0.6-1.2) mg/dl BUN/Creatinine Ratio (10-20) Glucose (70-99(Fasting)) mg/dl Calcium (8.5-10.1) mg/dl Phosphorus (2.5-4.9) mg/dl AST (13-39) U/L ALT (7-52) U/L Alkaline Phosphatase (34-104) U/L Lipase (11-82) U/L Urine pH (4.5-7.5) Urine Barbiturates Pos H (Neg) U Benzodiazepines Scrn Pos H (Neg) U Marijuana (THC) Screen Pos H (Neg) Ethyl Alcohol mg/dL (<10.0) mg/dl Medications Administered local infiltration with lidocaine Coding Level of Care Code Critical Care 1st 30-74 mins Diagnoses Encounter for central line placement Z45.2
--- NOTE | 2021-10-03 16:54 | XRay Report ---
XR chest 1V portable CLINICAL HISTORY: s/p left IJ central line placement TECHNIQUE: Single frontal radiograph of the chest was obtained. Comparison: Comparison is made to chest and abdomen radiographs 03/31/2021 FINDINGS: A left internal jugular catheter appears to terminate at the junction of the brachiocephalic vein and the IVC. Partial visualization of an abdominal catheter, unchanged from prior exam. The cardiomedias tinal silhouette is normal. The lungs are clear. No evidence of pleural effusion or pneumothorax. IMPRESSION: Internal jugular catheter terminates at the junction of the brachiocephalic vein and the IVC. ACT 112: Negative or not required by law. Electronically signed by: Oscar Edmonds M.D. 10/03/2021 4:52 PM
[2021-10-03] MEDS: chlordiazePOXIDE HCl 25 MG CAP PO SCH ×3 (17:22→23:26)
[2021-10-03] MEDS: cloNIDine HCL 0.1 MG TAB PO SCH ×2 (17:22→17:58)
--- NOTE | 2021-10-03 17:46 | Procedure Note ---
Procedure Note Date of Service October 03, 2021 Note INTERNAL JUGULAR CENTRAL LINE PROCEDURE NOTE: Procedure: ultrasound guided Internal Jugular Central Line Placement- failed procedure attempt Attending: Dr. Bernard APC: Conrado ALVAREZ ([facility]) Indication: unable to obtain peripheral access, PICC evaluation unable to place, need for IV hydration and IV medications Anesthesia: [x]Lidocaine 1% [ x]Consent was obtained as delegated to me by Dr. Jaquez- this was signed and placed on the chart prior to procedure. Indication, risks, and benefits were explained at length. A time-out was completed verifying correct patient, procedure, site, positioning, Patients right Neck was cleansed and draped in the typical sterile fashion using Chloraprep. The Internal Jugular Vein and Carotid Artery were identified using ultrasound. Patient was placed with head down to facilitate IJ filling. The superficial tissue was anesthetized using [5] mL of 1% lidocaine without epinephrine under direct visualization with the ultrasound. After adequate anesthetization was achieved, small skin yakov was mad on right ij to facilitate seeker needle passing through skin. the Internal Jugular vein was cannulated under direct ultrasound guidance using an introducer needle on a syringe. Good venous blood return was maintained prior to removal of syringe from introducer needle. Using Seldinger Technique, a guide wire was advanced through the introducer needle, resistance was met with passing the wire. The wire was then removed, syringe was reattached and negative pressure was applied- backing the needle out blood flow was maintained. The guidewire was then attempted to pass again meeting resistance. Wire was remove- syringe applied ultrasound visualized needle in vascular space- wire again was met with resistance. Needle and wire was then removed. Pressure was held with d evelopment of small hematoma. Procedure was aborted. Dr. Bernard notified and plan to place smaller guinean single lumen catheter to left IJ. See his procedure note. Patient tolerated procedure well. No immediate complications were met other than failure of line and hematoma. Procedural Ultrasound Guidance: Procedure Date: 10/03/211529 Coding CPT Codes Tubes, Drains, and Vasc Access - Tubes, Drains, and Vasc Access: [id number] Ultrasound Guidance For Vascular ([id number]) [facility] [place] Procedure Codes (Charges) Tubes, Drains, and Vasc Access Procedure 1: Tubes, Drains, and Vasc Access: [id number] Ultrasound Guidance For Vascular (procedure aborted)
[2021-10-03] MEDS: LORazepam 3 MG in SYRINGE 1.5 ML IV PRN (17:58)
[2021-10-03] MEDS: MONTELUKAST SODIUM 10 MG TABLET PO SCH (21:26)
[2021-10-04] MEDS: LORazepam 2 MG in SYRINGE 1 ML IV PRN ×5 (00:54→14:10)
[2021-10-04] MEDS ORDERED: HYDROmorphone INJ 0.5 MG/0.5 ML SYR IV STA (01:03)
[2021-10-04] MEDS: LORazepam 3 MG in SYRINGE 1.5 ML IV PRN ×3 (02:29→15:10)
[2021-10-04 04:42] LABS: HBSAG NON-REACTIVE (NON-REACTIVE); Hepatitis A Antibody IgM NON-REACTIVE (NON-REACTIVE); Hepatitis B Core Antibody IgM NON-REACTIVE (NON-REACTIVE)
[2021-10-04] MEDS: chlordiazePOXIDE HCl 25 MG CAP PO SCH ×2 (05:13→09:35)
[2021-10-04] MEDS: LACTATED RINGER'S 1,000 ML IV SCH ×2 (05:50→15:10)
[2021-10-04] MEDS ORDERED: IBUPROFEN 600 MG TAB PO STA (05:55)
--- NOTE | 2021-10-04 06:40 | CT Scan Report ---
CT OF THE HEAD WITHOUT CONTRAST CLINICAL HISTORY: Seizure. COMPARISON STUDY: Head CT December 24, 2020. CT DOSE: 537.48 mGy.cm TECHNIQUE: Helical axial images of the head were obtained without IV contrast. Automated exposure con trol was utilized for the study. A dose lowering technique was utilized adhering to the principles o f ALARA. FINDINGS: No acute intracranial hemorrhage, midline shift or mass effect is present. The ventricular system is unremarkable. The basal cisterns are patent. No extra-axial collections are present. There are no findings to suggest acute dural sinus thrombosis or acute territorial infarct. No significant calvarial abnormalities are present. Visualized portions of the sinuses and mastoid air cells are nirmal ar. IMPRESSION: No acute intracranial findings. ACT 112: Negative or not required by law. Electronically signed by: Miguel Luciano M.D. 10/04/2021 6:39 AM
[2021-10-04 08:13] LABS: Hematocrit (blood only) 28.6 % (37-47); Hemoglobin 9.4 g/dL (12.0-16.0); Mean Corpuscular Hemoglobin 28.1 pg (25-34); Mean Corpuscular Hgb Conc 32.9 g/dL (32-36); Mean Corpuscular Volume 85.4 fL (80-100); RDW Coefficient of Variation 17.7 % (11.5-14.5); RDW Standard Deviation 55.2 fL (36.4-46.3); Red Blood Count 3.35 M/uL (4.2-5.4); White Blood Count 6.08 K/uL (4.8-10.8)
[2021-10-04] MEDS ORDERED: ACETAMINOPHEN 1,000 MG/100 ML VIAL IV PRN (08:16)
[2021-10-04 08:33] LABS: Basophils # (auto) 0.01 K/uL (0-0.2); Basophils % (auto) 0.2 %; Eosinophils % (auto) 3.3 %; Immature Granulocytes # (auto) 0.01 K/uL (0.00-0.02); Immature Granulocytes % (auto) 0.2 %; Lymphocytes # (auto) 2.26 K/uL (1.2-3.4); Lymphocytes % (auto) 37.2 %; Mean Platelet Volume 9.1 fL (7.4-10.4); Monocytes # (auto) 0.37 K/uL (0.11-0.59); Monocytes % (auto) 6.1 %; Neutrophils # (auto) 3.23 K/uL (1.4-6.5); Platelet Count 91 K/uL (130-400); Platelet Estimate Decreased (Normal)
[2021-10-04 09:22] LABS: Albumin Globulin Ratio 1.1 (0.9-2); Albumin Level 3.3 gm/dl (3.4-5.0); BUN Creatinine Ratio 7.8 (10-20); Bilirubin,Total 1.3 mg/dl (0.2-1.0); Calcium 8.7 mg/dl (8.5-10.1); Est GFR (African American) 144.4 ml/min; Est GFR (Non-African American) 124.6 ml/min; Globulin 3.1 gm/dl (2.5-4.0); Magnesium 1.5 mg/dl (1.7-2.4); Potassium 3.2 mmol/L (3.5-5.1); Total Protein 6.4 gm/dl (6.0-8.3)
[2021-10-04] MEDS: LORazepam 1 MG in SYRINGE 0.5 ML IV PRN ×3 (09:35→19:18)
[2021-10-04] MEDS: FOLIC ACID 1 MG in SYRINGE 9.8 ML IV SCH (09:36)
[2021-10-04] MEDS: THIAMINE HCL 100 MG in SYRINGE 9 ML IV SCH (09:36)
[2021-10-04] MEDS: PANCREAZE (LIPASE 10,500U) CAP PO SCH ×4 (09:37→19:19)
[2021-10-04] MEDS: cloNIDine HCL 0.1 MG TAB PO SCH ×2 (09:37→19:19)
[2021-10-04] MEDS: GABAPENTIN 300 MG CAP PO SCH ×3 (09:37→19:19)
[2021-10-04] MEDS: PANTOprazole 40 MG TAB PO SCH (09:38)
[2021-10-04] MEDS: dilTIAZem HCL 120 MG CAPCR PO SCH (09:38)
[2021-10-04] MEDS: UMECLIDINIUM BROMIDE 62.5MCG/BLISTER 7 PUFFS/INHALER INH SCH (09:39)
[2021-10-04] MEDS: MAGNESIUM SULFATE / D5W 1 GM/100 ML BAG IV SCH ×2 (10:41→12:41)
[2021-10-04] MEDS: POTASSIUM CHLORIDE / WTR 20 MEQ/100 ML PLCT IV SCH ×2 (10:41→12:41)
[2021-10-04] MEDS: ENOXAPARIN INJ 40 MG/0.4 ML SYR SQ SCH (11:55)
--- NOTE | 2021-10-04 12:40 | Hospitalist Progress Note ---
Date of Service October 04, 2021 Assessment & Plan (1) Alcohol use disorder, severe, dependence: Plan: Patient is a 36-year-old female with significant history for alcohol use disorder and withdrawal presenting to the emergency department for concern regarding seizure and intoxication. Severe alcohol use disorder in withdrawal, seizure -Patient presenting to the hospital with concern for seizure, intoxication with an alcohol level 404, and tachycardia suggestive of possible alcohol withdrawal -Patient is a longstanding history of severe alcohol use disorder, so possible to have withdrawal seizure despite her presenting level of alcohol N/V, tremulousness, anxiety, but no delirium all present on admission but now resolved Now with labile emotions and anger, wanting to leave AMA Has a h/o severe withdrawal, has required ICU stays for Precedex in the past along with extremely high doses of Librium, clonidine, gabapentin,and ativan. Frequently leaves AMA but recently completed 2 week inpatient detox stay at [facility] and is now requesting inpatient alcohol rehab program after detox-medical case manager consulted -AWSS protocol in place, IV ativan as needed -increased Librium to 100mg po q8h and plan to taper down after 3 days -Seizure precautions -Vitamin B12, folate, CK, lactate, ammonia, VBG, phosphorus all acceptable -Patient had an anion gap that could be suggestive of acidosis, VBG normal--> now resolved -Patient on gabapentin for chronic back pain, continue this both dual effect for back pain and benefit for alcohol withdrawal -dc IVFs -Continue Cardizem for hypertension with regard to alcohol use disorder -Nausea medication as needed-IV zofran, compazine prn (2) Seizure: Plan: likely from EtOH withdrawal she has been cutting back on EtOH intake despite EtOH level being 404 (not her highest here in the past) nonfocal neuro exam CT head negative seizure precautions Pt does frequently tell the nurses that she just had a seizure, but this seems more like non-epileptic as she has no post-ictal state and they are not witnessed. No need for treatment other than for EtOH withdrawal as above (3) Alcohol intoxication: Plan: as above (4) Alcoholic hepatitis: Plan: LFTs trending downward except TBili slightly up, plts down a bit Maddrey's discriminant function score low at 3.6, good prognosis refrain from EtOH counseled follow LFTs (5) Alcohol withdrawal: Plan: as above (6) Hypokalemia: Plan: replace with KCl IV follow BMP, mag (7) Chronic pancreatitis: Plan: -Continue exogenous lipase, amylase, and protease supplementation once taking po and/or TFs does not need opioids for pain despite her requests Has a suspected h/o opioid use disorder (8) Gastrostomy tube in place: Plan: placed 2/2 chronic pancreatitis -Patient does some oral intake. On last admission patient took Peptamen 1.5 to 10 mL/h NG tube for nutritional intake -We will consult nutrition for Peptamen management when able to tolerate feeding -hold TFs for now change diet to regular at her request (9) Asthma: Plan: no acute issues -Continue Symbicort, Spiriva, montelukast (10) Anemia: Plan: hgb dropped somewhat today likely hemodilutional hgb 9.4, normocytic no bleeding from anywhere B12 level 330, FOlate > 22 TSH 0.2 in 04/2021 -check Fe studies in AM Plan: DVT proph- Lovenox Dispo-continued stay PCU,plan to detox and transfer to inpt rehab if does not leave AMA prior to that Admission and Anticipated Discharge Date Admission Date: October 02, 2021 Subjective Pt reports she wants regular food and not clears. Having some LUQ pain which is chronic for her but was asking the nurse earlier for dilaudid which I declined to give her. She thinks she is still having significant withdrawal symptoms but her vitals have normalized and AWSS scores have improved. I discussed with her about increasing Librium dose to 100mg po tid and she was agreeable to this. She is moving her bowels and making urine. Later in the day, nurse reported that the patient threw her iced tea when she was mad, and also took off her tele monitor and threw it in the sink. SHe was also using foul language to describe me as he physician to the nurse and being generally distasteful. She then around 1900 told the nurse she was leaving AMA. I advised the nurse to not pull out her left central IJ line until we confirmed that she definitely had a ride coming as she often threatens to leave AMA but then changes her mind. Review of Systems Review of Systems: All systems reviewed & are unremarkable except as noted in HPI & below Physical Exam Constitutional: WD/WN, vitals as above Eyes: EOM intact bilaterally; no nystagmus ENMT: external ear and nose normal, oropharynx normal Neck: trachea midline, no thyromegaly Respiratory: normal respiratory effort, lungs clear to auscultation Cardiovascular: RRR, no murmur, no edema Chest (Breasts): Chest: normal inspection of chest Gastrointestinal (Abdomen): normal bowel sounds, soft, nontender, no hepatosplenomegaly Inspection/Auscultation: + abdomen abnormal to inspection (G tube in place) Musculoskeletal: Extremities: extremities normal to inspection; no cyanosis and no clubbing Skin: no rashes, warm and dry Neurologic: moves all extremities and awake; no focal motor deficits Psychiatric: Orientation: alert, oriented x 3, cooperative and + guarded Lymphatic: no lymphedema Results & Data Results & Data ([facility]) Vital Signs (Past 12 Hours) Vital Signs Temp Pulse Pulse Resp BP BP Pulse Ox 10/04/21 10:07 96 H 10/04/21 07:53 36.5 C 97 H 19 116/85 99 10/04/21 05:26 36.6 C 109 H 20 137/100 10/04/21 04:29 36.6 C 106 H 20 122/89 10/04/21 03:05 36.7 C 115 H 19 148/112 H 10/04/21 01:00 36.7 C 132 H 20 174/49 H Laboratory Results 10/04/21 10/04/21 10/04/21 Range/Units 07:49 07:49 00:07 WBC 6.08 (4.8-10.8) K/uL RBC 3.35 L (4.2-5.4) M/uL Hgb 9.4 L (12.0-16.0) g/dL Hct 28.6 L (37-47) % MCV 85.4 (80-100) fL MCH 28.1 (25-34) pg MCHC 32.9 (32-36) g/dL RDW Std Deviation 55.2 H (36.4-46.3) fL RDW Coeff of Paulina 17.7 H (11.5-14.5) % Plt Count 91 L (130-400) K/uL MPV 9.1 (7.4-10.4) fL Immature Gran % (Auto) 0.2 % Neut % (Auto) 53.0 % Lymph % (Auto) 37.2 % [place] % (Auto) 6.1 % Eos % (Auto) 3.3 % Baso % (Auto) 0.2 % Neut # (Auto) 3.23 (1.4-6.5) K/uL Lymph # (Auto) 2.26 (1.2-3.4) K/uL [place] # (Auto) 0.37 (0.11-0.59) K/uL Eos # (Auto) 0.20 (0-0.5) K/uL Baso # (Auto) 0.01 (0-0.2) K/uL Immature Gran # (Auto) 0.01 (0.00-0.02) K/uL Platelet Estimate Decreased L (Normal) Sodium 136 (136-145) mmol/L Potassium 3.2 L (3.5-5.1) mmol/L Chloride 103 (98-107) mmol/L Carbon Dioxide 27 (21-32) mmol/L Anion Gap 6 (3-11) BUN 4 L (6-23) mg/dl Creatinine 0.51 L (0.6-1.2) mg/dl Est Cr Clr Drug Dosing 133.0 ml/min Est GFR ( Amer) 144.4 ml/min Est GFR (Non-Af Amer) 124.6 ml/min BUN/Creatinine Ratio 7.8 L (10-20) Glucose 94 (70-99(Fasting)) mg/dl Calcium 8.7 (8.5-10.1) mg/dl Magnesium 1.5 L (1.7-2.4) mg/dl Total Bilirubin 1.3 H D (0.2-1.0) mg/dl AST 61 H (13-39) U/L ALT 41 (7-52) U/L Alkaline Phosphatase 399 H (34-104) U/L Total Protein 6.4 (6.0-8.3) gm/dl Albumin 3.3 L (3.4-5.0) gm/dl Globulin 3.1 (2.5-4.0) gm/dl Albumin/Globulin Ratio 1.1 (0.9-2) Prolactin 7.38 ng/ml Hepatitis A IgM Ab (NON-REACTIVE) Hep Bs Antigen (NON-REACTIVE) Hep Bs Ag Confirmation Hep B Core IgM Ab (NON-REACTIVE) Hepatitis C Ab (EIA) (NON-REACTIVE) Hep C Ab Signal/Cutoff (<1.00) 10/03/21 Range/Units 02:04 WBC (4.8-10.8) K/uL RBC (4.2-5.4) M/uL Hgb (12.0-16.0) g/dL Hct (37-47) % MCV (80-100) fL MCH (25-34) pg MCHC (32-36) g/dL RDW Std Deviation (36.4-46.3) fL RDW Coeff of Paulina (11.5-14.5) % Plt Count (130-400) K/uL MPV (7.4-10.4) fL Immature Gran % (Auto) % Neut % (Auto) % Lymph % (Auto) % [place] % (Auto) % Eos % (Auto) % Baso % (Auto) % Neut # (Auto) (1.4-6.5) K/uL Lymph # (Auto) (1.2-3.4) K/uL [place] # (Auto) (0.11-0.59) K/uL Eos # (Auto) (0-0.5) K/uL Baso # (Auto) (0-0.2) K/uL Immature Gran # (Auto) (0.00-0.02) K/uL Platelet Estimate (Normal) Sodium (136-145) mmol/L Potassium (3.5-5.1) mmol/L Chloride (98-107) mmol/L Carbon Dioxide (21-32) mmol/L Anion Gap (3-11) BUN (6-23) mg/dl Creatinine (0.6-1.2) mg/dl Est Cr Clr Drug Dosing ml/min Est GFR ( Amer) ml/min Est GFR (Non-Af Amer) ml/min BUN/Creatinine Ratio (10-20) Glucose (70-99(Fasting)) mg/dl Calcium (8.5-10.1) mg/dl Magnesium (1.7-2.4) mg/dl Total Bilirubin (0.2-1.0) mg/dl AST (13-39) U/L ALT (7-52) U/L Alkaline Phosphatase (34-104) U/L Total Protein (6.0-8.3) gm/dl Albumin (3.4-5.0) gm/dl Globulin (2.5-4.0) gm/dl Albumin/Globulin Ratio (0.9-2) Prolactin ng/ml Hepatitis A IgM Ab NON-REACTIVE (NON-REACTIVE) Hep Bs Antigen NON-REACTIVE (NON-REACTIVE) Hep Bs Ag Confirmation TNP Hep B Core IgM Ab NON-REACTIVE (NON-REACTIVE) Hepatitis C Ab (EIA) NON-REACTIVE (NON-REACTIVE) Hep C Ab Signal/Cutoff 0.02 (<1.00) PG Care Time/CCT Total # of Minutes Spent Total Time Spent with Patient: Total time spent is greater than 50% in coordination of care (as documented) at patient's floor/unit and/or counseling patient: Coding Level of Care Code 90301 Subseq Hosp Care Lvl 3 Diagnoses Alcohol use disorder, severe, dependence F10.20 Seizure R56.9 Alcohol intoxication F10.929 Complication of substance-induced condition: with unspecified complication Alcoholic hepatitis K70.10 Alcohol withdrawal F10.239 Complication of substance-induced condition: with unspecified complication Hypokalemia E87.6 Chronic pancreatitis K86.1 Pancreatitis type: unspecified pancreatitis type Gastrostomy tube in place Z93.1 Asthma J45.909 Anemia D64.9 (1) Alcohol withdrawal Complication of substance-induced condition: with unspecified complication Qualified Code(s): F10.239 - Alcohol dependence with withdrawal, unspecified (2) Alcohol intoxication Complication of substance-induced condition: with unspecified complication Qualified Code(s): F10.929 - Alcohol use, unspecified with intoxication, unspecified (3) Chronic pancreatitis Pancreatitis type: unspecified pancreatitis type Qualified Code(s): K86.1 - Other chronic pancreatitis
[2021-10-04] MEDS ORDERED: chlordiazePOXIDE HCl 25 MG CAP PO STA (12:47)
[2021-10-04] MEDS: MONTELUKAST SODIUM 10 MG TABLET PO SCH (19:19)
[2021-10-04] MEDS ORDERED: chlordiazePOXIDE HCl 25 MG CAP PO SCH (20:00)
== END 2021-10-04 21:30 | disposition left against medical advice (07) | DRG 894 ==
LOC: ED 17:56 → 2S 23:31 → SUATTDRO 23:31 → 2S 10-03 00:23